=== PATIENT | female | born 1970 | race Caucasian/White ===

== ENCOUNTER 2020-07-01 20:58 | Emergency (ER) | payer MEDICARE, MEDICAID ==
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
[2020-07-01] MEDS ORDERED: Apixaban 5 MG Tab PO ONE (21:43)
[2020-07-01] MEDS ORDERED: Sodium Chloride 0.9% 1,000 ML IV SCH (21:45)
[2020-07-01] MEDS ORDERED: Lisinopril 10 MG Tab PO ONE (21:49)
[2020-07-01] MEDS ORDERED: Insulin Glarg,Human.Rec.Analog 100 Unit/ML SUBCUT ONE (22:10)
[2020-07-01] MEDS ORDERED: Insulin Regular, Human 100 Units/ML 3 ML Vial SUBCUT ONE (22:11)
[2020-07-01] MEDS ORDERED: Pantoprazole 40 MG Tab.CR PO ONE (22:18)
--- NOTE | 2020-07-01 22:23 | CR ---
Left tibia and fibula: AP and lateral views left tibia and fibula were obtained. Comparison: No previous study. Large plantar spur is noted. Severe medial joint space narrowing is noted within the knee. Osteophytes noted off the medial and lateral joint compartments of the knee. No acute fracture or other abnormality is appreciated. Impression: 1. Findings as noted above. 2. Nothing acute is seen on 2 view left tibia and fibula exam. Diagnostic code #2 Study was dictated in [facility]T
[2020-07-01] MEDS ORDERED: ALPRAZolam 1 MG Tab PO ONE (23:07)
[2020-07-02 00:02] LABS: HEMOGLOBIN A1C 8.1 % (4.50-6.20)
== END 2020-07-01 23:45 | disposition home or self-care (01) ==
LOC: JD.ED 20:58
DX: E11.65 Type 2 diabetes mellitus with hyperglycemia (principal); J45.909 Unspecified asthma, uncomplicated; F41.9 Anxiety disorder, unspecified; F32.9 Major depressive disorder, single episode, unspecified; E66.9 Obesity, unspecified; Z68.43 Body mass index [BMI] 50.0-59.9, adult; Z86.718 Personal history of other venous thrombosis and embolism; Z86.711 Personal history of pulmonary embolism; Z79.01 Long term (current) use of anticoagulants; Z79.899 Other long term (current) drug therapy; Z79.4 Long term (current) use of insulin; Z87.891 Personal history of nicotine dependence
CPT/HCPCS: 36415; 73590; 80053; 82009; 82962; 83036; 83735; 85025; 86140; 93005; 96360; 99284; A9270; J1815; J7030; 93010

== ENCOUNTER 2020-07-19 10:25 | Emergency (ER) | payer MEDICARE, MEDICAID ==
[2020-07-19] MEDS ORDERED: Sodium Chloride 0.9% 10 ML Syringe FLUSH PRN (11:06)
[2020-07-19] MEDS ORDERED: Sodium Chloride 0.9% 1,000 ML IV SCH (11:15)
--- NOTE | 2020-07-19 11:35 | EDM.PDOC ---
ED HPI GENERAL MEDICAL PROBLEM - General Chief Complaint: General Stated Complaint: DIABETIC COMPLAINT/ DIZZY Time Seen by Provider: 07/19/20 11:06 Source of Information: Reports: Patient, RN Notes Reviewed History Limitations: Reports: No Limitations - History of Present Illness INITIAL COMMENTS - FREE TEXT/NARRATIVE: Patient is a 49-year-old female who presents to the ED for the evaluation of her dizziness. Patient notes that she does have diabetes, and she felt like her blood sugar was low this morning, but she did end up taking it and it was 317 at home. She took her short acting and long-acting insulin, states 20 units, and then did not eat right afterwards. Her blood sugar in the ER is 332 at time of triage. She notes that she was dizzy about an hour before her clinic appointment today, she just did not feel quite well. So she comes to the ER for management. Primary care provider is Dillon Maynard, and she had labs taken last week. A1c is at 8.7. All other labs were fairly unremarkable. She notes that the dizziness was more of a world spinning dizziness, did not seem to be bothered by position changes. She states it was almost bad enough that she about fell down. She had some nausea and one episode of vomiting, but no intractable vomiting or diarrhea. She has not had any fevers or chills or any cough or shortness of breath. She also has a soft tissue complaint of her right heel/achilles tendon area. There is a lump on her right heel, that is roughly golf ball size, this is slightly tender to touch, but not red not warm to the touch, she states it does hurt to walk with this at this time. This lump has been present since 2016, and is getting more painful to walk; this is the reason for her concern. - Related Data Allergies Allergy/AdvReac Type Severity Reaction Status Date / Time amoxicillin Allergy Severe Rash Verified 07/19/20 10:44 erythromycin base Allergy Severe Rash Verified 07/19/20 10:44 diazepam [From Valium] AdvReac Severe Anxiety Verified 07/19/20 10:44 Home Meds: Home Meds ALPRAZolam [Xanax] 0.5 mg PO DAILY PRN 07/01/20 [History] ALPRAZolam [Xanax] 0.5 mg PO Q12H PRN #24 tablet 07/01/20 [Rx] Escitalopram Oxalate [Lexapro] 20 mg PO DAILY 07/01/20 [History] Escitalopram Oxalate [Lexapro] 20 mg PO DAILY #30 tablet 07/01/20 [Rx] Insulin Glarg,Human.Rec.Analog [Lantus Solostar] 20 units SQ BEDTIME #1 pen 07/01/20 [Rx] Insulin Regular, Human [Humulin R U-500 Kwikpen] 500 unit SQ TID PRN #1 insuln.pen 07/01/20 [Rx] atorvaSTATin Calcium [Lipitor] 10 mg PO DAILY #30 tablet 07/01/20 [Rx] atorvaSTATin [Lipitor] 10 mg PO BEDTIME 07/01/20 [History] lisinopriL [Lisinopril] 10 mg PO DAILY 07/01/20 [History] lisinopriL [Lisinopril] 10 mg PO DAILY #30 tablet 07/01/20 [Rx] Apixaban [Eliquis] 5 mg PO DAILY #30 tablet 07/02/20 [Rx] cephALEXin [Cephalexin] 500 mg PO QID 7 Days #28 capsule 07/19/20 [Rx] Past Medical History HEENT History: Reports: Impaired Vision Cardiovascular History: Reports: Blood Clots/VTE/DVT, Hypertension Respiratory History: Reports: Asthma, PE Gastrointestinal History: Reports: GERD, Irritable Bowel Syndrome Genitourinary History: Reports: UTI, Recurrent Musculoskeletal History: Reports: Fracture Neurological History: Reports: Headaches, Chronic Psychiatric History: Reports: Anxiety, Depression Endocrine/Metabolic History: Reports: Diabetes, Type II, Obesity/BMI 30+ Hematologic History: Reports: Other (See Below) Other Hematologic History: Pt states that she has a clotting disorder. - Past Surgical History HEENT Surgical History: Reports: Adenoidectomy, Tonsillectomy GI Surgical History: Reports: Cholecystectomy Female Surgical History: Reports: Breast Biopsy, Hysterectomy, Tubal Ligation Other Female Surgeries/Procedures: left breast biopsy Social & Family History - Tobacco Use Smoking Status *Q: Never Smoker - Caffeine Use Caffeine Use: Reports: Soda - Recreational Drug Use Recreational Drug Use: No - Living Situation & Occupation Living situation: Reports: with Significant Other Occupation: Unemployed ED ROS GENERAL - Review of Systems Review Of Systems: Comprehensive ROS is negative, except as noted in HPI. ED EXAM, GENERAL - Physical Exam Exam: See Below Exam Limited By: No Limitations General Appearance: Alert, WD/WN, No Apparent Distress, Anxious Throat/Mouth: Normal Inspection, Normal Lips, Normal Teeth, Normal Gums, Normal Oropharynx, Normal Voice, No Airway Compromise Head: Atraumatic, Normocephalic Neck: Normal Inspection Respiratory/Chest: No Respiratory Distress, Lungs Clear, Normal Breath Sounds, No Accessory Muscle Use, Chest Non-Tender Cardiovascular: Normal Peripheral Pulses, Regular Rate, Rhythm, No Murmur GI/Abdominal: Normal Bowel Sounds, Soft, Non-Tender, No Distention, No Mass Extremities: Normal Range of Motion, Non-Tender, Normal Capillary Refill, Other (roughly golf ball size lump on the patient's right heel/achilles area, this is only slightly tender, firm, non-mobile, hurts more with ambulation, ) Neurological: Alert, Oriented, CN II-XII Intact, Normal Cognition, No Motor/Sensory Deficits Psychiatric: Normal Affect, Normal Mood Skin Exam: Warm, Dry, Intact, Normal Color, No Rash EKG INTERPRETATION EKG Date: 07/19/20 Time: 13:25 Rhythm: NSR (sinus tach) Rate (Beats/Min): 119 [place]: Normal P-Wave: Present QRS: Normal ST-T: Normal QT: Prolonged (QTC at 527) EKG Interpretation Comments: No obvious ischemia or acute ST changes noted, reviewed by myself and Dr. Magaña. Course - Vital Signs Last Recorded V/S: Last Vital Signs Temp 96.4 F L 07/19/20 11:45 Pulse 123 H 07/19/20 14:00 Resp 32 H 07/19/20 14:00 BP 155/70 H 07/19/20 14:00 Pulse Ox 95 07/19/20 14:00 - Orders/Labs/Meds Orders: Active Orders 24 hr Category Date Time Status Blood Glucose Check, Bedside [] ONETIME Care 07/19/20 12:26 Ordered Blood Glucose Check, Bedside [] ONETIME Care 07/19/20 13:24 Ordered Blood Glucose Check, Bedside [] STAT Care 07/19/20 11:06 Active Communication Order [RC] STAT Care 07/19/20 11:06 Active EKG Documentation Completion [] STAT Care 07/19/20 12:25 Ordered Oxygen Therapy, ED [] ASDIRECTED Care 07/19/20 12:45 Active Peripheral IV Care [RC] . DIRECTED Care 07/19/20 11:07 Active Foot 2V Rt [CR] Stat Exams 07/19/20 11:17 Taken UA W/MICROSCOPIC [URIN] Stat Lab 07/19/20 11:06 Stop Req Sodium Chloride 0.9% [Normal Saline] 1,000 ml Med 07/19/20 11:15 Active IV ASDIRECTED Sodium Chloride 0.9% [Saline Flush] Med 07/19/20 11:06 Active 10 ml FLUSH ASDIRECTED PRN Peripheral IV Insertion Adult [OM.PC] Stat Oth 07/19/20 11:06 Ordered Medication Orders Sodium Chloride (Normal Saline) 1,000 mls @ 999 mls/hr IV ASDIRECTED SANDRA Last Admin: 07/19/20 11:18 Dose: 999 mls/hr Documented by: WANDA Sodium Chloride (Saline Flush) 10 ml FLUSH ASDIRECTED PRN PRN Reason: Keep Vein Open Last Admin: 07/19/20 11:18 Dose: 10 ml Documented by: WANDA Labs: Laboratory Tests 07/19/20 07/19/20 07/19/20 Range/Units 10:35 10:55 10:55 WBC 11.24 H (3.98-10.04) K/mm3 RBC 5.15 (3.98-5.22) M/mm3 Hgb 14.9 (11.2-15.7) gm/dl Hct 45.1 H (34.1-44.9) % MCV 87.6 (79.4-94.8) fl MCH 28.9 (25.6-32.2) pg MCHC 33.0 (32.2-35.5) g/dl RDW Std Deviation 43.0 (36.4-46.3) fL Plt Count 231 (182-369) K/mm3 MPV 11.3 (9.4-12.3) fl Neut % (Auto) 92.1 H (34.0-71.1) % Lymph % (Auto) 2.7 L (19.3-51.7) % Heard % (Auto) 4.7 (4.7-12.5) % Eos % (Auto) 0.1 L (0.7-5.8) Baso % (Auto) 0.2 (0.1-1.2) % Neut # (Auto) 10.36 H (1.56-6.13) K/mm3 Lymph # (Auto) 0.30 L (1.18-3.74) K/mm3 Heard # (Auto) 0.53 H (0.24-0.36) K/mm3 Eos # (Auto) 0.01 L (0.04-0.36) K/mm3 Baso # (Auto) 0.02 (0.01-0.08) K/mm3 Manual Slide Review Abnormal smear VBG pH (7.30-7.40) Sodium 135 L (136-145) mEq/L Potassium 2.8 L (3.5-5.1) mEq/L Chloride 96 L (98-107) mEq/L Carbon Dioxide 26 (21-32) mEq/L Anion Gap 15.8 H (5-15) BUN 6 L (7-18) mg/dL Creatinine 0.9 (0.55-1.02) mg/dL Est Cr Clr Drug Dosing 68.79 mL/min Estimated GFR (MDRD) > 60 (>60) mL/min BUN/Creatinine Ratio 6.7 L (14-18) Glucose 322 H (74-106) mg/dL POC Glucose 332 H (70-105) mg/dL Calcium 9.1 (8.5-10.1) mg/dL Phosphorus 1.2 L (2.6-4.7) mg/dL Magnesium 1.1 L (1.8-2.4) mg/dl Total Bilirubin 1.0 (0.2-1.0) mg/dL AST 22 (15-37) U/L ALT 23 (14-59) U/L Alkaline Phosphatase 104 (46-116) U/L Total Protein 7.4 (6.4-8.2) g/dl Albumin 3.1 L (3.4-5.0) g/dl Globulin 4.3 gm/dL Albumin/Globulin Ratio 0.7 L (1-2) Ketones (0.0-0.3) mM 07/19/20 07/19/20 Range/Units 10:55 11:20 WBC (3.98-10.04) K/mm3 RBC (3.98-5.22) M/mm3 Hgb (11.2-15.7) gm/dl Hct (34.1-44.9) % MCV (79.4-94.8) fl MCH (25.6-32.2) pg MCHC (32.2-35.5) g/dl RDW Std Deviation (36.4-46.3) fL Plt Count (182-369) K/mm3 MPV (9.4-12.3) fl Neut % (Auto) (34.0-71.1) % Lymph % (Auto) (19.3-51.7) % Heard % (Auto) (4.7-12.5) % Eos % (Auto) (0.7-5.8) Baso % (Auto) (0.1-1.2) % Neut # (Auto) (1.56-6.13) K/mm3 Lymph # (Auto) (1.18-3.74) K/mm3 Heard # (Auto) (0.24-0.36) K/mm3 Eos # (Auto) (0.04-0.36) K/mm3 Baso # (Auto) (0.01-0.08) K/mm3 Manual Slide Review VBG pH 7.45 H (7.30-7.40) Sodium (136-145) mEq/L Potassium (3.5-5.1) mEq/L Chloride (98-107) mEq/L Carbon Dioxide (21-32) mEq/L Anion Gap (5-15) BUN (7-18) mg/dL Creatinine (0.55-1.02) mg/dL Est Cr Clr Drug Dosing mL/min Estimated GFR (MDRD) (>60) mL/min BUN/Creatinine Ratio (14-18) Glucose (74-106) mg/dL POC Glucose (70-105) mg/dL Calcium (8.5-10.1) mg/dL Phosphorus (2.6-4.7) mg/dL Magnesium (1.8-2.4) mg/dl Total Bilirubin (0.2-1.0) mg/dL AST (15-37) U/L ALT (14-59) U/L Alkaline Phosphatase (46-116) U/L Total Protein (6.4-8.2) g/dl Albumin (3.4-5.0) g/dl Globulin gm/dL Albumin/Globulin Ratio (1-2) Ketones 0.10 (0.0-0.3) mM Meds: Medications Generic Name Dose Route Start Last Admin Trade Name Marco PRN Reason Stop Dose Admin Sodium Chloride 1,000 mls @ 999 mls/hr 07/19/20 11:15 07/19/20 11:18 Normal Saline IV 999 mls/hr ASDIRECTED SANDRA Administration Sodium Chloride 10 ml 07/19/20 11:06 07/19/20 11:18 Saline Flush FLUSH 10 ml ASDIRECTED PRN Administration Keep Vein Open Discontinued Medications Generic Name Dose Route Start Last Admin Trade Name Marco PRN Reason Stop Dose Admin Magnesium Sulfate 2 gm/ Premix 50 mls @ 25 mls/hr 07/19/20 12:06 07/19/20 12:24 IV 07/19/20 14:05 25 mls/hr ONETIME ONE Administration Sodium Chloride 1,000 mls @ 999 mls/hr 07/19/20 12:26 07/19/20 12:30 Normal Saline IV 07/19/20 13:26 999 mls/hr ONETIME ONE Administration Lorazepam 1 mg 07/19/20 12:09 07/19/20 12:18 Ativan IVPUSH 07/19/20 12:10 1 mg ONETIME ONE Administration Metoclopramide HCl 10 mg 07/19/20 11:51 07/19/20 11:56 Reglan IVPUSH 07/19/20 11:52 10 mg ONETIME ONE Administration Potassium Chloride 40 meq 07/19/20 12:06 07/19/20 12:19 Klor-Con M20 PO 07/19/20 12:07 40 meq ONETIME ONE Administration - Re-Assessments/Exams Free Text/Narrative Re-Assessment/Exam: 07/19/20 11:43 Patient presents to the ED for evaluation of her multiple complaints. Have ordered IV with some IV fluids to bring down the blood sugar initially, baseline labs, and a foot x-ray to try to evaluate the area on her heel. She will likely have to follow with Dillon Maynard for any sort of further management as this does not seem to be a life-threatening illness. We will get blood sugar after the initial bolus of fluids have been given. 07/19/20 12:13 The patient's foot x-ray did demonstrate no evidence of acute fracture, there were well-corticated avulsion fractures from the posterior aspect of the calcaneus, this may playing her heel issue. Patient's potassium was mildly low at 2.8, her magnesium was also low at 1.1, blood sugar still in the 300s on the metabolic panel taken at the time of triage, the patient's white cell count is mildly elevated 11,000, with 90% neutrophils, no bands seen on auto differential. Review of her old labs do demonstrate the possibility of an ongoing UTI, patient did report that she was feeling a little bit nauseous again, so she did receive 10 mg Reglan, along with 1 mg Ativan for her anxiety. 07/19/20 12:40 Patient's repeat blood sugar was 236, an appropriate size blood pressure cuff was a placed on the patient's arm, and a repeat blood pressure was in the 170s. Nursing staff were given to be concerned as it was in the 200s systolically but she had the wrong size cuff on her arm. I do believe that the systolic reading of the 170 is is more accurate at this time. 07/19/20 14:06 The patient was reassessed at bedside, after a bag and a half of fluids, her blood sugar is still in the 270s. Patient notes she is feeling better, and after the magnesium she would like to go home and take her insulin on a sliding scale, this is okay with me. Patient was laying flat, and I was able to assess her skin more thoroughly, does appear that she has a cellulitis in her left groin area, as well as a midline fungal infection in his skin fold on her abdomen. I did explain to her she should put some athlete's foot cream on the skin fold in the midline, should be given a prescription for antibiotics for the suspected cellulitis. Departure - Departure Time of Disposition: 14:09 Disposition: Home, Self-Care 01 Condition: Good Clinical Impression: Hypomagnesemia, Elevated blood sugar level, Hypokalemia, Cellulitis of groin, left, Skin yeast infection - Discharge Information *PRESCRIPTION DRUG MONITORING PROGRAM REVIEWED*: No *COPY OF PRESCRIPTION DRUG MONITORING REPORT IN PATIENT SHERIE: No Instructions: Cellulitis, Adult, [id number], Skin Yeast Infection Referrals: Bryce Maynard RN OFFICE [Primary Care Provider] - Forms: ED Department Discharge Additional Instructions: You were evaluated in the ER today regarding a few different complaints.. It does appear that you have a cellulitis in your left groin. Your skin was marked around the borders of the redness, if this redness should extend 2 finger widths past this initial marybeth, recommend you seek care for re-evaluation. You were given an antibiotic, cephalexin 500 mg 4 times daily x7 days. Please take as prescribed until the course is done or told otherwise by different provider. Please note that this antibiotic will take at least 48 hours to start working appropriately. You also have a suspected fungal infection of the skin or a yeast infection of the skin fold on your midline abdomen, please obtain some [id number] antifungal medication like Lotrimin or another similar athlete's foot cream, and apply this to that area daily. Please try to keep that area clean and dry, you may use antifungal body powders as well to help further remedy this infection. Your labs also demonstrated a low potassium level and a low magnesium level, both of which you were given supplementation for in the ER. You should have these labs rechecked sometime within the next week or so by your primary care provider to make sure that everything is getting back to normal as expected. Your blood sugar at time of discharge was still 237, I recommend you go home, take your insulin on a sliding scale as prescribed by your regular provider. You were given IV fluids, to help counteract the elevated blood sugar level you had in the ER. No insulin or meds for your blood sugar were given at today's visit. Your hemoglobin A1c taken on July 15, was 8.7. Please follow-up with your primary care provider, Dillon Maynard, sometime within the next week for an ER follow-up. Please return to the ER at any time if your symptoms change or worsen. Sepsis Event Note (ED) - Evaluation Sepsis Screening Result: Possible Sepsis Risk - Focused Exam Vital Signs: Vital Signs Temp Pulse Resp BP Pulse Ox 07/19/20 14:00 123 H 32 H 155/70 H 95 07/19/20 11:45 96.4 F L 124 H 32 H 168/99 H 94 L 07/19/20 10:39 95.5 F L 128 H 36 H 149/85 H 92 L - My Orders Last 24 Hours: My Active Orders 07/19/20 11:06 Blood Glucose Check, Bedside [RC] STAT Communication Order [RC] STAT UA W/MICROSCOPIC [URIN] Stat Sodium Chloride 0.9% [Saline Flush] 10 ml FLUSH ASDIRECTED PRN Peripheral IV Insertion Adult [OM.PC] Stat 07/19/20 11:07 Peripheral IV Care [RC] . DIRECTED 07/19/20 11:15 Sodium Chloride 0.9% [Normal Saline] 1,000 ml IV ASDIRECTED 07/19/20 11:17 Foot 2V Rt [CR] Stat 07/19/20 12:25 EKG Documentation Completion [RC] STAT 07/19/20 12:26 Blood Glucose Check, Bedside [RC] ONETIME 07/19/20 12:45 Oxygen Therapy, ED [RC] ASDIRECTED 07/19/20 13:24 Blood Glucose Check, Bedside [RC] ONETIME - Assessment/Plan Last 24 Hours: My Active Orders 07/19/20 11:06 Blood Glucose Check, Bedside [RC] STAT Communication Order [RC] STAT UA W/MICROSCOPIC [URIN] Stat Sodium Chloride 0.9% [Saline Flush] 10 ml FLUSH ASDIRECTED PRN Peripheral IV Insertion Adult [OM.PC] Stat 07/19/20 11:07 Peripheral IV Care [RC] . DIRECTED 07/19/20 11:15 Sodium Chloride 0.9% [Normal Saline] 1,000 ml IV ASDIRECTED 07/19/20 11:17 Foot 2V Rt [CR] Stat 07/19/20 12:25 EKG Documentation Completion [RC] STAT 07/19/20 12:26 Blood Glucose Check, Bedside [RC] ONETIME 07/19/20 12:45 Oxygen Therapy, ED [RC] ASDIRECTED 07/19/20 13:24 Blood Glucose Check, Bedside [RC] ONETIME
[2020-07-19] MEDS ORDERED: Metoclopramide 10 MG/2 ML SDV IVPUSH ONE (11:51)
[2020-07-19] MEDS ORDERED: Magnesium Sulfate/Water 2 GM in Premix Bag 1 BAG IV ONE (12:06)
[2020-07-19] MEDS ORDERED: Potassium Chloride 20 MEQ Tab.ER PO ONE (12:06)
[2020-07-19] MEDS ORDERED: LORazepam 2 MG/ML SDV IVPUSH ONE (12:09)
[2020-07-19] MEDS ORDERED: Sodium Chloride 0.9% 1,000 ML IV ONE (12:26)
== END 2020-07-19 14:50 | disposition home or self-care (01) ==
LOC: JD.ED 10:25
DX: E11.65 Type 2 diabetes mellitus with hyperglycemia (principal); E83.42 Hypomagnesemia; E87.6 Hypokalemia; L03.314 Cellulitis of groin; B37.2 Candidiasis of skin and nail; D72.829 Elevated white blood cell count, unspecified; R00.0 Tachycardia, unspecified; I10 Essential (primary) hypertension; J45.909 Unspecified asthma, uncomplicated; F41.9 Anxiety disorder, unspecified; F32.9 Major depressive disorder, single episode, unspecified; E66.9 Obesity, unspecified; Z68.43 Body mass index [BMI] 50.0-59.9, adult; Z86.718 Personal history of other venous thrombosis and embolism; Z86.711 Personal history of pulmonary embolism; Z88.1 Allergy status to other antibiotic agents; Z88.8 Allergy status to other drugs, medicaments and biological substances; Z79.4 Long term (current) use of insulin; Z79.01 Long term (current) use of anticoagulants; Z79.899 Other long term (current) drug therapy
CPT/HCPCS: 36415; 73620; 80053; 82009; 82800; 82962; 83735; 84100; 85025; 93005; 96365; 96366; 96375; 99285; A9270; J2060; J2765; J3475; J7030

== ENCOUNTER 2020-07-19 20:21 | Inpatient (IN) | payer MEDICARE, MEDICAID ==
[2020-07-19] MEDS ORDERED: Sodium Chloride 0.9% 10 ML Syringe FLUSH PRN (20:35)
[2020-07-19] MEDS ORDERED: Sodium Chloride 0.9% 1,000 ML IV SCH ×2 (20:45→21:45)
--- NOTE | 2020-07-19 20:57 | EDM.PDOC ---
ED HPI GENERAL MEDICAL PROBLEM - General Chief Complaint: Diabetic Complaint Stated Complaint: [facility] Time Seen by Provider: 07/19/20 20:37 Source of Information: Reports: Patient, RN Notes Reviewed History Limitations: Reports: No Limitations - History of Present Illness INITIAL COMMENTS - FREE TEXT/NARRATIVE: Patient is a 49-year-old female who is brought in via the [facility] for evaluation of her unresponsive episode. Per ambulance staff, they were called out for a patient who is unresponsive. She is a diabetic, and was recently seen in this ER today by myself, and was treated with IV fluids, IV magnesium, p.o. potassium and sent home with general recommendations as she was feeling well and wanted to go home at that time. Patient states she did go home, and she thinks she took her insulin but cannot really remember if she did if she did not. Her blood sugar at time of triage here is over 400 with her bedside glucometer. Patient is very diaphoretic and lethargic. She was also found to have a cellulitis in her left groin. She states she did not fall or hit anything, she is not having pain anywhere. She is not having any nausea or vomiting. Patient was incontinent of bowel and bladder upon arrival to the ER. Patient does know that she took her insulin earlier this morning, but cannot remember if she took it this afternoon. She states that the events of the afternoon are little hazy. - Related Data Allergies Allergy/AdvReac Type Severity Reaction Status Date / Time amoxicillin Allergy Severe Rash Verified 07/19/20 20:32 erythromycin base Allergy Severe Rash Verified 07/19/20 20:32 diazepam [From Valium] AdvReac Severe Anxiety Verified 07/19/20 20:32 Home Meds: Home Meds ALPRAZolam [Xanax] 0.5 mg PO Q12H PRN #24 tablet 07/01/20 [Rx] Escitalopram Oxalate [Lexapro] 20 mg PO DAILY #30 tablet 07/01/20 [Rx] Insulin Glarg,Human.Rec.Analog [Lantus Solostar] 20 units SQ BEDTIME #1 pen 07/01/20 [Rx] Insulin Regular, Human [Humulin R U-500 Kwikpen] 500 unit SQ TID PRN #1 insuln.pen 07/01/20 [Rx] atorvaSTATin [Lipitor] 10 mg PO BEDTIME 07/01/20 [History] lisinopriL [Lisinopril] 10 mg PO DAILY #30 tablet 07/01/20 [Rx] Apixaban [Eliquis] 5 mg PO DAILY #30 tablet 07/02/20 [Rx] cephALEXin [Cephalexin] 500 mg PO QID 7 Days #28 capsule 07/19/20 [Rx] Past Medical History HEENT History: Reports: Impaired Vision Cardiovascular History: Reports: Blood Clots/VTE/DVT, Hypertension Respiratory History: Reports: Asthma, PE Gastrointestinal History: Reports: GERD, Irritable Bowel Syndrome Genitourinary History: Reports: UTI, Recurrent Musculoskeletal History: Reports: Fracture Neurological History: Reports: Headaches, Chronic Psychiatric History: Reports: Anxiety, Depression Endocrine/Metabolic History: Reports: Diabetes, Type II, Obesity/BMI 30+ Hematologic History: Reports: Other (See Below) Other Hematologic History: Pt states that she has a clotting disorder. - Past Surgical History HEENT Surgical History: Reports: Adenoidectomy, Tonsillectomy GI Surgical History: Reports: Cholecystectomy Female Surgical History: Reports: Breast Biopsy, Hysterectomy, Tubal Ligation Other Female Surgeries/Procedures: left breast biopsy Social & Family History - Tobacco Use Smoking Status *Q: Never Smoker - Caffeine Use Caffeine Use: Reports: Soda - Recreational Drug Use Recreational Drug Use: No - Living Situation & Occupation Living situation: Reports: with Significant Other Occupation: Unemployed ED ROS GENERAL - Review of Systems Review Of Systems: Comprehensive ROS is negative, except as noted in HPI. ED EXAM GENERAL NO PERIP PULSE - Physical Exam Exam: See Below Exam Limited By: No Limitations General Appearance: Alert, Lethargic (pt does answer questions when prompted, she is generally diaphoretic and mildly tachypneic; but in no obvious respiratory distress.), Obese Eye Exam: Bilateral Eye: EOMI, Normal Inspection, PERRL (pupils visibly dilated) Throat/Mouth: Normal Inspection, Normal Lips, Normal Teeth, Normal Gums, Normal Oropharynx, Normal Voice, No Airway Compromise Head: Atraumatic, Normocephalic Neck: Normal Inspection, Supple, Non-Tender, Full Range of Motion Respiratory/Chest: No Respiratory Distress, Lungs Clear, Normal Breath Sounds, No Accessory Muscle Use, Chest Non-Tender Cardiovascular: Normal Peripheral Pulses, Regular Rate, Rhythm, No Edema, No Murmur GI/Abdominal: Normal Bowel Sounds, Soft, Non-Tender, No Distention, No Mass, Other (cellulitis area to left groin, along with the suspected fungal infection to the midline abdomen) Extremities: Normal Inspection, Normal Capillary Refill Neurological: Alert, Oriented, No Motor/Sensory Deficits Psychiatric: Normal Affect, Normal Mood Skin Exam: Warm, Dry, Intact, No Rash, Erythema (area compatible with cellulitis on left groin, and area compatible with fungal skin infection on the patients midline lower abdomen.), Increased Warmth (left groin cellulitis area.) Course - Vital Signs Last Recorded V/S: Last Vital Signs Temp Pulse 132 H 07/19/20 20:30 Resp 30 H 07/19/20 20:30 BP Pulse Ox 96 07/19/20 20:40 - Orders/Labs/Meds Orders: Active Orders 24 hr Category Date Time Status Admission Status [Patient Status] [ADT] Routine ADT 07/19/20 22:13 Ordered Blood Glucose Check, Bedside [RC] Q1HR Care 07/19/20 20:35 Active Cardiac Monitoring [RC] CONTINUOUS Care 07/19/20 20:35 Active Communication Order [RC] STAT Care 07/19/20 20:35 Active Peripheral IV Care [RC] . DIRECTED Care 07/19/20 20:36 Active CULTURE BLOOD [BC] Stat Lab 07/19/20 21:00 Received CULTURE BLOOD [BC] Stat Lab 07/19/20 21:08 Received CULTURE URINE [RM] Routine Lab 07/19/20 20:50 Received REFLEX LACTIC ACID YES OR NO [CHEM] Routine Lab 07/19/20 21:52 Received Insulin Regular, Human [HumuLIN R] 100 unit Med 07/19/20 21:15 Active Sodium Chloride 0.9% [Normal Saline] 99 ml IV TITRATE Sodium Chloride 0.9% [Normal Saline] 1,000 ml Med 07/19/20 20:45 Active IV ASDIRECTED Sodium Chloride 0.9% [Normal Saline] 1,000 ml Med 07/19/20 21:45 Active IV ASDIRECTED Sodium Chloride 0.9% [Normal Saline] 1,000 ml Med 07/19/20 22:24 Ordered IV ONETIME Sodium Chloride 0.9% [Saline Flush] Med 07/19/20 20:35 Active 10 ml FLUSH ASDIRECTED PRN Blood Culture x2 Reflex Set [OM.PC] Stat Oth 07/19/20 20:35 Ordered Peripheral IV Insertion Adult [OM.PC] Stat Oth 07/19/20 20:35 Ordered Medication Orders Sodium Chloride (Normal Saline) 1,000 mls @ 999 mls/hr IV ASDIRECTED SANDRA Last Admin: 07/19/20 20:42 Dose: 999 mls/hr Documented by: ALIN Insulin Human Regular 100 unit (/ Sodium Chloride) 100 mls @ 15 mls/hr IV TITRATE SANDRA; Protocol Last Admin: 07/19/20 21:47 Dose: 0.1 units/kg/hr, 15 mls/hr Documented by: ANDREAS Cosigned by: ALIN Sodium Chloride (Normal Saline) 1,000 mls @ 999 mls/hr IV ASDIRECTED SANDRA Last Admin: 07/19/20 21:47 Dose: 999 mls/hr Documented by: ANDREAS Sodium Chloride (Normal Saline) 1,000 mls @ 150 mls/hr IV ONETIME ONE Stop: 07/20/20 05:03 Sodium Chloride (Saline Flush) 10 ml FLUSH ASDIRECTED PRN PRN Reason: Keep Vein Open Last Admin: 07/19/20 20:42 Dose: 10 ml Documented by: ALIN Labs: Laboratory Tests 07/19/20 07/19/20 07/19/20 Range/Units 20:50 20:50 20:50 WBC (3.98-10.04) K/mm3 RBC (3.98-5.22) M/mm3 Hgb (11.2-15.7) gm/dl Hct (34.1-44.9) % MCV (79.4-94.8) fl MCH (25.6-32.2) pg MCHC (32.2-35.5) g/dl RDW Std Deviation (36.4-46.3) fL Plt Count (182-369) K/mm3 MPV (9.4-12.3) fl Neut % (Auto) (34.0-71.1) % Lymph % (Auto) (19.3-51.7) % [place] % (Auto) (4.7-12.5) % Eos % (Auto) (0.7-5.8) Baso % (Auto) (0.1-1.2) % Neut # (Auto) (1.56-6.13) K/mm3 Lymph # (Auto) (1.18-3.74) K/mm3 [place] # (Auto) (0.24-0.36) K/mm3 Eos # (Auto) (0.04-0.36) K/mm3 Baso # (Auto) (0.01-0.08) K/mm3 Manual Slide Review VBG pH (7.30-7.40) Sodium (136-145) mEq/L Potassium (3.5-5.1) mEq/L Chloride (98-107) mEq/L Carbon Dioxide (21-32) mEq/L Anion Gap (5-15) BUN (7-18) mg/dL Creatinine (0.55-1.02) mg/dL Est Cr Clr Drug Dosing mL/min Estimated GFR (MDRD) (>60) mL/min BUN/Creatinine Ratio (14-18) Glucose (74-106) mg/dL Lactic Acid (0.4-2.0) mmol/L Calcium (8.5-10.1) mg/dL Phosphorus (2.6-4.7) mg/dL Magnesium (1.8-2.4) mg/dl Total Bilirubin (0.2-1.0) mg/dL AST (15-37) U/L ALT (14-59) U/L Alkaline Phosphatase (46-116) U/L Total Protein (6.4-8.2) g/dl Albumin (3.4-5.0) g/dl Globulin gm/dL Albumin/Globulin Ratio (1-2) Urine Color Yellow (Yellow) Urine Appearance Cloudy H (Clear) Urine pH 6.5 (5.0-8.0) Ur Specific [place] 1.025 (1.005-1.030) Urine Protein 3+ H (Negative) Urine Glucose (UA) 2+ H (Negative) Urine Ketones Trace H (Negative) Urine Occult Blood 3+ H (Negative) Urine Nitrite Negative (Negative) Urine Bilirubin Negative (Negative) Urine Urobilinogen 0.2 (0.2-1.0) Ur Leukocyte Esterase Trace H (Negative) Urine RBC 0-5 (0-5) /hpf Urine WBC Too numerous to cnt H (0-5) /hpf Ur Squamous Epith Cells 0-5 (0-5) /hpf Urine Bacteria Few (FEW) /hpf Urine Mucus Not seen (FEW) /hpf Urine Opiates Screen Negative (UXZRZI=773) Ur Buprenorphine Scrn Negative (CUTOFF=10) Ur Oxycodone Screen Negative (LZE7XG=025) Urine Methadone Screen Negative (UWJKEZ=672) Ur Propoxyphene Screen Negative (KHVUPK=335) Ur Barbiturates Screen Negative (BRYNSX=733) Ur Tricyclics Screen Negative (IPIJAU=672) Ur Phencyclidine Scrn Negative (CUTOFF=25) Ur Amphetamine Screen Negative (FDWZUI=964) U Methamphetamines Scrn Negative (OVLESA=837) U Benzodiazepines Scrn Negative (XHQAER=423) U Cocaine Metab Screen Negative (HNQEXU=124) U Marijuana (THC) Screen Negative (CUTOFF=50) Ketones (0.0-0.3) mM SARS-CoV-2 RNA (CHERYL) Negative (NEGATIVE) 07/19/20 07/19/20 07/19/20 Range/Units 21:00 21:00 21:00 WBC 8.05 (3.98-10.04) K/mm3 RBC 5.01 (3.98-5.22) M/mm3 Hgb 14.4 (11.2-15.7) gm/dl Hct 44.2 (34.1-44.9) % MCV 88.2 (79.4-94.8) fl MCH 28.7 (25.6-32.2) pg MCHC 32.6 (32.2-35.5) g/dl RDW Std Deviation 44.0 (36.4-46.3) fL Plt Count 198 (182-369) K/mm3 MPV 11.2 (9.4-12.3) fl Neut % (Auto) 92.9 H (34.0-71.1) % Lymph % (Auto) 4.5 L (19.3-51.7) % [place] % (Auto) 1.9 L (4.7-12.5) % Eos % (Auto) 0 L (0.7-5.8) Baso % (Auto) 0.1 (0.1-1.2) % Neut # (Auto) 7.48 H (1.56-6.13) K/mm3 Lymph # (Auto) 0.36 L (1.18-3.74) K/mm3 [place] # (Auto) 0.15 L (0.24-0.36) K/mm3 Eos # (Auto) 0.00 L (0.04-0.36) K/mm3 Baso # (Auto) 0.01 (0.01-0.08) K/mm3 Manual Slide Review Abnormal smear VBG pH (7.30-7.40) Sodium 136 (136-145) mEq/L Potassium 2.6 L (3.5-5.1) mEq/L Chloride 99 (98-107) mEq/L Carbon Dioxide 19 L (21-32) mEq/L Anion Gap 20.6 H (5-15) BUN 11 (7-18) mg/dL Creatinine 1.6 H (0.55-1.02) mg/dL Est Cr Clr Drug Dosing 38.69 mL/min Estimated GFR (MDRD) 34 (>60) mL/min BUN/Creatinine Ratio 6.9 L (14-18) Glucose 428 H (74-106) mg/dL Lactic Acid 4.9 H* (0.4-2.0) mmol/L Calcium 8.6 (8.5-10.1) mg/dL Phosphorus 1.0 L (2.6-4.7) mg/dL Magnesium 1.5 L (1.8-2.4) mg/dl Total Bilirubin 1.2 H (0.2-1.0) mg/dL AST 43 H (15-37) U/L ALT 25 (14-59) U/L Alkaline Phosphatase 149 H (46-116) U/L Total Protein 6.7 (6.4-8.2) g/dl Albumin 2.7 L (3.4-5.0) g/dl Globulin 4.0 gm/dL Albumin/Globulin Ratio 0.7 L (1-2) Urine Color (Yellow) Urine Appearance (Clear) Urine pH (5.0-8.0) Ur Specific [place] (1.005-1.030) Urine Protein (Negative) Urine Glucose (UA) (Negative) Urine Ketones (Negative) Urine Occult Blood (Negative) Urine Nitrite (Negative) Urine Bilirubin (Negative) Urine Urobilinogen (0.2-1.0) Ur Leukocyte Esterase (Negative) Urine RBC (0-5) /hpf Urine WBC (0-5) /hpf Ur Squamous Epith Cells (0-5) /hpf Urine Bacteria (FEW) /hpf Urine Mucus (FEW) /hpf Urine Opiates Screen (NYNMMT=561) Ur Buprenorphine Scrn (CUTOFF=10) Ur Oxycodone Screen (YIM8RY=166) Urine Methadone Screen (HGFJVK=691) Ur Propoxyphene Screen (TOZGTT=487) Ur Barbiturates Screen (BRUZXE=017) Ur Tricyclics Screen (KEZSCI=322) Ur Phencyclidine Scrn (CUTOFF=25) Ur Amphetamine Screen (ZUCXYR=124) U Methamphetamines Scrn (VRIDXA=610) U Benzodiazepines Scrn (FCBWVM=711) U Cocaine Metab Screen (IMYVLW=167) U Marijuana (THC) Screen (CUTOFF=50) Ketones (0.0-0.3) mM SARS-CoV-2 RNA (CHERYL) (NEGATIVE) 07/19/20 07/19/20 Range/Units 21:08 22:10 WBC (3.98-10.04) K/mm3 RBC (3.98-5.22) M/mm3 Hgb (11.2-15.7) gm/dl Hct (34.1-44.9) % MCV (79.4-94.8) fl MCH (25.6-32.2) pg MCHC (32.2-35.5) g/dl RDW Std Deviation (36.4-46.3) fL Plt Count (182-369) K/mm3 MPV (9.4-12.3) fl Neut % (Auto) (34.0-71.1) % Lymph % (Auto) (19.3-51.7) % [place] % (Auto) (4.7-12.5) % Eos % (Auto) (0.7-5.8) Baso % (Auto) (0.1-1.2) % Neut # (Auto) (1.56-6.13) K/mm3 Lymph # (Auto) (1.18-3.74) K/mm3 [place] # (Auto) (0.24-0.36) K/mm3 Eos # (Auto) (0.04-0.36) K/mm3 Baso # (Auto) (0.01-0.08) K/mm3 Manual Slide Review VBG pH 7.37 (7.30-7.40) Sodium (136-145) mEq/L Potassium (3.5-5.1) mEq/L Chloride (98-107) mEq/L Carbon Dioxide (21-32) mEq/L Anion Gap (5-15) BUN (7-18) mg/dL Creatinine (0.55-1.02) mg/dL Est Cr Clr Drug Dosing mL/min Estimated GFR (MDRD) (>60) mL/min BUN/Creatinine Ratio (14-18) Glucose (74-106) mg/dL Lactic Acid (0.4-2.0) mmol/L Calcium (8.5-10.1) mg/dL Phosphorus (2.6-4.7) mg/dL Magnesium (1.8-2.4) mg/dl Total Bilirubin (0.2-1.0) mg/dL AST (15-37) U/L ALT (14-59) U/L Alkaline Phosphatase (46-116) U/L Total Protein (6.4-8.2) g/dl Albumin (3.4-5.0) g/dl Globulin gm/dL Albumin/Globulin Ratio (1-2) Urine Color (Yellow) Urine Appearance (Clear) Urine pH (5.0-8.0) Ur Specific [place] (1.005-1.030) Urine Protein (Negative) Urine Glucose (UA) (Negative) Urine Ketones (Negative) Urine Occult Blood (Negative) Urine Nitrite (Negative) Urine Bilirubin (Negative) Urine Urobilinogen (0.2-1.0) Ur Leukocyte Esterase (Negative) Urine RBC (0-5) /hpf Urine WBC (0-5) /hpf Ur Squamous Epith Cells (0-5) /hpf Urine Bacteria (FEW) /hpf Urine Mucus (FEW) /hpf Urine Opiates Screen (PCOSPX=861) Ur Buprenorphine Scrn (CUTOFF=10) Ur Oxycodone Screen (OFB5FX=333) Urine Methadone Screen (FKYCSJ=966) Ur Propoxyphene Screen (SRWYQA=523) Ur Barbiturates Screen (CHVQQT=208) Ur Tricyclics Screen (JWVUGM=938) Ur Phencyclidine Scrn (CUTOFF=25) Ur Amphetamine Screen (DATAOJ=059) U Methamphetamines Scrn (XFJMKZ=904) U Benzodiazepines Scrn (EIDEXV=184) U Cocaine Metab Screen (WDCVMT=798) U Marijuana (THC) Screen (CUTOFF=50) Ketones 0.13 (0.0-0.3) mM SARS-CoV-2 RNA (CHERYL) (NEGATIVE) Meds: Medications Generic Name Dose Route Start Last Admin Trade Name Freq PRN Reason Stop Dose Admin Sodium Chloride 1,000 mls @ 999 mls/hr 07/19/20 20:45 07/19/20 20:42 Normal Saline IV 999 mls/hr ASDIRECTED SANDRA Administration Insulin Human Regular 100 unit 100 mls @ 15 mls/hr 07/19/20 21:15 07/19/20 21:47 / Sodium Chloride IV 0.1 units/kg/hr TITRATE SANDRA 15 mls/hr Administration Protocol 0.1 UNITS/KG/HR Sodium Chloride 1,000 mls @ 999 mls/hr 07/19/20 21:45 07/19/20 21:47 Normal Saline IV 999 mls/hr ASDIRECTED SANDRA Administration Sodium Chloride 1,000 mls @ 150 mls/hr 07/19/20 22:24 Normal Saline IV 07/20/20 05:03 ONETIME ONE Sodium Chloride 10 ml 07/19/20 20:35 07/19/20 20:42 Saline Flush FLUSH 10 ml ASDIRECTED PRN Administration Keep Vein Open Discontinued Medications Generic Name Dose Route Start Last Admin Trade Name Freq PRN Reason Stop Dose Admin Ceftriaxone Sodium 2 gm/ 100 mls @ 200 mls/hr 07/19/20 21:21 07/19/20 21:47 Sodium Chloride IV 07/19/20 21:50 200 mls/hr ONETIME ONE Administration - Re-Assessments/Exams Free Text/Narrative Re-Assessment/Exam: 07/19/20 20:59 Patient presents to the ED for evaluation of her elevated blood sugar and unresponsive episode. Patient is not able to give much for history after discharge this afternoon. It does appear that her blood sugar has skyrocketed again, is over 400 at time of triage. Labs will be obtained again, and I do believe the patient would be a good candidate for IV insulin drip, and admission to hospital for further management. 07/19/20 21:58 I insulin drip has been started, the patient's blood sugar was found to be 428, her COVID test was negative. Her map is 78 blood pressure 112/62. Lactic acid was found to be elevated at 4.9, using ideal body weight, she has been started on a second bag of fluids as I was made aware she does meet sepsis criteria at this time. Based on our calculations she should get roughly 1900 mils of fluid for the ideal body weight bolus. I did call Dr. Pichardo at this time for hospital admission, and he does tentatively accept and will be in to evaluate the patient. The patient's potassium again is low at 2.6, magnesium is a little improved from earlier at 1.5, but still low. 07/19/20 22:16 The patient's blood pressure is 139/65 at re-examination, cap refill is acceptable. A Sepsis focused exam was performed, the patient does seem to tolerate the fluid bolus well. She has roughly 400-500mL left before the bolus is done infusing. 07/19/20 22:27 As it is nearing the end of my shift, I did brief Dr. Mai on the patient, and he will attend the patient's blood glucose levels, and insulin drip management until the patient is admitted to ICU. Departure - Departure Time of Disposition: 22:07 Disposition: Admitted As Inpatient 67 Condition: Fair Clinical Impression: Sepsis due to urinary tract infection, Cellulitis of groin Uncontrolled diabetes mellitus Qualifiers: Diabetes mellitus type: due to underlying condition Glycemic state: with hyperglycemia Qualified Code(s): E08.65 - Diabetes mellitus due to underlying condition with hyperglycemia - Discharge Information *PRESCRIPTION DRUG MONITORING PROGRAM REVIEWED*: No *COPY OF PRESCRIPTION DRUG MONITORING REPORT IN PATIENT SHERIE: No Referrals: PCP,None [Primary Care Provider] - Forms: ED Department Discharge Sepsis Event Note (ED) - Evaluation Sepsis Screening Result: Possible Sepsis Risk - Focused Exam Vital Signs: Vital Signs Pulse Resp Pulse Ox Pulse Ox 07/19/20 20:40 96 07/19/20 20:30 132 H 30 H 90 L - My Orders Last 24 Hours: My Active Orders 07/19/20 20:35 Blood Glucose Check, Bedside [RC] Q1HR Cardiac Monitoring [RC] CONTINUOUS Communication Order [RC] STAT Sodium Chloride 0.9% [Saline Flush] 10 ml FLUSH ASDIRECTED PRN Blood Culture x2 Reflex Set [OM.PC] Stat Peripheral IV Insertion Adult [OM.PC] Stat 07/19/20 20:36 Peripheral IV Care [RC] . DIRECTED 07/19/20 20:45 Sodium Chloride 0.9% [Normal Saline] 1,000 ml IV ASDIRECTED 07/19/20 20:50 CULTURE URINE [RM] Routine 07/19/20 21:00 CULTURE BLOOD [BC] Stat 07/19/20 21:08 CULTURE BLOOD [BC] Stat 07/19/20 21:15 Insulin Regular, Human [HumuLIN R] 100 unit Sodium Chloride 0.9% [Normal Saline] 99 ml IV TITRATE 07/19/20 21:45 Sodium Chloride 0.9% [Normal Saline] 1,000 ml IV ASDIRECTED 07/19/20 21:52 REFLEX LACTIC ACID YES OR NO [CHEM] Routine 07/19/20 22:13 Admission Status [Patient Status] [ADT] Routine 07/19/20 22:24 Sodium Chloride 0.9% [Normal Saline] 1,000 ml IV ONETIME - Assessment/Plan Last 24 Hours: My Active Orders 07/19/20 20:35 Blood Glucose Check, Bedside [RC] Q1HR Cardiac Monitoring [RC] CONTINUOUS Communication Order [RC] STAT Sodium Chloride 0.9% [Saline Flush] 10 ml FLUSH ASDIRECTED PRN Blood Culture x2 Reflex Set [OM.PC] Stat Peripheral IV Insertion Adult [OM.PC] Stat 07/19/20 20:36 Peripheral IV Care [RC] . DIRECTED 07/19/20 20:45 Sodium Chloride 0.9% [Normal Saline] 1,000 ml IV ASDIRECTED 07/19/20 20:50 CULTURE URINE [RM] Routine 07/19/20 21:00 CULTURE BLOOD [BC] Stat 07/19/20 21:08 CULTURE BLOOD [BC] Stat 07/19/20 21:15 Insulin Regular, Human [HumuLIN R] 100 unit Sodium Chloride 0.9% [Normal Saline] 99 ml IV TITRATE 07/19/20 21:45 Sodium Chloride 0.9% [Normal Saline] 1,000 ml IV ASDIRECTED 07/19/20 21:52 REFLEX LACTIC ACID YES OR NO [CHEM] Routine 07/19/20 22:13 Admission Status [Patient Status] [ADT] Routine 07/19/20 22:24 Sodium Chloride 0.9% [Normal Saline] 1,000 ml IV ONETIME
[2020-07-19] MEDS ORDERED: cefTRIAXone 2 GM in Sodium Chloride 0.9% 100 ML IV ONE (21:21)
[2020-07-19] MEDS ORDERED: Sodium Chloride 0.9% 1,000 ML IV ONE (22:24)
[2020-07-19] MEDS: Potassium Chloride 10 MEQ in Premix Bag 1 BAG IV SCH (23:50)
[2020-07-20] MEDS ORDERED: Magnesium Sulfate/Water 2 GM/50 ML BAG IV SCH (00:15)
[2020-07-20] MEDS: Potassium Chloride 10 MEQ in Premix Bag 1 BAG IV SCH ×9 (01:24→21:50)
[2020-07-20] MEDS: Ondansetron 4 MG/2 ML SDV IVPUSH PRN (01:35)
[2020-07-20] MEDS ORDERED: Magnesium Sulfate/Water 2 GM/50 ML Premix Bag IV ONE (02:37)
[2020-07-20] MEDS ORDERED: Sodium Chloride 0.9% 1,000 ML IV SCH (02:45)
[2020-07-20] MEDS ORDERED: Magnesium Sulfate/Water 2 GM/50 ML BAG IV ONE (03:00)
[2020-07-20] MEDS: Insulin Lispro 100 Units/ML 3 ML Vial SUBCUT SCH ×7 (03:01→22:41)
--- NOTE | 2020-07-20 06:40 | PCM.HP.2 ---
H&P History of Present Illness - General Date of Service: 07/20/20 Admit Problem/Dx: Admission Diagnosis/Problem Admission Diagnosis/Problem Uncontrolled diabetes mellitus Source of Information: Patient History Limitations: Reports: No Limitations - History of Present Illness Initial Comments - Free Text/Narative: The patient is a 49-year-old lady who was brought to the emergency room as she had an episode of unresponsiveness. The patient says that she does not remember what happened and she next remembers waking up in the emergency department. The patient reports that she has not been using her antidiabetic medication as this has been at another person's house. She did recover it and start on her insulin. In the emergency department the patient's blood sugar was over 400. The patient today has denied any pain. She has had nausea and vomiting earlier. She also has diarrhea reported. The patient says that she feels very thirsty and very dry. Patient had been treated for cellulitis of the left groin area. Onset of Symptoms: Reports: Unknown/Unsure Duration of Symptoms: Reports: Day(s): Location: Reports: Generalized Severity: Mild Improves with: Reports: None Worsens with: Reports: None - Related Data Allergies/Adverse Reactions: Allergies Allergy/AdvReac Type Severity Reaction Status Date / Time amoxicillin Allergy Intermediate Rash Verified 07/20/20 12:24 erythromycin base Allergy Intermediate Rash Verified 07/20/20 12:24 diazepam [From Valium] AdvReac Intermediate Anxiety Verified 07/20/20 12:24 Home Medications: Home Meds ALPRAZolam [Xanax] 0.5 mg PO Q12H PRN #24 tablet 07/01/20 [Rx] Escitalopram Oxalate [Lexapro] 20 mg PO DAILY #30 tablet 07/01/20 [Rx] Insulin Glarg,Human.Rec.Analog [Lantus Solostar] 20 units SQ BEDTIME #1 pen 07/01/20 [Rx] Insulin Regular, Human [Humulin R U-500 Kwikpen] 500 unit SQ TID PRN #1 insuln.pen 07/01/20 [Rx] atorvaSTATin [Lipitor] 10 mg PO BEDTIME 07/01/20 [History] lisinopriL [Lisinopril] 10 mg PO DAILY #30 tablet 07/01/20 [Rx] Apixaban [Eliquis] 5 mg PO DAILY #30 tablet 07/02/20 [Rx] cephALEXin [Cephalexin] 500 mg PO QID 7 Days #28 capsule 07/19/20 [Rx] Past Medical History HEENT History: Reports: Impaired Vision Cardiovascular History: Reports: Blood Clots/VTE/DVT, Hypertension Respiratory History: Reports: Asthma, PE Gastrointestinal History: Reports: GERD, Irritable Bowel Syndrome Genitourinary History: Reports: UTI, Recurrent Musculoskeletal History: Reports: Fracture Neurological History: Reports: Headaches, Chronic Psychiatric History: Reports: Anxiety, Depression Endocrine/Metabolic History: Reports: Diabetes, Type II, Obesity/BMI 30+ Hematologic History: Reports: Other (See Below) Other Hematologic History: Pt states that she has a clotting disorder. - Past Surgical History HEENT Surgical History: Reports: Adenoidectomy, Tonsillectomy GI Surgical History: Reports: Cholecystectomy Female Surgical History: Reports: Breast Biopsy, Hysterectomy, Tubal Ligation Other Female Surgeries/Procedures: left breast biopsy Social & Family History - Tobacco Use Tobacco Use Status *Q: Former Tobacco User Used Tobacco, but Quit: Yes Month/Year Tobacco Last Used: 2011 - Caffeine Use Caffeine Use: Reports: Soda - Recreational Drug Use Recreational Drug Use: No - Living Situation & Occupation Living situation: Reports: with Significant Other Occupation: Unemployed H&P Review of Systems - Review of Systems: Review Of Systems: See Below General: Reports: Malaise, Weakness HEENT: Reports: No Symptoms Pulmonary: Reports: No Symptoms Cardiovascular: Reports: No Symptoms Gastrointestinal: Reports: No Symptoms Genitourinary: Reports: No Symptoms Musculoskeletal: Reports: No Symptoms Skin: Reports: No Symptoms Psychiatric: Reports: No Symptoms Neurological: Reports: No Symptoms Hematologic/Lymphatic: Reports: No Symptoms Immunologic: Reports: No Symptoms Exam - Exam Exam: See Below - Vital Signs Vital Signs: Last Vital Signs Temp 36.4 C 07/19/20 23:15 Pulse 98 07/20/20 05:16 Resp 26 H 07/20/20 05:16 BP 140/74 07/20/20 05:16 Pulse Ox 95 07/20/20 05:25 Weight: 145.688 kg - Exam Quality Assessment: Supplemental Oxygen General: Alert, Oriented, Cooperative, Other (Morbidly obese) HEENT: Conjunctiva Clear, EACs Clear, EOMI. No: Mucosa Moist & [place] (Very dry) Neck: Supple, Trachea Midline Lungs: Clear to Auscultation, Normal Respiratory Effort Cardiovascular: Regular Rate, Regular Rhythm GI/Abdominal Exam: Normal Bowel Sounds, Soft, No Distention (Female) Exam: Deferred Rectal (Female) Exam: Deferred Back Exam: Normal Inspection, Full Range of Motion Extremities: Normal Inspection, No Pedal Edema Skin: Warm, Dry Neurological: Cranial Nerves Intact Neuro Extensive - Mental Status: Alert, Oriented x3 Neuro Extensive - Motor, Sensory, Reflexes: CN II-XII Intact Psychiatric: Alert, Normal Affect - Patient Data Lab Results Last 24 hrs: Laboratory Results - last 24 hr 07/19/20 07/19/20 07/19/20 Range/Units 20:50 20:50 20:50 WBC (3.98-10.04) K/mm3 RBC (3.98-5.22) M/mm3 Hgb (11.2-15.7) gm/dl Hct (34.1-44.9) % MCV (79.4-94.8) fl MCH (25.6-32.2) pg MCHC (32.2-35.5) g/dl RDW Std Deviation (36.4-46.3) fL Plt Count (182-369) K/mm3 MPV (9.4-12.3) fl Neut % (Auto) (34.0-71.1) % Lymph % (Auto) (19.3-51.7) % [place] % (Auto) (4.7-12.5) % Eos % (Auto) (0.7-5.8) Baso % (Auto) (0.1-1.2) % Neut # (Auto) (1.56-6.13) K/mm3 Lymph # (Auto) (1.18-3.74) K/mm3 [place] # (Auto) (0.24-0.36) K/mm3 Eos # (Auto) (0.04-0.36) K/mm3 Baso # (Auto) (0.01-0.08) K/mm3 Manual Slide Review VBG pH (7.30-7.40) Sodium (136-145) mEq/L Potassium (3.5-5.1) mEq/L Chloride (98-107) mEq/L Carbon Dioxide (21-32) mEq/L Anion Gap (5-15) BUN (7-18) mg/dL Creatinine (0.55-1.02) mg/dL Est Cr Clr Drug Dosing mL/min Estimated GFR (MDRD) (>60) mL/min BUN/Creatinine Ratio (14-18) Glucose (74-106) mg/dL POC Glucose (70-105) mg/dL Lactic Acid (0.4-2.0) mmol/L Calcium (8.5-10.1) mg/dL Phosphorus (2.6-4.7) mg/dL Magnesium (1.8-2.4) mg/dl Total Bilirubin (0.2-1.0) mg/dL AST (15-37) U/L ALT (14-59) U/L Alkaline Phosphatase (46-116) U/L Total Protein (6.4-8.2) g/dl Albumin (3.4-5.0) g/dl Globulin gm/dL Albumin/Globulin Ratio (1-2) Urine Color Yellow (Yellow) Urine Appearance Cloudy H (Clear) Urine pH 6.5 (5.0-8.0) Ur Specific [place] 1.025 (1.005-1.030) Urine Protein 3+ H (Negative) Urine Glucose (UA) 2+ H (Negative) Urine Ketones Trace H (Negative) Urine Occult Blood 3+ H (Negative) Urine Nitrite Negative (Negative) Urine Bilirubin Negative (Negative) Urine Urobilinogen 0.2 (0.2-1.0) Ur Leukocyte Esterase Trace H (Negative) Urine RBC 0-5 (0-5) /hpf Urine WBC Too numerous to cnt H (0-5) /hpf Ur Squamous Epith Cells 0-5 (0-5) /hpf Urine Bacteria Few (FEW) /hpf Urine Mucus Not seen (FEW) /hpf Urine Opiates Screen Negative (XTYDTC=102) Ur Buprenorphine Scrn Negative (CUTOFF=10) Ur Oxycodone Screen Negative (DIT4YX=662) Urine Methadone Screen Negative (BUBCBG=697) Ur Propoxyphene Screen Negative (QTEPWI=859) Ur Barbiturates Screen Negative (GJNAPI=402) Ur Tricyclics Screen Negative (LOGKAE=895) Ur Phencyclidine Scrn Negative (CUTOFF=25) Ur Amphetamine Screen Negative (KLZAEJ=727) U Methamphetamines Scrn Negative (MIBRFD=423) U Benzodiazepines Scrn Negative (JBMBDK=197) U Cocaine Metab Screen Negative (QAOOTN=910) U Marijuana (THC) Screen Negative (CUTOFF=50) Ketones (0.0-0.3) mM SARS-CoV-2 RNA (CHERYL) Negative (NEGATIVE) 07/19/20 07/19/20 07/19/20 Range/Units 21:00 21:00 21:00 WBC 8.05 (3.98-10.04) K/mm3 RBC 5.01 (3.98-5.22) M/mm3 Hgb 14.4 (11.2-15.7) gm/dl Hct 44.2 (34.1-44.9) % MCV 88.2 (79.4-94.8) fl MCH 28.7 (25.6-32.2) pg MCHC 32.6 (32.2-35.5) g/dl RDW Std Deviation 44.0 (36.4-46.3) fL Plt Count 198 (182-369) K/mm3 MPV 11.2 (9.4-12.3) fl Neut % (Auto) 92.9 H (34.0-71.1) % Lymph % (Auto) 4.5 L (19.3-51.7) % [place] % (Auto) 1.9 L (4.7-12.5) % Eos % (Auto) 0 L (0.7-5.8) Baso % (Auto) 0.1 (0.1-1.2) % Neut # (Auto) 7.48 H (1.56-6.13) K/mm3 Lymph # (Auto) 0.36 L (1.18-3.74) K/mm3 [place] # (Auto) 0.15 L (0.24-0.36) K/mm3 Eos # (Auto) 0.00 L (0.04-0.36) K/mm3 Baso # (Auto) 0.01 (0.01-0.08) K/mm3 Manual Slide Review Abnormal smear VBG pH (7.30-7.40) Sodium 136 (136-145) mEq/L Potassium 2.6 L (3.5-5.1) mEq/L Chloride 99 (98-107) mEq/L Carbon Dioxide 19 L (21-32) mEq/L Anion Gap 20.6 H (5-15) BUN 11 (7-18) mg/dL Creatinine 1.6 H (0.55-1.02) mg/dL Est Cr Clr Drug Dosing 38.69 mL/min Estimated GFR (MDRD) 34 (>60) mL/min BUN/Creatinine Ratio 6.9 L (14-18) Glucose 428 H (74-106) mg/dL POC Glucose (70-105) mg/dL Lactic Acid 4.9 H* (0.4-2.0) mmol/L Calcium 8.6 (8.5-10.1) mg/dL Phosphorus 1.0 L (2.6-4.7) mg/dL Magnesium 1.5 L (1.8-2.4) mg/dl Total Bilirubin 1.2 H (0.2-1.0) mg/dL AST 43 H (15-37) U/L ALT 25 (14-59) U/L Alkaline Phosphatase 149 H (46-116) U/L Total Protein 6.7 (6.4-8.2) g/dl Albumin 2.7 L (3.4-5.0) g/dl Globulin 4.0 gm/dL Albumin/Globulin Ratio 0.7 L (1-2) Urine Color (Yellow) Urine Appearance (Clear) Urine pH (5.0-8.0) Ur Specific [place] (1.005-1.030) Urine Protein (Negative) Urine Glucose (UA) (Negative) Urine Ketones (Negative) Urine Occult Blood (Negative) Urine Nitrite (Negative) Urine Bilirubin (Negative) Urine Urobilinogen (0.2-1.0) Ur Leukocyte Esterase (Negative) Urine RBC (0-5) /hpf Urine WBC (0-5) /hpf Ur Squamous Epith Cells (0-5) /hpf Urine Bacteria (FEW) /hpf Urine Mucus (FEW) /hpf Urine Opiates Screen (RQREQT=730) Ur Buprenorphine Scrn (CUTOFF=10) Ur Oxycodone Screen (JKJ4LW=575) Urine Methadone Screen (HWZOEP=010) Ur Propoxyphene Screen (RMLKJM=176) Ur Barbiturates Screen (AKHREZ=940) Ur Tricyclics Screen (JWIUUT=757) Ur Phencyclidine Scrn (CUTOFF=25) Ur Amphetamine Screen (OFMUDX=953) U Methamphetamines Scrn (WUUGHV=483) U Benzodiazepines Scrn (ACMPHW=749) U Cocaine Metab Screen (FHYROC=818) U Marijuana (THC) Screen (CUTOFF=50) Ketones (0.0-0.3) mM SARS-CoV-2 RNA (CHERYL) (NEGATIVE) 07/19/20 07/19/20 07/19/20 Range/Units 21:08 22:10 22:41 WBC (3.98-10.04) K/mm3 RBC (3.98-5.22) M/mm3 Hgb (11.2-15.7) gm/dl Hct (34.1-44.9) % MCV (79.4-94.8) fl MCH (25.6-32.2) pg MCHC (32.2-35.5) g/dl RDW Std Deviation (36.4-46.3) fL Plt Count (182-369) K/mm3 MPV (9.4-12.3) fl Neut % (Auto) (34.0-71.1) % Lymph % (Auto) (19.3-51.7) % [place] % (Auto) (4.7-12.5) % Eos % (Auto) (0.7-5.8) Baso % (Auto) (0.1-1.2) % Neut # (Auto) (1.56-6.13) K/mm3 Lymph # (Auto) (1.18-3.74) K/mm3 [place] # (Auto) (0.24-0.36) K/mm3 Eos # (Auto) (0.04-0.36) K/mm3 Baso # (Auto) (0.01-0.08) K/mm3 Manual Slide Review VBG pH 7.37 (7.30-7.40) Sodium (136-145) mEq/L Potassium (3.5-5.1) mEq/L Chloride (98-107) mEq/L Carbon Dioxide (21-32) mEq/L Anion Gap (5-15) BUN (7-18) mg/dL Creatinine (0.55-1.02) mg/dL Est Cr Clr Drug Dosing mL/min Estimated GFR (MDRD) (>60) mL/min BUN/Creatinine Ratio (14-18) Glucose (74-106) mg/dL POC Glucose 298 H (70-105) mg/dL Lactic Acid (0.4-2.0) mmol/L Calcium (8.5-10.1) mg/dL Phosphorus (2.6-4.7) mg/dL Magnesium (1.8-2.4) mg/dl Total Bilirubin (0.2-1.0) mg/dL AST (15-37) U/L ALT (14-59) U/L Alkaline Phosphatase (46-116) U/L Total Protein (6.4-8.2) g/dl Albumin (3.4-5.0) g/dl Globulin gm/dL Albumin/Globulin Ratio (1-2) Urine Color (Yellow) Urine Appearance (Clear) Urine pH (5.0-8.0) Ur Specific [place] (1.005-1.030) Urine Protein (Negative) Urine Glucose (UA) (Negative) Urine Ketones (Negative) Urine Occult Blood (Negative) Urine Nitrite (Negative) Urine Bilirubin (Negative) Urine Urobilinogen (0.2-1.0) Ur Leukocyte Esterase (Negative) Urine RBC (0-5) /hpf Urine WBC (0-5) /hpf Ur Squamous Epith Cells (0-5) /hpf Urine Bacteria (FEW) /hpf Urine Mucus (FEW) /hpf Urine Opiates Screen (OBUFNF=976) Ur Buprenorphine Scrn (CUTOFF=10) Ur Oxycodone Screen (HVM5CV=690) Urine Methadone Screen (POOYNW=912) Ur Propoxyphene Screen (JYREPQ=855) Ur Barbiturates Screen (HYMTVV=104) Ur Tricyclics Screen (GPTEGQ=184) Ur Phencyclidine Scrn (CUTOFF=25) Ur Amphetamine Screen (JALJYG=391) U Methamphetamines Scrn (YIIQHM=547) U Benzodiazepines Scrn (HFAOUQ=235) U Cocaine Metab Screen (CLFXCF=720) U Marijuana (THC) Screen (CUTOFF=50) Ketones 0.13 (0.0-0.3) mM SARS-CoV-2 RNA (CHERYL) (NEGATIVE) 07/19/20 07/19/20 07/19/20 Range/Units 23:42 23:44 23:44 WBC (3.98-10.04) K/mm3 RBC (3.98-5.22) M/mm3 Hgb (11.2-15.7) gm/dl Hct (34.1-44.9) % MCV (79.4-94.8) fl MCH (25.6-32.2) pg MCHC (32.2-35.5) g/dl RDW Std Deviation (36.4-46.3) fL Plt Count (182-369) K/mm3 MPV (9.4-12.3) fl Neut % (Auto) (34.0-71.1) % Lymph % (Auto) (19.3-51.7) % [place] % (Auto) (4.7-12.5) % Eos % (Auto) (0.7-5.8) Baso % (Auto) (0.1-1.2) % Neut # (Auto) (1.56-6.13) K/mm3 Lymph # (Auto) (1.18-3.74) K/mm3 [place] # (Auto) (0.24-0.36) K/mm3 Eos # (Auto) (0.04-0.36) K/mm3 Baso # (Auto) (0.01-0.08) K/mm3 Manual Slide Review VBG pH (7.30-7.40) Sodium 141 (136-145) mEq/L Potassium 2.5 L (3.5-5.1) mEq/L Chloride 104 (98-107) mEq/L Carbon Dioxide 18 L (21-32) mEq/L Anion Gap 21.5 H (5-15) BUN 12 (7-18) mg/dL Creatinine 1.8 H (0.55-1.02) mg/dL Est Cr Clr Drug Dosing 34.39 mL/min Estimated GFR (MDRD) 30 (>60) mL/min BUN/Creatinine Ratio 6.7 L (14-18) Glucose 179 H (74-106) mg/dL POC Glucose 161 H (70-105) mg/dL Lactic Acid (0.4-2.0) mmol/L Calcium 8.4 L (8.5-10.1) mg/dL Phosphorus 0.7 L (2.6-4.7) mg/dL Magnesium 1.5 L (1.8-2.4) mg/dl Total Bilirubin (0.2-1.0) mg/dL AST (15-37) U/L ALT (14-59) U/L Alkaline Phosphatase (46-116) U/L Total Protein (6.4-8.2) g/dl Albumin (3.4-5.0) g/dl Globulin gm/dL Albumin/Globulin Ratio (1-2) Urine Color (Yellow) Urine Appearance (Clear) Urine pH (5.0-8.0) Ur Specific [place] (1.005-1.030) Urine Protein (Negative) Urine Glucose (UA) (Negative) Urine Ketones (Negative) Urine Occult Blood (Negative) Urine Nitrite (Negative) Urine Bilirubin (Negative) Urine Urobilinogen (0.2-1.0) Ur Leukocyte Esterase (Negative) Urine RBC (0-5) /hpf Urine WBC (0-5) /hpf Ur Squamous Epith Cells (0-5) /hpf Urine Bacteria (FEW) /hpf Urine Mucus (FEW) /hpf Urine Opiates Screen (VHZSCA=699) Ur Buprenorphine Scrn (CUTOFF=10) Ur Oxycodone Screen (UCK6CP=440) Urine Methadone Screen (UQQGPM=774) Ur Propoxyphene Screen (ZGCDFJ=215) Ur Barbiturates Screen (MQRLKG=330) Ur Tricyclics Screen (OWCTOV=749) Ur Phencyclidine Scrn (CUTOFF=25) Ur Amphetamine Screen (APUZBX=811) U Methamphetamines Scrn (HEIZCA=539) U Benzodiazepines Scrn (ELLXLM=013) U Cocaine Metab Screen (OBEYGB=869) U Marijuana (THC) Screen (CUTOFF=50) Ketones (0.0-0.3) mM SARS-CoV-2 RNA (CHERYL) (NEGATIVE) 07/19/20 07/20/20 07/20/20 Range/Units 23:58 00:01 01:07 WBC (3.98-10.04) K/mm3 RBC (3.98-5.22) M/mm3 Hgb (11.2-15.7) gm/dl Hct (34.1-44.9) % MCV (79.4-94.8) fl MCH (25.6-32.2) pg MCHC (32.2-35.5) g/dl RDW Std Deviation (36.4-46.3) fL Plt Count (182-369) K/mm3 MPV (9.4-12.3) fl Neut % (Auto) (34.0-71.1) % Lymph % (Auto) (19.3-51.7) % [place] % (Auto) (4.7-12.5) % Eos % (Auto) (0.7-5.8) Baso % (Auto) (0.1-1.2) % Neut # (Auto) (1.56-6.13) K/mm3 Lymph # (Auto) (1.18-3.74) K/mm3 [place] # (Auto) (0.24-0.36) K/mm3 Eos # (Auto) (0.04-0.36) K/mm3 Baso # (Auto) (0.01-0.08) K/mm3 Manual Slide Review VBG pH (7.30-7.40) Sodium (136-145) mEq/L Potassium (3.5-5.1) mEq/L Chloride (98-107) mEq/L Carbon Dioxide (21-32) mEq/L Anion Gap (5-15) BUN (7-18) mg/dL Creatinine (0.55-1.02) mg/dL Est Cr Clr Drug Dosing mL/min Estimated GFR (MDRD) (>60) mL/min BUN/Creatinine Ratio (14-18) Glucose (74-106) mg/dL POC Glucose 143 H 151 H (70-105) mg/dL Lactic Acid 5.3 H* (0.4-2.0) mmol/L Calcium (8.5-10.1) mg/dL Phosphorus (2.6-4.7) mg/dL Magnesium (1.8-2.4) mg/dl Total Bilirubin (0.2-1.0) mg/dL AST (15-37) U/L ALT (14-59) U/L Alkaline Phosphatase (46-116) U/L Total Protein (6.4-8.2) g/dl Albumin (3.4-5.0) g/dl Globulin gm/dL Albumin/Globulin Ratio (1-2) Urine Color (Yellow) Urine Appearance (Clear) Urine pH (5.0-8.0) Ur Specific [place] (1.005-1.030) Urine Protein (Negative) Urine Glucose (UA) (Negative) Urine Ketones (Negative) Urine Occult Blood (Negative) Urine Nitrite (Negative) Urine Bilirubin (Negative) Urine Urobilinogen (0.2-1.0) Ur Leukocyte Esterase (Negative) Urine RBC (0-5) /hpf Urine WBC (0-5) /hpf Ur Squamous Epith Cells (0-5) /hpf Urine Bacteria (FEW) /hpf Urine Mucus (FEW) /hpf Urine Opiates Screen (GTKUOV=481) Ur Buprenorphine Scrn (CUTOFF=10) Ur Oxycodone Screen (ADB6AU=459) Urine Methadone Screen (EGMESR=012) Ur Propoxyphene Screen (SXRJPI=390) Ur Barbiturates Screen (DLZTBX=795) Ur Tricyclics Screen (PTPPDC=608) Ur Phencyclidine Scrn (CUTOFF=25) Ur Amphetamine Screen (XAHDQJ=992) U Methamphetamines Scrn (RMSCJA=989) U Benzodiazepines Scrn (FPQCQD=592) U Cocaine Metab Screen (MEYRQN=461) U Marijuana (THC) Screen (CUTOFF=50) Ketones (0.0-0.3) mM SARS-CoV-2 RNA (CHERYL) (NEGATIVE) 07/20/20 07/20/20 07/20/20 Range/Units 02:04 02:58 04:10 WBC (3.98-10.04) K/mm3 RBC (3.98-5.22) M/mm3 Hgb (11.2-15.7) gm/dl Hct (34.1-44.9) % MCV (79.4-94.8) fl MCH (25.6-32.2) pg MCHC (32.2-35.5) g/dl RDW Std Deviation (36.4-46.3) fL Plt Count (182-369) K/mm3 MPV (9.4-12.3) fl Neut % (Auto) (34.0-71.1) % Lymph % (Auto) (19.3-51.7) % [place] % (Auto) (4.7-12.5) % Eos % (Auto) (0.7-5.8) Baso % (Auto) (0.1-1.2) % Neut # (Auto) (1.56-6.13) K/mm3 Lymph # (Auto) (1.18-3.74) K/mm3 [place] # (Auto) (0.24-0.36) K/mm3 Eos # (Auto) (0.04-0.36) K/mm3 Baso # (Auto) (0.01-0.08) K/mm3 Manual Slide Review VBG pH (7.30-7.40) Sodium (136-145) mEq/L Potassium (3.5-5.1) mEq/L Chloride (98-107) mEq/L Carbon Dioxide (21-32) mEq/L Anion Gap (5-15) BUN (7-18) mg/dL Creatinine (0.55-1.02) mg/dL Est Cr Clr Drug Dosing mL/min Estimated GFR (MDRD) (>60) mL/min BUN/Creatinine Ratio (14-18) Glucose (74-106) mg/dL POC Glucose 196 H 239 H 252 H (70-105) mg/dL Lactic Acid (0.4-2.0) mmol/L Calcium (8.5-10.1) mg/dL Phosphorus (2.6-4.7) mg/dL Magnesium (1.8-2.4) mg/dl Total Bilirubin (0.2-1.0) mg/dL AST (15-37) U/L ALT (14-59) U/L Alkaline Phosphatase (46-116) U/L Total Protein (6.4-8.2) g/dl Albumin (3.4-5.0) g/dl Globulin gm/dL Albumin/Globulin Ratio (1-2) Urine Color (Yellow) Urine Appearance (Clear) Urine pH (5.0-8.0) Ur Specific [place] (1.005-1.030) Urine Protein (Negative) Urine Glucose (UA) (Negative) Urine Ketones (Negative) Urine Occult Blood (Negative) Urine Nitrite (Negative) Urine Bilirubin (Negative) Urine Urobilinogen (0.2-1.0) Ur Leukocyte Esterase (Negative) Urine RBC (0-5) /hpf Urine WBC (0-5) /hpf Ur Squamous Epith Cells (0-5) /hpf Urine Bacteria (FEW) /hpf Urine Mucus (FEW) /hpf Urine Opiates Screen (TQCSGL=166) Ur Buprenorphine Scrn (CUTOFF=10) Ur Oxycodone Screen (GWV6YP=211) Urine Methadone Screen (BSCMZD=272) Ur Propoxyphene Screen (JYIJEO=081) Ur Barbiturates Screen (VLIBOL=352) Ur Tricyclics Screen (PWYTCO=302) Ur Phencyclidine Scrn (CUTOFF=25) Ur Amphetamine Screen (MCXCXZ=911) U Methamphetamines Scrn (JKVORZ=397) U Benzodiazepines Scrn (BCTGPH=945) U Cocaine Metab Screen (FRUESV=479) U Marijuana (THC) Screen (CUTOFF=50) Ketones (0.0-0.3) mM SARS-CoV-2 RNA (CHERYL) (NEGATIVE) 07/20/20 07/20/20 07/20/20 Range/Units 05:15 05:15 05:15 WBC 17.84 H (3.98-10.04) K/mm3 RBC 4.67 (3.98-5.22) M/mm3 Hgb 13.5 (11.2-15.7) gm/dl Hct 42.0 (34.1-44.9) % MCV 89.9 (79.4-94.8) fl MCH 28.9 (25.6-32.2) pg MCHC 32.1 L (32.2-35.5) g/dl RDW Std Deviation 45.7 (36.4-46.3) fL Plt Count 175 L (182-369) K/mm3 MPV 11.7 (9.4-12.3) fl Neut % (Auto) 90.3 H (34.0-71.1) % Lymph % (Auto) 3.5 L (19.3-51.7) % [place] % (Auto) 5.5 (4.7-12.5) % Eos % (Auto) 0 L (0.7-5.8) Baso % (Auto) 0.1 (0.1-1.2) % Neut # (Auto) 16.11 H (1.56-6.13) K/mm3 Lymph # (Auto) 0.62 L (1.18-3.74) K/mm3 [place] # (Auto) 0.99 H (0.24-0.36) K/mm3 Eos # (Auto) 0.00 L (0.04-0.36) K/mm3 Baso # (Auto) 0.01 (0.01-0.08) K/mm3 Manual Slide Review VBG pH (7.30-7.40) Sodium 138 (136-145) mEq/L Potassium 2.9 L (3.5-5.1) mEq/L Chloride 104 (98-107) mEq/L Carbon Dioxide 19 L (21-32) mEq/L Anion Gap 17.9 H (5-15) BUN 17 (7-18) mg/dL Creatinine 1.8 H (0.55-1.02) mg/dL Est Cr Clr Drug Dosing 34.39 mL/min Estimated GFR (MDRD) 30 (>60) mL/min BUN/Creatinine Ratio 9.4 L (14-18) Glucose 253 H (74-106) mg/dL POC Glucose (70-105) mg/dL Lactic Acid (0.4-2.0) mmol/L Calcium 8.1 L (8.5-10.1) mg/dL Phosphorus 2.6 (2.6-4.7) mg/dL Magnesium 2.6 H (1.8-2.4) mg/dl Total Bilirubin 0.6 (0.2-1.0) mg/dL AST 76 H (15-37) U/L ALT 31 (14-59) U/L Alkaline Phosphatase 96 (46-116) U/L Total Protein 6.6 (6.4-8.2) g/dl Albumin 2.5 L (3.4-5.0) g/dl Globulin 4.1 gm/dL Albumin/Globulin Ratio 0.6 L (1-2) Urine Color (Yellow) Urine Appearance (Clear) Urine pH (5.0-8.0) Ur Specific [place] (1.005-1.030) Urine Protein (Negative) Urine Glucose (UA) (Negative) Urine Ketones (Negative) Urine Occult Blood (Negative) Urine Nitrite (Negative) Urine Bilirubin (Negative) Urine Urobilinogen (0.2-1.0) Ur Leukocyte Esterase (Negative) Urine RBC (0-5) /hpf Urine WBC (0-5) /hpf Ur Squamous Epith Cells (0-5) /hpf Urine Bacteria (FEW) /hpf Urine Mucus (FEW) /hpf Urine Opiates Screen (ICEKKQ=619) Ur Buprenorphine Scrn (CUTOFF=10) Ur Oxycodone Screen (XNF7TF=061) Urine Methadone Screen (HJRBZW=657) Ur Propoxyphene Screen (IZKJIP=621) Ur Barbiturates Screen (KWMJZI=006) Ur Tricyclics Screen (UOCBCF=782) Ur Phencyclidine Scrn (CUTOFF=25) Ur Amphetamine Screen (GYHVVD=110) U Methamphetamines Scrn (LEXNFW=185) U Benzodiazepines Scrn (QCMIBL=675) U Cocaine Metab Screen (DHOFUV=291) U Marijuana (THC) Screen (CUTOFF=50) Ketones (0.0-0.3) mM SARS-CoV-2 RNA (CHERYL) (NEGATIVE) 07/20/20 Range/Units 05:17 WBC (3.98-10.04) K/mm3 RBC (3.98-5.22) M/mm3 Hgb (11.2-15.7) gm/dl Hct (34.1-44.9) % MCV (79.4-94.8) fl MCH (25.6-32.2) pg MCHC (32.2-35.5) g/dl RDW Std Deviation (36.4-46.3) fL Plt Count (182-369) K/mm3 MPV (9.4-12.3) fl Neut % (Auto) (34.0-71.1) % Lymph % (Auto) (19.3-51.7) % [place] % (Auto) (4.7-12.5) % Eos % (Auto) (0.7-5.8) Baso % (Auto) (0.1-1.2) % Neut # (Auto) (1.56-6.13) K/mm3 Lymph # (Auto) (1.18-3.74) K/mm3 [place] # (Auto) (0.24-0.36) K/mm3 Eos # (Auto) (0.04-0.36) K/mm3 Baso # (Auto) (0.01-0.08) K/mm3 Manual Slide Review VBG pH (7.30-7.40) Sodium (136-145) mEq/L Potassium (3.5-5.1) mEq/L Chloride (98-107) mEq/L Carbon Dioxide (21-32) mEq/L Anion Gap (5-15) BUN (7-18) mg/dL Creatinine (0.55-1.02) mg/dL Est Cr Clr Drug Dosing mL/min Estimated GFR (MDRD) (>60) mL/min BUN/Creatinine Ratio (14-18) Glucose (74-106) mg/dL POC Glucose 234 H (70-105) mg/dL Lactic Acid (0.4-2.0) mmol/L Calcium (8.5-10.1) mg/dL Phosphorus (2.6-4.7) mg/dL Magnesium (1.8-2.4) mg/dl Total Bilirubin (0.2-1.0) mg/dL AST (15-37) U/L ALT (14-59) U/L Alkaline Phosphatase (46-116) U/L Total Protein (6.4-8.2) g/dl Albumin (3.4-5.0) g/dl Globulin gm/dL Albumin/Globulin Ratio (1-2) Urine Color (Yellow) Urine Appearance (Clear) Urine pH (5.0-8.0) Ur Specific [place] (1.005-1.030) Urine Protein (Negative) Urine Glucose (UA) (Negative) Urine Ketones (Negative) Urine Occult Blood (Negative) Urine Nitrite (Negative) Urine Bilirubin (Negative) Urine Urobilinogen (0.2-1.0) Ur Leukocyte Esterase (Negative) Urine RBC (0-5) /hpf Urine WBC (0-5) /hpf Ur Squamous Epith Cells (0-5) /hpf Urine Bacteria (FEW) /hpf Urine Mucus (FEW) /hpf Urine Opiates Screen (TTLMJE=790) Ur Buprenorphine Scrn (CUTOFF=10) Ur Oxycodone Screen (YIE3XP=680) Urine Methadone Screen (DWBPAR=081) Ur Propoxyphene Screen (VDHMUE=327) Ur Barbiturates Screen (EVTVZP=691) Ur Tricyclics Screen (IYWGJM=651) Ur Phencyclidine Scrn (CUTOFF=25) Ur Amphetamine Screen (IVEFFN=086) U Methamphetamines Scrn (SJVFRU=068) U Benzodiazepines Scrn (THMOCX=580) U Cocaine Metab Screen (COCOMJ=835) U Marijuana (THC) Screen (CUTOFF=50) Ketones (0.0-0.3) mM SARS-CoV-2 RNA (CHERYL) (NEGATIVE) Result Diagrams: 07/20/20 05:15 07/20/20 05:15 Abe Results Last 24 hrs: Microbiology 07/19/20 21:00 Anaerobic Blood Culture - Final Blood - Venous Sepsis Event Note - Evaluation Sepsis Screening Result: Severe Sepsis Risk - Focused Exam Vital Signs: Vital Signs Temp Pulse Pulse Resp BP BP Pulse Ox 07/20/20 05:25 07/20/20 05:16 98 26 H 140/74 93 L 07/20/20 05:04 99 25 H 127/67 95 07/20/20 04:46 95 27 H 123/76 94 L 07/20/20 04:31 98 27 H 117/65 96 07/20/20 04:16 102 H 31 H 112/64 93 L 07/20/20 04:15 100 28 H 95 07/20/20 04:01 102 H 28 H 111/50 L 93 L 07/20/20 04:00 100 28 H 95 07/20/20 03:46 106 H 25 H 127/87 91 L 07/20/20 03:45 106 H 31 H 94 L 07/20/20 03:31 106 H 29 H 133/93 H 93 L 07/20/20 03:30 107 H 26 H 96 07/20/20 03:16 109 H 25 H 130/75 94 L 07/20/20 03:15 107 H 29 H 96 07/20/20 03:01 110 H 27 H 130/88 92 L 07/20/20 03:00 109 H 34 H 97 07/20/20 02:46 109 H 32 H 127/72 92 L 07/20/20 02:45 109 H 17 95 07/20/20 02:31 110 H 34 H 109/92 H 95 07/20/20 02:30 111 H 32 H 91 L 07/20/20 02:16 110 H 34 H 120/84 94 L 07/20/20 02:15 36 H 07/20/20 02:01 112 H 36 H 94 L 07/20/20 01:45 113 H 33 H 116/94 H 94 L 07/20/20 01:44 111 H 33 H 94 L 07/20/20 01:30 113 H 33 H 108/72 95 07/20/20 01:29 113 H 33 H 95 07/20/20 01:18 18 110/50 L 07/20/20 01:00 113 H 97 07/20/20 00:45 119 H 30 H 108/70 95 07/20/20 00:44 117 H 37 H 96 07/20/20 00:31 43 H 95/72 07/20/20 00:16 116 H 31 H 106/73 96 07/20/20 00:01 119 H 41 H 101/65 95 07/20/20 00:00 116 H 25 H 95 07/19/20 23:52 117 H 34 H 95 07/19/20 23:15 36.4 C 32 H 101/65 95 07/19/20 20:40 07/19/20 20:30 132 H 30 H 90 L Pulse Ox 07/20/20 05:25 95 07/20/20 05:16 07/20/20 05:04 07/20/20 04:46 07/20/20 04:31 07/20/20 04:16 07/20/20 04:15 07/20/20 04:01 07/20/20 04:00 07/20/20 03:46 07/20/20 03:45 07/20/20 03:31 07/20/20 03:30 07/20/20 03:16 07/20/20 03:15 07/20/20 03:01 07/20/20 03:00 07/20/20 02:46 07/20/20 02:45 07/20/20 02:31 07/20/20 02:30 07/20/20 02:16 07/20/20 02:15 07/20/20 02:01 07/20/20 01:45 07/20/20 01:44 07/20/20 01:30 07/20/20 01:29 07/20/20 01:18 07/20/20 01:00 07/20/20 00:45 07/20/20 00:44 07/20/20 00:31 07/20/20 00:16 07/20/20 00:01 07/20/20 00:00 07/19/20 23:52 07/19/20 23:15 07/19/20 20:40 96 07/19/20 20:30 - Problem List (1) Episode of syncope SNOMED Code(s): 469483074 ICD Code: R55 - SYNCOPE AND COLLAPSE Status: Acute Priority: High Current Visit: Yes Qualifiers: Syncope type: unspecified Qualified Code(s): R55 - Syncope and collapse (2) Obesity, morbid, BMI 50 or higher SNOMED Code(s): 481931972, 042173476 ICD Code: E66.01 - MORBID (SEVERE) OBESITY DUE TO EXCESS CALORIES Status: Chronic Priority: Medium Current Visit: Yes (3) Hyperglycemia SNOMED Code(s): 20844893 ICD Code: R73.9 - HYPERGLYCEMIA, UNSPECIFIED Status: Acute Priority: High Current Visit: Yes (4) Skin yeast infection SNOMED Code(s): 97757419 ICD Code: B37.2 - CANDIDIASIS OF SKIN AND NAIL Status: Acute Priority: Medium Current Visit: Yes (5) Uncontrolled diabetes mellitus SNOMED Code(s): 78782127, 815499434 ICD Code: E11.65 - TYPE 2 DIABETES MELLITUS WITH HYPERGLYCEMIA Status: Chronic Priority: High Current Visit: Yes Qualifiers: Diabetes mellitus type: due to underlying condition Glycemic state: with hyperglycemia Qualified Code(s): E08.65 - Diabetes mellitus due to underlying condition with hyperglycemia Problem List Initiated/Reviewed/Updated: Yes Orders Last 24hrs: Active Orders 24 hr Category Date Time Status Admission Status [Patient Status] [ADT] Routine ADT 07/19/20 22:13 Active Blood Glucose Check, Bedside [RC] Q4HR Care 07/20/20 03:00 Active Cardiac Monitoring [RC] CONTINUOUS Care 07/19/20 20:35 Active Communication Order [RC] STAT Care 07/19/20 20:35 Active Insert Urinary Catheter [OM.PC] Stat Care 07/19/20 23:27 Ordered Urinary Catheter Assessment [RC] Q4HR Care 07/19/20 23:27 Active CBC WITH AUTO DIFF [HEME] Routine Lab 07/20/20 05:15 Results CULTURE BLOOD [BC] Stat Lab 07/19/20 21:00 Results CULTURE BLOOD [BC] Stat Lab 07/19/20 21:08 Received CULTURE URINE [RM] Routine Lab 07/19/20 20:50 Received Insulin Lispro [HumaLOG] Med 07/20/20 02:32 Active See Protocol SUBCUT QIDACANDBED Insulin Regular, Human [HumuLIN R] 100 unit Med 07/19/20 21:15 Active Sodium Chloride 0.9% [Normal Saline] 99 ml IV TITRATE Ondansetron [Zofran] Med 07/20/20 01:03 Active 4 mg IVPUSH Q8H PRN Potassium Chloride [KCl 10 MEQ in Water 100 ML] 10 meq Med 07/20/20 02:45 Active Premix Bag 1 bag IV Q1H Sodium Chloride 0.9% [Normal Saline] 1,000 ml Med 07/20/20 02:45 Active IV ASDIRECTED Sodium Chloride 0.9% [Saline Flush] Med 07/19/20 20:35 Active 10 ml FLUSH ASDIRECTED PRN Blood Culture x2 Reflex Set [OM.PC] Stat Oth 07/19/20 20:35 Ordered Peripheral IV Insertion Adult [OM.PC] Stat Oth 07/19/20 20:35 Ordered Code Status [Resuscitation Status] Routine Resus Stat 07/20/20 03:09 Ordered Medication Orders Insulin Human Regular 100 unit (/ Sodium Chloride) 100 mls @ 15 mls/hr IV TITRATE SANDRA; Protocol Last Titration: 07/19/20 23:50 Dose: 0 units/kg/hr, 0 mls/hr Documented by: PILY Cosigned by: MAUYRI Titration: 07/19/20 22:55 Dose: 0.07 units/kg/hr, 10.5 mls/hr Documented by: ANDREAS Cosigned by: ALIN Admin: 07/19/20 21:47 Dose: 0.1 units/kg/hr, 15 mls/hr Documented by: ANDREAS Cosigned by: ALIN Potassium Chloride 10 meq/ (Premix) 100 mls @ 100 mls/hr IV Q1H SANDRA Stop: 07/20/20 06:44 Last Admin: 07/20/20 06:13 Dose: 100 mls/hr Documented by: Infusion: 07/20/20 06:04 Dose: 100 mls/hr Documented by: Admin: 07/20/20 05:04 Dose: 100 mls/hr Documented by: Infusion: 07/20/20 05:00 Dose: 100 mls/hr Documented by: Admin: 07/20/20 04:00 Dose: 100 mls/hr Documented by: Infusion: 07/20/20 03:51 Dose: 100 mls/hr Documented by: Admin: 07/20/20 02:51 Dose: 100 mls/hr Documented by: MAYURI Sodium Chloride (Normal Saline) 1,000 mls @ 200 mls/hr IV ASDIRECTED SANDRA Last Admin: 07/20/20 05:00 Dose: 200 mls/hr Documented by: MAYURI Insulin Human Lispro (Humalog) 0 unit SUBCUT QIDACANDBED SANDRA; Protocol Last Admin: 07/20/20 05:20 Dose: 4 unit Documented by: Admin: 07/20/20 04:14 Dose: 6 unit Documented by: [email or web address] Admin: 07/20/20 03:01 Dose: 4 unit Documented by: MAYURI Ondansetron HCl (Zofran) 4 mg IVPUSH Q8H PRN PRN Reason: Nausea Last Admin: 07/20/20 01:35 Dose: 4 mg Documented by: [email or web address] Sodium Chloride (Saline Flush) 10 ml FLUSH ASDIRECTED PRN PRN Reason: Keep Vein Open Last Admin: 07/19/20 20:42 Dose: 10 ml Documented by: ALIN Assessment/Plan Comment:: Patient is a 49-year-old lady has been admitted due to poorly controlled diabetes. The patient admits that she did have what sounded like a syncopal episode. The patient is currently taking Eliquis and this will be continued for DVT prophylaxis. She admits that she has "some kind of clotting disorder". The patient will also be kept on ceftriaxone for urinary tract infection. The patient has a negative COVID-19 test. Repeat laboratory testings have been orde red. The patient's home medications have been reconciled and the appropriate ones will be continued. Patient has been encouraged to ambulate. She also has been given prescription for nystatin cream to use on her intertriginous folds. The patient will be kept on appropriate ADA diet and she will have Accu-Cheks before meals and at bedtime. Patient should be appropriate for discharge in 1 to 2 days. - Mortality Measure Prognosis:: Good
[2020-07-20] MEDS ORDERED: cefTRIAXone 1 GM in Sodium Chloride 0.9% 100 ML IV ONE (07:40)
[2020-07-20] MEDS ORDERED: Temazepam 15 MG Cap PO PRN (08:17)
[2020-07-20] MEDS ORDERED: oxyCODONE 5 MG Tab PO PRN (08:17)
[2020-07-20] MEDS: Lisinopril 10 MG Tab PO SCH (08:40)
[2020-07-20] MEDS: Citalopram 20 MG Tab PO SCH (08:41)
[2020-07-20] MEDS: Nystatin Crm 30 GM Tube TOP SCH ×2 (08:41→22:29)
[2020-07-20] MEDS: Apixaban 5 MG Tab PO SCH (08:41)
[2020-07-20] MEDS: Sodium Chloride 0.9% 1,000 ML IV SCH ×3 (09:46→21:39)
[2020-07-20] MEDS: Acetaminophen 325 MG Tab PO PRN (16:37)
[2020-07-20] MEDS: Simvastatin 10 MG Tab PO SCH (22:28)
[2020-07-21] MEDS: Sodium Chloride 0.9% 1,000 ML IV SCH ×3 (01:59→20:42)
[2020-07-21] MEDS: Insulin Lispro 100 Units/ML 3 ML Vial SUBCUT SCH ×5 (08:37→21:10)
[2020-07-21] MEDS: Acetaminophen 325 MG Tab PO PRN ×2 (08:39→21:11)
[2020-07-21] MEDS: Citalopram 20 MG Tab PO SCH (08:39)
[2020-07-21] MEDS: Lisinopril 10 MG Tab PO SCH (08:39)
[2020-07-21] MEDS: Apixaban 5 MG Tab PO SCH (08:40)
[2020-07-21] MEDS: Nystatin Crm 30 GM Tube TOP SCH ×2 (08:41→20:48)
[2020-07-21] MEDS: Albuterol 0.083% 2.5 MG/3 ML Neb Soln NEB PRN (08:54)
[2020-07-21] MEDS: cefTRIAXone 1 GM in Sodium Chloride 0.9% 100 ML IV SCH (09:50)
[2020-07-21] MEDS ORDERED: Furosemide 20 MG/2 ML VIAL IVPUSH ONE (11:15)
--- NOTE | 2020-07-21 15:08 | PCM.PN ---
<Orion Rodriguez M - Last Filed: 07/21/20 15:17> - General Info Date of Service: 07/21/20 Admission Dx/Problem (Free Text): Admission Diagnosis/Problem Admission Diagnosis/Problem Uncontrolled diabetes mellitus Subjective Update: States she is not feeling well today. She has a headache and body aches. Shortness of breath and wheezing. Functional Status: Reports: Pain Controlled, Tolerating Diet, Urinating (Srivastava catheter) - Review of Systems General: Reports: Fever (101.3), Weakness, Fatigue, Malaise, Chills HEENT: Reports: No Symptoms Pulmonary: Reports: Shortness of Breath, Cough, Wheezing. Denies: Sputum Cardiovascular: Reports: No Symptoms Gastrointestinal: Reports: No Symptoms Genitourinary: Reports: No Symptoms Musculoskeletal: Reports: No Symptoms Skin: Reports: Rash (To groin) Neurological: Reports: No Symptoms Psychiatric: Reports: No Symptoms - Patient Data Vitals - Most Recent: Last Vital Signs Temp 98.1 F 07/21/20 12:12 Pulse 102 H 07/21/20 12:12 Resp 22 H 07/21/20 12:12 BP 145/72 H 07/21/20 12:12 Pulse Ox 98 07/21/20 12:12 Weight - Most Recent: 151.817 kg I&O - Last 24 Hours: Intake & Output 07/21/20 07/21/20 07/21/20 06:59 14:59 22:59 Intake Total 1000 250 300 Output Total 1300 975 Balance -300 -725 300 Lab Results Last 24 Hours: Laboratory Results - last 24 hr 07/20/20 07/20/20 07/21/20 Range/Units 17:37 22:26 06:41 WBC (3.98-10.04) K/mm3 RBC (3.98-5.22) M/mm3 Hgb (11.2-15.7) gm/dl Hct (34.1-44.9) % MCV (79.4-94.8) fl MCH (25.6-32.2) pg MCHC (32.2-35.5) g/dl RDW Std Deviation (36.4-46.3) fL Plt Count (182-369) K/mm3 MPV (9.4-12.3) fl Neut % (Auto) (34.0-71.1) % Lymph % (Auto) (19.3-51.7) % [place] % (Auto) (4.7-12.5) % Eos % (Auto) (0.7-5.8) Baso % (Auto) (0.1-1.2) % Neut # (Auto) (1.56-6.13) K/mm3 Lymph # (Auto) (1.18-3.74) K/mm3 [place] # (Auto) (0.24-0.36) K/mm3 Eos # (Auto) (0.04-0.36) K/mm3 Baso # (Auto) (0.01-0.08) K/mm3 Manual Slide Review Sodium (136-145) mEq/L Potassium (3.5-5.1) mEq/L Chloride (98-107) mEq/L Carbon Dioxide (21-32) mEq/L Anion Gap (5-15) BUN (7-18) mg/dL Creatinine (0.55-1.02) mg/dL Est Cr Clr Drug Dosing mL/min Estimated GFR (MDRD) (>60) mL/min BUN/Creatinine Ratio (14-18) Glucose (74-106) mg/dL POC Glucose 230 H 277 H 236 H (70-105) mg/dL Lactic Acid (0.4-2.0) mmol/L Calcium (8.5-10.1) mg/dL Phosphorus (2.6-4.7) mg/dL Magnesium (1.8-2.4) mg/dl Total Bilirubin (0.2-1.0) mg/dL AST (15-37) U/L ALT (14-59) U/L Alkaline Phosphatase (46-116) U/L Total Protein (6.4-8.2) g/dl Albumin (3.4-5.0) g/dl Globulin gm/dL Albumin/Globulin Ratio (1-2) 07/21/20 07/21/20 07/21/20 Range/Units 06:52 06:52 11:24 WBC 9.40 (3.98-10.04) K/mm3 RBC 3.98 (3.98-5.22) M/mm3 Hgb 11.4 D (11.2-15.7) gm/dl Hct 36.0 (34.1-44.9) % MCV 90.5 (79.4-94.8) fl MCH 28.6 (25.6-32.2) pg MCHC 31.7 L (32.2-35.5) g/dl RDW Std Deviation 46.1 (36.4-46.3) fL Plt Count 133 L (182-369) K/mm3 MPV 10.9 (9.4-12.3) fl Neut % (Auto) 87.2 H (34.0-71.1) % Lymph % (Auto) 6.4 L (19.3-51.7) % [place] % (Auto) 5.9 (4.7-12.5) % Eos % (Auto) 0.1 L (0.7-5.8) Baso % (Auto) 0.1 (0.1-1.2) % Neut # (Auto) 8.20 H (1.56-6.13) K/mm3 Lymph # (Auto) 0.60 L (1.18-3.74) K/mm3 [place] # (Auto) 0.55 H (0.24-0.36) K/mm3 Eos # (Auto) 0.01 L (0.04-0.36) K/mm3 Baso # (Auto) 0.01 (0.01-0.08) K/mm3 Manual Slide Review Abnormal smear Sodium 132 L (136-145) mEq/L Potassium 3.5 (3.5-5.1) mEq/L Chloride 100 (98-107) mEq/L Carbon Dioxide 20 L (21-32) mEq/L Anion Gap 15.5 H (5-15) BUN 15 (7-18) mg/dL Creatinine 1.4 H (0.55-1.02) mg/dL Est Cr Clr Drug Dosing 44.22 mL/min Estimated GFR (MDRD) 40 (>60) mL/min BUN/Creatinine Ratio 10.7 L (14-18) Glucose 251 H (74-106) mg/dL POC Glucose 275 H (70-105) mg/dL Lactic Acid (0.4-2.0) mmol/L Calcium 7.7 L (8.5-10.1) mg/dL Phosphorus 2.0 L (2.6-4.7) mg/dL Magnesium 2.2 (1.8-2.4) mg/dl Total Bilirubin 0.4 (0.2-1.0) mg/dL AST 72 H (15-37) U/L ALT 34 (14-59) U/L Alkaline Phosphatase 90 (46-116) U/L Total Protein 6.1 L (6.4-8.2) g/dl Albumin 2.1 L (3.4-5.0) g/dl Globulin 4.0 gm/dL Albumin/Globulin Ratio 0.5 L (1-2) 07/21/20 Range/Units 11:25 WBC (3.98-10.04) K/mm3 RBC (3.98-5.22) M/mm3 Hgb (11.2-15.7) gm/dl Hct (34.1-44.9) % MCV (79.4-94.8) fl MCH (25.6-32.2) pg MCHC (32.2-35.5) g/dl RDW Std Deviation (36.4-46.3) fL Plt Count (182-369) K/mm3 MPV (9.4-12.3) fl Neut % (Auto) (34.0-71.1) % Lymph % (Auto) (19.3-51.7) % [place] % (Auto) (4.7-12.5) % Eos % (Auto) (0.7-5.8) Baso % (Auto) (0.1-1.2) % Neut # (Auto) (1.56-6.13) K/mm3 Lymph # (Auto) (1.18-3.74) K/mm3 [place] # (Auto) (0.24-0.36) K/mm3 Eos # (Auto) (0.04-0.36) K/mm3 Baso # (Auto) (0.01-0.08) K/mm3 Manual Slide Review Sodium (136-145) mEq/L Potassium (3.5-5.1) mEq/L Chloride (98-107) mEq/L Carbon Dioxide (21-32) mEq/L Anion Gap (5-15) BUN (7-18) mg/dL Creatinine (0.55-1.02) mg/dL Est Cr Clr Drug Dosing mL/min Estimated GFR (MDRD) (>60) mL/min BUN/Creatinine Ratio (14-18) Glucose (74-106) mg/dL POC Glucose (70-105) mg/dL Lactic Acid 1.3 (0.4-2.0) mmol/L Calcium (8.5-10.1) mg/dL Phosphorus (2.6-4.7) mg/dL Magnesium (1.8-2.4) mg/dl Total Bilirubin (0.2-1.0) mg/dL AST (15-37) U/L ALT (14-59) U/L Alkaline Phosphatase (46-116) U/L Total Protein (6.4-8.2) g/dl Albumin (3.4-5.0) g/dl Globulin gm/dL Albumin/Globulin Ratio (1-2) Abe Results Last 24 Hours: Microbiology 07/19/20 20:50 Urine Culture - Final Urine, Quick Cath (In-Out) Escherichia Coli 07/19/20 21:00 Aerobic Blood Culture - Preliminary Blood - Venous Gram Negative Rods Anaerobic Blood Culture - Final 07/19/20 21:08 Aerobic Blood Culture - Preliminary Blood - Venous - Lab Draw Gram Negative Rods Anaerobic Blood Culture - Preliminary Gram Negative Rods Med Orders - Current: Current Medications Acetaminophen (Tylenol) 650 mg PO Q4H PRN PRN Reason: Pain (Mild 1-3)/fever Last Admin: 07/21/20 08:39 Dose: 650 mg Documented by: Albuterol (Proventil Neb Soln) 2.5 mg NEB Q4HRRT PRN PRN Reason: Wheezing Last Admin: 07/21/20 08:54 Dose: 2.5 mg Documented by: Apixaban (Eliquis) 5 mg PO DAILY [facility] Last Admin: 07/21/20 08:40 Dose: 5 mg Documented by: Citalopram Hydrobromide (Celexa) 40 mg PO DAILY [facility] Last Admin: 07/21/20 08:39 Dose: 40 mg Documented by: Ceftriaxone Sodium 1 gm/ (Sodium Chloride) 100 mls @ 200 mls/hr IV Q24H [facility] Last Admin: 07/21/20 09:50 Dose: 200 mls/hr Documented by: Sodium Chloride (Normal Saline) 1,000 mls @ 100 mls/hr IV ASDIRECTED [facility] Last Admin: 07/21/20 10:46 Dose: 100 mls/hr Documented by: Insulin Human Lispro (Humalog) 0 unit SUBCUT QIDACANDBED [facility]; Protocol Last Admin: 07/21/20 12:14 Dose: 6 unit Documented by: Lisinopril (Prinivil) 10 mg PO DAILY [facility] Last Admin: 07/21/20 08:39 Dose: 10 mg Documented by: Nystatin (Nystatin Crm) 5 gm TOP BID [facility] Last Admin: 07/21/20 08:41 Dose: 1 applic Documented by: Ondansetron HCl (Zofran) 4 mg IVPUSH Q8H PRN PRN Reason: Nausea Last Admin: 07/20/20 01:35 Dose: 4 mg Documented by: Oxycodone HCl (Oxycodone) 5 mg PO Q4H PRN PRN Reason: Pain (moderate 4-6) Simvastatin (Zocor) 10 mg PO BEDTIME [facility] Last Admin: 07/20/20 22:28 Dose: 10 mg Documented by: Sodium Chloride (Saline Flush) 10 ml FLUSH ASDIRECTED PRN PRN Reason: Keep Vein Open Last Admin: 07/19/20 20:42 Dose: 10 ml Documented by: Temazepam (Restoril) 15 mg PO BEDTIME PRN PRN Reason: Sleep Discontinued Medications Furosemide (Lasix) 20 mg IVPUSH NOW ONE Stop: 07/21/20 11:16 Last Admin: 07/21/20 12:15 Dose: 20 mg Documented by: Sodium Chloride (Normal Saline) 1,000 mls @ 999 mls/hr IV ASDIRECTED [facility] Last Admin: 07/19/20 20:42 Dose: 999 mls/hr Documented by: Insulin Human Regular 100 unit (/ Sodium Chloride) 100 mls @ 15 mls/hr IV TITRATE [facility]; Protocol Last Titration: 07/19/20 23:50 Dose: 0 units/kg/hr, 0 mls/hr Documented by: Ceftriaxone Sodium 2 gm/ (Sodium Chloride) 100 mls @ 200 mls/hr IV ONETIME ONE Stop: 07/19/20 21:50 Last Admin: 07/19/20 21:47 Dose: 200 mls/hr Documented by: Sodium Chloride (Normal Saline) 1,000 mls @ 999 mls/hr IV ASDIRECTED [facility] Last Admin: 07/19/20 21:47 Dose: 999 mls/hr Documented by: Sodium Chloride (Normal Saline) 1,000 mls @ 150 mls/hr IV ONETIME ONE Stop: 07/20/20 05:03 Last Admin: 07/19/20 22:54 Dose: 150 mls/hr Documented by: Potassium Chloride 10 meq/ (Premix) 100 mls @ 100 mls/hr IV Q1H [facility] Stop: 07/20/20 01:44 Last Admin: 07/20/20 01:24 Dose: 100 mls/hr Documented by: Magnesium Sulfate (Magnesium Sulfate In Water Premix) 2 gm in 50 mls @ 25 mls/hr IV Q1H [facility] Stop: 07/20/20 01:14 Last Admin: 07/20/20 00:52 Dose: 25 mls/hr Documented by: Potassium Chloride 10 meq/ (Premix) 100 mls @ 100 mls/hr IV Q1H [facility] Stop: 07/20/20 06:44 Last Admin: 07/20/20 06:13 Dose: 100 mls/hr Documented by: Sodium Chloride (Normal Saline) 1,000 mls @ 200 mls/hr IV ASDIRECTED [facility] Last Admin: 07/20/20 05:00 Dose: 200 mls/hr Documented by: Magnesium Sulfate (Magnesium Sulfate In Water Premix) 2 gm in 50 mls @ 25 mls/hr IV ONETIME ONE Stop: 07/20/20 04:59 Last Admin: 07/20/20 02:57 Dose: 25 mls/hr Documented by: Sodium Chloride (Normal Saline) 1,000 mls @ 250 mls/hr IV ASDIRECTED [facility] Last Admin: 07/21/20 01:59 Dose: 250 mls/hr Documented by: Ceftriaxone Sodium 1 gm/ (Sodium Chloride) 100 mls @ 200 mls/hr IV ONETIME ONE Stop: 07/20/20 08:09 Last Admin: 07/20/20 08:16 Dose: 200 mls/hr Documented by: Potassium Chloride 10 meq/ (Premix) 100 mls @ 100 mls/hr IV Q1H [facility] Stop: 07/20/20 19:29 Last Admin: 07/20/20 21:50 Dose: 100 mls/hr Documented by: - Exam Quality Assessment: Supplemental Oxygen (2 L per nasal cannula), Urine Catheter, DVT Prophylaxis (Eliquis) General: Alert, Oriented, Cooperative, Moderate Distress HEENT: Pupils Equal, Pupils Reactive, Mucous Membr. Moist/[place] Neck: Supple, Trachea Midline. No: Lymphadenopathy Lungs: Wheezing (Tachypnea) Cardiovascular: Regular Rhythm, No Murmurs, Tachycardia GI/Abdominal Exam: Normal Bowel Sounds, Soft, Non-Tender, No Distention (Female) Exam: Deferred Back Exam: Normal Inspection, Full Range of Motion Extremities: Normal Inspection, Normal Range of Motion, Non-Tender, No Pedal Edema, Normal Capillary Refill Peripheral Pulses: 2+: Radial (L), Radial (R), Dorsalis Pedis (L), Dorsalis Pedis (R) Skin: Warm, Moist, Rash (Rachna noted to bilateral groins) Neurological: No New Focal Deficit Psy/Mental Status: Alert, Normal Affect, Normal Mood Sepsis Event Note - Evaluation Sepsis Screening Result: Sepsis Risk - Focused Exam Vital Signs: Vital Signs Temp Pulse Resp BP Pulse Ox Pulse Ox 07/21/20 12:12 98.1 F 102 H 22 H 145/72 H 98 07/21/20 11:29 97.2 F 104 H 24 H 126/65 96 07/21/20 10:47 98.8 F 106 H 96 07/21/20 08:54 93 L 07/21/20 08:39 100.4 F 152/89 H 07/21/20 07:57 100.4 F 114 H 24 H 152/89 H 96 07/21/20 07:56 96 07/21/20 07:01 113 H 96 07/21/20 06:13 95 - Problem List & Annotations (1) UTI (urinary tract infection) SNOMED Code(s): 93882511 Code(s): N39.0 - URINARY TRACT INFECTION, SITE NOT SPECIFIED Status: Acute Priority: High Current Visit: Yes Qualifiers: Urinary tract infection type: site unspecified (2) Bacteremia SNOMED Code(s): 5122540 Code(s): R78.81 - BACTEREMIA Status: Acute Priority: High Current Visit: Yes (3) Episode of syncope SNOMED Code(s): 719261609 Code(s): R55 - SYNCOPE AND COLLAPSE Status: Acute Priority: High Current Visit: Yes Qualifiers: Syncope type: unspecified Qualified Code(s): R55 - Syncope and collapse (4) Hyperglycemia SNOMED Code(s): 26086100 Code(s): R73.9 - HYPERGLYCEMIA, UNSPECIFIED Status: Acute Priority: High Current Visit: Yes (5) Skin yeast infection SNOMED Code(s): 29769063 Code(s): B37.2 - CANDIDIASIS OF SKIN AND NAIL Status: Acute Priority: Medium Current Visit: Yes (6) Obesity, morbid, BMI 50 or higher SNOMED Code(s): 300038396, 322268543 Code(s): E66.01 - MORBID (SEVERE) OBESITY DUE TO EXCESS CALORIES Status: Chronic Priority: Medium Current Visit: Yes (7) Uncontrolled diabetes mellitus SNOMED Code(s): 70773569, 602723334 Code(s): E11.65 - TYPE 2 DIABETES MELLITUS WITH HYPERGLYCEMIA Status: Chronic Priority: High Current Visit: Yes Qualifiers: Diabetes mellitus type: due to underlying condition Glycemic state: with hyperglycemia Qualified Code(s): E08.65 - Diabetes mellitus due to underlying condition with hyperglycemia - Problem List Review Problem List Initiated/Reviewed/Updated: Yes - My Orders Last 24 Hours: My Active Orders 07/21/20 08:05 RT Aerosol Therapy [RC] ASDIRECTED 07/21/20 09:00 cefTRIAXone [Rocephin] 1 gm Sodium Chloride 0.9% [Normal Saline] 100 ml IV Q24H 07/21/20 10:00 Albuterol [Proventil Neb Soln] 2.5 mg NEB Q4HRRT PRN 07/21/20 10:13 Chest 2V [CR] Routine 07/21/20 12:57 Patient Status [ADT] Routine - Assessment Assessment:: 07/21/20 Patient with a history of uncontrolled diabetes who was brought to the ER with a syncopal episode. Discovered that her blood sugars were in the 400 at that time. Blood sugars being controlled with sliding scale insulin Blood sugars checked 4 times daily. Diabetic diet Continues on 2 L of oxygen per nasal cannula T-max 101.3 Tachycardia in the low 100s Urinalysis positive for E. coli currently receiving IV Rocephin. Blood cultures growing gram-negative rods which are sensitive to Rocephin. Awaiting culture and sensitivity report. WBC down to 9.4 Sodium 132 Potassium 3.5 BUN is 15 Creatinine 1.4 GFR 40 Blood sugars range from 230 2-75 Phosphorus 2.0 Most recent A1c is 8.7 She did receive 20 mg of IV Lasix today as I do feel she has some fluid overload. IV fluid rate was decreased to 100 mL's per hour. - Plan Plan:: Patient is a 49-year-old lady has been admitted due to poorly controlled diabetes. The patient admits that she did have what sounded like a syncopal episode. The patient is currently taking Eliquis and this will be continued for DVT prophylaxis. She admits that she has "some kind of clotting disorder". The patient will also be kept on ceftriaxone for urinary tract infection. The patient has a negative COVID-19 test. Repeat laboratory testings have been ordered. The patient's home medications have been reconciled and the appropriate ones will be continued. Patient has been encouraged to ambulate. She also has been given prescription for nystatin cream to use on her intertriginous folds. The patient will be kept on appropriate ADA diet and she will have Accu-Cheks before meals and at bedtime. Patient should be appropriate for discharge in 1 to 2 days. 07/21/20 Continue Rocephin PRN albuterol Repeat labs and replace electrolytes as needed Nystatin to groin Sliding scale insulin Continue 4 times daily Accu-Cheks Hypoglycemia protocol Strict intake and output Continue to monitor vital signs Continue Eliquis Tylenol for comfort and fever control banking services advisor and case management for discharge planning as the patient is not able to afford her diabetic medications and supplies <Catrachito Steve - Last Filed: 07/21/20 15:36> - Patient Data Vitals - Most Recent: Last Vital Signs Temp 36.7 C 07/21/20 12:12 Pulse 102 H 07/21/20 12:12 Resp 22 H 07/21/20 12:12 BP 145/72 H 07/21/20 12:12 Pulse Ox 98 07/21/20 12:12 I&O - Last 24 Hours: Intake & Output 07/21/20 07/21/20 07/21/20 06:59 14:59 22:59 Intake Total 1000 250 300 Output Total 1300 975 Balance -300 -725 300 Lab Results Last 24 Hours: Laboratory Results - last 24 hr 07/20/20 07/20/20 07/21/20 Range/Units 17:37 22:26 06:41 WBC (3.98-10.04) K/mm3 RBC (3.98-5.22) M/mm3 Hgb (11.2-15.7) gm/dl Hct (34.1-44.9) % MCV (79.4-94.8) fl MCH (25.6-32.2) pg MCHC (32.2-35.5) g/dl RDW Std Deviation (36.4-46.3) fL Plt Count (182-369) K/mm3 MPV (9.4-12.3) fl Neut % (Auto) (34.0-71.1) % Lymph % (Auto) (19.3-51.7) % [place] % (Auto) (4.7-12.5) % Eos % (Auto) (0.7-5.8) Baso % (Auto) (0.1-1.2) % Neut # (Auto) (1.56-6.13) K/mm3 Lymph # (Auto) (1.18-3.74) K/mm3 [place] # (Auto) (0.24-0.36) K/mm3 Eos # (Auto) (0.04-0.36) K/mm3 Baso # (Auto) (0.01-0.08) K/mm3 Manual Slide Review Sodium (136-145) mEq/L Potassium (3.5-5.1) mEq/L Chloride (98-107) mEq/L Carbon Dioxide (21-32) mEq/L Anion Gap (5-15) BUN (7-18) mg/dL Creatinine (0.55-1.02) mg/dL Est Cr Clr Drug Dosing mL/min Estimated GFR (MDRD) (>60) mL/min BUN/Creatinine Ratio (14-18) Glucose (74-106) mg/dL POC Glucose 230 H 277 H 236 H (70-105) mg/dL Lactic Acid (0.4-2.0) mmol/L Calcium (8.5-10.1) mg/dL Phosphorus (2.6-4.7) mg/dL Magnesium (1.8-2.4) mg/dl Total Bilirubin (0.2-1.0) mg/dL AST (15-37) U/L ALT (14-59) U/L Alkaline Phosphatase (46-116) U/L Total Protein (6.4-8.2) g/dl Albumin (3.4-5.0) g/dl Globulin gm/dL Albumin/Globulin Ratio (1-2) 07/21/20 07/21/20 07/21/20 Range/Units 06:52 06:52 11:24 WBC 9.40 (3.98-10.04) K/mm3 RBC 3.98 (3.98-5.22) M/mm3 Hgb 11.4 D (11.2-15.7) gm/dl Hct 36.0 (34.1-44.9) % MCV 90.5 (79.4-94.8) fl MCH 28.6 (25.6-32.2) pg MCHC 31.7 L (32.2-35.5) g/dl RDW Std Deviation 46.1 (36.4-46.3) fL Plt Count 133 L (182-369) K/mm3 MPV 10.9 (9.4-12.3) fl Neut % (Auto) 87.2 H (34.0-71.1) % Lymph % (Auto) 6.4 L (19.3-51.7) % [place] % (Auto) 5.9 (4.7-12.5) % Eos % (Auto) 0.1 L (0.7-5.8) Baso % (Auto) 0.1 (0.1-1.2) % Neut # (Auto) 8.20 H (1.56-6.13) K/mm3 Lymph # (Auto) 0.60 L (1.18-3.74) K/mm3 [place] # (Auto) 0.55 H (0.24-0.36) K/mm3 Eos # (Auto) 0.01 L (0.04-0.36) K/mm3 Baso # (Auto) 0.01 (0.01-0.08) K/mm3 Manual Slide Review Abnormal smear Sodium 132 L (136-145) mEq/L Potassium 3.5 (3.5-5.1) mEq/L Chloride 100 (98-107) mEq/L Carbon Dioxide 20 L (21-32) mEq/L Anion Gap 15.5 H (5-15) BUN 15 (7-18) mg/dL Creatinine 1.4 H (0.55-1.02) mg/dL Est Cr Clr Drug Dosing 44.22 mL/min Estimated GFR (MDRD) 40 (>60) mL/min BUN/Creatinine Ratio 10.7 L (14-18) Glucose 251 H (74-106) mg/dL POC Glucose 275 H (70-105) mg/dL Lactic Acid (0.4-2.0) mmol/L Calcium 7.7 L (8.5-10.1) mg/dL Phosphorus 2.0 L (2.6-4.7) mg/dL Magnesium 2.2 (1.8-2.4) mg/dl Total Bilirubin 0.4 (0.2-1.0) mg/dL AST 72 H (15-37) U/L ALT 34 (14-59) U/L Alkaline Phosphatase 90 (46-116) U/L Total Protein 6.1 L (6.4-8.2) g/dl Albumin 2.1 L (3.4-5.0) g/dl Globulin 4.0 gm/dL Albumin/Globulin Ratio 0.5 L (1-2) 07/21/20 Range/Units 11:25 WBC (3.98-10.04) K/mm3 RBC (3.98-5.22) M/mm3 Hgb (11.2-15.7) gm/dl Hct (34.1-44.9) % MCV (79.4-94.8) fl MCH (25.6-32.2) pg MCHC (32.2-35.5) g/dl RDW Std Deviation (36.4-46.3) fL Plt Count (182-369) K/mm3 MPV (9.4-12.3) fl Neut % (Auto) (34.0-71.1) % Lymph % (Auto) (19.3-51.7) % [place] % (Auto) (4.7-12.5) % Eos % (Auto) (0.7-5.8) Baso % (Auto) (0.1-1.2) % Neut # (Auto) (1.56-6.13) K/mm3 Lymph # (Auto) (1.18-3.74) K/mm3 [place] # (Auto) (0.24-0.36) K/mm3 Eos # (Auto) (0.04-0.36) K/mm3 Baso # (Auto) (0.01-0.08) K/mm3 Manual Slide Review Sodium (136-145) mEq/L Potassium (3.5-5.1) mEq/L Chloride (98-107) mEq/L Carbon Dioxide (21-32) mEq/L Anion Gap (5-15) BUN (7-18) mg/dL Creatinine (0.55-1.02) mg/dL Est Cr Clr Drug Dosing mL/min Estimated GFR (MDRD) (>60) mL/min BUN/Creatinine Ratio (14-18) Glucose (74-106) mg/dL POC Glucose (70-105) mg/dL Lactic Acid 1.3 (0.4-2.0) mmol/L Calcium (8.5-10.1) mg/dL Phosphorus (2.6-4.7) mg/dL Magnesium (1.8-2.4) mg/dl Total Bilirubin (0.2-1.0) mg/dL AST (15-37) U/L ALT (14-59) U/L Alkaline Phosphatase (46-116) U/L Total Protein (6.4-8.2) g/dl Albumin (3.4-5.0) g/dl Globulin gm/dL Albumin/Globulin Ratio (1-2) Abe Results Last 24 Hours: Microbiology 07/19/20 20:50 Urine Culture - Final Urine, Quick Cath (In-Out) Escherichia Coli 07/19/20 21:00 Aerobic Blood Culture - Preliminary Blood - Venous Gram Negative Rods Anaerobic Blood Culture - Final 07/19/20 21:08 Aerobic Blood Culture - Preliminary Blood - Venous - Lab Draw Gram Negative Rods Anaerobic Blood Culture - Preliminary Gram Negative Rods Med Orders - Current: Current Medications Acetaminophen (Tylenol) 650 mg PO Q4H PRN PRN Reason: Pain (Mild 1-3)/fever Last Admin: 07/21/20 08:39 Dose: 650 mg Documented by: Albuterol (Proventil Neb Soln) 2.5 mg NEB Q4HRRT PRN PRN Reason: Wheezing Last Admin: 07/21/20 08:54 Dose: 2.5 mg Documented by: Apixaban (Eliquis) 5 mg PO DAILY [facility] Last Admin: 07/21/20 08:40 Dose: 5 mg Documented by: Citalopram Hydrobromide (Celexa) 40 mg PO DAILY [facility] Last Admin: 07/21/20 08:39 Dose: 40 mg Documented by: Ceftriaxone Sodium 1 gm/ (Sodium Chloride) 100 mls @ 200 mls/hr IV Q24H [facility] Last Admin: 07/21/20 09:50 Dose: 200 mls/hr Documented by: Sodium Chloride (Normal Saline) 1,000 mls @ 100 mls/hr IV ASDIRECTED [facility] Last Admin: 07/21/20 10:46 Dose: 100 mls/hr Documented by: Insulin Human Lispro (Humalog) 0 unit SUBCUT QIDACANDBED [facility]; Protocol Last Admin: 07/21/20 12:14 Dose: 6 unit Documented by: Lisinopril (Prinivil) 10 mg PO DAILY [facility] Last Admin: 07/21/20 08:39 Dose: 10 mg Documented by: Nystatin (Nystatin Crm) 5 gm TOP BID [facility] Last Admin: 07/21/20 08:41 Dose: 1 applic Documented by: Ondansetron HCl (Zofran) 4 mg IVPUSH Q8H PRN PRN Reason: Nausea Last Admin: 07/20/20 01:35 Dose: 4 mg Documented by: Oxycodone HCl (Oxycodone) 5 mg PO Q4H PRN PRN Reason: Pain (moderate 4-6) Simvastatin (Zocor) 10 mg PO BEDTIME [facility] Last Admin: 07/20/20 22:28 Dose: 10 mg Documented by: Sodium Chloride (Saline Flush) 10 ml FLUSH ASDIRECTED PRN PRN Reason: Keep Vein Open Last Admin: 07/19/20 20:42 Dose: 10 ml Documented by: Temazepam (Restoril) 15 mg PO BEDTIME PRN PRN Reason: Sleep Discontinued Medications Furosemide (Lasix) 20 mg IVPUSH NOW ONE Stop: 07/21/20 11:16 Last Admin: 07/21/20 12:15 Dose: 20 mg Documented by: Sodium Chloride (Normal Saline) 1,000 mls @ 999 mls/hr IV ASDIRECTED [facility] Last Admin: 07/19/20 20:42 Dose: 999 mls/hr Documented by: Insulin Human Regular 100 unit (/ Sodium Chloride) 100 mls @ 15 mls/hr IV TITRATE [facility]; Protocol Last Titration: 07/19/20 23:50 Dose: 0 units/kg/hr, 0 mls/hr Documented by: Ceftriaxone Sodium 2 gm/ (Sodium Chloride) 100 mls @ 200 mls/hr IV ONETIME ONE Stop: 07/19/20 21:50 Last Admin: 07/19/20 21:47 Dose: 200 mls/hr Documented by: Sodium Chloride (Normal Saline) 1,000 mls @ 999 mls/hr IV ASDIRECTED [facility] Last Admin: 07/19/20 21:47 Dose: 999 mls/hr Documented by: Sodium Chloride (Normal Saline) 1,000 mls @ 150 mls/hr IV ONETIME ONE Stop: 07/20/20 05:03 Last Admin: 07/19/20 22:54 Dose: 150 mls/hr Documented by: Potassium Chloride 10 meq/ (Premix) 100 mls @ 100 mls/hr IV Q1H [facility] Stop: 07/20/20 01:44 Last Admin: 07/20/20 01:24 Dose: 100 mls/hr Documented by: Magnesium Sulfate (Magnesium Sulfate In Water Premix) 2 gm in 50 mls @ 25 mls/hr IV Q1H [facility] Stop: 07/20/20 01:14 Last Admin: 07/20/20 00:52 Dose: 25 mls/hr Documented by: Potassium Chloride 10 meq/ (Premix) 100 mls @ 100 mls/hr IV Q1H [facility] Stop: 07/20/20 06:44 Last Admin: 07/20/20 06:13 Dose: 100 mls/hr Documented by: Sodium Chloride (Normal Saline) 1,000 mls [facility] Admin: 07/20/20 05:00 Dose: 200 mls/hr Documented by: Magnesium Sulfate (Magnesium Sulfate In Water Premix) 2 gm in 50 mls @ 25 mls/hr IV ONETIME ONE Stop: 07/20/20 04:59 Last Admin: 07/20/20 02:57 Dose: 25 mls/hr Documented by: Sodium Chloride (Normal Saline) 1,000 mls @ 250 mls/hr IV ASDIRECTED [facility] Last Admin: 07/21/20 01:59 Dose: 250 mls/hr Documented by: Ceftriaxone Sodium 1 gm/ (Sodium Chloride) 100 mls @ 200 mls/hr IV ONETIME ONE Stop: 07/20/20 08:09 Last Admin: 07/20/20 08:16 Dose: 200 mls/hr Documented by: Potassium Chloride 10 meq/ (Premix) 100 mls @ 100 mls/hr IV Q1H [facility] Stop: 07/20/20 19:29 Last Admin: 07/20/20 21:50 Dose: 100 mls/hr Documented by: Sepsis Event Note - Focused Exam Vital Signs: Vital Signs Temp Pulse Resp BP Pulse Ox Pulse Ox 07/21/20 12:12 36.7 C 102 H 22 H 145/72 H 98 07/21/20 11:29 36.2 C 104 H 24 H 126/65 96 07/21/20 10:47 37.1 C 106 H 96 07/21/20 08:54 93 L 07/21/20 08:39 38.0 C 152/89 H 07/21/20 07:57 38.0 C 114 H 24 H 152/89 H 96 07/21/20 07:56 96 07/21/20 07:01 113 H 96 07/21/20 06:13 95 - Problem List & Annotations (1) Episode of syncope SNOMED Code(s): 607809621 Code(s): R55 - SYNCOPE AND COLLAPSE Status: Acute Priority: High Current Visit: Yes Qualifiers: Syncope type: unspecified Qualified Code(s): R55 - Syncope and collapse (2) Obesity, morbid, BMI 50 or higher SNOMED Code(s): 027543689, 670715752 Code(s): E66.01 - MORBID (SEVERE) OBESITY DUE TO EXCESS CALORIES Status: Chronic Priority: Medium Current Visit: Yes (3) Hyperglycemia SNOMED Code(s): 17795557 Code(s): R73.9 - HYPERGLYCEMIA, UNSPECIFIED Status: Acute Priority: High Current Visit: Yes (4) Skin yeast infection SNOMED Code(s): 68104860 Code(s): B37.2 - CANDIDIASIS OF SKIN AND NAIL Status: Acute Priority: Medium Current Visit: Yes (5) Uncontrolled diabetes mellitus SNOMED Code(s): 77800700, 394630703 Code(s): E11.65 - TYPE 2 DIABETES MELLITUS WITH HYPERGLYCEMIA Status: Chronic Priority: High Current Visit: Yes Qualifiers: Diabetes mellitus type: due to underlying condition Glycemic state: with hyperglycemia Qualified Code(s): E08.65 - Diabetes mellitus due to underlying condition with hyperglycemia - My Orders Last 24 Hours: My Active Orders 07/20/20 21:00 Simvastatin [Zocor] 10 mg PO BEDTIME 07/21/20 09:30 Sodium Chloride 0.9% [Normal Saline] 1,000 ml IV ASDIRECTED - Plan Plan:: I have seen and examined the patient independent of nurse practitioner Orion Rodriguez and I have discussed the case with her. I have reviewed and agree with the assessment and plan as outlined for this patient by her. Please see orders.
[2020-07-21] MEDS: Simvastatin 10 MG Tab PO SCH (20:48)
[2020-07-22] MEDS: Sodium Chloride 0.9% 1,000 ML IV SCH (07:43)
[2020-07-22] MEDS: Insulin Lispro 100 Units/ML 3 ML Vial SUBCUT SCH ×4 (08:20→21:02)
[2020-07-22] MEDS: Acetaminophen 325 MG Tab PO PRN ×2 (08:27→21:00)
[2020-07-22] MEDS: Nystatin Crm 30 GM Tube TOP SCH ×2 (08:27→21:02)
[2020-07-22] MEDS: Apixaban 5 MG Tab PO SCH (08:30)
[2020-07-22] MEDS: cefTRIAXone 1 GM in Sodium Chloride 0.9% 100 ML IV SCH (08:30)
[2020-07-22] MEDS: Citalopram 20 MG Tab PO SCH (08:30)
[2020-07-22] MEDS: Lisinopril 10 MG Tab PO SCH (08:30)
[2020-07-22] MEDS: Albuterol 0.083% 2.5 MG/3 ML Neb Soln NEB PRN (10:05)
[2020-07-22] MEDS ORDERED: Potassium Chloride 20 MEQ Tab.ER PO ONE (14:34)
--- NOTE | 2020-07-22 14:40 | PCM.PN ---
- General Info Date of Service: 07/22/20 Admission Dx/Problem (Free Text): Admission Diagnosis/Problem Admission Diagnosis/Problem Uncontrolled diabetes mellitus Subjective Update: Reports feeling much better today. She states she no longer has body aches or headache. P.o. intake has been adequate. Functional Status: Reports: Pain Controlled, Tolerating Diet, Ambulating, Urinating - Review of Systems General: Reports: No Symptoms HEENT: Reports: No Symptoms Pulmonary: Reports: Shortness of Breath (Exertion), Wheezing Cardiovascular: Reports: No Symptoms Gastrointestinal: Reports: No Symptoms Genitourinary: Reports: No Symptoms Musculoskeletal: Reports: No Symptoms Neurological: Reports: No Symptoms Psychiatric: Reports: No Symptoms - Patient Data Vitals - Most Recent: Last Vital Signs Temp 98.1 F 07/22/20 11:54 Pulse 99 07/22/20 11:54 Resp 15 07/22/20 11:54 BP 140/75 07/22/20 11:54 Pulse Ox 94 L 07/22/20 11:54 Weight - Most Recent: 335 lb 1.6 oz I&O - Last 24 Hours: Intake & Output 07/21/20 07/22/20 07/22/20 22:59 06:59 14:59 Intake Total 4205 1418 240 Balance 4205 1418 240 Lab Results Last 24 Hours: Laboratory Results - last 24 hr 07/21/20 07/21/20 07/22/20 Range/Units 16:44 20:41 00:07 WBC (3.98-10.04) K/mm3 RBC (3.98-5.22) M/mm3 Hgb (11.2-15.7) gm/dl Hct (34.1-44.9) % MCV (79.4-94.8) fl MCH (25.6-32.2) pg MCHC (32.2-35.5) g/dl RDW Std Deviation (36.4-46.3) fL Plt Count (182-369) K/mm3 MPV (9.4-12.3) fl Neut % (Auto) (34.0-71.1) % Lymph % (Auto) (19.3-51.7) % [place] % (Auto) (4.7-12.5) % Eos % (Auto) (0.7-5.8) Baso % (Auto) (0.1-1.2) % Neut # (Auto) (1.56-6.13) K/mm3 Lymph # (Auto) (1.18-3.74) K/mm3 [place] # (Auto) (0.24-0.36) K/mm3 Eos # (Auto) (0.04-0.36) K/mm3 Baso # (Auto) (0.01-0.08) K/mm3 Manual Slide Review Sodium (136-145) mEq/L Potassium (3.5-5.1) mEq/L Chloride (98-107) mEq/L Carbon Dioxide (21-32) mEq/L Anion Gap (5-15) BUN (7-18) mg/dL Creatinine (0.55-1.02) mg/dL Est Cr Clr Drug Dosing mL/min Estimated GFR (MDRD) (>60) mL/min BUN/Creatinine Ratio (14-18) Glucose (74-106) mg/dL POC Glucose 311 H 295 H 262 H (70-105) mg/dL Calcium (8.5-10.1) mg/dL Magnesium (1.8-2.4) mg/dl Total Bilirubin (0.2-1.0) mg/dL AST (15-37) U/L ALT (14-59) U/L Alkaline Phosphatase (46-116) U/L Total Protein (6.4-8.2) g/dl Albumin (3.4-5.0) g/dl Globulin gm/dL Albumin/Globulin Ratio (1-2) 07/22/20 07/22/20 07/22/20 Range/Units 06:45 06:52 11:45 WBC 6.18 (3.98-10.04) K/mm3 RBC 3.95 L (3.98-5.22) M/mm3 Hgb 11.2 (11.2-15.7) gm/dl Hct 36.1 (34.1-44.9) % MCV 91.4 (79.4-94.8) fl MCH 28.4 (25.6-32.2) pg MCHC 31.0 L (32.2-35.5) g/dl RDW Std Deviation 46.2 (36.4-46.3) fL Plt Count 138 L (182-369) K/mm3 MPV 11.2 (9.4-12.3) fl Neut % (Auto) 77.5 H (34.0-71.1) % Lymph % (Auto) 9.4 L (19.3-51.7) % [place] % (Auto) 12.0 (4.7-12.5) % Eos % (Auto) 0.5 L (0.7-5.8) Baso % (Auto) 0.3 (0.1-1.2) % Neut # (Auto) 4.79 (1.56-6.13) K/mm3 Lymph # (Auto) 0.58 L (1.18-3.74) K/mm3 [place] # (Auto) 0.74 H (0.24-0.36) K/mm3 Eos # (Auto) 0.03 L (0.04-0.36) K/mm3 Baso # (Auto) 0.02 (0.01-0.08) K/mm3 Manual Slide Review Normal smear Sodium (136-145) mEq/L Potassium (3.5-5.1) mEq/L Chloride (98-107) mEq/L Carbon Dioxide (21-32) mEq/L Anion Gap (5-15) BUN (7-18) mg/dL Creatinine (0.55-1.02) mg/dL Est Cr Clr Drug Dosing mL/min Estimated GFR (MDRD) (>60) mL/min BUN/Creatinine Ratio (14-18) Glucose (74-106) mg/dL POC Glucose 198 H 214 H (70-105) mg/dL Calcium (8.5-10.1) mg/dL Magnesium (1.8-2.4) mg/dl Total Bilirubin (0.2-1.0) mg/dL AST (15-37) U/L ALT (14-59) U/L Alkaline Phosphatase (46-116) U/L Total Protein (6.4-8.2) g/dl Albumin (3.4-5.0) g/dl Globulin gm/dL Albumin/Globulin Ratio (1-2) 07/22/20 07/22/20 Range/Units 11:45 11:51 WBC (3.98-10.04) K/mm3 RBC (3.98-5.22) M/mm3 Hgb (11.2-15.7) gm/dl Hct (34.1-44.9) % MCV (79.4-94.8) fl MCH (25.6-32.2) pg MCHC (32.2-35.5) g/dl RDW Std Deviation (36.4-46.3) fL Plt Count (182-369) K/mm3 MPV (9.4-12.3) fl Neut % (Auto) (34.0-71.1) % Lymph % (Auto) (19.3-51.7) % [place] % (Auto) (4.7-12.5) % Eos % (Auto) (0.7-5.8) Baso % (Auto) (0.1-1.2) % Neut # (Auto) (1.56-6.13) K/mm3 Lymph # (Auto) (1.18-3.74) K/mm3 [place] # (Auto) (0.24-0.36) K/mm3 Eos # (Auto) (0.04-0.36) K/mm3 Baso # (Auto) (0.01-0.08) K/mm3 Manual Slide Review Sodium 136 (136-145) mEq/L Potassium 3.4 L (3.5-5.1) mEq/L Chloride 101 (98-107) mEq/L Carbon Dioxide 26 (21-32) mEq/L Anion Gap 12.4 (5-15) BUN 12 (7-18) mg/dL Creatinine 1.2 H (0.55-1.02) mg/dL Est Cr Clr Drug Dosing 51.59 mL/min Estimated GFR (MDRD) 48 (>60) mL/min BUN/Creatinine Ratio 10.0 L (14-18) Glucose 310 H (74-106) mg/dL POC Glucose 256 H (70-105) mg/dL Calcium 8.4 L (8.5-10.1) mg/dL Magnesium 1.9 (1.8-2.4) mg/dl Total Bilirubin 0.3 (0.2-1.0) mg/dL AST 49 H (15-37) U/L ALT 33 (14-59) U/L Alkaline Phosphatase 83 (46-116) U/L Total Protein 6.3 L (6.4-8.2) g/dl Albumin 1.9 L (3.4-5.0) g/dl Globulin 4.4 gm/dL Albumin/Globulin Ratio 0.4 L (1-2) Abe Results Last 24 Hours: Microbiology 07/19/20 21:00 Aerobic Blood Culture - Final Blood - Venous Escherichia Coli Anaerobic Blood Culture - Final 07/19/20 21:08 Aerobic Blood Culture - Final Blood - Venous - Lab Draw Escherichia Coli Anaerobic Blood Culture - Preliminary Escherichia Coli 07/19/20 20:50 Urine Culture - Final Urine, Quick Cath (In-Out) Escherichia Coli Med Orders - Current: Current Medications Acetaminophen (Tylenol) 650 mg PO Q4H PRN PRN Reason: Pain (Mild 1-3)/fever Last Admin: 07/22/20 08:27 Dose: 650 mg Documented by: Albuterol (Proventil Neb Soln) 2.5 mg NEB Q4HRRT PRN PRN Reason: Wheezing Last Admin: 07/22/20 10:05 Dose: 2.5 mg Documented by: Apixaban (Eliquis) 5 mg PO DAILY [facility] Last Admin: 07/22/20 08:30 Dose: 5 mg Documented by: Citalopram Hydrobromide (Celexa) 40 mg PO DAILY [facility] Last Admin: 07/22/20 08:30 Dose: 40 mg Documented by: Ceftriaxone Sodium 1 gm/ (Sodium Chloride) 100 mls @ 200 mls/hr IV Q24H [facility] Last Admin: 07/22/20 08:30 Dose: 200 mls/hr Documented by: Insulin Human Lispro (Humalog) 0 unit SUBCUT QIDACANDBED [facility]; Protocol Last Admin: 07/22/20 12:23 Dose: 6 unit Documented by: Lisinopril (Prinivil) 10 mg PO DAILY [facility] Last Admin: 07/22/20 08:30 Dose: 10 mg Documented by: Nystatin (Nystatin Crm) 5 gm TOP BID [facility] Last Admin: 07/22/20 08:27 Dose: 1 applic Documented by: Ondansetron HCl (Zofran) 4 mg IVPUSH Q8H PRN PRN Reason: Nausea Last Admin: 07/20/20 01:35 Dose: 4 mg Documented by: Oxycodone HCl (Oxycodone) 5 mg PO Q4H PRN PRN Reason: Pain (moderate 4-6) Potassium Chloride (Klor-Con M20) 40 meq PO ONETIME ONE Stop: 07/22/20 14:35 Simvastatin (Zocor) 10 mg PO BEDTIME [facility] Last Admin: 07/21/20 20:48 Dose: 10 mg Documented by: Sodium Chloride (Saline Flush) 10 ml FLUSH ASDIRECTED PRN PRN Reason: Keep Vein Open Last Admin: 07/19/20 20:42 Dose: 10 ml Documented by: Temazepam (Restoril) 15 mg PO BEDTIME PRN PRN Reason: Sleep Discontinued Medications Furosemide (Lasix) 20 mg IVPUSH NOW ONE Stop: 07/21/20 11:16 Last Admin: 07/21/20 12:15 Dose: 20 mg Documented by: Sodium Chloride (Normal Saline) 1,000 mls @ 999 mls/hr IV ASDIRECTED [facility] Last Admin: 07/19/20 20:42 Dose: 999 mls/hr Documented by: Insulin Human Regular 100 unit (/ Sodium Chloride) 100 mls @ 15 mls/hr IV TITRATE [facility]; Protocol Last Titration: 07/19/20 23:50 Dose: 0 units/kg/hr, 0 mls/hr Documented by: Ceftriaxone Sodium 2 gm/ (Sodium Chloride) 100 mls @ 200 mls/hr IV ONETIME ONE Stop: 07/19/20 21:50 Last Admin: 07/19/20 21:47 Dose: 200 mls/hr Documented by: Sodium Chloride (Normal Saline) 1,000 mls @ 999 mls/hr IV ASDIRECTED [facility] Last Admin: 07/19/20 21:47 Dose: 999 mls/hr Documented by: Sodium Chloride (Normal Saline) 1,000 mls @ 150 mls/hr IV ONETIME ONE Stop: 07/20/20 05:03 Last Admin: 07/19/20 22:54 Dose: 150 mls/hr Documented by: Potassium Chloride 10 meq/ (Premix) 100 mls @ 100 mls/hr IV Q1H [facility] Stop: 07/20/20 01:44 Last Admin: 07/20/20 01:24 Dose: 100 mls/hr Documented by: Magnesium Sulfate (Magnesium Sulfate In Water Premix) 2 gm in 50 mls @ 25 mls/hr IV Q1H [facility] Stop: 07/20/20 01:14 Last Admin: 07/20/20 00:52 Dose: 25 mls/hr Documented by: Potassium Chloride 10 meq/ (Premix) 100 mls @ 100 mls/hr IV Q1H [facility] Stop: 07/20/20 06:44 Last Admin: 07/20/20 06:13 Dose: 100 mls/hr Documented by: Sodium Chloride (Normal Saline) 1,000 mls @ 200 mls/hr IV ASDIRECTED [facility] Last Admin: 07/20/20 05:00 Dose: 200 mls/hr Documented by: Magnesium Sulfate (Magnesium Sulfate In Water Premix) 2 gm in 50 mls @ 25 mls/hr IV ONETIME ONE Stop: 07/20/20 04:59 Last Admin: 07/20/20 02:57 Dose: 25 mls/hr Documented by: Sodium Chloride (Normal Saline) 1,000 mls @ 250 mls/hr IV ASDIRECTED [facility] Last Admin: 07/21/20 01:59 Dose: 250 mls/hr Documented by: Ceftriaxone Sodium 1 gm/ (Sodium Chloride) 100 mls @ 200 mls/hr IV ONETIME ONE Stop: 07/20/20 08:09 Last Admin: 07/20/20 08:16 Dose: 200 mls/hr Documented by: Potassium Chloride 10 meq/ (Premix) 100 mls @ 100 mls/hr IV Q1H [facility] Stop: 07/20/20 19:29 Last Admin: 07/20/20 21:50 Dose: 100 mls/hr Documented by: Sodium Chloride (Normal Saline) 1,000 mls @ 100 mls/hr IV ASDIRECTED [facility] Last Admin: 07/22/20 07:43 Dose: 100 mls/hr Documented by: - Exam Quality Assessment: Supplemental Oxygen (Patient placed on room air just prior to rounds), DVT Prophylaxis (On Eliquis) General: Alert, Oriented, Cooperative HEENT: Pupils Equal, Pupils Reactive, Mucous Membr. Moist/[place] Neck: Supple, Trachea Midline. No: Lymphadenopathy Lungs: Decreased Breath Sounds, Wheezing (Expiratory wheezes bilaterally) Cardiovascular: Regular Rate, Regular Rhythm, No Murmurs GI/Abdominal Exam: Normal Bowel Sounds, Soft, Non-Tender, No Distention (Female) Exam: Deferred Back Exam: Normal Inspection, Full Range of Motion Extremities: Normal Inspection, Normal Range of Motion, Non-Tender, No Pedal Edema, Normal Capillary Refill Peripheral Pulses: 2+: Radial (L), Radial (R), Dorsalis Pedis (L), Dorsalis Pedis (R) Skin: Warm, Dry, Rash (Rachna noted to groin bilaterally) Wound/Incisions: Healing Well Neurological: No New Focal Deficit Psy/Mental Status: Alert, Normal Affect, Normal Mood Sepsis Event Note - Evaluation Sepsis Screening Result: No Definite Risk - Focused Exam Vital Signs: Vital Signs Temp Temp Pulse Pulse Resp BP BP 07/22/20 11:54 98.1 F 99 15 140/75 07/22/20 10:05 07/22/20 09:29 07/22/20 08:30 145/84 H 07/22/20 08:13 98.2 F 98 20 145/84 H 07/22/20 05:18 07/22/20 05:01 99.0 F 104 H 15 144/73 H 144/73 H Pulse Ox Pulse Ox Pulse Ox 07/22/20 11:54 94 L 07/22/20 10:05 94 L 07/22/20 09:29 98 07/22/20 08:30 07/22/20 08:13 98 07/22/20 05:18 95 07/22/20 05:01 94 L - Problem List & Annotations (1) UTI (urinary tract infection) SNOMED Code(s): 33539206 Code(s): N39.0 - URINARY TRACT INFECTION, SITE NOT SPECIFIED Status: Acute Priority: High Current Visit: Yes Qualifiers: Urinary tract infection type: site unspecified (2) Bacteremia SNOMED Code(s): 7971935 Code(s): R78.81 - BACTEREMIA Status: Acute Priority: High Current Visit: Yes (3) Episode of syncope SNOMED Code(s): 405536013 Code(s): R55 - SYNCOPE AND COLLAPSE Status: Acute Priority: High Current Visit: Yes Qualifiers: Syncope type: unspecified Qualified Code(s): R55 - Syncope and collapse (4) Hyperglycemia SNOMED Code(s): 27812492 Code(s): R73.9 - HYPERGLYCEMIA, UNSPECIFIED Status: Acute Priority: High Current Visit: Yes (5) Skin yeast infection SNOMED Code(s): 18931818 Code(s): B37.2 - CANDIDIASIS OF SKIN AND NAIL Status: Acute Priority: Medium Current Visit: Yes (6) Obesity, morbid, BMI 50 or higher SNOMED Code(s): 373414612, 231086816 Code(s): E66.01 - MORBID (SEVERE) OBESITY DUE TO EXCESS CALORIES Status: Chronic Priority: Medium Current Visit: Yes (7) Uncontrolled diabetes mellitus SNOMED Code(s): 82456368, 610398325 Code(s): E11.65 - TYPE 2 DIABETES MELLITUS WITH HYPERGLYCEMIA Status: Chronic Priority: High Current Visit: Yes Qualifiers: Diabetes mellitus type: due to underlying condition Glycemic state: with hyperglycemia Qualified Code(s): E08.65 - Diabetes mellitus due to underlying condition with hyperglycemia - Problem List Review Problem List Initiated/Reviewed/Updated: Yes - My Orders Last 24 Hours: My Active Orders 07/22/20 11:19 Diabetes Education [RC] DAILY 07/22/20 14:34 Potassium Chloride [Klor-Con M20] 40 meq PO ONETIME ONE - Assessment Assessment:: 07/21/20 Patient with a history of uncontrolled diabetes who was brought to the ER with a syncopal episode. Discovered that her blood sugars were in the 400 at that time. Blood sugars being controlled with sliding scale insulin Blood sugars checked 4 times daily. Diabetic diet Continues on 2 L of oxygen per nasal cannula T-max 101.3 Tachycardia in the low 100s Urinalysis positive for E. coli currently receiving IV Rocephin. Blood cultures growing gram-negative rods which are sensitive to Rocephin. Awaiting culture and sensitivity report. WBC down to 9.4 Sodium 132 Potassium 3.5 BUN is 15 Creatinine 1.4 GFR 40 Blood sugars range from 230 2-75 Phosphorus 2.0 Most recent A1c is 8.7 She did receive 20 mg of IV Lasix today as I do feel she has some fluid overload. IV fluid rate was decreased to 100 mL's per hour. 07/22/20 Blood sugars being controlled with sliding scale insulin Blood sugars checked 4 times daily. Patient is unable to afford her diabetic supplies. Diabetic diet Placed on room air this morning T-max 100.4 Tachycardia in the low 100s Urinalysis positive for E. coli currently receiving IV Rocephin. Blood cultures growing gram-negative rods which are sensitive to Rocephin. Culture and sensitivity report is back and gram-negative rods are sensitive to the Rocephin that patient is currently on. Potassium 3.4 Blood sugars range from 214-295 Responded nicely to the Lasix that was given yesterday. IV fluid discontinued Albuterol treatments as needed - Plan Plan:: I have seen and examined the patient independent of nurse practitioner Orion Rodriguez and I have discussed the case with her. I have reviewed and agree with the assessment and plan as outlined for this patient by her. Please see orders. 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 intake Patient will likely be here till Sunday as she will need the full course of IV antibiotics.
[2020-07-22] MEDS: Ondansetron 4 MG/2 ML SDV IVPUSH PRN (17:16)
[2020-07-22] MEDS: Nystatin Susp 100,000 Unit/ML 5 ML Oral Syringe PO SCH (21:00)
[2020-07-22] MEDS: Simvastatin 10 MG Tab PO SCH (21:00)
[2020-07-23] MEDS ORDERED: Potassium Chloride 20 MEQ Tab.ER PO ONE (07:58)
[2020-07-23] MEDS ORDERED: Magnesium Sulfate/Water 2 GM/50 ML BAG IV ONE (07:59)
[2020-07-23] MEDS: cefTRIAXone 1 GM in Sodium Chloride 0.9% 100 ML IV SCH (08:39)
[2020-07-23] MEDS: Insulin Lispro 100 Units/ML 3 ML Vial SUBCUT SCH ×4 (08:39→21:58)
[2020-07-23] MEDS: Citalopram 20 MG Tab PO SCH (08:40)
[2020-07-23] MEDS: Lisinopril 10 MG Tab PO SCH (08:40)
[2020-07-23] MEDS: Nystatin Crm 30 GM Tube TOP SCH ×2 (08:41→21:57)
[2020-07-23] MEDS: Apixaban 5 MG Tab PO SCH (08:41)
[2020-07-23] MEDS: Albuterol 0.083% 2.5 MG/3 ML Neb Soln NEB PRN (09:14)
[2020-07-23] MEDS ORDERED: Furosemide 20 MG/2 ML VIAL IVPUSH ONE (09:17)
[2020-07-23] MEDS: Nystatin Susp 100,000 Unit/ML 5 ML Oral Syringe PO SCH ×4 (10:01→21:57)
--- NOTE | 2020-07-23 13:49 | PCM.PN ---
- General Info Date of Service: 07/23/20 Admission Dx/Problem (Free Text): Admission Diagnosis/Problem Admission Diagnosis/Problem Uncontrolled diabetes mellitus Subjective Update: States she feels better. Has been up ambulating to the bathroom with nursing staff. Encouraged to get up and ambulate in the halls 3 times a day. Functional Status: Reports: Pain Controlled, Tolerating Diet, Urinating - Review of Systems General: Reports: Weakness HEENT: Reports: No Symptoms Pulmonary: Reports: Shortness of Breath, Wheezing. Denies: Cough Cardiovascular: Reports: No Symptoms Gastrointestinal: Reports: No Symptoms Genitourinary: Reports: No Symptoms Musculoskeletal: Reports: No Symptoms Skin: Reports: No Symptoms Neurological: Reports: No Symptoms Psychiatric: Reports: No Symptoms - Patient Data Vitals - Most Recent: Last Vital Signs Temp 97.9 F 07/23/20 12:13 Pulse 91 07/23/20 12:13 Resp 16 07/23/20 12:13 BP 124/91 H 07/23/20 12:13 Pulse Ox 97 07/23/20 12:13 Weight - Most Recent: 332 lb I&O - Last 24 Hours: Intake & Output 07/22/20 07/23/20 07/23/20 22:59 06:59 14:59 Intake Total 1700 1900 120 Output Total 200 1200 Balance 1500 700 120 Lab Results Last 24 Hours: Laboratory Results - last 24 hr 07/22/20 07/22/20 07/23/20 Range/Units 17:10 20:36 06:23 WBC (3.98-10.04) K/mm3 RBC (3.98-5.22) M/mm3 Hgb (11.2-15.7) gm/dl Hct (34.1-44.9) % MCV (79.4-94.8) fl MCH (25.6-32.2) pg MCHC (32.2-35.5) g/dl RDW Std Deviation (36.4-46.3) fL Plt Count (182-369) K/mm3 MPV (9.4-12.3) fl Neut % (Auto) (34.0-71.1) % Lymph % (Auto) (19.3-51.7) % [place] % (Auto) (4.7-12.5) % Eos % (Auto) (0.7-5.8) Baso % (Auto) (0.1-1.2) % Neut # (Auto) (1.56-6.13) K/mm3 Lymph # (Auto) (1.18-3.74) K/mm3 [place] # (Auto) (0.24-0.36) K/mm3 Eos # (Auto) (0.04-0.36) K/mm3 Baso # (Auto) (0.01-0.08) K/mm3 Sodium (136-145) mEq/L Potassium (3.5-5.1) mEq/L Chloride (98-107) mEq/L Carbon Dioxide (21-32) mEq/L Anion Gap (5-15) BUN (7-18) mg/dL Creatinine (0.55-1.02) mg/dL Est Cr Clr Drug Dosing mL/min Estimated GFR (MDRD) (>60) mL/min BUN/Creatinine Ratio (14-18) Glucose (74-106) mg/dL POC Glucose 275 H 225 H 216 H (70-105) mg/dL Calcium (8.5-10.1) mg/dL Magnesium (1.8-2.4) mg/dl Total Bilirubin (0.2-1.0) mg/dL AST (15-37) U/L ALT (14-59) U/L Alkaline Phosphatase (46-116) U/L Total Protein (6.4-8.2) g/dl Albumin (3.4-5.0) g/dl Globulin gm/dL Albumin/Globulin Ratio (1-2) 07/23/20 07/23/20 07/23/20 Range/Units 07:00 07:00 12:08 WBC 6.95 (3.98-10.04) K/mm3 RBC 4.10 (3.98-5.22) M/mm3 Hgb 11.7 (11.2-15.7) gm/dl Hct 37.4 (34.1-44.9) % MCV 91.2 (79.4-94.8) fl MCH 28.5 (25.6-32.2) pg MCHC 31.3 L (32.2-35.5) g/dl RDW Std Deviation 46.7 H (36.4-46.3) fL Plt Count 179 L (182-369) K/mm3 MPV 10.7 (9.4-12.3) fl Neut % (Auto) 70.4 (34.0-71.1) % Lymph % (Auto) 12.8 L (19.3-51.7) % [place] % (Auto) 15.0 H (4.7-12.5) % Eos % (Auto) 1.2 (0.7-5.8) Baso % (Auto) 0.3 (0.1-1.2) % Neut # (Auto) 4.90 (1.56-6.13) K/mm3 Lymph # (Auto) 0.89 L (1.18-3.74) K/mm3 [place] # (Auto) 1.04 H (0.24-0.36) K/mm3 Eos # (Auto) 0.08 (0.04-0.36) K/mm3 Baso # (Auto) 0.02 (0.01-0.08) K/mm3 Sodium 137 (136-145) mEq/L Potassium 3.6 (3.5-5.1) mEq/L Chloride 101 (98-107) mEq/L Carbon Dioxide 26 (21-32) mEq/L Anion Gap 13.6 (5-15) BUN 12 (7-18) mg/dL Creatinine 0.9 (0.55-1.02) mg/dL Est Cr Clr Drug Dosing 68.79 mL/min Estimated GFR (MDRD) > 60 (>60) mL/min BUN/Creatinine Ratio 13.3 L (14-18) Glucose 234 H (74-106) mg/dL POC Glucose 225 H (70-105) mg/dL Calcium 8.9 (8.5-10.1) mg/dL Magnesium 1.7 L (1.8-2.4) mg/dl Total Bilirubin 0.4 (0.2-1.0) mg/dL AST 47 H (15-37) U/L ALT 41 (14-59) U/L Alkaline Phosphatase 83 (46-116) U/L Total Protein 6.6 (6.4-8.2) g/dl Albumin 2.0 L (3.4-5.0) g/dl Globulin 4.6 gm/dL Albumin/Globulin Ratio 0.4 L (1-2) Abe Results Last 24 Hours: Microbiology 07/19/20 21:08 Aerobic Blood Culture - Final Blood - Venous - Lab Draw Escherichia Coli Anaerobic Blood Culture - Preliminary Escherichia Coli 07/19/20 21:00 Aerobic Blood Culture - Final Blood - Venous Escherichia Coli Anaerobic Blood Culture - Final Med Orders - Current: Current Medications Acetaminophen (Tylenol) 650 mg PO Q4H PRN PRN Reason: Pain (Mild 1-3)/fever Last Admin: 07/22/20 21:00 Dose: 650 mg Documented by: Albuterol (Proventil Neb Soln) 2.5 mg NEB Q4HRRT PRN PRN Reason: Wheezing Last Admin: 07/23/20 09:14 Dose: 2.5 mg Documented by: Apixaban (Eliquis) 5 mg PO DAILY [facility] Last Admin: 07/23/20 08:41 Dose: 5 mg Documented by: Citalopram Hydrobromide (Celexa) 40 mg PO DAILY [facility] Last Admin: 07/23/20 08:40 Dose: 40 mg Documented by: Ceftriaxone Sodium 1 gm/ (Sodium Chloride) 100 mls @ 200 mls/hr IV Q24H [facility] Last Admin: 07/23/20 08:39 Dose: 200 mls/hr Documented by: Insulin Human Lispro (Humalog) 0 unit SUBCUT QIDACANDBED [facility]; Protocol Last Admin: 07/23/20 12:17 Dose: 6 unit Documented by: Lisinopril (Prinivil) 10 mg PO DAILY [facility] Last Admin: 07/23/20 08:40 Dose: 10 mg Documented by: Nystatin (Nystatin Crm) 5 gm TOP BID [facility] Last Admin: 07/23/20 08:41 Dose: 1 applic Documented by: Nystatin (Nystatin Oral Syringe) 500,000 unit PO QID [facility] Last Admin: 07/23/20 12:18 Dose: 500,000 unit Documented by: Ondansetron HCl (Zofran) 4 mg IVPUSH Q8H PRN PRN Reason: Nausea Last Admin: 07/22/20 17:16 Dose: 4 mg Documented by: Oxycodone HCl (Oxycodone) 5 mg PO Q4H PRN PRN Reason: Pain (moderate 4-6) Simvastatin (Zocor) 10 mg PO BEDTIME [facility] Last Admin: 07/22/20 21:00 Dose: 10 mg Documented by: Sodium Chloride (Saline Flush) 10 ml FLUSH ASDIRECTED PRN PRN Reason: Keep Vein Open Last Admin: 07/19/20 20:42 Dose: 10 ml Documented by: Temazepam (Restoril) 15 mg PO BEDTIME PRN PRN Reason: Sleep Discontinued Medications Furosemide (Lasix) 20 mg IVPUSH NOW ONE Stop: 07/21/20 11:16 Last Admin: 07/21/20 12:15 Dose: 20 mg Documented by: Furosemide (Lasix) 20 mg IVPUSH NOW ONE Stop: 07/23/20 09:18 Last Admin: 07/23/20 10:01 Dose: 20 mg Documented by: Sodium Chloride (Normal Saline) 1,000 mls @ 999 mls/hr IV ASDIRECTED [facility] Last Admin: 07/19/20 20:42 Dose: 999 mls/hr Documented by: Insulin Human Regular 100 unit (/ Sodium Chloride) 100 mls @ 15 mls/hr IV TITRATE [facility]; Protocol Last Titration: 07/19/20 23:50 Dose: 0 units/kg/hr, 0 mls/hr Documented by: Ceftriaxone Sodium 2 gm/ (Sodium Chloride) 100 mls @ 200 mls/hr IV ONETIME ONE Stop: 07/19/20 21:50 Last Admin: 07/19/20 21:47 Dose: 200 mls/hr Documented by: Sodium Chloride (Normal Saline) 1,000 mls @ 999 mls/hr IV ASDIRECTED [facility] Last Admin: 07/19/20 21:47 Dose: 999 mls/hr Documented by: Sodium Chloride (Normal Saline) 1,000 mls @ 150 mls/hr IV ONETIME ONE Stop: 07/20/20 05:03 Last Admin: 07/19/20 22:54 Dose: 150 mls/hr Documented by: Potassium Chloride 10 meq/ (Premix) 100 mls @ 100 mls/hr IV Q1H [facility] Stop: 07/20/20 01:44 Last Admin: 07/20/20 01:24 Dose: 100 mls/hr Documented by: Magnesium Sulfate (Magnesium Sulfate In Water Premix) 2 gm in 50 mls @ 25 mls/hr IV Q1H [facility] Stop: 07/20/20 01:14 Last Admin: 07/20/20 00:52 Dose: 25 mls/hr Documented by: Potassium Chloride 10 meq/ (Premix) 100 mls @ 100 mls/hr IV Q1H [facility] Stop: 07/20/20 06:44 Last Admin: 07/20/20 06:13 Dose: 100 mls/hr Documented by: Sodium Chloride (Normal Saline) 1,000 mls @ 200 mls/hr IV ASDIRECTED [facility] Last Admin: 07/20/20 05:00 Dose: 200 mls/hr Documented by: Magnesium Sulfate (Magnesium Sulfate In Water Premix) 2 gm in 50 mls @ 25 mls/hr IV ONETIME ONE Stop: 07/20/20 04:59 Last Admin: 07/20/20 02:57 Dose: 25 mls/hr Documented by: Sodium Chloride (Normal Saline) 1,000 mls @ 250 mls/hr IV ASDIRECTED [facility] Last Admin: 07/21/20 01:59 Dose: 250 mls/hr Documented by: Ceftriaxone Sodium 1 gm/ (Sodium Chloride) 100 mls @ 200 mls/hr IV ONETIME ONE Stop: 07/20/20 08:09 Last Admin: 07/20/20 08:16 Dose: 200 mls/hr Documented by: Potassium Chloride 10 meq/ (Premix) 100 mls @ 100 mls/hr IV Q1H [facility] Stop: 07/20/20 19:29 Last Admin: 07/20/20 21:50 Dose: 100 mls/hr Documented by: Sodium Chloride (Normal Saline) 1,000 mls @ 100 mls/hr IV ASDIRECTED [facility] Last Admin: 07/22/20 07:43 Dose: 100 mls/hr Documented by: Magnesium Sulfate (Magnesium Sulfate In Water Premix) 2 gm in 50 mls @ 25 mls/hr IV ONETIME ONE Stop: 07/23/20 09:58 Last Admin: 07/23/20 09:59 Dose: 25 mls/hr Documented by: Potassium Chloride (Klor-Con M20) 40 meq PO ONETIME ONE Stop: 07/22/20 14:35 Last Admin: 07/22/20 17:17 Dose: 40 meq Documented by: Potassium Chloride (Klor-Con M20) 20 meq PO ONETIME ONE Stop: 07/23/20 07:59 Last Admin: 07/23/20 08:40 Dose: 20 meq Documented by: - Exam Quality Assessment: Supplemental Oxygen (2 L per nasal cannula), DVT Prophylaxis ( Eliquis) General: Alert, Oriented, Cooperative, Mild Distress HEENT: Pupils Equal, Pupils Reactive, Mucous Membr. Moist/[place] Neck: Supple, Trachea Midline. No: Lymphadenopathy Lungs: Wheezing (Bilaterally expiratory) Cardiovascular: Regular Rate, Regular Rhythm GI/Abdominal Exam: Normal Bowel Sounds, Soft, Non-Tender, No Distention (Female) Exam: Deferred Back Exam: Normal Inspection, Full Range of Motion Extremities: Normal Inspection, Normal Range of Motion, Non-Tender, No Pedal Edema, Normal Capillary Refill Peripheral Pulses: 2+: Radial (L), Radial (R), Dorsalis Pedis (L), Dorsalis Pedis (R) Skin: Warm, Dry, Intact Neurological: No New Focal Deficit Psy/Mental Status: Alert, Normal Affect, Normal Mood Sepsis Event Note - Evaluation Sepsis Screening Result: No Definite Risk - Focused Exam Vital Signs: Vital Signs Temp Pulse Resp BP Pulse Ox Pulse Ox 07/23/20 12:13 97.9 F 91 16 124/91 H 97 07/23/20 09:14 92 L 07/23/20 08:40 140/65 07/23/20 07:59 96.6 F L 94 24 H 140/65 97 07/23/20 05:33 92 L 07/23/20 03:25 98.1 F 96 20 148/94 H 92 L - Problem List & Annotations (1) UTI (urinary tract infection) SNOMED Code(s): 54520690 Code(s): N39.0 - URINARY TRACT INFECTION, SITE NOT SPECIFIED Status: Acute Priority: High Current Visit: Yes Qualifiers: Urinary tract infection type: site unspecified (2) Bacteremia SNOMED Code(s): 8215658 Code(s): R78.81 - BACTEREMIA Status: Acute Priority: High Current Visit: Yes (3) Episode of syncope SNOMED Code(s): 754554826 Code(s): R55 - SYNCOPE AND COLLAPSE Status: Acute Priority: High Current Visit: Yes Qualifiers: Syncope type: unspecified Qualified Code(s): R55 - Syncope and collapse (4) Hyperglycemia SNOMED Code(s): 22815598 Code(s): R73.9 - HYPERGLYCEMIA, UNSPECIFIED Status: Acute Priority: High Current Visit: Yes (5) Skin yeast infection SNOMED Code(s): 57732437 Code(s): B37.2 - CANDIDIASIS OF SKIN AND NAIL Status: Acute Priority: Medium Current Visit: Yes (6) Obesity, morbid, BMI 50 or higher SNOMED Code(s): 201618951, 882976406 Code(s): E66.01 - MORBID (SEVERE) OBESITY DUE TO EXCESS CALORIES Status: Chronic Priority: Medium Current Visit: Yes (7) Uncontrolled diabetes mellitus SNOMED Code(s): 90878476, 799111614 Code(s): E11.65 - TYPE 2 DIABETES MELLITUS WITH HYPERGLYCEMIA Status: Chronic Priority: High Current Visit: Yes Qualifiers: Diabetes mellitus type: due to underlying condition Glycemic state: with hyperglycemia Qualified Code(s): E08.65 - Diabetes mellitus due to underlying condition with hyperglycemia - Problem List Review Problem List Initiated/Reviewed/Updated: Yes - My Orders Last 24 Hours: My Active Orders 07/23/20 09:18 Ear Irrigation [RC] ASDIRECTED 07/23/20 13:40 Chest 2V [CR] Routine 07/23/20 13:43 Incentive Spirometry [RT Incentive Spirometry] [RC] Q1HWA - Assessment Assessment:: 07/21/20 Patient with a history of uncontrolled diabetes who was brought to the ER with a syncopal episode. Discovered that her blood sugars were in the 400 at that time. Blood sugars being controlled with sliding scale insulin Blood sugars checked 4 times daily. Diabetic diet Continues on 2 L of oxygen per nasal cannula T-max 101.3 Tachycardia in the low 100s Urinalysis positive for E. coli currently receiving IV Rocephin. Blood cultures growing gram-negative rods which are sensitive to Rocephin. Awaiting culture and sensitivity report. WBC down to 9.4 Sodium 132 Potassium 3.5 BUN is 15 Creatinine 1.4 GFR 40 Blood sugars range from 230 2-75 Phosphorus 2.0 Most recent A1c is 8.7 She did receive 20 mg of IV Lasix today as I do feel she has some fluid overload. IV fluid rate was decreased to 100 mL's per hour. 07/22/20 Blood sugars being controlled with sliding scale insulin Blood sugars checked 4 times daily. Patient is unable to afford her diabetic supplies. Diabetic diet Placed on room air this morning T-max 100.4 Tachycardia in the low 100s Urinalysis positive for E. coli currently receiving IV Rocephin. Blood cultures growing gram-negative rods which are sensitive to Rocephin. Culture and sensitivity report is back and gram-negative rods are sensitive to the Rocephin that patient is currently on. Potassium 3.4 Blood sugars range from 214-295 Responded nicely to the Lasix that was given yesterday. IV fluid discontinued Albuterol treatments as needed 07/23/20 She feels better today. Still has expiratory wheezes noted bilaterally. Albuterol nebs as needed. Still on 2 L of oxygen per nasal cannula. Diabetic diet Accu-Cheks 4 times daily with sliding scale coverage Day 4 of IV Rocephin Potassium 3.6 Magnesium 1.7 Complains that her left ear is hurting. Unable to visualize tympanic membrane due to ear being full of wax. - Plan Plan:: I have seen and examined the patient independent of nurse practitioner Orion Rodriguez and I have discussed the case with her. I have reviewed and agree with the assessment and plan as outlined for this patient by her. Please see orders. 07/22/20 Continue Rocephin PRN albuterol Repeat labs and replace electrolytes as needed Nystatin to groin Sliding scale insulin Continue 4 times daily Accu-Cheks Hypoglycemia protocol Strict intake and output Continue to monitor vital signs Continue Eliquis Tylenol for comfort and fever control new client banking services clerk and case management for discharge planning as the patient is not able to afford her diabetic medications and supplies Continue IV fluids encourage p.o. intake Patient will likely be here till Sunday as she will need the full course of IV antibiotics. 07/23/20 Continue IV Rocephin PRN albuterol Incentive spirometer every hour while awake RT to titrate O2 Accu-Cheks 4 times daily with sliding scale insulin Chest x-ray today Continue strict intake and output Continue to monitor vital signs Labs in the a.m. Continue Eliquis Lasix 20 mg x 1 today. Nursing staff to irrigate and clean left ear. As it is full of wax.
[2020-07-23] MEDS: Albuterol/Ipratropium 3.0-0.5 MG/3 ML Neb Soln NEB SCH ×2 (14:50→20:37)
[2020-07-23] MEDS: Simvastatin 10 MG Tab PO SCH (21:57)
[2020-07-24] MEDS: Albuterol/Ipratropium 3.0-0.5 MG/3 ML Neb Soln NEB SCH ×4 (03:25→20:58)
[2020-07-24] MEDS: predniSONE 20 MG Tab PO SCH (06:37)
[2020-07-24] MEDS: Insulin Lispro 100 Units/ML 3 ML Vial SUBCUT SCH ×4 (08:37→21:44)
[2020-07-24] MEDS: cefTRIAXone 1 GM in Sodium Chloride 0.9% 100 ML IV SCH (08:38)
[2020-07-24] MEDS: Citalopram 20 MG Tab PO SCH (08:38)
[2020-07-24] MEDS: Apixaban 5 MG Tab PO SCH (08:38)
[2020-07-24] MEDS: Lisinopril 10 MG Tab PO SCH (08:38)
[2020-07-24] MEDS: Nystatin Susp 100,000 Unit/ML 5 ML Oral Syringe PO SCH ×4 (08:39→21:44)
[2020-07-24] MEDS: Nystatin Crm 30 GM Tube TOP SCH ×2 (08:39→21:43)
[2020-07-24] MEDS: Cholestyramine/Sucrose Powder 4 GM Packet PO SCH ×2 (12:25→21:43)
--- NOTE | 2020-07-24 14:41 | PCM.PN ---
- General Info Date of Service: 07/24/20 Admission Dx/Problem (Free Text): Admission Diagnosis/Problem Admission Diagnosis/Problem Uncontrolled diabetes mellitus Subjective Update: Patient is a 49-year-old lady who was admitted to hospitalization by me on July 20, 2020. The patient had been brought to the emergency room as she was unresponsive. Patient today says that she is doing better. The patient also has been complaining of diarrhea. The patient was also noted to have a UTI along with gram-negative bacteremia. She has been tolerating diet. She says that she feels weak. Functional Status: Reports: Pain Controlled, Tolerating Diet - Review of Systems General: Reports: Weakness, Fatigue HEENT: Reports: No Symptoms Pulmonary: Reports: No Symptoms Cardiovascular: Reports: No Symptoms Gastrointestinal: Reports: Diarrhea Genitourinary: Reports: No Symptoms Musculoskeletal: Reports: No Symptoms Skin: Reports: No Symptoms Neurological: Reports: No Symptoms Psychiatric: Reports: No Symptoms - Patient Data Vitals - Most Recent: Last Vital Signs Temp 36.6 C 07/24/20 11:35 Pulse 97 07/24/20 11:35 Resp 20 07/24/20 11:35 BP 143/82 H 07/24/20 11:35 Pulse Ox 93 L 07/24/20 11:35 Weight - Most Recent: 150.547 kg I&O - Last 24 Hours: Intake & Output 07/23/20 07/24/20 07/24/20 22:59 06:59 14:59 Intake Total 1670 500 420 Output Total 150 725 Balance 1520 -225 420 Lab Results Last 24 Hours: Laboratory Results - last 24 hr 07/23/20 07/23/20 07/24/20 Range/Units 16:02 21:55 06:35 POC Glucose 219 H 302 H 249 H (70-105) mg/dL 07/24/20 Range/Units 11:29 POC Glucose 193 H (70-105) mg/dL Abe Results Last 24 Hours: Microbiology 07/19/20 21:08 Aerobic Blood Culture - Final Blood - Venous - Lab Draw Escherichia Coli Anaerobic Blood Culture - Final Escherichia Coli Med Orders - Current: Current Medications Acetaminophen (Tylenol) 650 mg PO Q4H PRN PRN Reason: Pain (Mild 1-3)/fever Last Admin: 07/22/20 21:00 Dose: 650 mg Documented by: Albuterol (Proventil Neb Soln) 2.5 mg NEB Q4HRRT PRN PRN Reason: Wheezing Last Admin: 07/23/20 09:14 Dose: 2.5 mg Documented by: Albuterol/Ipratropium (Duoneb 3.0-0.5 Mg/3 Ml) 3 ml NEB Q6HRRT [facility] Stop: 07/25/20 15:01 Last Admin: 07/24/20 09:09 Dose: 3 ml Documented by: Apixaban (Eliquis) 5 mg PO DAILY [facility] Last Admin: 07/24/20 08:38 Dose: 5 mg Documented by: Cholestyramine Resin (Cholestyramine Packet) 4 gm PO BID [facility] Last Admin: 07/24/20 12:25 Dose: 4 gm Documented by: Citalopram Hydrobromide (Celexa) 40 mg PO DAILY [facility] Last Admin: 07/24/20 08:38 Dose: 40 mg Documented by: Ceftriaxone Sodium 1 gm/ (Sodium Chloride) 100 mls @ 200 mls/hr IV Q24H [facility] Last Admin: 07/24/20 08:38 Dose: 200 mls/hr Documented by: Insulin Human Lispro (Humalog) 0 unit SUBCUT QIDACANDBED [facility]; Protocol Last Admin: 07/24/20 12:25 Dose: 3 unit Documented by: Lisinopril (Prinivil) 10 mg PO DAILY [facility] Last Admin: 07/24/20 08:38 Dose: 10 mg Documented by: Nystatin (Nystatin Crm) 5 gm TOP BID [facility] Last Admin: 07/24/20 08:39 Dose: 1 applic Documented by: Nystatin (Nystatin Oral Syringe) 500,000 unit PO QID [facility] Last Admin: 07/24/20 12:25 Dose: 500,000 unit Documented by: Ondansetron HCl (Zofran) 4 mg IVPUSH Q8H PRN PRN Reason: Nausea Last Admin: 07/22/20 17:16 Dose: 4 mg Documented by: Oxycodone HCl (Oxycodone) 5 mg PO Q4H PRN PRN Reason: Pain (moderate 4-6) Prednisone (Prednisone) 40 mg PO WITHBREAKFAST [facility] Stop: 07/28/20 07:01 Last Admin: 07/24/20 06:37 Dose: 40 mg Documented by: Simvastatin (Zocor) 10 mg PO BEDTIME [facility] Last Admin: 07/23/20 21:57 Dose: 10 mg Documented by: Sodium Chloride (Saline Flush) 10 ml FLUSH ASDIRECTED PRN PRN Reason: Keep Vein Open Last Admin: 07/19/20 20:42 Dose: 10 ml Documented by: Temazepam (Restoril) 15 mg PO BEDTIME PRN PRN Reason: Sleep Discontinued Medications Furosemide (Lasix) 20 mg IVPUSH NOW ONE Stop: 07/21/20 11:16 Last Admin: 07/21/20 12:15 Dose: 20 mg Documented by: Furosemide (Lasix) 20 mg IVPUSH NOW ONE Stop: 07/23/20 09:18 Last Admin: 07/23/20 10:01 Dose: 20 mg Documented by: Sodium Chloride (Normal Saline) 1,000 mls @ 999 mls/hr IV ASDIRECTED [facility]DR[facility] Last Admin: 07/19/20 20:42 Dose: 999 mls/hr Documented by: Insulin Human Regular 100 unit (/ Sodium Chloride) 100 mls @ 15 mls/hr IV TITRATE [facility]; Protocol Last Titration: 07/19/20 23:50 Dose: 0 units/kg/hr, 0 mls/hr Documented by: Ceftriaxone Sodium 2 gm/ (Sodium Chloride) 100 mls @ 200 mls/hr IV ONETIME ONE Stop: 07/19/20 21:50 Last Admin: 07/19/20 21:47 Dose: 200 mls/hr Documented by: Sodium Chloride (Normal Saline) 1,000 mls @ 999 mls/hr IV ASDIRECTED SANDRA Last Admin: 07/19/20 21:47 Dose: 999 mls/hr Documented by: Sodium Chloride (Normal Saline) 1,000 mls @ 150 mls/hr IV ONETIME ONE Stop: 07/20/20 05:03 Last Admin: 07/19/20 22:54 Dose: 150 mls/hr Documented by: Potassium Chloride 10 meq/ (Premix) 100 mls @ 100 mls/hr IV Q1H [facility] Stop: 07/20/20 01:44 Last Admin: 07/20/20 01:24 Dose: 100 mls/hr Documented by: Magnesium Sulfate (Magnesium Sulfate In Water Premix) 2 gm in 50 mls @ 25 mls/hr IV Q1H [facility] Stop: 07/20/20 01:14 Last Admin: 07/20/20 00:52 Dose: 25 mls/hr Documented by: Potassium Chloride 10 meq/ (Premix) 100 mls @ 100 mls/hr IV Q1H [facility] Stop: 07/20/20 06:44 Last Admin: 07/20/20 06:13 Dose: 100 mls/hr Documented by: Sodium Chloride (Normal Saline) 1,000 mls @ 200 mls/hr IV ASDIRECTED [facility] Last Admin: 07/20/20 05:00 Dose: 200 mls/hr Documented by: Magnesium Sulfate (Magnesium Sulfate In Water Premix) 2 gm in 50 mls @ 25 mls/hr IV ONETIME ONE Stop: 07/20/20 04:59 Last Admin: 07/20/20 02:57 Dose: 25 mls/hr Documented by: Sodium Chloride (Normal Saline) 1,000 mls @ 250 mls/hr IV ASDIRECTED [facility] Last Admin: 07/21/20 01:59 Dose: 250 mls/hr Documented by: Ceftriaxone Sodium 1 gm/ (Sodium Chloride) 100 mls @ 200 mls/hr IV ONETIME ONE Stop: 07/20/20 08:09 Last Admin: 07/20/20 08:16 Dose: 200 mls/hr Documented by: Potassium Chloride 10 meq/ (Premix) 100 mls @ 100 mls/hr IV Q1H [facility] Stop: 07/20/20 19:29 Last Admin: 07/20/20 21:50 Dose: 100 mls/hr Documented by: Sodium Chloride (Normal Saline) 1,000 mls @ 100 mls/hr IV ASDIRECTED [facility] Last Admin: 07/22/20 07:43 Dose: 100 mls/hr Documented by: Magnesium Sulfate (Magnesium Sulfate In Water Premix) 2 gm in 50 mls @ 25 mls/hr IV ONETIME ONE Stop: 07/23/20 09:58 Last Admin: 07/23/20 09:59 Dose: 25 mls/hr Documented by: Potassium Chloride (Klor-Con M20) 40 meq PO ONETIME ONE Stop: 07/22/20 14:35 Last Admin: 07/22/20 17:17 Dose: 40 meq Documented by: Potassium Chloride (Klor-Con M20) 20 meq PO ONETIME ONE Stop: 07/23/20 07:59 Last Admin: 07/23/20 08:40 Dose: 20 meq Documented by: - Exam Quality Assessment: Supplemental Oxygen General: Alert, Oriented, Cooperative HEENT: Pupils Equal, Pupils Reactive, EOMI Neck: Supple, Trachea Midline Lungs: Clear to Auscultation, Normal Respiratory Effort Cardiovascular: Regular Rate, Regular Rhythm GI/Abdominal Exam: Normal Bowel Sounds, No Distention (Female) Exam: Deferred Back Exam: Normal Inspection, Full Range of Motion Extremities: Normal Inspection, No Pedal Edema Skin: Warm, Dry, Intact Neurological: No New Focal Deficit Psy/Mental Status: Alert, Normal Affect Sepsis Event Note - Evaluation Sepsis Screening Result: No Definite Risk - Focused Exam Vital Signs: Vital Signs Temp Pulse Resp BP Pulse Ox Pulse Ox 07/24/20 11:35 36.6 C 97 20 143/82 H 93 L 07/24/20 09:03 93 L 07/24/20 08:38 142/90 H 07/24/20 08:03 36.4 C 91 16 142/90 H 98 07/24/20 05:13 36.8 C 89 14 124/67 96 07/24/20 03:25 95 - Problem List & Annotations (1) Bacteremia SNOMED Code(s): 9857183 Code(s): R78.81 - BACTEREMIA Status: Acute Priority: High Current Visit: Yes (2) Episode of syncope SNOMED Code(s): 825505928 Code(s): R55 - SYNCOPE AND COLLAPSE Status: Acute Priority: High Current Visit: Yes Qualifiers: Syncope type: unspecified Qualified Code(s): R55 - Syncope and collapse (3) Obesity, morbid, BMI 50 or higher SNOMED Code(s): 777828223, 117101037 Code(s): E66.01 - MORBID (SEVERE) OBESITY DUE TO EXCESS CALORIES Status: Chronic Priority: Medium Current Visit: Yes (4) Hyperglycemia SNOMED Code(s): 54586429 Code(s): R73.9 - HYPERGLYCEMIA, UNSPECIFIED Status: Acute Priority: High Current Visit: Yes (5) Skin yeast infection SNOMED Code(s): 60653309 Code(s): B37.2 - CANDIDIASIS OF SKIN AND NAIL Status: Acute Priority: Medium Current Visit: Yes (6) Uncontrolled diabetes mellitus SNOMED Code(s): 69465042, 558925313 Code(s): E11.65 - TYPE 2 DIABETES MELLITUS WITH HYPERGLYCEMIA Status: Chronic Priority: High Current Visit: Yes Qualifiers: Diabetes mellitus type: due to underlying condition Glycemic state: with hyperglycemia Qualified Code(s): E08.65 - Diabetes mellitus due to underlying condition with hyperglycemia - Problem List Review Problem List Initiated/Reviewed/Updated: Yes - My Orders Last 24 Hours: My Active Orders 07/24/20 10:45 Cholestyramine/Sucrose [Cholestyramine Packet] 4 gm PO BID - Assessment Assessment:: 07/21/20 Patient with a history of uncontrolled diabetes who was brought to the ER with a syncopal episode. Discovered that her blood sugars were in the 400 at that time. Blood sugars being controlled with sliding scale insulin Blood sugars checked 4 times daily. Diabetic diet Continues on 2 L of oxygen per nasal cannula T-max 101.3 Tachycardia in the low 100s Urinalysis positive for E. coli currently receiving IV Rocephin. Blood cultures growing gram-negative rods which are sensitive to Rocephin. Awaiting culture and sensitivity report. WBC down to 9.4 Sodium 132 Potassium 3.5 BUN is 15 Creatinine 1.4 GFR 40 Blood sugars range from 230 2-75 Phosphorus 2.0 Most recent A1c is 8.7 She did receive 20 mg of IV Lasix today as I do feel she has some fluid overload. IV fluid rate was decreased to 100 mL's per hour. 07/22/20 Blood sugars being controlled with sliding scale insulin Blood sugars checked 4 times daily. Patient is unable to afford her diabetic supplies. Diabetic diet Placed on room air this morning T-max 100.4 Tachycardia in the low 100s Urinalysis positive for E. coli currently receiving IV Rocephin. Blood cultures growing gram-negative rods which are sensitive to Rocephin. Culture and sensitivity report is back and gram-negative rods are sensitive to the Rocephin that patient is currently on. Potassium 3.4 Blood sugars range from 214-295 Responded nicely to the Lasix that was given yesterday. IV fluid discontinued Albuterol treatments as needed 07/23/20 She feels better today. Still has expiratory wheezes noted bilaterally. Albuterol nebs as needed. Still on 2 L of oxygen per nasal cannula. Diabetic diet Accu-Cheks 4 times daily with sliding scale coverage Day 4 of IV Rocephin Potassium 3.6 Magnesium 1.7 Complains that her left ear is hurting. Unable to visualize tympanic membrane due to ear being full of wax. - Plan Plan:: I have seen and examined the patient independent of nurse practitioner Orion Rodriguez and I have discussed the case with her. I have reviewed and agree with the assessment and plan as outlined for this patient by her. Please see orders. 07/22/20 Continue Rocephin PRN albuterol Repeat labs and replace electrolytes as needed Nystatin to groin Sliding scale insulin Continue 4 times daily Accu-Cheks Hypoglycemia protocol Strict intake and output Continue to monitor vital signs Continue Eliquis Tylenol for comfort and fever control director of perioperative services and case management for discharge planning as the patient is not able to afford her diabetic medications and supplies Continue IV fluids encourage p.o. intake Patient will likely be here till Sunday as she will need the full course of IV antibiotics. 07/23/20 Continue IV Rocephin PRN albuterol Incentive spirometer every hour while awake RT to titrate O2 Accu-Cheks 4 times daily with sliding scale insulin Chest x-ray today Continue strict intake and output Continue to monitor vital signs Labs in the a.m. Continue Eliquis Lasix 20 mg x 1 today. Nursing staff to irrigate and clean left ear. As it is full of wax. 07/24/2020 The patient has gram-negative bacteremia with E. coli that is pansensitive and she will be kept on the Rocephin for now. Patient also will be kept on diabetic diet. The patient has been encouraged to ambulate. I have ordered repeat laboratory studies as the patient has had some improvement with her renal insufficiency. We will maintain strict ESME's. Lasix has been ordered as needed for fluids overload. She is also on Eliquis and this will be continued. Pending protective services social worker consult. The patient should be appropriate for discharge possibly tomorrow or Sunday.
[2020-07-24] MEDS: Acetaminophen 325 MG Tab PO PRN (18:22)
[2020-07-24] MEDS: Simvastatin 10 MG Tab PO SCH (21:44)
[2020-07-25] MEDS: Albuterol/Ipratropium 3.0-0.5 MG/3 ML Neb Soln NEB SCH ×2 (02:45→09:21)
[2020-07-25] MEDS: predniSONE 20 MG Tab PO SCH (07:07)
[2020-07-25] MEDS ORDERED: Potassium Chloride 20 MEQ Tab.ER PO ONE (07:07)
[2020-07-25] MEDS: cefTRIAXone 1 GM in Sodium Chloride 0.9% 100 ML IV SCH (08:55)
[2020-07-25] MEDS: Citalopram 20 MG Tab PO SCH (08:55)
[2020-07-25] MEDS: Lisinopril 10 MG Tab PO SCH (08:55)
[2020-07-25] MEDS: Cholestyramine/Sucrose Powder 4 GM Packet PO SCH (08:56)
[2020-07-25] MEDS: Nystatin Crm 30 GM Tube TOP SCH (08:56)
[2020-07-25] MEDS: Insulin Lispro 100 Units/ML 3 ML Vial SUBCUT SCH ×2 (08:56→12:03)
[2020-07-25] MEDS: Apixaban 5 MG Tab PO SCH (08:57)
[2020-07-25] MEDS: Nystatin Susp 100,000 Unit/ML 5 ML Oral Syringe PO SCH ×2 (12:04)
--- NOTE | 2020-07-25 12:49 | PCM.DCSUM1 ---
Discharge Summary - Hospital Course Free Text/Narrative:: Patient was admitted for uncontrolled diabetes and UTI. Diagnosis: Stroke: No - Discharge Data Discharge Date: 07/25/20 Discharge Disposition: Home, Self-Care 01 Condition: Good - Referral to Home Health Primary Care Physician: PCP None - Discharge Diagnosis/Problem(s) (1) Bacteremia SNOMED Code(s): 4678142 ICD Code: R78.81 - BACTEREMIA Status: Acute Priority: High (2) Episode of syncope SNOMED Code(s): 948534291 ICD Code: R55 - SYNCOPE AND COLLAPSE Status: Acute Priority: High Qualifiers: Syncope type: unspecified Qualified Code(s): R55 - Syncope and collapse (3) Obesity, morbid, BMI 50 or higher SNOMED Code(s): 552386372, 807457006 ICD Code: E66.01 - MORBID (SEVERE) OBESITY DUE TO EXCESS CALORIES Status: Chronic Priority: Medium (4) Hyperglycemia SNOMED Code(s): 56750325 ICD Code: R73.9 - HYPERGLYCEMIA, UNSPECIFIED Status: Acute Priority: High (5) Skin yeast infection SNOMED Code(s): 02753025 ICD Code: B37.2 - CANDIDIASIS OF SKIN AND NAIL Status: Acute Priority: Medium (6) Uncontrolled diabetes mellitus SNOMED Code(s): 07348451, 869838385 ICD Code: E11.65 - TYPE 2 DIABETES MELLITUS WITH HYPERGLYCEMIA Status: Chronic Priority: High Qualifiers: Diabetes mellitus type: due to underlying condition Glycemic state: with hyperglycemia Qualified Code(s): E08.65 - Diabetes mellitus due to underlying condition with hyperglycemia - Patient Summary/Data Consults: Consultations 07/20/20 08:17 Consult to Diabetic Nurse Specialist [CONS] Routine Hospital Course: The patient is a 49-year-old lady who was admitted through the emergency department after an episode of unresponsiveness. Her diabetes mellitus type 2 was uncontrolled. Ported that she had not been using her medication prior to presentation. Throughout the course of hospitalization the patient reports that she had not been feeling well as having generalized body aches. The patient's COVID-19 test was negative. Since initial lactic acid was also at 5.3 which was high was trended until this normalized. The patient had a somewhat slow recovery throughout her course of hospitalization. Later she had been tolerating diet, ambulating and urinating. The patient's urinalysis did show signs of infection and she had been treated with ceftriaxone. Blood and urine cultures grew out pansensitive E. coli. She was discharged on ciprofloxacin for 10 days. She had also needed refills on her insulin for insulin pump and this was also prescribed. The patient has been recommended to follow-up with her primary care physician as soon as possible. By day of discharge the patient had improved to the point that she felt like she could go home. The patient was tolerating her constant carb or diabetic diet. The patient also had been tolerating activity. The patient has been recommended to continue with her diet as tolerated. She is also to have activity as tolerated. The patient has been hemodynamically stable and she has been discharged from acute hospitalization with the recommendations listed above. - Patient Instructions Diet: Diabetic Diet Notify Provider of: Fever, Increased Pain - Discharge Plan *PRESCRIPTION DRUG MONITORING PROGRAM REVIEWED*: No *COPY OF PRESCRIPTION DRUG MONITORING REPORT IN PATIENT SHERIE: No Prescriptions/Med Rec: Ciprofloxacin [Ciprofloxacin HCl] 500 mg PO BID #20 tab Insulin Isophane NPH, Human [NovoLIN N] 1,000 unit .XX DAILY #2 vial Potassium Citrate [Potassium Citrate ER] 10 meq PO DAILY #30 tablet.er Home Medications: Home Meds ALPRAZolam [Xanax] 0.5 mg PO Q12H PRN #24 tablet 07/01/20 [Rx] Escitalopram Oxalate [Lexapro] 20 mg PO DAILY #30 tablet 07/01/20 [Rx] Insulin Glarg,Human.Rec.Analog [Lantus Solostar] 20 units SQ BEDTIME #1 pen 07/01/20 [Rx] atorvaSTATin [Lipitor] 10 mg PO BEDTIME 07/01/20 [History] lisinopriL [Lisinopril] 10 mg PO DAILY #30 tablet 07/01/20 [Rx] Apixaban [Eliquis] 5 mg PO DAILY #30 tablet 07/02/20 [Rx] Acetaminophen [Tylenol] 650 mg PO Q4H PRN tablet 07/25/20 [Rx] Albuterol [Proventil Neb Soln] 2.5 mg NEB Q4HRRT PRN neb 07/25/20 [Rx] Albuterol/Ipratropium [DuoNeb 3.0-0.5 MG/3 ML] 3 ml NEB Q6HRRT neb 07/25/20 [Rx] Ciprofloxacin [Ciprofloxacin HCl] 500 mg PO BID #20 tab 07/25/20 [Rx] Insulin Isophane NPH, Human [NovoLIN N] 1,000 unit .XX DAILY #2 vial 07/25/20 [Rx] Potassium Citrate [Potassium Citrate ER] 10 meq PO DAILY #30 tablet.er 07/25/20 [Rx] predniSONE 40 mg PO WITHBREAKFAST tablet 07/25/20 [Rx] Patient Handouts: Type 2 Diabetes Mellitus, Diagnosis, Adult, Hyperglycemia, [id number]-[id number], Cellulitis, Adult, Yhwz-zq-Ovil Forms: ED Department Discharge Referrals: Bryce Maynard, BEEF BREAKER [Nurse Practitioner] - (Please call and follow up with your primary care provider in 7-10 days. ) - Discharge Summary/Plan Comment DC Time >30 min.: Yes - General Info Date of Service: 07/25/20 Admission Dx/Problem (Free Text: Admission Diagnosis/Problem Admission Diagnosis/Problem Uncontrolled diabetes mellitus Subjective Update: Patient has been doing well. She is tolerating diet. She feels like she can go home. Functional Status: Reports: Pain Controlled - Review of Systems General: Reports: No Symptoms HEENT: Reports: No Symptoms Pulmonary: Reports: No Symptoms Cardiovascular: Reports: No Symptoms Gastrointestinal: Reports: No Symptoms Genitourinary: Reports: No Symptoms Musculoskeletal: Reports: No Symptoms Skin: Reports: No Symptoms Neurological: Reports: No Symptoms Psychiatric: Reports: No Symptoms - Patient Data Vitals - Most Recent: Last Vital Signs Temp 36.4 C 07/25/20 12:02 Pulse 89 07/25/20 12:02 Resp 16 07/25/20 12:02 BP 166/61 H 07/25/20 12:02 Pulse Ox 95 07/25/20 12:02 Weight - Most Recent: 149.822 kg I&O - Last 24 hours: Intake & Output 07/24/20 07/25/20 07/25/20 22:59 06:59 14:59 Intake Total 1400 1600 Output Total 600 975 Balance 800 625 Lab Results - Last 24 hrs: Laboratory Results - last 24 hr 07/24/20 07/24/20 07/25/20 Range/Units 16:43 21:33 05:15 WBC 7.94 (3.98-10.04) K/mm3 RBC 4.05 (3.98-5.22) M/mm3 Hgb 11.5 (11.2-15.7) gm/dl Hct 36.9 (34.1-44.9) % MCV 91.1 (79.4-94.8) fl MCH 28.4 (25.6-32.2) pg MCHC 31.2 L (32.2-35.5) g/dl RDW Std Deviation 45.9 (36.4-46.3) fL Plt Count 317 D (182-369) K/mm3 MPV 10.8 (9.4-12.3) fl Neut % (Auto) 67.2 (34.0-71.1) % Lymph % (Auto) 19.0 L (19.3-51.7) % Garvin % (Auto) 10.5 (4.7-12.5) % Eos % (Auto) 1.9 (0.7-5.8) Baso % (Auto) 0.8 (0.1-1.2) % Neut # (Auto) 5.34 (1.56-6.13) K/mm3 Lymph # (Auto) 1.51 (1.18-3.74) K/mm3 Garvin # (Auto) 0.83 H (0.24-0.36) K/mm3 Eos # (Auto) 0.15 (0.04-0.36) K/mm3 Baso # (Auto) 0.06 (0.01-0.08) K/mm3 Manual Slide Review Abnormal smear Sodium (136-145) mEq/L Potassium (3.5-5.1) mEq/L Chloride (98-107) mEq/L Carbon Dioxide (21-32) mEq/L Anion Gap (5-15) BUN (7-18) mg/dL Creatinine (0.55-1.02) mg/dL Est Cr Clr Drug Dosing mL/min Estimated GFR (MDRD) (>60) mL/min BUN/Creatinine Ratio (14-18) Glucose (74-106) mg/dL POC Glucose 209 H 248 H (70-105) mg/dL Calcium (8.5-10.1) mg/dL 07/25/20 07/25/20 07/25/20 Range/Units 05:15 07:05 11:44 WBC (3.98-10.04) K/mm3 RBC (3.98-5.22) M/mm3 Hgb (11.2-15.7) gm/dl Hct (34.1-44.9) % MCV (79.4-94.8) fl MCH (25.6-32.2) pg MCHC (32.2-35.5) g/dl RDW Std Deviation (36.4-46.3) fL Plt Count (182-369) K/mm3 MPV (9.4-12.3) fl Neut % (Auto) (34.0-71.1) % Lymph % (Auto) (19.3-51.7) % Garvin % (Auto) (4.7-12.5) % Eos % (Auto) (0.7-5.8) Baso % (Auto) (0.1-1.2) % Neut # (Auto) (1.56-6.13) K/mm3 Lymph # (Auto) (1.18-3.74) K/mm3 Garvin # (Auto) (0.24-0.36) K/mm3 Eos # (Auto) (0.04-0.36) K/mm3 Baso # (Auto) (0.01-0.08) K/mm3 Manual Slide Review Sodium 140 (136-145) mEq/L Potassium 2.8 L (3.5-5.1) mEq/L Chloride 100 (98-107) mEq/L Carbon Dioxide 31 (21-32) mEq/L Anion Gap 11.8 (5-15) BUN 9 (7-18) mg/dL Creatinine 0.7 (0.55-1.02) mg/dL Est Cr Clr Drug Dosing 88.44 mL/min Estimated GFR (MDRD) > 60 (>60) mL/min BUN/Creatinine Ratio 12.9 L (14-18) Glucose 236 H (74-106) mg/dL POC Glucose 245 H 307 H (70-105) mg/dL Calcium 8.9 (8.5-10.1) mg/dL Med Orders - Current: Current Medications Acetaminophen (Tylenol) 650 mg PO Q4H PRN PRN Reason: Pain (Mild 1-3)/fever Last Admin: 07/24/20 18:22 Dose: 650 mg Documented by: Albuterol (Proventil Neb Soln) 2.5 mg NEB Q4HRRT PRN PRN Reason: Wheezing Last Admin: 07/23/20 09:14 Dose: 2.5 mg Documented by: Albuterol/Ipratropium (Duoneb 3.0-0.5 Mg/3 Ml) 3 ml NEB Q6HRRT [facility] Stop: 07/25/20 15:01 Last Admin: 07/25/20 09:21 Dose: 3 ml Documented by: Apixaban (Eliquis) 5 mg PO DAILY [facility] Last Admin: 07/25/20 08:57 Dose: 5 mg Documented by: Cholestyramine Resin (Cholestyramine Packet) 4 gm PO BID [facility] Last Admin: 07/25/20 08:56 Dose: 4 gm Documented by: Citalopram Hydrobromide (Celexa) 40 mg PO DAILY [facility] Last Admin: 07/25/20 08:55 Dose: 40 mg Documented by: Ceftriaxone Sodium 1 gm/ (Sodium Chloride) 100 mls @ 200 mls/hr IV Q24H [facility] Last Admin: 07/25/20 08:55 Dose: 200 mls/hr Documented by: Insulin Human Lispro (Humalog) 0 unit SUBCUT QIDACANDBED [facility]; Protocol Last Admin: 07/25/20 12:03 Dose: 12 unit Documented by: Lisinopril (Prinivil) 10 mg PO DAILY [facility] Last Admin: 07/25/20 08:55 Dose: 10 mg Documented by: Nystatin (Nystatin Crm) 5 gm TOP BID [facility] Last Admin: 07/25/20 08:56 Dose: 1 applic Documented by: Nystatin (Nystatin Oral Syringe) 500,000 unit PO QID [facility] Last Admin: 07/25/20 12:04 Dose: 500,000 unit Documented by: Ondansetron HCl (Zofran) 4 mg IVPUSH Q8H PRN PRN Reason: Nausea Last Admin: 07/22/20 17:16 Dose: 4 mg Documented by: Oxycodone HCl (Oxycodone) 5 mg PO Q4H PRN PRN Reason: Pain (moderate 4-6) Last Admin: 07/24/20 21:45 Dose: 5 mg Documented by: Prednisone (Prednisone) 40 mg PO WITHBREAKFAST [facility] Stop: 07/28/20 07:01 Last Admin: 07/25/20 07:07 Dose: 40 mg Documented by: Simvastatin (Zocor) 10 mg PO BEDTIME [facility] Last Admin: 07/24/20 21:44 Dose: 10 mg Documented by: Sodium Chloride (Saline Flush) 10 ml FLUSH ASDIRECTED PRN PRN Reason: Keep Vein Open Last Admin: 07/19/20 20:42 Dose: 10 ml Documented by: Temazepam (Restoril) 15 mg PO BEDTIME PRN PRN Reason: Sleep Discontinued Medications Furosemide (Lasix) 20 mg IVPUSH NOW ONE Stop: 07/21/20 11:16 Last Admin: 07/21/20 12:15 Dose: 20 mg Documented by: Furosemide (Lasix) 20 mg IVPUSH NOW ONE Stop: 07/23/20 09:18 Last Admin: 07/23/20 10:01 Dose: 20 mg Documented by: Sodium Chloride (Normal Saline) 1,000 mls @ 999 mls/hr IV ASDIRECTED [facility] Last Admin: 07/19/20 20:42 Dose: 999 mls/hr Documented by: Insulin Human Regular 100 unit (/ Sodium Chloride) 100 mls @ 15 mls/hr IV TITRATE [facility]; Protocol Last Titration: 07/19/20 23:50 Dose: 0 units/kg/hr, 0 mls/hr Documented by: Ceftriaxone Sodium 2 gm/ (Sodium Chloride) 100 mls @ 200 mls/hr IV ONETIME ONE Stop: 07/19/20 21:50 Last Admin: 07/19/20 21:47 Dose: 200 mls/hr Documented by: Sodium Chloride (Normal Saline) 1,000 mls @ 999 mls/hr IV ASDIRECTED [facility] Last Admin: 07/19/20 21:47 Dose: 999 mls/hr Documented by: Sodium Chloride (Normal Saline) 1,000 mls @ 150 mls/hr IV ONETIME ONE Stop: 07/20/20 05:03 Last Admin: 07/19/20 22:54 Dose: 150 mls/hr Documented by: Potassium Chloride 10 meq/ (Premix) 100 mls @ 100 mls/hr IV Q1H [facility] Stop: 07/20/20 01:44 Last Admin: 07/20/20 01:24 Dose: 100 mls/hr Documented by: Magnesium Sulfate (Magnesium Sulfate In Water Premix) 2 gm in 50 mls @ 25 mls/hr IV Q1H [facility] Stop: 07/20/20 01:14 Last Admin: 07/20/20 00:52 Dose: 25 mls/hr Documented by: Potassium Chloride 10 meq/ (Premix) 100 mls @ 100 mls/hr IV Q1H [facility] Stop: 07/20/20 06:44 Last Admin: 07/20/20 06:13 Dose: 100 mls/hr Documented by: Sodium Chloride (Normal Saline) 1,000 mls @ 200 mls/hr IV ASDIRECTED [facility] Last Admin: 07/20/20 05:00 Dose: 200 mls/hr Documented by: Magnesium Sulfate (Magnesium Sulfate In Water Premix) 2 gm in 50 mls @ 25 mls/hr IV ONETIME ONE Stop: 07/20/20 04:59 Last Admin: 07/20/20 02:57 Dose: 25 mls/hr Documented by: Sodium Chloride (Normal Saline) 1,000 [facility]ls [facility] Admin: 07/21/20 01:59 Dose: 250 mls/hr Documented by: Ceftriaxone Sodium 1 gm/ (Sodium Chloride) 100 mls @ 200 mls/hr IV ONETIME ONE Stop: 07/20/20 08:09 Last Admin: 07/20/20 08:16 Dose: 200 mls/hr Documented by: Potassium Chloride 10 meq/ (Premix) 100 mls @ 100 mls/hr IV Q1H [facility] Stop: 07/20/20 19:29 Last Admin: 07/20/20 21:50 Dose: 100 mls/hr Documented by: Sodium Chloride (Normal Saline) 1,000 mls @ 100 [facility]ls[facility] Last Admin: 07/22/20 07:43 Dose: 100 mls/hr Documented by: Magnesium Sulfate (Magnesium Sulfate In Water Premix) 2 gm in 50 mls @ 25 mls/hr IV ONETIME ONE Stop: 07/23/20 09:58 Last Admin: 07/23/20 09:59 Dose: 25 mls/hr Documented by: Potassium Chloride (Klor-Con M20) 40 meq PO ONETIME ONE Stop: 07/22/20 14:35 Last Admin: 07/22/20 17:17 Dose: 40 meq Documented by: Potassium Chloride (Klor-Con M20) 20 meq PO ONETIME ONE Stop: 07/23/20 07:59 Last Admin: 07/23/20 08:40 Dose: 20 meq Documented by: Potassium Chloride (Klor-Con M20) 40 meq PO ONETIME ONE Stop: 07/25/20 07:08 Last Admin: 07/25/20 08:55 Dose: 40 meq Documented by: - Exam Quality Assessment: Denies: Supplemental Oxygen General: Reports: Alert, Oriented, Cooperative, Other (Obese) HEENT: Reports: Pupils Equal, Pupils Reactive, EOMI Neck: Reports: Supple, Trachea Midline Lungs: Reports: Clear to Auscultation, Normal Respiratory Effort Cardiovascular: Reports: Regular Rate, Regular Rhythm GI/Abdominal Exam: Normal Bowel Sounds, Soft, No Distention, No Abnormal Bruit (Female) Exam: Deferred Rectal (Female) Exam: Deferred Back Exam: Reports: Normal Inspection, Full Range of Motion Extremities: Normal Inspection, No Pedal Edema Skin: Reports: Warm, Dry, Intact Neurological: Reports: No New Focal Deficit Psy/Mental Status: Reports: Alert, Normal Affect, Normal Mood *Q Meaningful Use (DIS) - VTE *Q VTE Mechanical Contraindications *Q: At Risk for Falls VTE Pharmacological Contraindications *Q: Risk of Bleeding
[2020-07-25] MEDS ORDERED: FLU VACC QS2020-21(6MOS UP)/PF 60 MCG/0.5 ML SYRINGE IM ONE (14:23)
== END 2020-07-25 14:45 | disposition home or self-care (01) | DRG 872 ==
LOC: JD.ED 20:21 → JD.ICU 22:43 → JD.MS 07-20 20:12
PROVIDERS: ADMIT Internal Medicine; ATTEND Internal Medicine
DX: A41.9 Sepsis, unspecified organism (principal); N39.0 Urinary tract infection, site not specified; A41.51 Sepsis due to Escherichia coli [E. coli]; E08.65 Diabetes mellitus due to underlying condition with hyperglycemia; Z68.43 Body mass index [BMI] 50.0-59.9, adult; Z86.718 Personal history of other venous thrombosis and embolism; L03.314 Cellulitis of groin; E11.65 Type 2 diabetes mellitus with hyperglycemia; B37.2 Candidiasis of skin and nail; Z87.440 Personal history of urinary (tract) infections; E66.01 Morbid (severe) obesity due to excess calories; Z20.828 Contact with and (suspected) exposure to other viral communicable diseases; E66.9 Obesity, unspecified; I10 Essential (primary) hypertension; F41.9 Anxiety disorder, unspecified; Z79.01 Long term (current) use of anticoagulants; F32.9 Major depressive disorder, single episode, unspecified; K21.9 Gastro-esophageal reflux disease without esophagitis; J45.909 Unspecified asthma, uncomplicated; Z90.49 Acquired absence of other specified parts of digestive tract; Z88.0 Allergy status to penicillin; Z88.1 Allergy status to other antibiotic agents; Z88.8 Allergy status to other drugs, medicaments and biological substances; Z79.4 Long term (current) use of insulin; Z79.899 Other long term (current) drug therapy; Z87.891 Personal history of nicotine dependence; Z86.711 Personal history of pulmonary embolism; Z23 Encounter for immunization
CPT/HCPCS: 36415; 80053; 80306; 81001; 82009; 82800; 82962; 83605; 83735; 84100; 85025; 87040 ×2; 87077; 87086; 87088; 87184; 87186 ×2; 94762; J0696; J1815; J7030 ×2; J7050; U0002; 51702; 71046; 80048; 84132; 90686; 93010; 94640; 94760; 94761; 99285; A9270-GY; G0008; J1940; J2405; J3475; J3480; J7512; J7620-GY

== ENCOUNTER 2020-10-15 06:12 | Day surgery (SDC) | payer MEDICARE, MEDICAID ==
[~2020-10-15 06:12] MED LIST: Dexamethasone 4 MG/ML 5 ML MDV ONE; Lactated Ringers 1,000 ML IV SCH; Lidocaine 1% 4 ML ONE; Lidocaine 1%/Sod Bicarbonate in NS 8.4% 1 ML Syringe IDERM PRN; Lidocaine 2% with EPINEPHrine 1:200,000 20 ML SDV ONE; Midazolam 1 MG/ML 2 ML SDV ONE; Propofol 200 MG/20 ML SDV ONE; Ropivacaine 0.5% 5 MG/ML 30 ML SDV ONE; Sodium Chloride 0.9% 10 ML Syringe FLUSH PRN; ceFAZolin 1 GM Vial ONE; cloNIDine 1,000 MCG/10 ML SDV ONE
--- NOTE | 2020-10-15 06:18 | PCM.PREANE ---
Preanesthetic Assessment - Procedure Proposed Procedure: Achilles tendon reattachment - Anesthesia/Transfusion/Family Hx Anesthesia History: Prior Anesthesia Without Reaction Family History of Anesthesia Reaction: No Transfusion History: Prior Transfusion Reaction - Review of Systems General: No Symptoms Pulmonary: No Symptoms Cardiovascular: Dyspnea on Exertion Gastrointestinal: No Symptoms Neurological: Numbness (feet), Seizure ("diabetic") Other: Reports: Diabetes (Gluco check this am 227) - Physical Assessment NPO Status Date: 10/14/20 NPO Status Time: 20:00 Height: 1.66 m Weight: 135.488 kg ASA Class: 3 Mental Status: Alert & Oriented x3 Airway Class: Mallampati = 3 Dentition: Reports: Dentures Thyro-Mental Finger Breadths: 1 Mouth Opening Finger Breadths: 2 ROM/Head Extension: Full Lungs: Clear to Auscultation, Normal Respiratory Effort Cardiovascular: Regular Rate, Regular Rhythm - Imaging/EKG Impressions: EKG ST rate 105 - Allergies Allergies/Adverse Reactions: Allergies Allergy/AdvReac Type Severity Reaction Status Date / Time amoxicillin Allergy Intermediate Rash Verified 10/14/20 14:41 erythromycin base Allergy Intermediate Rash Verified 10/14/20 14:41 diazepam [From Valium] AdvReac Intermediate Anxiety Verified 10/14/20 14:41 - Anesthesia Plan Pre-Op Medication Ordered: None - Acknowledgements Anesthesia Type Planned: Spinal Pt an Appropriate Candidate for the Planned Anesthesia: Yes Alternatives and Risks of Anesthesia Discussed w Pt/Guardian: Yes Pt/Guardian Understands and Agrees with Anesthesia Plan: Yes PreAnesthesia Questionnaire HEENT History: Reports: Impaired Vision Cardiovascular History: Reports: Blood Clots/VTE/DVT, High Cholesterol, Hypertension Respiratory History: Reports: Asthma, PE Gastrointestinal History: Reports: GERD, Irritable Bowel Syndrome Genitourinary History: Reports: UTI, Recurrent PLUG SORTER History: Reports: Musculoskeletal History: Reports: Arthritis, Back Pain, Chronic, Fracture, Fibromyalgia Neurological History: Reports: Headaches, Chronic Psychiatric History: Reports: ADHD, Anxiety, Depression Endocrine/Metabolic History: Reports: Diabetes, Type II, Obesity/BMI 30+ Hematologic History: Reports: Other (See Below) Other Hematologic History: Pt states that she has a clotting disorder. - Past Surgical History HEENT Surgical History: Reports: Adenoidectomy, Tonsillectomy, Other (See Below) Other HEENT Surgeries/Procedures: oral surgery, dentures GI Surgical History: Reports: Cholecystectomy Female Surgical History: Reports: Breast Biopsy, Hysterectomy, Tubal Ligation Other Female Surgeries/Procedures: left breast biopsy - SUBSTANCE USE Tobacco Use Status *Q: Former Tobacco User Tobacco Use Within Last Twelve Months: No Second Hand Smoke Exposure: No Days Per Week of Alcohol Use: 0 Number of Drinks Per Day: 0 Total Drinks Per Week: 0 Recreational Drug Use History: No - HOME MEDS Home Medications: Home Meds ALPRAZolam [Xanax] 0.5 mg PO Q12H PRN #24 tablet 07/01/20 [Rx] Escitalopram Oxalate [Lexapro] 20 mg PO DAILY #30 tablet 07/01/20 [Rx] atorvaSTATin [Lipitor] 20 mg PO BID 07/01/20 [History] Albuterol [Proventil Neb Soln] 2.5 mg NEB Q4HRRT PRN neb 07/25/20 [Rx] Albuterol/Ipratropium [DuoNeb 3.0-0.5 MG/3 ML] 3 ml NEB Q6HRRT PRN 10/14/20 [History] Apixaban [Eliquis] 5 mg PO BID 10/14/20 [History] Cetirizine [ZyrTEC] 10 mg PO DAILY 10/14/20 [History] Cyclobenzaprine [Flexeril] 10 mg PO BEDTIME PRN 10/14/20 [History] DULoxetine [Cymbalta] 20 mg PO DAILY 10/14/20 [History] Fluticasone Propionate [Flonase] 1 spray HASEEB DAILY 10/14/20 [History] Fluticasone/Vilanterol [Breo Ellipta 100-25 MCG Inhalation Kit] 1 puff INH DAILY 10/14/20 [History] Insulin Glargine,Hum.Rec.Anlog [Basaglar Kwikpen U-100] 15 unit SQ BID 10/14/20 [History] Insulin Isophane NPH, Human [NovoLIN N] 20 unit SQ QID 10/14/20 [History] Lidocaine 1 patch TOP ASDIRECTED PRN 10/14/20 [History] Magnesium 2 tab PO DAILY 10/14/20 [History] Meloxicam 7.5 mg PO BID PRN 10/14/20 [History] Mirtazapine [Remeron] 15 mg PO BEDTIME 10/14/20 [History] Montelukast [Singulair] 10 mg PO BEDTIME 10/14/20 [History] Nystatin [Nystatin Crm] 1 applic TOP DAILY 10/14/20 [History] Pantoprazole Sodium [Protonix] 40 mg PO BID 10/14/20 [History] Potassium Citrate [Potassium Citrate ER] 20 meq PO BID 10/14/20 [History] Psyllium [Metamucil] 0.52 gm PO BEDTIME 10/14/20 [History] SitaGLIPtin [Januvia] 100 mg PO DAILY 10/14/20 [History] amLODIPine Besylate [Norvasc] 10 mg PO DAILY 10/14/20 [History] estradioL [Estradiol] 1 mg PO DAILY 10/14/20 [History] hydroCHLOROthiazide [Hydrochlorothiazide] 25 mg PO DAILY 10/14/20 [History] lisinopriL [Lisinopril] 20 mg PO DAILY 10/14/20 [History] metFORMIN [Glucophage] 1,000 mg PO BID 10/14/20 [History] traMADol [Ultram] 50 mg PO TID PRN 10/14/20 [History] - CURRENT (IN HOUSE) MEDS Current Meds: Current Medications Lactated Ringer's (Ringers, Lactated) 1,000 mls @ 125 mls/hr IV ASDIRECTED [facility] Stop: 10/15/20 23:00 Lidocaine/Sodium Bicarbonate (Buffered Lidocaine 1% In Ns 8.4%) 0.25 ml IDERM ONETIME PRN PRN Reason: Prior to IV Start Stop: 10/15/20 18:00 Sodium Chloride (Saline Flush) 10 ml FLUSH ASDIRECTED PRN PRN Reason: Keep Vein Open Stop: 10/15/20 18:00 Discontinued Medications Cefazolin Sodium (Ancef) Confirm Administered Dose 2 gm .ROUTE .STK-MED ONE Stop: 10/15/20 06:04 Clonidine HCl (Duraclon) Confirm Administered Dose 1,000 mcg .ROUTE .STK-MED ONE Stop: 10/15/20 05:50 Dexamethasone (Dexamethasone) Confirm Administered Dose 20 mg .ROUTE .STK-MED ONE Stop: 10/15/20 05:50 Lidocaine HCl (Xylocaine-Mpf 1%) Confirm Administered Dose 4 mls @ as directed .ROUTE .STK-MED ONE Stop: 10/15/20 06:03 Lidocaine/Epinephrine (Xylocaine-Mpf 2%-Epi 1:200,000) Confirm Administered Dose 20 ml .ROUTE .STK-MED ONE Stop: 10/15/20 05:51 Midazolam HCl (Versed 1 Mg/Ml) Confirm Administered Dose 4 mg .ROUTE .STK-MED ONE Stop: 10/15/20 05:57 Propofol (Diprivan 20 Ml) Confirm Administered Dose 200 mg .ROUTE .STK-MED ONE Stop: 10/15/20 06:03 Ropivacaine (Naropin 0.5%) Confirm Administered Dose 30 ml .ROUTE .STK-MED ONE Stop: 10/15/20 05:48
[2020-10-15] MEDS ORDERED: Clindamycin Phosphate in D5W 900 MG in Premix Bag 1 BAG IV ONE ×2 (07:03)
--- NOTE | 2020-10-15 07:07 | PCM.PRNOTE ---
- Free Text/Narrative Note: Postoperative regional pain control requested by surgeon. Pre-op Dx: Right foot Teddy's deformity Surgery : Right Achilles tendon reattachment Anesthesia Procedure: Right Popliteal block with U/S guidance Requesting physician: Dr. Leonardo Morrison Risks and benefits discussed with the patient preoperatively including infection, bleeding, incomplete or failed block, possible nerve damage, local anesthetic toxicity. Chart reviewed, VS stable. Permit signed. Patient in preop holding area, stable , alert and awake, positioned prone with blankets support. Time out performed at 06:34. Oxygen 4L via FM. Right popliteal area was prepped with Chloraprep x 1 and allowed to dry. Midazolam IV 2 mg given. Under aseptic technique, the Right common peroneal and Rightt tibial nerves were identified under ultrasound prior to needle insertion. Local infiltration with 1% Lidocaine. 4" Stimuplex needle #20 G was inserted under US guidance. Neuromuscular response was elicited with noted foot twitch at 0.6 mA. Under direct visualization of needle tip the injection of 0.5% Ropivacaine with 1:200k epinephrine (22 mls) with 2% Lidocaine 6 mls, 6 mg of Dexamethasone and 100 mcg of Clonidine, total of 30 mls in divided doses, maintaining negative aspiration was completed without problems. No local anesthetic toxicity was noted. Patient is awake, stable and tolerated the procedure well. Please see attached U/S images Start 06:34 End: 0650
[2020-10-15] MEDS: Lidocaine 1% 30 ML SDV ONE ×2 (08:50→09:21)
[2020-10-15] MEDS ORDERED: Lactated Ringers 1,000 ML ONE (08:52)
[2020-10-15] MEDS ORDERED: Propofol 200 MG/20 ML SDV ONE ×2 (09:16→09:58)
[2020-10-15] MEDS: Bupivacaine 0.5% 30 ML SDV ONE ×2 (09:20→10:00)
--- NOTE | 2020-10-15 10:32 | PCM.POSTAN ---
POST ANESTHESIA ASSESSMENT - MENTAL STATUS Mental Status: Alert, Oriented - VITAL SIGNS Vital Signs: Last Vital Signs Temp 36.1 C 10/15/20 06:10 Pulse 96 10/15/20 06:50 Resp 20 10/15/20 06:50 BP 139/87 10/15/20 06:50 Pulse Ox 96 10/15/20 06:50 - RESPIRATORY Respiratory Status: Respiratory Rate WNL, Airway Patent, O2 Saturation Stable - CARDIOVASCULAR CV Status: Pulse Rate WNL, Blood Pressure Stable - GASTROINTESTINAL GI Status: No Symptoms - PAIN Pain Score: 0 - POST OP HYDRATION Hydration Status: Adequate & Stable - OBSERVATIONS Free Text/Narrative:: no anesthesia complications noted
--- NOTE | 2020-10-15 10:37 | PCM.OPNOTE ---
- General Post-Op/Procedure Note Date of Surgery/Procedure: 10/15/20 Operative Procedure(s): 1.) Gastrocnemius Recession (Gina), RIGHT lower leg. 2.) Debridement/Decompression Achilles tendon insertion with re-attachment using Arthrex Speed bridge, RIGHT heel. 3.) Retro-Calcaneal Exostectomy, RIGHT heel Pre Op Diagnosis: 1.) Painful/Symptomatic Chronic Achilles Tendinosis, RIGHT heel. 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 3.) Painful/Symptomatic Gastrocnemius Equinus, RIGHT lower extremity. Post-Op Diagnosis: Same Anesthesia Technique: Combo Spinal/Epidural, Local, MAC, Spinal Primary Surgeon: Leonardo Morrison II Anesthesia Provider: Ja Fay Complications: None Condition: Good Free Text/Narrative:: Patient left the OR for recovery with vital signs stable & vascular status intact to digits 1-5 RIGHT foot.
--- NOTE | 2020-10-15 11:16 | CR ---
Right calcaneus: Single lateral view of the right calcaneus were obtained. Comparison: No prior study. Lucencies seen within the posterior calcaneus. Fluoroscopy time is given as 2.1 seconds. Impression: 1. Procedural study. Diagnostic code #2
--- NOTE | 2020-10-15 13:52 | PCM48HPAN ---
Post Anesthesia Note - EVALUATION WITHIN 48HRS OF ANESTHETIC Vital Signs in Normal Range: Yes Patient Participated in Evaluation: Yes Respiratory Function Stable: Yes Airway Patent: Yes Cardiovascular Function Stable: Yes Hydration Status Stable: Yes Pain Control Satisfactory: Yes Nausea and Vomiting Control Satisfactory: Yes Mental Status Recovered: Yes Vital Signs: Last Vital Signs Temp 36.1 C 10/15/20 12:00 Pulse 97 10/15/20 12:00 Resp 22 H 10/15/20 12:00 BP 139/94 H 10/15/20 12:00 Pulse Ox 95 10/15/20 12:00
--- NOTE | 2020-10-16 20:32 | OR ---
DATE OF OPERATION: 10/15/2020 SURGEON: Leonardo Morrison II, DPM LOCATION: [place], [place]. ANESTHESIA: Spinal with local block involving the right lower extremity; provider, Ja Fay CRNA HEMOSTASIS: Right pneumatic thigh tourniquet at 350 mmHg. PREOPERATIVE DIAGNOSIS: 1. Chronic Achilles tendinosis, right heel. 2. Painful and symptomatic retrocalcaneal exostosis/Teddy deformity, right heel. 3. Painful and symptomatic gastrocnemius equinus, right ankle. POSTOPERATIVE DIAGNOSIS: 1. Chronic Achilles tendinosis, right heel. 2. Painful and symptomatic retrocalcaneal exostosis/Teddy deformity, right heel. 3. Painful and symptomatic gastrocnemius equinus, right ankle. OPERATION PERFORMED: 1. Gastrocnemius recession/Gina procedure, right lower extremity. 2. Debridement/decompression, Achilles tendon insertion, with reattachment using Arthrex suture bridge. 3. Retrocalcaneal exostectomy, right calcaneus. DESCRIPTION OF PROCEDURE: Upon arrival and admission to the hospital, the patient was examined and cleared for surgery by the assigned anesthesia provider. IV access was obtained in the preoperative area where prophylactic antibiotics consisting of 900 mg of clindamycin was administered IV piggyback after which the patient was then brought to the OR via gurney and assisted with transfer onto the operating room table in the upright seated position. A spinal block was then performed and achieved prior to positioning the patient in the prone position. When the patient was adequately sedated, 10 mL of a 1:1 mixture of 1% lidocaine plain and 0.5% Marcaine plain was injected about the incision sites involving the right lower extremity. The right thigh was wrapped with cotton Webril padding in preparation for a nonsterile thigh tourniquet, which was securely draped with a sterile drape and secured with a towel clamp. The right lower extremity was then prepped and draped in the usual aseptic manner. The right lower extremity was then elevated and exsanguinated with use of an Esmarch bandage before inflating the right pneumatic thigh tourniquet to 350 mmHg pressure. The Esmarch bandage was removed and the lower extremity was then placed back to the level of the operating room table. Attention was first directed to the posterior aspect of the right lower extremity just distal to the calf muscle, where an approximately 4 cm linear incision was created in the midline and dissection was taken down, being a controlled depth skin incision down to the level of subcutaneous structures with care taken to retract the vital neurovascular structures within the area. The gastrocnemius run out was then located and transected from medial to lateral. This wound was then copiously lavaged with sterile saline solution. Having completed, the gastroc resection was then reapproximated utilizing 3-0 Vicryl and 4-0 Vicryl at the subcuticular level while the skin was reapproximated with 4-0 nylon. Attention was then directed to the inferior medial aspect of the right posterior calcaneus over which a large Teddy deformity and bursitis were present. An approximately 6 cm curvilinear incision was created from just proximal to the distal one-third of the Achilles tendon at the medial aspect and then was finished 1.5 cm distal to the insertion of the Achilles tendon. This was a controlled depth skin incision taken down to the level of subcutaneous structures with care taken to retract the vital neurovascular structures in the area as well as to cauterize and/or ligate all superficial bleeders as deemed necessary. Continuous soft tissue dissection was taken down to the level of the overlying paratenon. The Achilles tendon incision was then carried down to the calcaneus at the calcaneal tendo-Achilles insertion site. The Achilles at its most distal aspect was then freed from its underlying bony attachment where there was noted to be calcific portions of the Achilles tendon. Debridement was undertaken removing all tenopathic tissue involving the Achilles tendon. Having reflected the insertion of the Achilles tendon proximally, this maneuver revealed a large retrocalcaneal bursa and the Teddy's or posterior superior calcaneal prominence was removed utilizing a microsagittal saw. The medial and lateral sides of the calcaneus were then chamfered off so as not to leave bony prominence at the medial or lateral aspect. Using a drill guide, four 4.7 mm drill holes were created with the first row being approximately 1.1 cm proximal to the distal insertion of the Achilles tendon and central to each half of the tendon. Each hole was then prepared with a punch tap for Arthrex bone anchors. These two bone anchors were then loaded with FiberTape inserting them into the proximal drill holes. The needle attached to the FiberTape was then utilized to pass through the Achilles tendon on each side, drawing it closer to the resected surface of the posterior calcaneus having completed the retrocalcaneal exostectomy. The distal drill holes with the same diameter are created inferior to the proximal holes and are prepared in the same manner as the proximal holes. Once again, the distal holes are then prepared with a punch tap for the eventual placement of distal row bone anchors, which are absorbable biocomposite bone anchors. The FiberTape tails from each proximal anchor were then preloaded through a distal SwiveLock eyelet and adjusting the tension are inserted in the respective holes of the distal row. These were then anchored utilizing another biocomposite anchor advanced into the distal row holes. The other distal anchor using the two remaining tails in a like manner into the other distal hole. After completed the insertion of the tails, which were secured with a bone anchors, remaining FiberTape tails were then cut flush with the anchor producing a final knotless repair. The wound was then copiously lavaged with sterile saline solution and all distal capsular and paratenon structures were then reapproximated utilizing 3-0 Vicryl and also subcuticular structures were reapproximated utilizing 4-0 Vicryl. The skin would then be reapproximated with 4-0 nylon. Postoperative anesthesia consisted of an additional 10 mL of 0.5% Marcaine plain distributed about the two incision sites. Dressings would then consist of Betadine-soaked Adaptic gauze, 4 x 4 gauze, Jose, and an Jace bandage. Upon completion of the surgery, the right pneumatic thigh tourniquet was deflated and it was noted that digits 1 through 5 of the right lower extremity became pink indicating that normal vascular perfusion had returned. The patient appeared to tolerate the procedure and anesthesia well and would leave the OR for recovery with her vital signs being stable and vascular status intact to digits 1 through 5 of the right lower extremity with no apparent complications. In recovery, the patient received written and oral postoperative instructions as well as postoperative pain medication. The patient will ambulate, having placed a posterior splint in the postoperative setting, nonweightbearing with crutches, and/or the use of a knee scooter with a posterior splint about her right lower extremity. Estimated blood loss for these procedures was approximately 10 mL and considered negligible. There were no apparent or obvious complications. ESTIMATED BLOOD LOSS: MMODAL /[id number]
== END 2020-10-15 13:25 | disposition home or self-care (01) ==
LOC: JD.SDS 06:12
PROVIDERS: ATTEND Podiatrist Foot & Ankle Surgery
DX: M21.6X1 Other acquired deformities of right foot (principal); M76.61 Achilles tendinitis, right leg; Q66.71 Congenital pes cavus, right foot; G89.29 Other chronic pain; F41.9 Anxiety disorder, unspecified; J45.909 Unspecified asthma, uncomplicated; F90.2 Attention-deficit hyperactivity disorder, combined type; E11.9 Type 2 diabetes mellitus without complications; I10 Essential (primary) hypertension; Z01.812 Encounter for preprocedural laboratory examination; Z20.822 Contact with and (suspected) exposure to COVID-19; F32.9 Major depressive disorder, single episode, unspecified; E66.01 Morbid (severe) obesity due to excess calories; E78.00 Pure hypercholesterolemia, unspecified; Z79.899 Other long term (current) drug therapy; Z79.4 Long term (current) use of insulin; Z88.1 Allergy status to other antibiotic agents; Z88.8 Allergy status to other drugs, medicaments and biological substances; Z91.018 Allergy to other foods; Z87.891 Personal history of nicotine dependence; Z98.890 Other specified postprocedural states; Z68.42 Body mass index [BMI] 45.0-49.9, adult
CPT/HCPCS: 01474; 64445; 76000; 76000-26; 82962; C1713; J0690; J0735; J1100; J2001; J2250; J2704; J2795; J3490; J7120; U0002

== ENCOUNTER 2020-10-25 18:34 | Emergency (ER) | payer MEDICARE, MEDICAID ==
[2020-10-25] MEDS ORDERED: Acetaminophen/HYDROcodone 325-5 MG Tab PO ONE (19:09)
--- NOTE | 2020-10-25 19:29 | EDM.PDOC ---
ED HPI GENERAL MEDICAL PROBLEM - General Chief Complaint: Lower Extremity Injury/Pain Stated Complaint: ANA AMBULANCE Time Seen by Provider: 10/25/20 19:00 Source of Information: Reports: Patient, RN Notes Reviewed - History of Present Illness INITIAL COMMENTS - FREE TEXT/NARRATIVE: 50 yr old female had a bone spur removed heel of R foot 10 days ago. She had a full cast changed to a half cast today. She was standing, repositioning in the bathroom a couple of hrs ago and "felt a pop" with onset of severe pain R heel that continues. Less painful at rest, worse when she stands or moves her leg. Right Foot Pain Score (Numeric/FACES): 10 - Related Data Allergies Allergy/AdvReac Type Severity Reaction Status Date / Time amoxicillin Allergy Intermediate Rash Verified 10/25/20 18:43 erythromycin base Allergy Intermediate Rash Verified 10/25/20 18:43 mustard Allergy Other Verified 10/25/20 18:43 tomato Allergy Other Verified 10/25/20 18:43 diazepam [From Valium] AdvReac Intermediate Anxiety Verified 10/25/20 18:43 Home Meds: Home Meds ALPRAZolam [Xanax] 0.5 mg PO Q12H PRN #24 tablet 07/01/20 [Rx] Escitalopram Oxalate [Lexapro] 20 mg PO DAILY #30 tablet 07/01/20 [Rx] atorvaSTATin [Lipitor] 20 mg PO BID 07/01/20 [History] Albuterol [Proventil Neb Soln] 2.5 mg NEB Q4HRRT PRN neb 07/25/20 [Rx] Albuterol/Ipratropium [DuoNeb 3.0-0.5 MG/3 ML] 3 ml NEB Q6HRRT PRN 10/14/20 [History] Apixaban [Eliquis] 5 mg PO BID 10/14/20 [History] Cetirizine [ZyrTEC] 10 mg PO DAILY 10/14/20 [History] Cyclobenzaprine [Flexeril] 10 mg PO BEDTIME PRN 10/14/20 [History] DULoxetine [Cymbalta] 20 mg PO DAILY 10/14/20 [History] Fluticasone Propionate [Flonase] 1 spray HASEEB DAILY 10/14/20 [History] Fluticasone/Vilanterol [Breo Ellipta 100-25 MCG Inhalation Kit] 1 puff INH DAILY 10/14/20 [History] Insulin Glargine,Hum.Rec.Anlog [Basaglar Kwikpen U-100] 15 unit SQ BID 10/14/20 [History] Insulin Isophane NPH, Human [NovoLIN N] 20 unit SQ QID 10/14/20 [History] Lidocaine 1 patch TOP ASDIRECTED PRN 10/14/20 [History] Magnesium 2 tab PO DAILY 10/14/20 [History] Meloxicam 7.5 mg PO BID PRN 10/14/20 [History] Mirtazapine [Remeron] 15 mg PO BEDTIME 10/14/20 [History] Montelukast [Singulair] 10 mg PO BEDTIME 10/14/20 [History] Nystatin [Nystatin Crm] 1 applic TOP DAILY 10/14/20 [History] Pantoprazole Sodium [Protonix] 40 mg PO BID 10/14/20 [History] Potassium Citrate [Potassium Citrate ER] 20 meq PO BID 10/14/20 [History] Psyllium [Metamucil] 0.52 gm PO BEDTIME 10/14/20 [History] SitaGLIPtin [Januvia] 100 mg PO DAILY 10/14/20 [History] amLODIPine Besylate [Norvasc] 10 mg PO DAILY 10/14/20 [History] estradioL [Estradiol] 1 mg PO DAILY 10/14/20 [History] hydroCHLOROthiazide [Hydrochlorothiazide] 25 mg PO DAILY 10/14/20 [History] lisinopriL [Lisinopril] 20 mg PO DAILY 10/14/20 [History] metFORMIN [Glucophage] 1,000 mg PO BID 10/14/20 [History] traMADol [Ultram] 50 mg PO TID PRN 10/14/20 [History] Past Medical History HEENT History: Reports: Impaired Vision Cardiovascular History: Reports: Blood Clots/VTE/DVT, High Cholesterol, Hypertension Respiratory History: Reports: Asthma, PE Gastrointestinal History: Reports: GERD, Irritable Bowel Syndrome Genitourinary History: Reports: UTI, Recurrent [employer] History: Reports: Musculoskeletal History: Reports: Arthritis, Back Pain, Chronic, Fracture, Fibromyalgia Neurological History: Reports: Headaches, Chronic Psychiatric History: Reports: ADHD, Anxiety, Depression Endocrine/Metabolic History: Reports: Diabetes, Type II, Obesity/BMI 30+ Hematologic History: Reports: Other (See Below) Other Hematologic History: Pt states that she has a clotting disorder. - Past Surgical History HEENT Surgical History: Reports: Adenoidectomy, Tonsillectomy, Other (See Below) Other HEENT Surgeries/Procedures: oral surgery, dentures GI Surgical History: Reports: Cholecystectomy Female Surgical History: Reports: Breast Biopsy, Hysterectomy, Tubal Ligation Other Female Surgeries/Procedures: left breast biopsy Musculoskeletal Surgical History: Reports: Other (See Below) Other Musculoskeletal Surgeries/Procedures:: bone spurr removed Social & Family History - Tobacco Use Tobacco Use Status *Q: Never Tobacco User Second Hand Smoke Exposure: No - Caffeine Use Caffeine Use: Reports: None - Recreational Drug Use Recreational Drug Use: No - Living Situation & Occupation Living situation: Reports: with Significant Other Occupation: Unemployed Review of Systems - Review of Systems Review Of Systems: See Below Constitutional: Reports: No Symptoms Respiratory: Reports: No Symptoms Cardiovascular: Reports: No Symptoms GI/Abdominal: Reports: No Symptoms Musculoskeletal: Reports: Foot Pain Neurological: Reports: No Symptoms ED EXAM, GENERAL - Physical Exam Exam: See Below General Appearance: Alert, Mild Distress Head: Atraumatic Neck: Supple Respiratory/Chest: No Respiratory Distress Extremities: Other (Wearing a half cast R foot, ankle and lower leg. Toes not swollen. Half cast is intact.) Neurological: No Motor/Sensory Deficits Course - Vital Signs Last Recorded V/S: Last Vital Signs Temp 97 F 10/25/20 18:40 Pulse 118 H 10/25/20 18:40 Resp 20 10/25/20 18:40 BP 127/54 L 10/25/20 18:40 Pulse Ox 99 10/25/20 18:40 - Orders/Labs/Meds Orders: Active Orders 24 hr Category Date Time Status Foot Comp Min 3V Rt [CR] Stat Exams 10/25/20 19:10 Taken Meds: Medications Discontinued Medications Generic Name Dose Route Start Last Admin Trade Name Freq PRN Reason Stop Dose Admin Hydrocodone Bitart/Acetaminophen 1 tab 10/25/20 19:09 10/25/20 19:35 [place] 325-5 Mg PO 10/25/20 19:10 1 tab ONETIME ONE Administration - Re-Assessments/Exams Free Text/Narrative Re-Assessment/Exam: 10/25/20 19:48 X rays not acute fx visible. Pt resting fairly comfortably at time of discharge. Discharge instr. as documented. Departure - Departure Time of Disposition: 19:43 Disposition: Home, Self-Care 01 Condition: Fair Clinical Impression: Foot pain, right - Discharge Information Instructions: Foot Pain Referrals: Ana Maria Gilmore MD [Primary Care Provider] - Forms: ED Department Discharge Additional Instructions: Rest foot and leg. Elevate foot and leg as much as possible. Try remain non weight bearing. See Dr Mccauley tomorrow or next available appointment, call for appointment in AM. Continue tylenol or hydrocodone as needed for pain. Sepsis Event Note (ED) - Evaluation Sepsis Screening Result: No Definite Risk - Focused Exam Vital Signs: Vital Signs Temp Pulse Resp BP Pulse Ox 10/25/20 18:40 97 F 118 H 20 127/54 L 99 - My Orders Last 24 Hours: My Active Orders 10/25/20 19:10 Foot Comp Min 3V Rt [CR] Stat - Assessment/Plan Last 24 Hours: My Active Orders 10/25/20 19:10 Foot Comp Min 3V Rt [CR] Stat
--- NOTE | 2020-10-26 08:25 | CR ---
Right foot: 3 views of the right foot were obtained. Comparison: Prior fluoroscopic calcaneal exam of 10/15/20. Fiberglas cast or splint is seen. Previous surgery is noted within the posterior calcaneus. Plantar spur is noted. No definite acute fracture, dislocation or other bony abnormality is appreciated. Impression: 1. Prior surgery within the posterior calcaneus. 2. Fiberglas cast or splint is present. 3. Plantar spur. 4. No acute osseous finding is seen. Diagnostic code #2
== END 2020-10-25 20:13 | disposition home or self-care (01) ==
LOC: JD.ED 18:34
DX: M79.671 Pain in right foot (principal); I10 Essential (primary) hypertension; E78.00 Pure hypercholesterolemia, unspecified; K21.9 Gastro-esophageal reflux disease without esophagitis; E11.9 Type 2 diabetes mellitus without complications; E66.9 Obesity, unspecified; Z79.01 Long term (current) use of anticoagulants; Z79.4 Long term (current) use of insulin; Z88.1 Allergy status to other antibiotic agents; Z88.0 Allergy status to penicillin; Z88.5 Allergy status to narcotic agent; Z91.018 Allergy to other foods; Z79.899 Other long term (current) drug therapy
CPT/HCPCS: 73630; 99284; A9270; 99283

== ENCOUNTER 2020-11-06 12:53 | Emergency (ER) | payer MEDICARE, MEDICAID ==
--- NOTE | 2020-11-06 13:34 | EDM.PDOC ---
ED HPI GENERAL MEDICAL PROBLEM - General Chief Complaint: Lower Extremity Injury/Pain Stated Complaint: [facility] Time Seen by Provider: 11/06/20 13:20 Source of Information: Reports: Patient History Limitations: Reports: No Limitations - History of Present Illness INITIAL COMMENTS - FREE TEXT/NARRATIVE: 50-year-old female presents to the ED per [facility] after slipping and falling outside her home she states she was just going outside to get a breath of fresh air and is using crutches due to wound on her right posterior calcaneus or heel that is not healing. She has limited toe-touch weightbearing on the right side. Unfortunately it has been sleeping/snowing wee bit overnight making the sidewalks extremely slippery. She states she landed hard on her right hip and injured her right foot. She states she did not have her foot brace on at the time. Patient is awaiting further consultation with her surgeon next week I believe in [place]. Wound posterior calcaneus has not been looked at for period of time. She is currently taking clindamycin 3 times daily for wound infection. Of note she fell a few weeks ago and injured the same area. The dressing was not removed at that time but she clinically felt that the wound had blown open or that her wound had dehisced with the sutures popping open. Onset: Today, Sudden Onset Date: 11/06/20 Onset Time: 12:20 Duration: Minutes: Location: Reports: Lower Extremity, Right (Right foot and ankle. Right hip.) Quality: Reports: Ache, Throbbing Severity: Moderate Improves with: Reports: Rest Worsens with: Reports: Other (Worse when the foot is hanging down.) Context: Reports: Trauma. Denies: Activity, Exercise, Lifting, Sick Contact, Other Associated Symptoms: Denies: Confusion, Chest Pain (Up and fall outside.), Cough, cough w sputum, Diaphoresis, Fever/Chills, Headaches, Loss of Appetite, Malaise, Nausea/Vomiting, Rash, Seizure, Shortness of Breath, Syncope Treatments ELECTRONIC TECH: Reports: Other (see below) (None.) Right Foot Pain Score (Numeric/FACES): 9 - Related Data Allergies Allergy/AdvReac Type Severity Reaction Status Date / Time amoxicillin Allergy Intermediate Rash Verified 11/06/20 13:14 erythromycin base Allergy Intermediate Rash Verified 11/06/20 13:14 mustard Allergy Other Verified 11/06/20 13:14 tomato Allergy Other Verified 11/06/20 13:14 diazepam [From Valium] AdvReac Intermediate Anxiety Verified 11/06/20 13:14 Home Meds: Home Meds ALPRAZolam [Xanax] 0.5 mg PO Q12H PRN #24 tablet 07/01/20 [Rx] Escitalopram Oxalate [Lexapro] 20 mg PO DAILY #30 tablet 07/01/20 [Rx] atorvaSTATin [Lipitor] 20 mg PO BID 07/01/20 [History] Albuterol [Proventil Neb Soln] 2.5 mg NEB Q4HRRT PRN neb 07/25/20 [Rx] Albuterol/Ipratropium [DuoNeb 3.0-0.5 MG/3 ML] 3 ml NEB Q6HRRT PRN 10/14/20 [History] Apixaban [Eliquis] 5 mg PO BID 10/14/20 [History] Cetirizine [ZyrTEC] 10 mg PO DAILY 10/14/20 [History] Cyclobenzaprine [Flexeril] 10 mg PO BEDTIME PRN 10/14/20 [History] DULoxetine [Cymbalta] 20 mg PO DAILY 10/14/20 [History] Fluticasone Propionate [Flonase] 1 spray HASEEB DAILY 10/14/20 [History] Fluticasone/Vilanterol [Breo Ellipta 100-25 MCG Inhalation Kit] 1 puff INH DAILY 10/14/20 [History] Insulin Glargine,Hum.Rec.Anlog [Basaglar Kwikpen U-100] 15 unit SQ BID 10/14/20 [History] Insulin Isophane NPH, Human [NovoLIN N] 20 unit SQ QID 10/14/20 [History] Lidocaine 1 patch TOP ASDIRECTED PRN 10/14/20 [History] Magnesium 2 tab PO DAILY 10/14/20 [History] Meloxicam 7.5 mg PO BID PRN 10/14/20 [History] Mirtazapine [Remeron] 15 mg PO BEDTIME 10/14/20 [History] Montelukast [Singulair] 10 mg PO BEDTIME 10/14/20 [History] Nystatin [Nystatin Crm] 1 applic TOP DAILY 10/14/20 [History] Pantoprazole Sodium [Protonix] 40 mg PO BID 10/14/20 [History] Potassium Citrate [Potassium Citrate ER] 20 meq PO BID 10/14/20 [History] Psyllium [Metamucil] 0.52 gm PO BEDTIME 10/14/20 [History] SitaGLIPtin [Januvia] 100 mg PO DAILY 10/14/20 [History] amLODIPine Besylate [Norvasc] 10 mg PO DAILY 10/14/20 [History] estradioL [Estradiol] 1 mg PO DAILY 10/14/20 [History] hydroCHLOROthiazide [Hydrochlorothiazide] 25 mg PO DAILY 10/14/20 [History] lisinopriL [Lisinopril] 20 mg PO DAILY 10/14/20 [History] metFORMIN [Glucophage] 1,000 mg PO BID 10/14/20 [History] traMADol [Ultram] 50 mg PO TID PRN 10/14/20 [History] oxyCODONE HCl/Acetaminophen [Percocet 10-325 mg Tablet] 1 each PO Q4H #20 tablet 11/06/20 [Rx] Past Medical History HEENT History: Reports: Impaired Vision Cardiovascular History: Reports: Blood Clots/VTE/DVT, High Cholesterol, Hypertension Respiratory History: Reports: Asthma, PE Gastrointestinal History: Reports: GERD, Irritable Bowel Syndrome Genitourinary History: Reports: UTI, Recurrent [employer] History: Reports: Musculoskeletal History: Reports: Arthritis, Back Pain, Chronic, Fracture, Fibromyalgia Neurological History: Reports: Headaches, Chronic Psychiatric History: Reports: ADHD, Anxiety, Depression Endocrine/Metabolic History: Reports: Diabetes, Type II, Obesity/BMI 30+ Hematologic History: Reports: Other (See Below) Other Hematologic History: Pt states that she has a clotting disorder. - Past Surgical History HEENT Surgical History: Reports: Adenoidectomy, Tonsillectomy, Other (See Below) Other HEENT Surgeries/Procedures: oral surgery, dentures GI Surgical History: Reports: Cholecystectomy Female Surgical History: Reports: Breast Biopsy, Hysterectomy, Tubal Ligation Other Female Surgeries/Procedures: left breast biopsy Musculoskeletal Surgical History: Reports: Other (See Below) Other Musculoskeletal Surgeries/Procedures:: bone spurr removed Social & Family History - Tobacco Use Tobacco Use Status *Q: Former Tobacco User Used Tobacco, but Quit: Yes Month/Year Tobacco Last Used: 2012 - Caffeine Use Caffeine Use: Reports: Coffee - Recreational Drug Use Recreational Drug Use: No - Living Situation & Occupation Living situation: Reports: with Significant Other Occupation: Unemployed Review of Systems - Review of Systems Review Of Systems: See Below Constitutional: Denies: Chills, Diaphoresis, Fever, Weakness Eyes: Reports: No Symptoms Ears: Reports: No Symptoms Nose: Reports: No Symptoms Mouth/Throat: Reports: No Symptoms Respiratory: Reports: No Symptoms Cardiovascular: Reports: No Symptoms GI/Abdominal: Reports: No Symptoms Genitourinary: Reports: Other (Urinary frequency. Occasional stress incontinence) Musculoskeletal: Reports: Other (Hip pain right foot pain) Skin: Reports: Other (Been surgical wound right calcaneus) Neurological: Reports: No Symptoms Psychiatric: Reports: No Symptoms ED EXAM, GENERAL - Physical Exam Exam: See Below Exam Limited By: No Limitations General Appearance: Alert, WD/WN, Mild Distress, Other (Temperature is 36.7 with a heart rate of 99 and sinus. Respiratory it is 20 with O2 sats of 95% room air BP 1 3371.) Eye Exam: Bilateral Eye: Normal Inspection, PERRL Head: Atraumatic, Normocephalic Neck: Normal Inspection, Supple, Non-Tender, Full Range of Motion. No: Lymphadenopathy (L), Lymphadenopathy (R) Respiratory/Chest: No Respiratory Distress, Lungs Clear, Normal Breath Sounds, No Accessory Muscle Use, Other Cardiovascular: Normal Peripheral Pulses, Regular Rate, Rhythm, No Edema, No Gallop, No Murmur (Pain on palpation of the ribs.), No Rub Peripheral Pulses: 2+: Carotid (L), Carotid (R), Posterior Tibial (L) (Both feet are little bit cool to touch.), Posterior Tibial (R), Dorsalis Pedis (L), Dorsalis Pedis (R) GI/Abdominal: Normal Bowel Sounds, Soft, Non-Tender, No Organomegaly, No Distention, Other (Abdominal girth limits ability to palpate solid organs.) Back Exam: Normal Inspection, Full Range of Motion, Other (No apparent injury to the sacrum or lumbar spine.). No: CVA Tenderness (L), CVA Tenderness (R) Extremities: Other (Wound posterior aspect of the right heel evident and we had to remove the dressings by saline soak. There was a large amount of purulent material oozing from the wound. Cultures were obtained. The lower two thirds of the wound has dehisced and the sutures are no longer present. The lower portion of the skin covering the wound is atrophic and shrinking up due to lack of blood supply. The superior part of the wound is healing adequately.) Neurological: Alert, Oriented ( No obvious deformity of the foot identified), CN II-XII Intact, Normal Cognition. No: Normal Gait Psychiatric: Normal Affect, Normal Mood Skin Exam: Warm, Dry, Normal Color, Other (Open surgical wound posterior right calcaneus). No: Intact Course - Vital Signs Last Recorded V/S: Last Vital Signs Temp 36.7 C 11/06/20 13:08 Pulse 99 11/06/20 13:08 Resp 20 11/06/20 13:08 BP 133/71 11/06/20 13:08 Pulse Ox 95 11/06/20 13:08 - Orders/Labs/Meds Orders: Active Orders 24 hr Category Date Time Status CULTURE WOUND [RM] Stat Lab 11/06/20 13:41 Received Meds: Medications Discontinued Medications Generic Name Dose Route Start Last Admin Trade Name Marco PRN Reason Stop Dose Admin Oxycodone/Acetaminophen 2 tab 11/06/20 14:11 11/06/20 14:32 Percocet 325-5 Mg PO 11/06/20 14:12 2 tab ONETIME ONE Administration - Radiology Interpretation Free Text/Narrative:: 50-year-old female presents to the ED after slipping and falling outside her home shortly after dinner today. She was on crutches and just went outside to get a breath of fresh air not realizing that he did sleep did not snowed minimally overnight. This is left the sidewalks and streets very slippery. She did not have her brace on her right foot. She fell landing hard on her right hip and her right foot hit the ground hard to. He is having quite a bit of pain in the right foot. She has pain over the greater trochanteric process of her right hip but clinically certainly no fractures in the pelvis or femur. The knee is normal. We soaked off the dura surgical dressings from the right calcaneus and cultures were obtained as it was oozing a large amount of purulent mucus. The wound has dehisced likely from falling 2 weeks ago I believe this was October 25 and the lower portion of the wound is open and shrunk away from where it was originally sutured. This tissue is very atrophic and turning black due to lack of blood supply. Wound was cleansed with saline. X-ray of the right foot was obtained and reveals no fractures the calcaneus is intact. Patient is continuing antibiotics at this time for infection and is due to start doxycycline 100 mg twice daily on Sunday. Antibiotic ointment was applied Telfa dressing applied and the wound rebandaged. Percocet tabs five 325 x 2 were given by mouth in the ED. Prescription for 20 tablets of the Percocet 10 /325 mg tablets were provided through the ED for further pain relief as she is currently out of pain medication. She will be following up with her orthopedic surgeon in 1 week's time. Departure - Departure Time of Disposition: 14:08 Disposition: Home, Self-Care 01 Condition: Fair Clinical Impression: Non-healing open wound of right heel Fall Qualifiers: Encounter type: initial encounter Qualified Code(s): W19.XXXA - Unspecified fall, initial encounter - Discharge Information *PRESCRIPTION DRUG MONITORING PROGRAM REVIEWED*: Not Applicable *COPY OF PRESCRIPTION DRUG MONITORING REPORT IN PATIENT SHERIE: Not Applicable Prescriptions: oxyCODONE HCl/Acetaminophen [Percocet 10-325 mg Tablet] 1 each PO Q4H #20 tablet Instructions: Fall Prevention in the Home, Adult, [id number] Referrals: Ana Maria Gilmore MD [Primary Care Provider] - Forms: ED Department Discharge Additional Instructions: Evaluation in the emergency room today in regards to a slip and fall outside while walking with your crutches. Acute injury to the right foot which is currently struggling with a wound infection on the posterior aspect of the right heel. Blunt trauma to the right hip occurred from the fall as well. Clinically no evidence of hip fracture but expect to become more sore over the next 24 to 48 hours due to bone bruising and perhaps development of bursitis over the great er trochanteric process. X-ray of your right foot was done today and reveals that the bones are in good shape including the calcaneus or heel bone. The wound over the posterior aspect of the heel is not healing well and portions of the inferior aspect of the wound have lost their blood supply leaving an open area inferior aspect of the heel. The wound appeared to be infected with a good deal of purulent material identified on dressing change. Wound cultures were obtained. Continue to bite medication as prescribed by surgeon. Follow-up with him next week as planned. Prescription written for Percocet tablets 10/325 mg 1 every 4-6 hours necessary for pain relief Sepsis Event Note (ED) - Evaluation Sepsis Screening Result: No Definite Risk - Focused Exam Vital Signs: Vital Signs Temp Pulse Resp BP Pulse Ox 11/06/20 13:08 36.7 C 99 20 133/71 95 - My Orders Last 24 Hours: My Active Orders 11/06/20 13:41 CULTURE WOUND [RM] Stat - Assessment/Plan Last 24 Hours: My Active Orders 11/06/20 13:41 CULTURE WOUND [RM] Stat
--- NOTE | 2020-11-06 14:07 | CR ---
Right foot: 3 views of the right foot were obtained. Comparison: Prior right foot study of 10/25/20. Soft tissue defect is seen posteriorly. There is slight erosion identified within the posterior calcaneus suspicious for osteomyelitis. Soft tissue calcifications are also noted posteriorly. Mild degenerative change is noted within the first MTP joint with minimal bunion deformity. No acute fracture or other abnormality is appreciated. Impression: 1. Soft tissue defect posteriorly. Small bony defect within the posterior calcaneus suspicious for osteomyelitis. 2. Other findings as noted above which are nonacute. Diagnostic code #5
[2020-11-06] MEDS ORDERED: Acetaminophen/oxyCODONE 325-5 MG Tab PO ONE (14:11)
== END 2020-11-06 14:50 | disposition home or self-care (01) ==
LOC: JD.ED 12:53
DX: S91.301A Unspecified open wound, right foot, initial encounter (principal); I10 Essential (primary) hypertension; E78.00 Pure hypercholesterolemia, unspecified; J45.909 Unspecified asthma, uncomplicated; K21.9 Gastro-esophageal reflux disease without esophagitis; E11.9 Type 2 diabetes mellitus without complications; E66.9 Obesity, unspecified; Z87.891 Personal history of nicotine dependence; Z88.1 Allergy status to other antibiotic agents; Z88.0 Allergy status to penicillin; Z91.018 Allergy to other foods; Z88.5 Allergy status to narcotic agent; Z79.01 Long term (current) use of anticoagulants; Z79.4 Long term (current) use of insulin; Z79.899 Other long term (current) drug therapy; W01.0XXA Fall on same level from slipping, tripping and stumbling without subsequent striking against object, initial encounter; Y92.009 Unspecified place in unspecified non-institutional (private) residence as the place of occurrence of the external cause
CPT/HCPCS: 73630; 87075; 87076; 87077; 87181; 87186; 87205; 99284; A9270; 87070

== ENCOUNTER 2020-12-21 22:10 | Emergency (ER) | payer MEDICARE, MEDICAID ==
--- NOTE | 2020-12-21 22:20 | EDM.PDOC ---
ED HPI GENERAL MEDICAL PROBLEM - General Chief Complaint: Possible Sepsis Stated Complaint: ANA AMBULANCE Time Seen by Provider: 12/21/20 22:14 - History of Present Illness INITIAL COMMENTS - FREE TEXT/NARRATIVE: 50-year-old female brought in by EMS with fevers chills worsening right foot pain and a worsening cough. Patient had foot surgery in October and then her incision came open and is continued to open up. She has been under the care of Dr. Morrison for this. The patient was on a course of doxycycline finished it 2 days ago her fever returned yesterday. And her foot is getting more tender. The patient has a chronic cough this is getting worse and now is productive. She denies being short of breath. She has underlying lung disease. She is found to be febrile she was 103 in the ambulance and she has been diaphoretic. Right Foot Pain Score (Numeric/FACES): 9 - Related Data Allergies Allergy/AdvReac Type Severity Reaction Status Date / Time amoxicillin Allergy Severe Rash Verified 12/21/20 22:16 erythromycin base Allergy Severe Rash Verified 12/21/20 22:16 mustard Allergy Severe Other Verified 12/21/20 22:16 tomato Allergy Severe Other Verified 12/21/20 22:16 diazepam [From Valium] AdvReac Severe Anxiety Verified 12/21/20 22:16 Home Meds: Home Meds ALPRAZolam [Xanax] 0.5 mg PO Q12H PRN #24 tablet 07/01/20 [Rx] Escitalopram Oxalate [Lexapro] 20 mg PO DAILY #30 tablet 07/01/20 [Rx] atorvaSTATin [Lipitor] 20 mg PO BID 07/01/20 [History] Albuterol [Proventil Neb Soln] 2.5 mg NEB Q4HRRT PRN neb 07/25/20 [Rx] Albuterol/Ipratropium [DuoNeb 3.0-0.5 MG/3 ML] 3 ml NEB Q6HRRT PRN 10/14/20 [History] Apixaban [Eliquis] 5 mg PO BID 10/14/20 [History] Cetirizine [ZyrTEC] 10 mg PO DAILY 10/14/20 [History] Cyclobenzaprine [Flexeril] 10 mg PO BEDTIME PRN 10/14/20 [History] DULoxetine [Cymbalta] 20 mg PO DAILY 10/14/20 [History] Fluticasone Propionate [Flonase] 1 spray HASEEB DAILY 10/14/20 [History] Fluticasone/Vilanterol [Breo Ellipta 100-25 MCG Inhalation Kit] 1 puff INH DAILY 10/14/20 [History] Insulin Glargine,Hum.Rec.Anlog [Basaglar Kwikpen U-100] 15 unit SQ BID 10/14/20 [History] Insulin Isophane NPH, Human [NovoLIN N] 20 unit SQ QID 10/14/20 [History] Lidocaine 1 patch TOP ASDIRECTED PRN 10/14/20 [History] Magnesium 2 tab PO DAILY 10/14/20 [History] Meloxicam 7.5 mg PO BID PRN 10/14/20 [History] Mirtazapine [Remeron] 15 mg PO BEDTIME 10/14/20 [History] Montelukast [Singulair] 10 mg PO BEDTIME 10/14/20 [History] Nystatin [Nystatin Crm] 1 applic TOP DAILY 10/14/20 [History] Pantoprazole Sodium [Protonix] 40 mg PO BID 10/14/20 [History] Potassium Citrate [Potassium Citrate ER] 20 meq PO BID 10/14/20 [History] Psyllium [Metamucil] 0.52 gm PO BEDTIME 10/14/20 [History] SitaGLIPtin [Januvia] 100 mg PO DAILY 10/14/20 [History] amLODIPine Besylate [Norvasc] 10 mg PO DAILY 10/14/20 [History] estradioL [Estradiol] 1 mg PO DAILY 10/14/20 [History] hydroCHLOROthiazide [Hydrochlorothiazide] 25 mg PO DAILY 10/14/20 [History] lisinopriL [Lisinopril] 20 mg PO DAILY 10/14/20 [History] metFORMIN [Glucophage] 1,000 mg PO BID 10/14/20 [History] traMADol [Ultram] 50 mg PO TID PRN 10/14/20 [History] oxyCODONE HCl/Acetaminophen [Percocet 10-325 mg Tablet] 1 each PO Q4H #20 tablet 11/06/20 [Rx] Past Medical History HEENT History: Reports: Impaired Vision Cardiovascular History: Reports: Blood Clots/VTE/DVT, High Cholesterol, Hypertension Respiratory History: Reports: Asthma, PE Gastrointestinal History: Reports: GERD, Irritable Bowel Syndrome Genitourinary History: Reports: UTI, Recurrent [employer] History: Reports: Musculoskeletal History: Reports: Arthritis, Back Pain, Chronic, Fracture, Fibromyalgia Neurological History: Reports: Headaches, Chronic Psychiatric History: Reports: ADHD, Anxiety, Depression Endocrine/Metabolic History: Reports: Diabetes, Type II, Obesity/BMI 30+ Hematologic History: Reports: Other (See Below) Other Hematologic History: Pt states that she has a clotting disorder. - Past Surgical History HEENT Surgical History: Reports: Adenoidectomy, Tonsillectomy, Other (See Below) Other HEENT Surgeries/Procedures: oral surgery, dentures GI Surgical History: Reports: Cholecystectomy Female Surgical History: Reports: Breast Biopsy, Hysterectomy, Tubal Ligation Other Female Surgeries/Procedures: left breast biopsy Musculoskeletal Surgical History: Reports: Other (See Below) Other Musculoskeletal Surgeries/Procedures:: bone spurr removed Social & Family History - Caffeine Use Caffeine Use: Reports: Coffee - Living Situation & Occupation Living situation: Reports: with Significant Other Occupation: Unemployed ED ROS GENERAL - Review of Systems Review Of Systems: See Below Constitutional: Reports: Fever, Chills, Weakness HEENT: Reports: No Symptoms Respiratory: Reports: Cough, Sputum Cardiovascular: Reports: No Symptoms Endocrine: Reports: No Symptoms GI/Abdominal: Reports: No Symptoms : Reports: No Symptoms Musculoskeletal: Reports: Other (Foot pain) Skin: Reports: No Symptoms Neurological: Reports: No Symptoms Hematologic/Lymphatic: Reports: No Symptoms Immunologic: Reports: No Symptoms ED EXAM, GENERAL - Physical Exam Exam: See Below Exam Limited By: No Limitations General Appearance: Alert, No Apparent Distress Eye Exam: Bilateral Eye: Normal Inspection, PERRL Ears: Normal External Exam, Normal Canal, Hearing Grossly Normal, Normal TMs Nose: Normal Inspection, Normal Mucosa, No Blood Throat/Mouth: Normal Inspection, Normal Lips, Normal Gums, Normal Oropharynx, Normal Voice, No Airway Compromise Head: Atraumatic, Normocephalic Neck: Normal Inspection, Supple, Non-Tender, Full Range of Motion. No: Lymphadenopathy (L), Lymphadenopathy (R) Respiratory/Chest: No Respiratory Distress, Lungs Clear, Normal Breath Sounds Cardiovascular: Regular Rate, Rhythm, No Edema, No Murmur GI/Abdominal: Normal Bowel Sounds, Soft, Non-Tender, Other (Morbid obesity) Back Exam: Normal Inspection. No: CVA Tenderness (L), CVA Tenderness (R) Extremities: Other (Right heel posterior aspect has a dehisced surgical wound trying to granulate in some drainage noted) Skin Exam: Warm, Dry, Intact Lymphatic: No Adenopathy Course - Vital Signs Last Recorded V/S: Last Vital Signs Temp 39.6 C H 12/21/20 22:11 Pulse 115 H 12/21/20 22:11 Resp 18 12/21/20 22:11 BP 189/97 H 12/21/20 22:11 Pulse Ox 96 12/21/20 22:11 - Orders/Labs/Meds Orders: Active Orders 24 hr Category Date Time Status Chest 1V Frontal [CR] Stat Exams 12/21/20 22:21 Taken Foot 2V Rt [CR] Stat Exams 12/21/20 22:43 Taken CULTURE BLOOD [BC] Stat Lab 12/21/20 22:30 Received CULTURE BLOOD [BC] Stat Lab 12/21/20 22:37 Received CULTURE WOUND [RM] Stat Lab 12/21/20 22:48 Received REFLEX LACTIC ACID YES OR NO [CHEM] Routine Lab 12/21/20 23:27 Received Cefepime [Maxipime in D5W 2 GM/50 ML] 2 gm Med 12/22/20 00:13 Ordered Premix Bag 1 bag IV ONETIME Lactated Ringers [Ringers, Lactated] 1,000 ml Med 12/21/20 23:47 Active IV .BOLUS Pharmacy to Dose - Vancomycin Med 12/21/20 23:57 Pending 1 dose .XX ONETIME ONE Vancomycin 2 gm Med 12/22/20 00:15 Active Sodium Chloride 0.9% [Normal Saline] 500 ml IV ONETIME Blood Culture x2 Reflex Set [OM.PC] Stat Oth 12/21/20 22:21 Ordered Medication Orders Lactated Ringer's (Ringers, Lactated) 1,000 mls @ 999 mls/hr IV .BOLUS ONE Stop: 12/22/20 00:47 Last Admin: 12/21/20 23:51 Dose: 999 mls/hr Documented by: ALEXANDRU Vancomycin HCl 2 gm/ Sodium (Chloride) 500 mls @ 250 mls/hr IV ONETIME ONE Stop: 12/22/20 02:14 Vancomycin HCl (Pharmacy To Dose - Vancomycin) 1 dose .XX ONETIME ONE Stop: 12/21/20 23:58 Labs: Laboratory Tests 12/21/20 12/21/20 12/21/20 Range/Units 22:30 22:30 22:30 WBC (3.98-10.04) K/mm3 RBC (3.98-5.22) M/mm3 Hgb (11.2-15.7) gm/dl Hct (34.1-44.9) % MCV (79.4-94.8) fl MCH (25.6-32.2) pg MCHC (32.2-35.5) g/dl RDW Std Deviation (36.4-46.3) fL Plt Count (182-369) K/mm3 MPV (9.4-12.3) fl Neutrophils % (Manual) (40-60) % Band Neutrophils % (0-10) % Lymphocytes % (Manual) (20-40) % Atypical Lymphs % % Monocytes % (Manual) (2-10) % Eosinophils % (Manual) (0.7-5.8) % Basophils % (Manual) (0.1-1.2) Platelet Estimate RBC Morph Comment ESR 6 (0-20) mm/hr Sodium 136 (136-145) mEq/L Potassium 4.0 (3.5-5.1) mEq/L Chloride 98 (98-107) mEq/L Carbon Dioxide 24 (21-32) mEq/L Anion Gap 18.0 H (5-15) BUN 17 (7-18) mg/dL Creatinine 1.0 (0.55-1.02) mg/dL Est Cr Clr Drug Dosing 63.71 mL/min Estimated GFR (MDRD) 59 (>60) mL/min BUN/Creatinine Ratio 17.0 (14-18) Glucose 395 H (74-106) mg/dL Lactic Acid 3.1 H* (0.4-2.0) mmol/L Calcium 9.2 (8.5-10.1) mg/dL Total Bilirubin 0.3 (0.2-1.0) mg/dL AST 12 L (15-37) U/L ALT 18 (14-59) U/L Alkaline Phosphatase 89 (46-116) U/L C-Reactive Protein (<1.0) mg/dL Total Protein 7.7 (6.4-8.2) g/dl Albumin 3.5 (3.4-5.0) g/dl Globulin 4.2 gm/dL Albumin/Globulin Ratio 0.8 L (1-2) Urine Color (Yellow) Urine Appearance (Clear) Urine pH (5.0-8.0) Ur Specific [place] (1.005-1.030) Urine Protein (Negative) Urine Glucose (UA) (Negative) Urine Ketones (Negative) Urine Occult Blood (Negative) Urine Nitrite (Negative) Urine Bilirubin (Negative) Urine Urobilinogen (0.2-1.0) Ur Leukocyte Esterase (Negative) SARS-CoV-2 RNA (CHERYL) (NEGATIVE) 12/21/20 12/21/20 12/21/20 Range/Units 22:30 22:37 22:47 WBC 11.72 H (3.98-10.04) K/mm3 RBC 5.51 H (3.98-5.22) M/mm3 Hgb 15.7 (11.2-15.7) gm/dl Hct 48.1 H (34.1-44.9) % MCV 87.3 (79.4-94.8) fl MCH 28.5 (25.6-32.2) pg MCHC 32.6 (32.2-35.5) g/dl RDW Std Deviation 47.2 H (36.4-46.3) fL Plt Count 327 D (182-369) K/mm3 MPV 10.7 (9.4-12.3) fl Neutrophils % (Manual) 75 H (40-60) % Band Neutrophils % 0 (0-10) % Lymphocytes % (Manual) 21 (20-40) % Atypical Lymphs % 0 % Monocytes % (Manual) 3 (2-10) % Eosinophils % (Manual) 1 (0.7-5.8) % Basophils % (Manual) 0 L (0.1-1.2) Platelet Estimate Adequate RBC Morph Comment Normal ESR (0-20) mm/hr Sodium (136-145) mEq/L Potassium (3.5-5.1) mEq/L Chloride (98-107) mEq/L Carbon Dioxide (21-32) mEq/L Anion Gap (5-15) BUN (7-18) mg/dL Creatinine (0.55-1.02) mg/dL Est Cr Clr Drug Dosing mL/min Estimated GFR (MDRD) (>60) mL/min BUN/Creatinine Ratio (14-18) Glucose (74-106) mg/dL Lactic Acid (0.4-2.0) mmol/L Calcium (8.5-10.1) mg/dL Total Bilirubin (0.2-1.0) mg/dL AST (15-37) U/L ALT (14-59) U/L Alkaline Phosphatase (46-116) U/L C-Reactive Protein 1.9 H* (<1.0) mg/dL Total Protein (6.4-8.2) g/dl Albumin (3.4-5.0) g/dl Globulin gm/dL Albumin/Globulin Ratio (1-2) Urine Color (Yellow) Urine Appearance (Clear) Urine pH (5.0-8.0) Ur Specific [place] (1.005-1.030) Urine Protein (Negative) Urine Glucose (UA) (Negative) Urine Ketones (Negative) Urine Occult Blood (Negative) Urine Nitrite (Negative) Urine Bilirubin (Negative) Urine Urobilinogen (0.2-1.0) Ur Leukocyte Esterase (Negative) SARS-CoV-2 RNA (CHERYL) Negative (NEGATIVE) 12/21/20 Range/Units 23:21 WBC (3.98-10.04) K/mm3 RBC (3.98-5.22) M/mm3 Hgb (11.2-15.7) gm/dl Hct (34.1-44.9) % MCV (79.4-94.8) fl MCH (25.6-32.2) pg MCHC (32.2-35.5) g/dl RDW Std Deviation (36.4-46.3) fL Plt Count (182-369) K/mm3 MPV (9.4-12.3) fl Neutrophils % (Manual) (40-60) % Band Neutrophils % (0-10) % Lymphocytes % (Manual) (20-40) % Atypical Lymphs % % Monocytes % (Manual) (2-10) % Eosinophils % (Manual) (0.7-5.8) % Basophils % (Manual) (0.1-1.2) Platelet Estimate RBC Morph Comment ESR (0-20) mm/hr Sodium (136-145) mEq/L Potassium (3.5-5.1) mEq/L Chloride (98-107) mEq/L Carbon Dioxide (21-32) mEq/L Anion Gap (5-15) BUN (7-18) mg/dL Creatinine (0.55-1.02) mg/dL Est Cr Clr Drug Dosing mL/min Estimated GFR (MDRD) (>60) mL/min BUN/Creatinine Ratio (14-18) Glucose (74-106) mg/dL Lactic Acid (0.4-2.0) mmol/L Calcium (8.5-10.1) mg/dL Total Bilirubin (0.2-1.0) mg/dL AST (15-37) U/L ALT (14-59) U/L Alkaline Phosphatase (46-116) U/L C-Reactive Protein (<1.0) mg/dL Total Protein (6.4-8.2) g/dl Albumin (3.4-5.0) g/dl Globulin gm/dL Albumin/Globulin Ratio (1-2) Urine Color Yellow (Yellow) Urine Appearance Clear (Clear) Urine pH 5.5 (5.0-8.0) Ur Specific [place] 1.025 (1.005-1.030) Urine Protein Negative (Negative) Urine Glucose (UA) 2+ H (Negative) Urine Ketones 1+ H (Negative) Urine Occult Blood Negative (Negative) Urine Nitrite Negative (Negative) Urine Bilirubin Negative (Negative) Urine Urobilinogen 0.2 (0.2-1.0) Ur Leukocyte Esterase Negative (Negative) SARS-CoV-2 RNA (CHERYL) (NEGATIVE) Meds: Medications Generic Name Dose Route Start Last Admin Trade Name Freq PRN Reason Stop Dose Admin Lactated Ringer's 1,000 mls @ 999 mls/hr 12/21/20 23:47 12/21/20 23:51 Ringers, Lactated IV 12/22/20 00:47 999 mls/hr .BOLUS ONE Administration Vancomycin HCl 2 gm/ Sodium 500 mls @ 250 mls/hr 12/22/20 00:15 Chloride IV 12/22/20 02:14 ONETIME ONE Vancomycin HCl 1 dose 12/21/20 23:57 Pharmacy To Dose - Vancomycin .XX 12/21/20 23:58 ONETIME ONE Discontinued Medications Generic Name Dose Route Start Last Admin Trade Name Freq PRN Reason Stop Dose Admin Lactated Ringer's 1,000 mls @ 999 mls/hr 12/21/20 22:25 12/21/20 22:32 Ringers, Lactated IV 12/21/20 23:25 999 mls/hr .BOLUS ONE Administration Insulin Human Regular 8 unit 12/22/20 00:12 Insulin Regular, Human 100 Units/Ml 3 Ml Vial IV 12/22/20 00:13 ONETIME ONE - Re-Assessments/Exams Free Text/Narrative Re-Assessment/Exam: 12/21/20 23:35 Chest x-ray is nondiagnostic her lactic acid is up to 3.1 count mildly elevated 12/22/20 00:14 Patient's blood sugar is quite elevated. Chest x-ray nondiagnostic. Kidney function looks reasonable white count mildly elevated. Lactic acid 3.1 with your fever she is falling into the septic category. Patient be started on Vanco and cefepime. [facility] is on diversion which is where she gets her usual care [facility] was kind enough to accept the patient. At 00:07 Dr. Ly hospitalist at [facility] in [place] was kind enough to accept. Departure - Departure Time of Disposition: 23:53 Disposition: DC/Tfer to [facility] 02 Clinical Impression: Right foot infection - Discharge Information Referrals: PCP,Unknown [Ordering Only Provider] - Forms: ED Department Discharge Sepsis Event Note (ED) - Focused Exam Vital Signs: Vital Signs Temp Pulse Resp BP Pulse Ox 12/21/20 22:11 39.6 C H 115 H 18 189/97 H 96 - My Orders Last 24 Hours: My Active Orders 12/21/20 22:21 Chest 1V Frontal [CR] Stat Blood Culture x2 Reflex Set [OM.PC] Stat 12/21/20 22:30 CULTURE BLOOD [BC] Stat 12/21/20 22:37 CULTURE BLOOD [BC] Stat 12/21/20 22:43 Foot 2V Rt [CR] Stat 12/21/20 22:48 CULTURE WOUND [RM] Stat 12/21/20 23:27 REFLEX LACTIC ACID YES OR NO [CHEM] Routine 12/21/20 23:47 Lactated Ringers [Ringers, Lactated] 1,000 ml IV .BOLUS 12/21/20 23:57 Pharmacy to Dose - Vancomycin 1 dose .XX ONETIME ONE 12/22/20 00:13 Cefepime [Maxipime in D5W 2 GM/50 ML] 2 gm Premix Bag 1 bag IV ONETIME 12/22/20 00:15 Vancomycin 2 gm Sodium Chloride 0.9% [Normal Saline] 500 ml IV ONETIME - Assessment/Plan Last 24 Hours: My Active Orders 12/21/20 22:21 Chest 1V Frontal [CR] Stat Blood Culture x2 Reflex Set [OM.PC] Stat 12/21/20 22:30 CULTURE BLOOD [BC] Stat 12/21/20 22:37 CULTURE BLOOD [BC] Stat 12/21/20 22:43 Foot 2V Rt [CR] Stat 12/21/20 22:48 CULTURE WOUND [RM] Stat 12/21/20 23:27 REFLEX LACTIC ACID YES OR NO [CHEM] Routine 12/21/20 23:47 Lactated Ringers [Ringers, Lactated] 1,000 ml IV .BOLUS 12/21/20 23:57 Pharmacy to Dose - Vancomycin 1 dose .XX ONETIME ONE 12/22/20 00:13 Cefepime [Maxipime in D5W 2 GM/50 ML] 2 gm Premix Bag 1 bag IV ONETIME 12/22/20 00:15 Vancomycin 2 gm Sodium Chloride 0.9% [Normal Saline] 500 ml IV ONETIME
[2020-12-21] MEDS ORDERED: Lactated Ringers 1,000 ML IV ONE ×2 (22:25→23:47)
[2020-12-22] MEDS ORDERED: Insulin Regular, Human 100 Units/ML 3 ML Vial IV ONE (00:12)
[2020-12-22] MEDS ORDERED: Cefepime 2 GM in Premix Bag 1 BAG IV ONE (00:13)
[2020-12-22] MEDS ORDERED: Vancomycin 2 GM in Sodium Chloride 0.9% 500 ML IV ONE (00:15)
[2020-12-22] MEDS ORDERED: HYDROmorphone 0.5 MG/0.5 ML Syringe IVPUSH ONE (00:53)
[2020-12-22] MEDS ORDERED: HYDROmorphone 0.5 MG/0.5 ML Syringe ONE (00:54)
--- NOTE | 2020-12-22 09:19 | CR ---
Chest: Frontal view of the chest was obtained. Comparison: Prior chest x-ray of 09/21/20. Heart size and mediastinum are within normal limits for technique. Lungs are clear with no acute parenchymal change. No acute osseous finding is seen. Impression: 1. Nothing acute is seen on frontal chest x-ray. Diagnostic code #1
--- NOTE | 2020-12-22 09:23 | CR ---
Right foot: 2 views of the right foot were obtained. Soft tissue defect is noted posteriorly to the calcaneus. Broad-based plantar spur is noted. Multiple calcifications are seen within the distal Achilles tendon. Slight lucency is noted within the posterior calcaneus suspicious for mild cellulitis. No additional abnormality is appreciated. Impression: 1. Soft tissue defect posteriorly. Lucency within the adjacent posterior calcaneus suspicious for early osteomyelitis. 2. Other findings which are chronic as noted above. Diagnostic code #3
== END 2020-12-22 00:57 ==
LOC: JD.ED 22:10
DX: L08.9 Local infection of the skin and subcutaneous tissue, unspecified (principal); I10 Essential (primary) hypertension; E78.00 Pure hypercholesterolemia, unspecified; J45.909 Unspecified asthma, uncomplicated; K21.9 Gastro-esophageal reflux disease without esophagitis; E11.9 Type 2 diabetes mellitus without complications; E66.9 Obesity, unspecified; Z86.711 Personal history of pulmonary embolism; Z20.822 Contact with and (suspected) exposure to COVID-19; Z88.1 Allergy status to other antibiotic agents; Z88.5 Allergy status to narcotic agent; Z91.018 Allergy to other foods; Z79.01 Long term (current) use of anticoagulants; Z79.4 Long term (current) use of insulin; Z79.899 Other long term (current) drug therapy; Z68.42 Body mass index [BMI] 45.0-49.9, adult
CPT/HCPCS: 36415; 71045; 73620; 80053; 81003; 83605; 85007; 85027; 85652; 86140; 87040; 87070; 96365; 96375; 99285; J1170; J1815; J3370; J7040; J7120; U0002; 99284

== ENCOUNTER 2020-12-28 15:09 | Emergency (ER) | payer MEDICARE, MEDICAID ==
--- NOTE | 2020-12-28 16:15 | EDM.PDOC ---
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 She was discharged from the hospital in [place] yesterday after an extended stay for a foot infection. She received numerous antibiotics while there. Even prior to her discharge, she noted some vaginal itching and burning, as well as a thick white discharge. She has had yeast infections in the past and states that she feels this is what is going on. She mentioned it to the nurses in the hospital, however they said she was on Flagyl and that that would treat the yeast infection. Patient states that today she use a CHG wipe to cleanse the area which caused intense burning. She then wiped with a washcloth and noticed some blood, therefore she presents for evaluation. She has taken no [id number] antifungals. She reports history of total hysterectomy, therefore she has not had a period for over 20 years. Vaginal Pain Score (Numeric/FACES): 6 - Related Data Allergies Allergy/AdvReac Type Severity Reaction Status Date / Time amoxicillin Allergy Intermediate Rash Verified 12/22/20 15:32 erythromycin base Allergy Intermediate Rash Verified 12/22/20 15:32 mustard Allergy Unknown Other Verified 12/22/20 15:32 tomato Allergy Unknown Other Verified 12/22/20 15:32 diazepam [From Valium] AdvReac Mild Anxiety Verified 12/22/20 15:32 Home Meds: Home Meds ALPRAZolam [Xanax] 0.5 mg PO Q12H PRN #24 tablet 07/01/20 [Rx] Escitalopram Oxalate [Lexapro] 20 mg PO DAILY #30 tablet 07/01/20 [Rx] atorvaSTATin [Lipitor] 20 mg PO BID 07/01/20 [History] Albuterol [Proventil Neb Soln] 2.5 mg NEB Q4HRRT PRN neb 07/25/20 [Rx] Albuterol/Ipratropium [DuoNeb 3.0-0.5 MG/3 ML] 3 ml NEB Q6HRRT PRN 10/14/20 [History] Apixaban [Eliquis] 5 mg PO BID 10/14/20 [History] Cetirizine [ZyrTEC] 10 mg PO DAILY 10/14/20 [History] Cyclobenzaprine [Flexeril] 10 mg PO BEDTIME PRN 10/14/20 [History] DULoxetine [Cymbalta] 20 mg PO DAILY 10/14/20 [History] Fluticasone Propionate [Flonase] 1 spray HASEEB DAILY 10/14/20 [History] Fluticasone/Vilanterol [Breo Ellipta 100-25 MCG Inhalation Kit] 1 puff INH DAILY 10/14/20 [History] Insulin Glargine,Hum.Rec.Anlog [Basaglar Kwikpen U-100] 15 unit SQ BID 10/14/20 [History] Insulin Isophane NPH, Human [NovoLIN N] 20 unit SQ QID 10/14/20 [History] Lidocaine 1 patch TOP ASDIRECTED PRN 10/14/20 [History] Magnesium 2 tab PO DAILY 10/14/20 [History] Meloxicam 7.5 mg PO BID PRN 10/14/20 [History] Mirtazapine [Remeron] 15 mg PO BEDTIME 10/14/20 [History] Montelukast [Singulair] 10 mg PO BEDTIME 10/14/20 [History] Nystatin [Nystatin Crm] 1 applic TOP DAILY 10/14/20 [History] Pantoprazole Sodium [Protonix] 40 mg PO BID 10/14/20 [History] Potassium Citrate [Potassium Citrate ER] 20 meq PO BID 10/14/20 [History] Psyllium [Metamucil] 0.52 gm PO BEDTIME 10/14/20 [History] SitaGLIPtin [Januvia] 100 mg PO DAILY 10/14/20 [History] amLODIPine Besylate [Norvasc] 10 mg PO DAILY 10/14/20 [History] estradioL [Estradiol] 1 mg PO DAILY 10/14/20 [History] hydroCHLOROthiazide [Hydrochlorothiazide] 25 mg PO DAILY 10/14/20 [History] lisinopriL [Lisinopril] 20 mg PO DAILY 10/14/20 [History] metFORMIN [Glucophage] 1,000 mg PO BID 10/14/20 [History] traMADol [Ultram] 50 mg PO TID PRN 10/14/20 [History] oxyCODONE HCl/Acetaminophen [Percocet 10-325 mg Tablet] 1 each PO Q4H #20 tablet 11/06/20 [Rx] Past Medical History HEENT History: Reports: Impaired Vision Cardiovascular History: Reports: Blood Clots/VTE/DVT, High Cholesterol, Hy pertension Respiratory History: Reports: Asthma, Bronchitis, Recurrent, COPD, PE Gastrointestinal History: Reports: GERD, Irritable Bowel Syndrome Genitourinary History: Reports: UTI, Recurrent 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 - Past Surgical History HEENT Surgical History: Reports: Adenoidectomy, Tonsillectomy, Other (See Below) Other HEENT Surgeries/Procedures: oral surgery, dentures GI Surgical History: Reports: Cholecystectomy Female Surgical History: Reports: Breast Biopsy, Hysterectomy, Tubal Ligation Other Female Surgeries/Procedures: left breast biopsy Musculoskeletal Surgical History: Reports: Other (See Below) Other Musculoskeletal Surgeries/Procedures:: bone spurr removed Social & Family History - Tobacco Use Tobacco Use Status *Q: Never Tobacco User - Caffeine Use Caffeine Use: Reports: Coffee - Recreational Drug Use Recreational Drug Use: No - Living Situation & Occupation Living situation: Reports: with Significant Other Occupation: Unemployed ED ROS GENERAL - Review of Systems Review Of Systems: See Below Constitutional: Reports: No Symptoms. Denies: Fever, Chills HEENT: Reports: No Symptoms Respiratory: Reports: No Symptoms Cardiovascular: Reports: No Symptoms Endocrine: Reports: No Symptoms GI/Abdominal: Reports: No Symptoms : Reports: Pain (perineal itching and burning) Musculoskeletal: Reports: No Symptoms Skin: Reports: No Symptoms Neurological: Reports: No Symptoms Psychiatric: Reports: No Symptoms Hematologic/Lymphatic: Reports: No Symptoms Immunologic: Reports: No Symptoms ED EXAM, RENAL/ - Physical Exam Exam: See Below General Appearance: Alert, WD/WN, No Apparent Distress Respiratory/Chest: No Respiratory Distress, Lungs Clear, Normal Breath Sounds, No Accessory Muscle Use, Chest Non-Tender Cardiovascular: Normal Peripheral Pulses, Regular Rate, Rhythm, No Edema, No Gallop, No JVD, No Murmur, No Rub GI/Abdominal: Normal Bowel Sounds, Soft, Non-Tender, No Organomegaly, No Distention, No Abnormal Bruit, No Mass (Female) Exam: Normal Speculum Exam, Other (errythema to labia majora, minora, and vagina. No bleeding or abnormal vaginal discharge noted.). No: Vaginal Bleeding, Vaginal Discharge, Vaginal Tears Neurological: Alert, Oriented, CN II-XII Intact, Normal Cognition, Normal Gait, Normal Reflexes, No Motor/Sensory Deficits Psychiatric: Normal Affect, Normal Mood Course - Vital Signs Last Recorded V/S: Last Vital Signs Temp 97.4 F 12/28/20 17:00 Pulse 105 H 12/28/20 17:00 Resp 16 12/28/20 17:00 BP 162/107 H 12/28/20 17:00 Pulse Ox 96 12/28/20 17:00 - Re-Assessments/Exams Free Text/Narrative Re-Assessment/Exam: Patient is a 50-year-old female presenting to the emergency department with complaints of perennial itching, burning, and bleeding after wiping with a CHG wipe. She thinks that she may have a yeast infection related to recent antibiotic use while hospitalized in [place]. On exam, patient does have diffuse erythema to her labia majora, minora, and vaginal meatus. There is no abnormal vaginal discharge or bleeding noted. I have completed a wet prep. 12/28/20 1640 Wet prep was negative for yeast. Discussed with patient that her irritation is likely related to her extended bed rest and the increased moisture and heat to the area. Also been aggravated by use of soaps and CHG wipes. Recommend patient to purchase Lamisil cream and apply it twice daily until symptoms resolve. Discussed that she should avoid cleansing with soap of any type. If she needs to clean, she does use a warm wet washcloth. She is in agreement with this plan. Discharge instructions as documented. Departure - Departure Time of Disposition: 16:42 Disposition: Home, Self-Care 01 Condition: Good Clinical Impression: Vaginal irritation - Discharge Information *PRESCRIPTION DRUG MONITORING PROGRAM REVIEWED*: No *COPY OF PRESCRIPTION DRUG MONITORING REPORT IN PATIENT SHERIE: No Instructions: Vaginal Yeast Infection, Adult Referrals: Bryce Maynard NP [Primary Care Provider] - Forms: ED Department Discharge Additional Instructions: You were seen in the emergency department for pain and burning to your perennial area. Wet prep was completed and did show so that you not have a yeast infection. As we discussed, the area is likely sore as a result of being bedbound for a week due to the heat and moisture in the area. The CHG wipes that she is then irritated the area. I would recommend purchasing Lamisil cream [id number]. Apply this a couple times a day until the area heals. Do not use any soaps to the area as this will irritate the skin worse. Follow-up in the clinic if symptoms do not improve over the course of the next few days. Return to ER as needed. Sepsis Event Note (ED) - Evaluation Sepsis Screening Result: No Definite Risk - Focused Exam Vital Signs: Vital Signs Temp Pulse Resp BP Pulse Ox 12/28/20 17:00 97.4 F 105 H 16 162/107 H 96 12/28/20 15:23 96.5 F L 96 18 148/99 H 94 L
== END 2020-12-28 17:05 | disposition home or self-care (01) ==
LOC: JD.ED 15:09
DX: N89.8 Other specified noninflammatory disorders of vagina (principal); E78.00 Pure hypercholesterolemia, unspecified; I10 Essential (primary) hypertension; J44.9 Chronic obstructive pulmonary disease, unspecified; K21.9 Gastro-esophageal reflux disease without esophagitis; M19.90 Unspecified osteoarthritis, unspecified site; E11.9 Type 2 diabetes mellitus without complications; E66.9 Obesity, unspecified; Z88.0 Allergy status to penicillin; Z88.8 Allergy status to other drugs, medicaments and biological substances; Z79.4 Long term (current) use of insulin; Z79.899 Other long term (current) drug therapy; Z90.710 Acquired absence of both cervix and uterus
CPT/HCPCS: 87210; 87808; 99282; 99283

== ENCOUNTER 2021-01-07 15:52 | Emergency (ER) | payer MEDICARE, MEDICAID ==
[2021-01-07] MEDS ORDERED: Sodium Chloride 0.9% 10 ML Syringe FLUSH PRN (16:05)
[2021-01-07] MEDS ORDERED: HYDROmorphone 1 MG/ML Syringe IVPUSH ONE ×2 (16:06→17:11)
[2021-01-07] MEDS ORDERED: Ondansetron 4 MG/2 ML SDV IVPUSH ONE (16:07)
[2021-01-07] MEDS ORDERED: Heparin Sodium 5,000 Units/ML Vial IVPUSH ONE (16:09)
[2021-01-07] MEDS ORDERED: Heparin Sodium/D5W 25,000 UNITS/500 ML BAG IV SCH (16:15)
[2021-01-07] MEDS ORDERED: Sodium Chloride 0.9% 1,000 ML IV SCH (16:15)
--- NOTE | 2021-01-07 16:20 | EDM.PDOC ---
ED HPI GENERAL MEDICAL PROBLEM - General Chief Complaint: Neurological Problem Stated Complaint: [facility] Time Seen by Provider: 01/07/21 16:05 Source of Information: Reports: Patient, EMS History Limitations: Reports: No Limitations - History of Present Illness INITIAL COMMENTS - FREE TEXT/NARRATIVE: The patient presents by [facility] with severe pain to the left foot and a pale left foot. She was just discharged from [facility] yesterday. She was admitted there for right foot cellulitis and sepsis. She was doing good when discharged. She started having some pain in her left foot today and she went to the clinic. She got a shot for pain. After that she started to get severe pain in her foot and it is pale. She has no other symptoms such as fever, chills, cough, chest pain, shortness of breath, abdominal pain, nausea and vomiting. Onset: Sudden Duration: Hour(s): Location: Reports: Lower Extremity, Left (foot) Quality: Reports: Sharp Severity: Severe Improves with: Reports: None Worsens with: Reports: None Associated Symptoms: Reports: No Other Symptoms Left Foot Pain Score (Numeric/FACES): 8 - Related Data Allergies Allergy/AdvReac Type Severity Reaction Status Date / Time amoxicillin Allergy Intermediate Rash Verified 01/07/21 16:08 erythromycin base Allergy Intermediate Rash Verified 01/07/21 16:08 mustard Allergy Unknown Other Verified 01/07/21 16:08 tomato Allergy Unknown Other Verified 01/07/21 16:08 diazepam [From Valium] AdvReac Mild Anxiety Verified 01/07/21 16:08 Home Meds: Home Meds ALPRAZolam [Xanax] 0.5 mg PO Q12H PRN #24 tablet 07/01/20 [Rx] Escitalopram Oxalate [Lexapro] 20 mg PO DAILY #30 tablet 07/01/20 [Rx] atorvaSTATin [Lipitor] 20 mg PO BID 07/01/20 [History] Albuterol [Proventil Neb Soln] 2.5 mg NEB Q4HRRT PRN neb 07/25/20 [Rx] Albuterol/Ipratropium [DuoNeb 3.0-0.5 MG/3 ML] 3 ml NEB Q6HRRT PRN 10/14/20 [History] Apixaban [Eliquis] 5 mg PO BID 10/14/20 [History] Cetirizine [ZyrTEC] 10 mg PO DAILY 10/14/20 [History] Cyclobenzaprine [Flexeril] 10 mg PO BEDTIME PRN 10/14/20 [History] DULoxetine [Cymbalta] 20 mg PO DAILY 10/14/20 [History] Fluticasone Propionate [Flonase] 1 spray HASEEB DAILY 10/14/20 [History] Fluticasone/Vilanterol [Breo Ellipta 100-25 MCG Inhalation Kit] 1 puff INH DAILY 10/14/20 [History] Insulin Glargine,Hum.Rec.Anlog [Basaglar Kwikpen U-100] 15 unit SQ BID 10/14/20 [History] Insulin Isophane NPH, Human [NovoLIN N] 20 unit SQ QID 10/14/20 [History] Lidocaine 1 patch TOP ASDIRECTED PRN 10/14/20 [History] Magnesium 2 tab PO DAILY 10/14/20 [History] Meloxicam 7.5 mg PO BID PRN 10/14/20 [History] Mirtazapine [Remeron] 15 mg PO BEDTIME 10/14/20 [History] Montelukast [Singulair] 10 mg PO BEDTIME 10/14/20 [History] Nystatin [Nystatin Crm] 1 applic TOP DAILY 10/14/20 [History] Pantoprazole Sodium [Protonix] 40 mg PO BID 10/14/20 [History] Potassium Citrate [Potassium Citrate ER] 20 meq PO BID 10/14/20 [History] Psyllium [Metamucil] 0.52 gm PO BEDTIME 10/14/20 [History] SitaGLIPtin [Januvia] 100 mg PO DAILY 10/14/20 [History] amLODIPine Besylate [Norvasc] 10 mg PO DAILY 10/14/20 [History] estradioL [Estradiol] 1 mg PO DAILY 10/14/20 [History] hydroCHLOROthiazide [Hydrochlorothiazide] 25 mg PO DAILY 10/14/20 [History] lisinopriL [Lisinopril] 20 mg PO DAILY 10/14/20 [History] metFORMIN [Glucophage] 1,000 mg PO BID 10/14/20 [History] traMADol [Ultram] 50 mg PO TID PRN 10/14/20 [History] oxyCODONE HCl/Acetaminophen [Percocet 10-325 mg Tablet] 1 each PO Q4H #20 tablet 11/06/20 [Rx] Past Medical History HEENT History: Reports: Impaired Vision Cardiovascular History: Reports: Blood Clots/VTE/DVT, High Cholesterol, Hypertension Respiratory History: Reports: Asthma, Bronchitis, Recurrent, COPD, PE Gastrointestinal History: Reports: GERD, Irritable Bowel Syndrome Genitourinary History: Reports: UTI, Recurrent [employer] EX[employer] History: Reports: Musculoskeletal History: Reports: Arthritis, Back Pain, Chronic, Fracture, Fibromyalgia Neurological History: Reports: Headaches, Chronic Psychiatric History: Reports: ADHD, Anxiety, Depression Endocrine/Metabolic History: Reports: Diabetes, Type II, Obesity/BMI 30+ Hematologic History: Reports: Other (See Below) Other Hematologic History: Pt states that she has a clotting disorder. - Past Surgical History HEENT Surgical History: Reports: Adenoidectomy, Tonsillectomy, Other (See Below) Other HEENT Surgeries/Procedures: oral surgery, dentures GI Surgical History: Reports: Cholecystectomy Female Surgical History: Reports: Breast Biopsy, Hysterectomy, Tubal Ligation Other Female Surgeries/Procedures: left breast biopsy Musculoskeletal Surgical History: Reports: Other (See Below) Other Musculoskeletal Surgeries/Procedures:: bone spurr removed Social & Family History - Caffeine Use Caffeine Use: Reports: Coffee - Living Situation & Occupation Living situation: Reports: with Significant Other Occupation: Unemployed ED ROS GENERAL - Review of Systems Review Of Systems: See Below Constitutional: Reports: No Symptoms HEENT: Reports: No Symptoms Respiratory: Reports: No Symptoms Cardiovascular: Reports: No Symptoms Endocrine: Reports: No Symptoms GI/Abdominal: Reports: No Symptoms : Reports: No Symptoms Musculoskeletal: Reports: Other (Left foot pain and pulses foot) ED EXAM, NEURO - Physical Exam Exam: See Below Exam Limited By: No Limitations General Appearance: Alert, No Apparent Distress Ears: Normal External Exam Nose: Normal Inspection Head Exam: Atraumatic, Normocephalic Neck: Normal Inspection Respiratory/Chest: No Respiratory Distress, Lungs Clear, Normal Breath Sounds Cardiovascular: Regular Rate, Rhythm, No Edema, No Murmur GI/Abdominal: Soft, Non-Tender, No Organomegaly, No Mass Neurological: Alert, Oriented x 3, Other (She cannot move the left foot) Extremities: Other (Left foot is pale and palomino and there are no palpable pulses and with doplar. Popliteal pulses are palpable in left leg. Good color to the ankle.) Course - Vital Signs Last Recorded V/S: Last Vital Signs Temp 97.2 F 01/07/21 16:04 Pulse 106 H 01/07/21 16:04 Resp 20 01/07/21 16:04 BP 124/74 01/07/21 16:04 Pulse Ox 99 01/07/21 16:04 - Orders/Labs/Meds Orders: Active Orders 24 hr Category Date Time Status Cardiac Monitoring [RC] . DIRECTED Care 01/07/21 16:05 Ordered Peripheral IV Care [RC] . DIRECTED Care 01/07/21 16:06 Ordered CBC WITH AUTO DIFF [HEME] Stat Lab 01/07/21 16:05 Ordered COMPREHENSIVE METABOLIC PN,CMP [CHEM] Stat Lab 01/07/21 16:05 Ordered CREATINE KINASE,CK [CHEM] Stat Lab 01/07/21 16:05 Ordered INR,PT,PROTHROMBIN TIME [COAG] Stat Lab 01/07/21 16:12 Ordered PTT,PARTIAL THROMBOPLSTIN TIME [COAG] Stat Lab 01/07/21 16:12 Ordered Heparin Sodium/D5W [Heparin 25,000 Units in D5W 500 ML] Med 01/07/21 16:15 Ordered 25,000 units in 500 ml IV TITRATE Sodium Chloride 0.9% @ 125 MLS/HR (1000ml Bag) Med 01/07/21 16:15 Ordered Sodium Chloride 0.9% [Normal Saline] 1,000 ml IV ASDIRECTED Sodium Chloride 0.9% [Saline Flush] Med 01/07/21 16:05 Ordered 10 ml FLUSH ASDIRECTED PRN Peripheral IV Insertion Adult [OM.PC] Stat Oth 01/07/21 16:05 Ordered Medication Orders Sodium Chloride (Normal Saline) 1,000 mls @ 125 mls/hr IV ASDIRECTED SANDRA Heparin Sodium/Dextrose (Heparin 25,000 Units In D5w 500 Ml) 25,000 units in 500 mls @ 0 mls/hr IV TITRATE SANDRA; Protocol Sodium Chloride (Sodium Chloride 0.9% 10 Ml Syringe) 10 ml FLUSH ASDIRECTED PRN PRN Reason: Keep Vein Open Meds: Medications Generic Name Dose Route Start Last Admin Trade Name Freq PRN Reason Stop Dose Admin Sodium Chloride 1,000 mls @ 125 mls/hr 01/07/21 16:15 Normal Saline IV ASDIRECTED SANDRA Heparin Sodium/Dextrose 25,000 units in 500 mls @ 0 mls/hr 01/07/21 16:15 Heparin 25,000 Units In D5w 500 Ml IV TITRATE [facility] Protocol 8 UNITS/KG/HR Sodium Chloride 10 ml 01/07/21 16:05 Sodium Chloride 0.9% 10 Ml Syringe FLUSH ASDIRECTED PRN Keep Vein Open Discontinued Medications Generic Name Dose Route Start Last Admin Trade Name Freq PRN Reason Stop Dose Admin Heparin Sodium (Porcine) 5,000 units 01/07/21 16:09 Heparin Sodium 5,000 Units/Ml Vial IVPUSH 01/07/21 16:10 .BOLUS ONE Hydromorphone HCl 1 mg 01/07/21 16:06 Hydromorphone 1 Mg/Ml Syringe IVPUSH 01/07/21 16:07 ONETIME ONE Ondansetron HCl 4 mg 01/07/21 16:07 Ondansetron 4 Mg/2 Ml Sdv IVPUSH 01/07/21 16:08 ONETIME ONE - Re-Assessments/Exams Free Text/Narrative Re-Assessment/Exam: 01/07/21 16:23 My nurse came to get my right away. There are no pulses detectable in her left foot and it is pale. I ordered labs, Heparin bolus and drip. I called [facility] in [place] and talked with the ER doctor Dr Perkins and he accepted the patient. 01/07/21 16:24 I did order an IV, labs, dilaudid 1mg IV, and zofran. She did start vomiting after I saw her. Departure - Departure Time of Disposition: 16:30 Disposition: DC/Tfer to Acute Hospital 02 Condition: Serious Clinical Impression: Obstruction of left leg artery - Discharge Information Sepsis Event Note (ED) - Evaluation Sepsis Screening Result: No Definite Risk - Focused Exam Vital Signs: Vital Signs Temp Pulse Resp BP Pulse Ox 01/07/21 16:04 97.2 F 106 H 20 124/74 99 - My Orders Last 24 Hours: My Active Orders 01/07/21 16:05 Cardiac Monitoring [RC] . DIRECTED CBC WITH AUTO DIFF [HEME] Stat COMPREHENSIVE METABOLIC PN,CMP [CHEM] Stat CREATINE KINASE,CK [CHEM] Stat Sodium Chloride 0.9% [Saline Flush] 10 ml FLUSH ASDIRECTED PRN Peripheral IV Insertion Adult [OM.PC] Stat 01/07/21 16:06 Peripheral IV Care [RC] . DIRECTED 01/07/21 16:12 INR,PT,PROTHROMBIN TIME [COAG] Stat PTT,PARTIAL THROMBOPLSTIN TIME [COAG] Stat 01/07/21 16:15 Heparin Sodium/D5W [Heparin 25,000 Units in D5W 500 ML] 25,000 units in 500 ml IV TITRATE Sodium Chloride 0.9% @ 125 MLS/HR (1000ml Bag) Sodium Chloride 0.9% [Normal Saline] 1,000 ml IV ASDIRECTED - Assessment/Plan Last 24 Hours: My Active Orders 01/07/21 16:05 Cardiac Monitoring [RC] . DIRECTED CBC WITH AUTO DIFF [HEME] Stat COMPREHENSIVE METABOLIC PN,CMP [CHEM] Stat CREATINE KINASE,CK [CHEM] Stat Sodium Chloride 0.9% [Saline Flush] 10 ml FLUSH ASDIRECTED PRN Peripheral IV Insertion Adult [OM.PC] Stat 01/07/21 16:06 Peripheral IV Care [RC] . DIRECTED 01/07/21 16:12 INR,PT,PROTHROMBIN TIME [COAG] Stat PTT,PARTIAL THROMBOPLSTIN TIME [COAG] Stat 01/07/21 16:15 Heparin Sodium/D5W [Heparin 25,000 Units in D5W 500 ML] 25,000 units in 500 ml IV TITRATE Sodium Chloride 0.9% @ 125 MLS/HR (1000ml Bag) Sodium Chloride 0.9% [Normal Saline] 1,000 ml IV ASDIRECTED
[2021-01-07] MEDS ORDERED: Calcium Gluconate 10% 1 GM/10 ML SDV IVPUSH ONE (17:00)
[2021-01-07] MEDS ORDERED: Albuterol 0.083% 2.5 MG/3 ML Neb Soln NEB ONE (17:00)
[2021-01-07] MEDS ORDERED: Sodium Bicarbonate 8.4% 50 MEQ/50 ML Syringe IVPUSH ONE (17:01)
[2021-01-07] MEDS ORDERED: 50% Dextrose in Water 50 ML Syringe IVPUSH ONE (17:02)
[2021-01-07] MEDS ORDERED: Albuterol 0.083% 2.5 MG/3 ML Neb Soln ONE (17:08)
[2021-01-07] MEDS ORDERED: LORazepam 2 MG/ML SDV IVPUSH ONE (17:11)
[2021-01-07] MEDS ORDERED: cefTRIAXone 1 GM in Sodium Chloride 0.9% 100 ML IV ONE (17:15)
[2021-01-07] MEDS ORDERED: Sodium Bicarbonate 150 MEQ in Dextrose 5% in Water 1,000 ML IV ONE ×2 (17:25)
== END 2021-01-07 17:30 ==
LOC: JD.ED 15:52
DX: I70.202 Unspecified atherosclerosis of native arteries of extremities, left leg (principal); E78.00 Pure hypercholesterolemia, unspecified; I10 Essential (primary) hypertension; J44.9 Chronic obstructive pulmonary disease, unspecified; E11.9 Type 2 diabetes mellitus without complications; K21.9 Gastro-esophageal reflux disease without esophagitis; E66.9 Obesity, unspecified; Z68.42 Body mass index [BMI] 45.0-49.9, adult; Z88.0 Allergy status to penicillin; Z88.1 Allergy status to other antibiotic agents; Z88.8 Allergy status to other drugs, medicaments and biological substances; Z91.018 Allergy to other foods; Z79.01 Long term (current) use of anticoagulants; Z79.4 Long term (current) use of insulin; Z79.899 Other long term (current) drug therapy; Z86.718 Personal history of other venous thrombosis and embolism; Z86.711 Personal history of pulmonary embolism; Z20.822 Contact with and (suspected) exposure to COVID-19; Z01.812 Encounter for preprocedural laboratory examination; T14.8XXA Other injury of unspecified body region, initial encounter; E83.42 Hypomagnesemia; E87.6 Hypokalemia; R11.2 Nausea with vomiting, unspecified
CPT/HCPCS: 36415; 80053; 82550; 83735; 85025; 85610; 85730; 87641; 93005; 94640; 96365; 96372; 96375; 96376; 99215; 99285; J0610; J0696; J1170; J1644; J2060; J2405; J2550; J7030; U0002; 99284

== ENCOUNTER 2021-02-06 20:42 | Emergency (ER) | payer MEDICARE, MEDICAID ==
[2021-02-06] MEDS ORDERED: Sodium Chloride 0.9% 10 ML Syringe FLUSH PRN (20:48)
[2021-02-06] MEDS ORDERED: Sodium Chloride 0.9% 10 ML Syringe FLUSH ONE (22:26)
[2021-02-06] MEDS ORDERED: Iopamidol 755 Mg/ML 100 ML Bottle IVPUSH ONE (22:26)
[2021-02-06] MEDS ORDERED: Sodium Chloride 0.9% 100 ML IV SCH (22:30)
--- NOTE | 2021-02-06 23:30 | EDM.PDOC ---
ED HPI GENERAL MEDICAL PROBLEM - General Chief Complaint: Chest Pain Stated Complaint: [facility] Time Seen by Provider: 02/06/21 21:03 Source of Information: Reports: Patient History Limitations: Reports: No Limitations - History of Present Illness INITIAL COMMENTS - FREE TEXT/NARRATIVE: Patient reports onset of symptoms about 1600 today Says she was sitting in a chair, and fluttering feeling in the chest After approximately 30 minutes duration, she got up and noted pain across her upper chest Associated dizziness and dyspnea Reports radiation of chest pain into left shoulder and arm Symptoms have persisted since onset, though the fluttering/palpitations had partially improved prior to arrival Chest pain severity is unchanged, rated 7/10 She reports history of pulmonary embolism States diagnosis of this 1 month ago, when she was transferred to [facility] from this facility by aeromedical service She was prescribed apixaban at discharge States compliance with this, dosing 5 mg twice daily Also reports vascular intervention on her left lower extremity during that admission Reports prior history of pulmonary embolism diagnosed around 2015 She was treated with apixaban, which was subsequently discontinued by primary care provider She denies history of coronary artery disease or dysrhythmia 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, 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, 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 Left Chest Pain Score (Numeric/FACES): 7 - Related Data Allergies Allergy/AdvReac Type Severity Reaction Status Date / Time amoxicillin Allergy Intermediate Rash Verified 02/06/21 20:46 erythromycin base Allergy Intermediate Rash Verified 02/06/21 20:46 mustard Allergy Unknown Other Verified 02/06/21 20:46 tomato Allergy Unknown Other Verified 02/06/21 20:46 diazepam [From Valium] AdvReac Mild Anxiety Verified 02/06/21 20:46 Home Meds: Home Meds ALPRAZolam [Xanax] 0.5 mg PO Q12H PRN #24 tablet 07/01/20 [Rx] Escitalopram Oxalate [Lexapro] 20 mg PO DAILY #30 tablet 07/01/20 [Rx] atorvaSTATin [Lipitor] 20 mg PO BID 07/01/20 [History] Albuterol [Proventil Neb Soln] 2.5 mg NEB Q4HRRT PRN neb 07/25/20 [Rx] Albuterol/Ipratropium [DuoNeb 3.0-0.5 MG/3 ML] 3 ml NEB Q6HRRT PRN 10/14/20 [History] Apixaban [Eliquis] 5 mg PO BID 10/14/20 [History] Cetirizine [ZyrTEC] 10 mg PO DAILY 10/14/20 [History] Cyclobenzaprine [Flexeril] 10 mg PO BEDTIME PRN 10/14/20 [History] DULoxetine [Cymbalta] 20 mg PO DAILY 10/14/20 [History] Fluticasone Propionate [Flonase] 1 spray HASEEB DAILY 10/14/20 [History] Fluticasone/Vilanterol [Breo Ellipta 100-25 MCG Inhalation Kit] 1 puff INH DAILY 10/14/20 [History] Insulin Glargine,Hum.Rec.Anlog [Basaglar Kwikpen U-100] 15 unit SQ BID 10/14/20 [History] Insulin Isophane NPH, Human [NovoLIN N] 20 unit SQ QID 10/14/20 [History] Lidocaine 1 patch TOP ASDIRECTED PRN 10/14/20 [History] Magnesium 2 tab PO DAILY 10/14/20 [History] Meloxicam 7.5 mg PO BID PRN 10/14/20 [History] Mirtazapine [Remeron] 15 mg PO BEDTIME 10/14/20 [History] Montelukast [Singulair] 10 mg PO BEDTIME 10/14/20 [History] Nystatin [Nystatin Crm] 1 applic TOP DAILY 10/14/20 [History] Pantoprazole Sodium [Protonix] 40 mg PO BID 10/14/20 [History] Potassium Citrate [Potassium Citrate ER] 20 meq PO BID 10/14/20 [History] Psyllium [Metamucil] 0.52 gm PO BEDTIME 10/14/20 [History] SitaGLIPtin [Januvia] 100 mg PO DAILY 10/14/20 [History] amLODIPine Besylate [Norvasc] 10 mg PO DAILY 10/14/20 [History] estradioL [Estradiol] 1 mg PO DAILY 10/14/20 [History] hydroCHLOROthiazide [Hydrochlorothiazide] 25 mg PO DAILY 10/14/20 [History] lisinopriL [Lisinopril] 20 mg PO DAILY 10/14/20 [History] metFORMIN [Glucophage] 1,000 mg PO BID 10/14/20 [History] traMADol [Ultram] 50 mg PO TID PRN 10/14/20 [History] oxyCODONE HCl/Acetaminophen [Percocet 10-325 mg Tablet] 1 each PO Q4H #20 tablet 11/06/20 [Rx] Past Medical History HEENT History: Reports: Impaired Vision Cardiovascular History: Reports: Blood Clots/VTE/DVT, High Cholesterol, Hypertension Respiratory History: Reports: Asthma, Bronchitis, Recurrent, COPD, PE Gastrointestinal History: Reports: GERD, Irritable Bowel Syndrome Genitourinary History: Reports: UTI, 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 - Past Surgical History HEENT Surgical History: Reports: Adenoidectomy, Tonsillectomy, Other (See Below) Other HEENT Surgeries/Procedures: oral surgery, dentures GI Surgical History: Reports: Cholecystectomy Female Surgical History: Reports: Breast Biopsy, Hysterectomy, Tubal Ligation Other Female Surgeries/Procedures: left breast biopsy Musculoskeletal Surgical History: Reports: Other (See Below) Other Musculoskeletal Surgeries/Procedures:: bone spurr removed Social & Family History - Tobacco Use Tobacco Use Status *Q: Former Tobacco User Used Tobacco, but Quit: Yes Month/Year Tobacco Last Used: 2011 - Caffeine Use Caffeine Use: Reports: Coffee - Recreational Drug Use Recreational Drug Use: No - Living Situation & Occupation Living situation: Reports: with Significant Other Occupation: Unemployed ED ROS GENERAL - Review of Systems Review Of Systems: See Below Free Text/Narrative/Comment: Constitutional - no fever Eyes - no eye pain; no visual disturbance ENT - no rhinorrhea; no congestion; no epistaxis Cardiovascular - chest pain; palpitations Respiratory - shortness of breath; no cough Gastrointestinal - no abdominal pain; no nausea; no vomiting; no diarrhea Genitourinary - no dysuria Musculoskeletal - no neck pain; no back pain; no extremity injury Neurological - no headache; no speech disturbance; no weakness; dizziness Skin - chronic wounds right heel, left great toe ED EXAM, GENERAL - Physical Exam Exam: See Below Free Text/Narrative:: Constitutional - awake; alert; mild pain distress Head - no facial swelling or weakness Eyes - extra ocular motion intact; conjunctiva normal ENT - no nasal deformity; no epistaxis; normal phonation Neck - no swelling Respiratory - mild tachypnea and respiratory effort; no crackles or wheezing; no stridor Cardiovascular - regular rhythm; mild tachycardia; S1; S2; grade 1/6 systolic murmur GI/Abdomen - normal bowel sounds; soft; no tenderness; no rebound; no guarding; no mass Musculoskeletal - grossly normal strength and motion; no swelling or deformity; mild tenderness to palpation left calf Skin - warm; dry; dry eschar involving most of left great toe; chronic appearing ulceration right heel posterior aspect; no cellulitis Neurologic - normal speech; no weakness Psychiatric - normal mood and affect; memory and attention normal #1 Interpretation EKG Date: 02/06/21 Time: 20:47 Rhythm: NSR Rate (Beats/Min): 101 [place]: Normal P-Wave: Present QRS: Normal ST-T: Other (T wave flattening/inversion in precordial leads) Comparison: Change From Previous EKG (Compared with 01/07/2021, ST-T wave abnormality is new) Course - Vital Signs Text/Narrative:: . Considered etiologies included: Palpitations, chest pain, dizziness, dyspnea, ACS/angina, pulmonary embolism Symptoms and examination were discussed Investigations were initiated Results were discussed, with findings for bilateral pulmonary emboli, thought possibly subacute Records were requested from [facility], with intent to ascertain a comparison between current ED results and her stated recent pulmonary embolism diagnosis Upon review of such records, only documented vascular thrombosis was that associated with her left lower extremity ischemia There was no documentation of chest angiography or acute diagnosis of pulmonary embolism Thus her current ED findings for pulmonary embolism were assumed to be acute Analgesic treatment was provided with morphine In further consideration of her current stated compliance with apixaban, clinical features of chest pain, and EKG changes, transfer for further cardiovascular evaluation and hematology consultation was advised Patient was agreeable with this 0149 - case was discussed with Dr. Ly (hospitalist at [facility]) who accepted patient for transfer Arrangements were initiated for transport by ambulance Second dose of morphine was given for persisting chest pain Patient condition remained stable throughout ED course Last Recorded V/S: Last Vital Signs Temp 36.0 C L 02/06/21 20:47 Pulse 103 H 02/06/21 20:47 Resp 31 H 02/06/21 20:47 BP 161/118 H 02/06/21 20:47 Pulse Ox 96 02/06/21 20:47 - Orders/Labs/Meds Orders: Active Orders 24 hr Category Date Time Status EKG 12 Lead [EKG Documentation Completion] [RC] STAT Care 02/06/21 20:56 Active Peripheral IV Care [RC] . DIRECTED Care 02/06/21 20:48 Active Chest 1V Frontal [CR] Stat Exams 02/06/21 20:47 Taken Chest PE [Ang Chest] [CT] Stat Exams 02/06/21 22:20 Taken Sodium Chloride 0.9% [Normal Saline] 100 ml Med 02/06/21 22:30 Active IV ASDIRECTED Sodium Chloride 0.9% [Saline Flush] Med 02/06/21 20:48 Active 10 ml FLUSH ASDIRECTED PRN Peripheral IV Insertion Adult [OM.PC] Stat Oth 02/06/21 20:47 Ordered EKG 12 Lead [EK] Stat Ther 02/06/21 20:49 Stop Req Medication Orders Sodium Chloride (Normal Saline) 100 mls @ 60 mls/hr IV ASDIRECTED SANDRA Last Admin: 02/06/21 23:18 Dose: 60 mls/hr Documented by: RICHELLE Sodium Chloride (Sodium Chloride 0.9% 10 Ml Syringe) 10 ml FLUSH ASDIRECTED PRN PRN Reason: Keep Vein Open Last Admin: 02/06/21 20:59 Dose: 10 ml Documented by: ANDREAS Labs: Laboratory Tests 02/06/21 02/06/21 02/07/21 Range/Units 21:00 21:00 03:25 WBC 11.22 H (3.98-10.04) K/mm3 RBC 5.01 (3.98-5.22) M/mm3 Hgb 14.5 D (11.2-15.7) gm/dl Hct 46.1 H (34.1-44.9) % MCV 92.0 D (79.4-94.8) fl MCH 28.9 (25.6-32.2) pg MCHC 31.5 L (32.2-35.5) g/dl RDW Std Deviation 50.3 H (36.4-46.3) fL Plt Count 332 (182-369) K/mm3 MPV 10.3 (9.4-12.3) fl Neut % (Auto) 67.3 (34.0-71.1) % Lymph % (Auto) 22.7 (19.3-51.7) % [place] % (Auto) 7.2 (4.7-12.5) % Eos % (Auto) 2.2 (0.7-5.8) Baso % (Auto) 0.4 (0.1-1.2) % Neut # (Auto) 7.55 H (1.56-6.13) K/mm3 Lymph # (Auto) 2.55 (1.18-3.74) K/mm3 [place] # (Auto) 0.81 H (0.24-0.36) K/mm3 Eos # (Auto) 0.25 (0.04-0.36) K/mm3 Baso # (Auto) 0.04 (0.01-0.08) K/mm3 Manual Slide Review Normal smear Sodium 138 (136-145) mEq/L Potassium 4.0 D (3.5-5.1) mEq/L Chloride 101 (98-107) mEq/L Carbon Dioxide 24 D (21-32) mEq/L Anion Gap 17.0 H (5-15) BUN 12 D (7-18) mg/dL Creatinine 1.0 D (0.55-1.02) mg/dL Est Cr Clr Drug Dosing 63.71 mL/min Estimated GFR (MDRD) 59 (>60) mL/min BUN/Creatinine Ratio 12.0 L (14-18) Glucose 365 H (74-106) mg/dL Calcium 9.1 (8.5-10.1) mg/dL Total Bilirubin 0.3 (0.2-1.0) mg/dL AST 18 (15-37) U/L ALT 22 (14-59) U/L Alkaline Phosphatase 128 H (46-116) U/L Troponin I < 0.017 < 0.017 (0.00-0.056) ng/mL Total Protein 7.4 (6.4-8.2) g/dl Albumin 3.1 L (3.4-5.0) g/dl Globulin 4.3 gm/dL Albumin/Globulin Ratio 0.7 L (1-2) Meds: Medications Generic Name Dose Route Start Last Admin Trade Name Marco PRN Reason Stop Dose Admin Sodium Chloride 100 mls @ 60 mls/hr 02/06/21 22:30 02/06/21 23:18 Normal Saline IV 60 mls/hr ASDIRECTED SANDRA Administration Sodium Chloride 10 ml 02/06/21 20:48 02/06/21 20:59 Sodium Chloride 0.9% 10 Ml Syringe FLUSH 10 ml ASDIRECTED PRN Administration Keep Vein Open Discontinued Medications Generic Name Dose Route Start Last Admin Trade Name Marco PRN Reason Stop Dose Admin Iopamidol 100 ml 02/06/21 22:26 02/06/21 23:18 Iopamidol 755 Mg/Ml 100 Ml Bottle IVPUSH 02/06/21 22:27 100 ml ONETIME ONE Administration Morphine Sulfate 4 mg 02/07/21 01:48 02/07/21 02:07 Morphine 4 Mg/Ml Syringe IVPUSH 02/07/21 01:49 4 mg ONETIME ONE Administration Morphine Sulfate 4 mg 02/07/21 04:53 02/07/21 04:56 Morphine 4 Mg/Ml Syringe IVPUSH 02/07/21 04:54 4 mg ONETIME ONE Administration Sodium Chloride 10 ml 02/06/21 22:26 02/06/21 23:18 Sodium Chloride 0.9% 10 Ml Syringe FLUSH 02/06/21 22:27 10 ml ONETIME ONE Administration - Radiology Interpretation Free Text/Narrative:: CTA chest, IV contrast, preliminary radiology report: Nonocclusive tubular filling defects in lower lobe pulmonary arteries bilaterally are most consistent with subacute/resolving pulmonary emboli. Departure - Departure Time of Disposition: 06:40 Disposition: DC/Tfer to Acute Hospital 02 Condition: Good Clinical Impression: Palpitations Chest pain Qualifiers: Chest pain type: unspecified Qualified Code(s): R07.9 - Chest pain, unspecified Pulmonary embolism Qualifiers: Pulmonary embolism type: unspecified Chronicity: acute Acute cor pulmonale presence: unspecified Qualified Code(s): I26.99 - Other pulmonary embolism without acute cor pulmonale - Discharge Information Referrals: Bryce Maynard NP [Primary Care Provider] - Sepsis Event Note (ED) - Evaluation Sepsis Screening Result: No Definite Risk - Focused Exam Vital Signs: Vital Signs Temp Pulse Resp BP Pulse Ox 02/06/21 20:47 36.0 C L 103 H 31 H 161/118 H 96 - My Orders Last 24 Hours: My Active Orders 02/06/21 20:47 Chest 1V Frontal [CR] Stat Peripheral IV Insertion Adult [OM.PC] Stat 02/06/21 20:48 Peripheral IV Care [RC] . DIRECTED Sodium Chloride 0.9% [Saline Flush] 10 ml FLUSH ASDIRECTED PRN 02/06/21 20:49 EKG 12 Lead [EK] Stat 02/06/21 20:56 EKG 12 Lead [EKG Documentation Completion] [RC] STAT 02/06/21 22:20 Chest PE [Ang Chest] [CT] Stat 02/06/21 22:30 Sodium Chloride 0.9% [Normal Saline] 100 ml IV ASDIRECTED - Assessment/Plan Last 24 Hours: My Active Orders 02/06/21 20:47 Chest 1V Frontal [CR] Stat Peripheral IV Insertion Adult [OM.PC] Stat 02/06/21 20:48 Peripheral IV Care [RC] . DIRECTED Sodium Chloride 0.9% [Saline Flush] 10 ml FLUSH ASDIRECTED PRN 02/06/21 20:49 EKG 12 Lead [EK] Stat 02/06/21 20:56 EKG 12 Lead [EKG Documentation Completion] [RC] STAT 02/06/21 22:20 Chest PE [Ang Chest] [CT] Stat 02/06/21 22:30 Sodium Chloride 0.9% [Normal Saline] 100 ml IV ASDIRECTED
[2021-02-07] MEDS ORDERED: Morphine 4 MG/ML Syringe IVPUSH ONE ×2 (01:48→04:53)
--- NOTE | 2021-02-07 07:18 | CR ---
Chest: Portable view of the chest was obtained. Comparison: Prior chest x-ray of 12/21/20. Heart size and mediastinum are within normal limits. Lungs show no acute parenchymal change. No acute osseous abnormality is appreciated. Impression: 1. Nothing acute is appreciated on portable chest x-ray. Diagnostic code #1
--- NOTE | 2021-02-07 07:57 | CT ---
CT chest Technique: Multiple axial sections through the chest were obtained. Intravenous contrast was utilized. Study performed as a pulmonary angiogram protocol. Study was repeated due to poor opacification of the pulmonary arteries. Comparison: No prior chest CT is available. Findings: Small filling defect is noted within the subsegmental branch within the right lower lung compatible with nonobstructing thrombus. No other findings of pulmonary embolism are seen. Thoracic aorta shows no aneurysm. No mediastinal or hilar mass is seen. Small 1.7 cm nodule is noted within the left lobe of the thyroid gland. No pericardial thickening is seen. Nodule is noted within the upper right breast measuring 2.2 cm. Visualized upper abdominal structures show no abnormality. Lung window setting shows scattered small pleural-based nodules which are likely incidental. No acute parenchymal process is seen. Bone window setting shows slight degenerative change within the spine. No acute abnormality is appreciated. Impression: 1. Minimal thrombus within a subsegmental branch within the right lower lung. This thrombus is nonobstructing and most likely is subacute in age. Comparison to old CT study would confirm if clinically needed. 2. Nodule within the left lobe of the thyroid gland, consider nonemergent thyroid ultrasound. 3. Nodule within the upper right breast measuring about 2.2 cm. I believe this most likely is due to a probably benign lesion such as a fibroadenoma. Diagnostic code #3 I agree with preliminary report from [facility], finalized on 02/07/21, 12:29 AM CDT, code 1
== END 2021-02-07 06:40 ==
LOC: SUPCPDRO 20:42 → JD.ED 20:42
DX: I26.99 Other pulmonary embolism without acute cor pulmonale (principal); R00.2 Palpitations; E78.00 Pure hypercholesterolemia, unspecified; I10 Essential (primary) hypertension; J44.9 Chronic obstructive pulmonary disease, unspecified; K21.9 Gastro-esophageal reflux disease without esophagitis; E11.9 Type 2 diabetes mellitus without complications; Z88.0 Allergy status to penicillin; Z88.1 Allergy status to other antibiotic agents; Z88.5 Allergy status to narcotic agent; Z91.018 Allergy to other foods; Z87.891 Personal history of nicotine dependence; Z68.41 Body mass index [BMI] 40.0-44.9, adult; Z79.01 Long term (current) use of anticoagulants; Z79.899 Other long term (current) drug therapy; Z79.4 Long term (current) use of insulin
CPT/HCPCS: 36415; 71045; 71275; 80053; 84484; 85025; 93005; 99285; J2270; Q9967

== ENCOUNTER 2021-02-17 13:39 | Emergency (ER) | payer MEDICARE, MEDICAID ==
--- NOTE | 2021-02-17 15:21 | EDM.PDOC ---
ED HPI GENERAL MEDICAL PROBLEM - General Chief Complaint: Diabetic Complaint Stated Complaint: [facility] Time Seen by Provider: 02/17/21 13:48 Source of Information: Reports: Patient History Limitations: Reports: No Limitations - History of Present Illness INITIAL COMMENTS - FREE TEXT/NARRATIVE: 50-year-old female presents the emergency department via [facility] with complaints of a high blood sugar. Patient states she was seen at the oncology clinic at [facility] this morning and had lab work completed. She returned home and received a call from [facility] stating that her blood sugar was 517 and that she needed to get to the hospital.. She states that she took 15 units of NovoLog insulin at that time and called the ambulance. Once the ambulance arrived on scene, they checked her blood sugar and it was down to 337. She states she has a continuous blood glucose monitor and she has had a difficult time over the course of the last month getting her blood sugars under control. She states they have been right around 200-250. She states that she has had issues since she was discharged from [facility] about 1 month ago. At that time per records from Dr. Loo's clinic the patient had a thrombus to her left lower extremity. She underwent thrombolysis on 01/08/2021. She states on the day of discharge she noted her left great toe to appear bruised on the dorsal aspect. Since that time she has developed necrosis to the left great toe. She also has an ulcer noted to the right heel along the Achilles tendon that appears to be necrotic as well. She states she has been followed by her rn oncology research, Dr. Morrison. She states she had been on antibiotics however she has not seen him in approximately 1 month. She denies any recent fever, chills, nausea, vomiting, diarrhea, sore throat, headache, or abdominal pain. She states that her feet are painful and she is currently seeing Dr. Cedillo to be worked up from a clotting disorder. She states she was recently diagnosed with bilateral PEs however she was on Eliquis at that time. She is chronically been on Eliquis since developing the thrombus of the left lower extremity and the PEs and he is currently working to find an alternative medication to treat. She tells me that she has factor V however in his most recent clinic note it appears the work-up for this is still pending. Lab work was sent from [facility] that was completed today. CBC reveals a WBC of 10.5, hemoglobin 14.7, hematocrit 45.9, platelet count is 367, seven-point 5 segs, 71.4% neutrophils, glucose reveals a blood sugar of 517, BUN 10, creatinine 0.92, sodium 135, potassium 4.0, carbon dioxide is 21, anion gap is 18, AST 18, ALT 21 - Related Data Allergies Allergy/AdvReac Type Severity Reaction Status Date / Time amoxicillin Allergy Intermediate Rash Verified 02/17/21 13:48 erythromycin base Allergy Intermediate Rash Verified 02/17/21 13:48 mustard Allergy Unknown Other Verified 02/17/21 13:48 tomato Allergy Unknown Other Verified 02/17/21 13:48 diazepam [From Valium] AdvReac Mild Anxiety Verified 02/17/21 13:48 Home Meds: Home Meds ALPRAZolam [Xanax] 0.5 mg PO Q12H PRN #24 tablet 07/01/20 [Rx] Escitalopram Oxalate [Lexapro] 20 mg PO DAILY #30 tablet 07/01/20 [Rx] atorvaSTATin [Lipitor] 20 mg PO BID 07/01/20 [History] Albuterol [Proventil Neb Soln] 2.5 mg NEB Q4HRRT PRN neb 07/25/20 [Rx] Albuterol/Ipratropium [DuoNeb 3.0-0.5 MG/3 ML] 3 ml NEB Q6HRRT PRN 10/14/20 [History] Apixaban [Eliquis] 5 mg PO BID 10/14/20 [History] Cetirizine [ZyrTEC] 10 mg PO DAILY 10/14/20 [History] Cyclobenzaprine [Flexeril] 10 mg PO BEDTIME PRN 10/14/20 [History] DULoxetine [Cymbalta] 20 mg PO DAILY 10/14/20 [History] Fluticasone Propionate [Flonase] 1 spray HASEEB DAILY 10/14/20 [History] Fluticasone/Vilanterol [Breo Ellipta 100-25 MCG Inhalation Kit] 1 puff INH DAILY 10/14/20 [History] Insulin Glargine,Hum.Rec.Anlog [Basaglar Kwikpen U-100] 15 unit SQ BID 10/14/20 [History] Insulin Isophane NPH, Human [NovoLIN N] 20 unit SQ QID 10/14/20 [History] Lidocaine 1 patch TOP ASDIRECTED PRN 10/14/20 [History] Magnesium 2 tab PO DAILY 10/14/20 [History] Meloxicam 7.5 mg PO BID PRN 10/14/20 [History] Mirtazapine [Remeron] 15 mg PO BEDTIME 10/14/20 [History] Montelukast [Singulair] 10 mg PO BEDTIME 10/14/20 [History] Nystatin [Nystatin Crm] 1 applic TOP DAILY 10/14/20 [History] Pantoprazole Sodium [Protonix] 40 mg PO BID 10/14/20 [History] Potassium Citrate [Potassium Citrate ER] 20 meq PO BID 10/14/20 [History] Psyllium [Metamucil] 0.52 gm PO BEDTIME 10/14/20 [History] SitaGLIPtin [Januvia] 100 mg PO DAILY 10/14/20 [History] amLODIPine Besylate [Norvasc] 10 mg PO DAILY 10/14/20 [History] estradioL [Estradiol] 1 mg PO DAILY 10/14/20 [History] hydroCHLOROthiazide [Hydrochlorothiazide] 25 mg PO DAILY 10/14/20 [History] lisinopriL [Lisinopril] 20 mg PO DAILY 10/14/20 [History] metFORMIN [Glucophage] 1,000 mg PO BID 10/14/20 [History] traMADol [Ultram] 50 mg PO TID PRN 10/14/20 [History] oxyCODONE HCl/Acetaminophen [Percocet 10-325 mg Tablet] 1 each PO Q4H #20 tablet 11/06/20 [Rx] Clindamycin HCl 150 mg PO BID #12 capsule 02/17/21 [Rx] Past Medical History HEENT History: Reports: Impaired Vision Cardiovascular History: Reports: Blood Clots/VTE/DVT, High Cholesterol, Hypertension Respiratory History: Reports: Asthma, Bronchitis, Recurrent, COPD, PE Gastrointestinal History: Reports: GERD, Irritable Bowel Syndrome Genitourinary History: Reports: UTI, Recurrent HEAD HOLDER History: Reports: Musculoskeletal History: Reports: Arthritis, Back Pain, Chronic, Fracture, Fibromyalgia Neurological History: Reports: Headaches, Chronic Psychiatric History: Reports: ADHD, Anxiety, Depression Endocrine/Metabolic History: Reports: Diabetes, Type II, Obesity/BMI 30+ Hematologic History: Reports: Other (See Below) Other Hematologic History: Pt states that she has a clotting disorder. - Past Surgical History HEENT Surgical History: Reports: Adenoidectomy, Tonsillectomy, Other (See Below) Other HEENT Surgeries/Procedures: oral surgery, dentures GI Surgical History: Reports: Cholecystectomy Female Surgical History: Reports: Breast Biopsy, Hysterectomy, Tubal Ligation Other Female Surgeries/Procedures: left breast biopsy Musculoskeletal Surgical History: Reports: Other (See Below) Other Musculoskeletal Surgeries/Procedures:: bone spurr removed Social & Family History - Tobacco Use Tobacco Use Status *Q: Current Every Day Tobacco User Years of Tobacco use: 30 Packs/Tins Daily: 0.5 - Caffeine Use Caffeine Use: Reports: None - Recreational Drug Use Recreational Drug Use: No - Living Situation & Occupation Living situation: Reports: with Significant Other Occupation: Unemployed ED ROS GENERAL - Review of Systems Review Of Systems: Comprehensive ROS is negative, except as noted in HPI. ED EXAM GENERAL NO PERIP PULSE - Physical Exam Exam: See Below Exam Limited By: No Limitations General Appearance: Alert, WD/WN, No Apparent Distress Ears: Normal External Exam, Hearing Grossly Normal Nose: Normal Inspection Throat/Mouth: Normal Inspection, Normal Lips, Normal Voice, No Airway Compromise Head: Atraumatic Neck: Normal Inspection, Supple Respiratory/Chest: No Respiratory Distress, Lungs Clear, Normal Breath Sounds, No Accessory Muscle Use, Chest Non-Tender Cardiovascular: Normal Peripheral Pulses, Regular Rate, Rhythm, No Edema, No Murmur GI/Abdominal: Normal Bowel Sounds, Soft, Non-Tender, No Distention (Female) Exam: Deferred Rectal (Female) Exam: Deferred Back Exam: Normal Inspection Extremities: Normal Range of Motion, No Pedal Edema, Normal Capillary Refill. No: Normal Inspection (Ulcer noted to right Achilles heel area it is necrotic, necrotic left great toe with purulent drainage noted), Non-Tender (Left great toe and right Achilles heel are tender.) Neurological: Alert, Oriented, Normal Cognition Psychiatric: Normal Affect, Normal Mood Skin Exam: Warm, Dry, Wound/Incision (Left great toe necrotic with erythema; right heel wound is necrotic without erythema or edema or drainage). No: Intact Lymphatic: No Adenopathy Course - Vital Signs Text/Narrative:: Patient presents via [facility] after being seen at [place] [facility] this morning and having lab work completed. Blood sugar was elevated greater than 500 and she was called at home home and told that she needs to be evaluated further in the emergency department. Patient did take 15 units of NovoLog insulin and by the time the ambulance arrived blood sugar was down in the 300 range. Patient does have significant medical history of coagulation disorder with a thrombus to the left lower extremity with interventional radiology to remove that and currently has bilateral PEs being treated on Eliquis. However, patient is seeing oncology and having further work-up for clotting disorders. Patient does have a necrotic left great toe. There is a small amount of purulent drainage noted from the right lateral aspect of the toenail, area is erythematous and edematous bordering the necrotic area. She also has a necrotic area to her left heel along the Achilles tendon area, this area does not show any signs of erythema or edema surrounding the necrosis however. I have ordered further lab work-up to include blood cultures x2, C- reactive protein, lactic acid and wound cultures. I have ordered an x-ray of the left foot to rule out osteomyelitis. Patient will also have a bedside blood glucose check. Patient's pedal pulses are palpable. Last Recorded V/S: Last Vital Signs Temp 97.3 F 02/17/21 13:43 Pulse 106 H 02/17/21 13:43 Resp 14 02/17/21 13:43 BP 156/76 H 02/17/21 13:43 Pulse Ox 93 L 02/17/21 13:43 - Orders/Labs/Meds Orders: Active Orders 24 hr Category Date Time Status Blood Glucose Check, Bedside [RC] ONETIME Care 02/17/21 15:21 Active Toes Great Toe Lt TA [CR] Stat Exams 02/17/21 14:53 Taken CULTURE ANAEROBIC + SMEAR [RM] Stat Lab 02/17/21 14:27 Received CULTURE ANAEROBIC + SMEAR [RM] Stat Lab 02/17/21 14:27 Received CULTURE BLOOD [BC] Stat Lab 02/17/21 15:37 Received CULTURE BLOOD [BC] Stat Lab 02/17/21 15:49 Received Blood Culture x2 Reflex Set [OM.PC] Stat Oth 02/17/21 15:10 Ordered Labs: Laboratory Tests 02/17/21 02/17/21 Range/Units 14:50 15:49 Lactic Acid 1.8 (0.4-2.0) mmol/L C-Reactive Protein 0.8 (<1.0) mg/dL Meds: Medications Discontinued Medications Generic Name Dose Route Start Last Admin Trade Name Marco PRN Reason Stop Dose Admin Hydrocodone Bitart/Acetaminophen 1 tab 02/17/21 15:30 02/17/21 15:56 Acetaminophen/Hydrocodone 325-5 Mg Tab PO 02/17/21 15:31 1 tab ONETIME ONE Administration Clindamycin HCl 150 mg 02/17/21 16:47 Clindamycin Hcl 150 Mg Cap PO 02/17/21 16:48 ONETIME ONE Clindamycin HCl 150 mg 02/17/21 16:47 Clindamycin Hcl 150 Mg Cap PO 02/17/21 16:48 ONETIME ONE - Re-Assessments/Exams Free Text/Narrative Re-Assessment/Exam: 02/17/21 16:50 Lactic acid is 1.8 and C-reactive protein is 0.8. Blood cultures and wound cultures are still pending. [facility] radiologist impression: 1. Greater toe cellulitis and ulceration at the plantar aspect. 2. No definitive radiographic evidence for osteomyelitis. Consider follow-up films in 7 to 10 days if clinically warranted. I did speak with Dr. Morrison, the patient's rn oncology research, regarding of the patient he states she has been noncompliant with keeping her appointments as he states he did a revision of her right Achilles tendon. He states he recommended no weightbearing and she was weightbearing within 3 days and has not made her follow-up appointments. He was unaware of her left toe being necrotic however I did review the patient's lab results with him. He recommends that I start her on clindamycin 150 mg twice daily x7 days. He wants to see her in the clinic within a week and he will reevaluate at that time. I did speak with the patient and discussed her noncompliance and the risk of not following up as she could very easily lose the great toe. She states she has an appointment scheduled with him this coming Sunday at 1:30 PM and she will be sure to keep that appointment. I have ordered for her to receive her first dose of clindamycin in the emergency department. Her pharmacy is closed for the day, so I have sent her bedtime dose along with her and she will receive her prescriptions tomorrow upon delivery from her pharmacy. Departure - Departure Time of Disposition: 16:51 Disposition: Home, Self-Care 01 Condition: Fair Clinical Impression: Non-healing open wound of right heel Skin ulcer of left great toe Qualifiers: Non-pressure ulcer stage: with necrosis of muscle Qualified Code(s): L97.523 - Non-pressure chronic ulcer of other part of left foot with necrosis of muscle Uncontrolled diabetes mellitus Qualifiers: Diabetes mellitus type: due to underlying condition Glycemic state: with hyperglycemia Qualified Code(s): E08.65 - Diabetes mellitus due to underlying c ondition with hyperglycemia - Discharge Information Prescriptions: Clindamycin HCl 150 mg PO BID #12 capsule Referrals: Bryce Maynard NP [Primary Care Provider] - Forms: ED Department Discharge Additional Instructions: You were seen in the emergency department today with complaints of high blood sugars, left great toe ulcer, and right heel wound. Labs were completed in addition to the labs that were sent over from [facility]. These do not show any signs of acute infection at this time however your white blood cell count was elevated and your left great toe is black and necrotic. Cultures were taken of your wounds and these will be sent to lab. Should your antibiotic need to be changed you will be contacted. I have spoken with Dr. Morrison and he request to see you within a week. He also request you be started on clindamycin 150 mg by mouth twice daily for 7 days. You were given your first dose in the emergency department and your bedtime dose was sent home with you. Your blood sugars will likely remain slightly elevated until the infection gets under control. You need to strictly watch your carbohydrate intake. Should your condition worsen or change, do not hesitate returning to the emergency department. Sepsis Event Note (ED) - Evaluation Sepsis Screening Result: No Definite Risk - Focused Exam Vital Signs: Vital Signs Temp Pulse Resp BP Pulse Ox 02/17/21 13:43 97.3 F 106 H 14 156/76 H 93 L - My Orders Last 24 Hours: My Active Orders 02/17/21 14:27 CULTURE ANAEROBIC + SMEAR [RM] Stat CULTURE ANAEROBIC + SMEAR [RM] Stat 02/17/21 14:53 Toes Great Toe Lt TA [CR] Stat 02/17/21 15:10 Blood Culture x2 Reflex Set [OM.PC] Stat 02/17/21 15:21 Blood Glucose Check, Bedside [RC] ONETIME 02/17/21 15:37 CULTURE BLOOD [BC] Stat 02/17/21 15:49 CULTURE BLOOD [BC] Stat - Assessment/Plan Last 24 Hours: My Active Orders 02/17/21 14:27 CULTURE ANAEROBIC + SMEAR [RM] Stat CULTURE ANAEROBIC + SMEAR [RM] Stat 02/17/21 14:53 Toes Great Toe Lt TA [CR] Stat 02/17/21 15:10 Blood Culture x2 Reflex Set [OM.PC] Stat 02/17/21 15:21 Blood Glucose Check, Bedside [RC] ONETIME 02/17/21 15:37 CULTURE BLOOD [BC] Stat 02/17/21 15:49 CULTURE BLOOD [BC] Stat
[2021-02-17] MEDS ORDERED: Acetaminophen/HYDROcodone 325-5 MG Tab PO ONE (15:30)
[2021-02-17] MEDS ORDERED: Acetaminophen/HYDROcodone 325-5 MG Tab ONE (15:39)
[2021-02-17] MEDS ORDERED: Clindamycin HCl 150 MG Cap PO ONE ×2 (16:47)
[2021-02-17] MEDS ORDERED: Clindamycin HCl 150 MG Cap ONE (16:52)
--- NOTE | 2021-02-18 08:55 | CR ---
Left first toe: 4 views centered to the left first toe were obtained. Comparison: No prior left foot or toe imaging is available. Soft tissue swelling is noted within the first toe. No discrete fracture, dislocation or other bony abnormality in appreciated. Impression: 1. Soft tissue swelling. 2. No acute bony abnormality is seen. If patient remains symptomatic, recommend follow-up study in 7-10 days. Diagnostic code #2 I agree with preliminary report from [facility] finalized on 02/17/21, 5:03 PM CDT, code 1
== END 2021-02-17 17:11 | disposition home or self-care (01) ==
LOC: JD.ED 13:39
DX: E08.65 Diabetes mellitus due to underlying condition with hyperglycemia (principal); E08.621 Diabetes mellitus due to underlying condition with foot ulcer; L97.523 Non-pressure chronic ulcer of other part of left foot with necrosis of muscle; S91.301A Unspecified open wound, right foot, initial encounter; J44.9 Chronic obstructive pulmonary disease, unspecified; E78.00 Pure hypercholesterolemia, unspecified; I10 Essential (primary) hypertension; K21.9 Gastro-esophageal reflux disease without esophagitis; E66.9 Obesity, unspecified; Z68.41 Body mass index [BMI] 40.0-44.9, adult; Z79.01 Long term (current) use of anticoagulants; Z88.0 Allergy status to penicillin; Z88.1 Allergy status to other antibiotic agents; Z91.018 Allergy to other foods; Z88.8 Allergy status to other drugs, medicaments and biological substances; Z79.4 Long term (current) use of insulin; Z79.899 Other long term (current) drug therapy; Z72.0 Tobacco use; Z86.711 Personal history of pulmonary embolism
CPT/HCPCS: 36415; 73660; 83605; 86140; 87040; 87075; 87205; 99285; A9270; 99284

== ENCOUNTER 2021-03-12 20:44 | Emergency (ER) | payer MEDICARE, MEDICAID ==
--- NOTE | 2021-03-12 21:25 | EDM.PDOC ---
ED HPI GENERAL MEDICAL PROBLEM - General Chief Complaint: Respiratory Problem Stated Complaint: [facility] Time Seen by Provider: 03/12/21 20:53 Source of Information: Reports: Patient History Limitations: Reports: No Limitations - History of Present Illness INITIAL COMMENTS - FREE TEXT/NARRATIVE: 50-year-old female presents the emergency department via [facility] with complaints of cough and congestion that started this morning. Per the patient's report she developed cough and congestion. She also notes chills however has not noted a fever. She states that she has had decreased appetite today however she did eat at [employer] chicken sandwich meal with fries and a soda. She states that she has decreased taste however still has her sense of smell. She denies any nausea, vomiting, or diarrhea. She states that she has not had Covid this year. She has not had her Covid vaccine and does not want to receive her vaccine until she talks to her primary care provider. She states she does have a history of asthma for which she takes an albuterol inhaler and Breo Ellipta. She also takes Singulair at bedtime. Patient is 1/2 pack a day smoker for 30+ years. Chest Pain Score (Numeric/FACES): 7 Left Toe-[place] Pain Score (Numeric/FACES): 7 - Related Data Allergies Allergy/AdvReac Type Severity Reaction Status Date / Time amoxicillin Allergy Intermediate Rash Verified 02/17/21 13:48 erythromycin base Allergy Intermediate Rash Verified 02/17/21 13:48 mustard Allergy Unknown Other Verified 02/17/21 13:48 tomato Allergy Unknown Other Verified 02/17/21 13:48 diazepam [From Valium] AdvReac Mild Anxiety Verified 02/17/21 13:48 Home Meds: Home Meds ALPRAZolam [Xanax] 0.5 mg PO Q12H PRN #24 tablet 07/01/20 [Rx] Escitalopram Oxalate [Lexapro] 20 mg PO DAILY #30 tablet 07/01/20 [Rx] atorvaSTATin [Lipitor] 20 mg PO BID 07/01/20 [History] Albuterol [Proventil Neb Soln] 2.5 mg NEB Q4HRRT PRN neb 07/25/20 [Rx] Albuterol/Ipratropium [DuoNeb 3.0-0.5 MG/3 ML] 3 ml NEB Q6HRRT PRN 10/14/20 [History] Apixaban [Eliquis] 5 mg PO BID 10/14/20 [History] Cetirizine [ZyrTEC] 10 mg PO DAILY 10/14/20 [History] Cyclobenzaprine [Flexeril] 10 mg PO BEDTIME PRN 10/14/20 [History] DULoxetine [Cymbalta] 20 mg PO DAILY 10/14/20 [History] Fluticasone Propionate [Flonase] 1 spray HASEEB DAILY 10/14/20 [History] Fluticasone/Vilanterol [Breo Ellipta 100-25 MCG Inhalation Kit] 1 puff INH DAILY 10/14/20 [History] Insulin Glargine,Hum.Rec.Anlog [Basaglar Kwikpen U-100] 15 unit SQ BID 10/14/20 [History] Insulin Isophane NPH, Human [NovoLIN N] 20 unit SQ QID 10/14/20 [History] Lidocaine 1 patch TOP ASDIRECTED PRN 10/14/20 [History] Magnesium 2 tab PO DAILY 10/14/20 [History] Meloxicam 7.5 mg PO BID PRN 10/14/20 [History] Mirtazapine [Remeron] 15 mg PO BEDTIME 10/14/20 [History] Montelukast [Singulair] 10 mg PO BEDTIME 10/14/20 [History] Nystatin [Nystatin Crm] 1 applic TOP DAILY 10/14/20 [History] Pantoprazole Sodium [Protonix] 40 mg PO BID 10/14/20 [History] Potassium Citrate [Potassium Citrate ER] 20 meq PO BID 10/14/20 [History] Psyllium [Metamucil] 0.52 gm PO BEDTIME 10/14/20 [History] SitaGLIPtin [Januvia] 100 mg PO DAILY 10/14/20 [History] amLODIPine Besylate [Norvasc] 10 mg PO DAILY 10/14/20 [History] estradioL [Estradiol] 1 mg PO DAILY 10/14/20 [History] hydroCHLOROthiazide [Hydrochlorothiazide] 25 mg PO DAILY 10/14/20 [History] lisinopriL [Lisinopril] 20 mg PO DAILY 10/14/20 [History] metFORMIN [Glucophage] 1,000 mg PO BID 10/14/20 [History] traMADol [Ultram] 50 mg PO TID PRN 10/14/20 [History] oxyCODONE HCl/Acetaminophen [Percocet 10-325 mg Tablet] 1 each PO Q4H #20 tablet 11/06/20 [Rx] Clindamycin HCl 150 mg PO BID #12 capsule 02/17/21 [Rx] Past Medical History HEENT History: Reports: Impaired Vision Cardiovascular History: Reports: Blood Clots/VTE/DVT, High Cholesterol, Hypertension Respiratory History: Reports: Asthma, Bronchitis, Recurrent, COPD, PE Gastrointestinal History: Reports: GERD, Irritable Bowel Syndrome Genitourinary History: Reports: UTI, Recurrent [employer] History: Reports: Musculoskeletal History: Reports: Arthritis, Back Pain, Chronic, Fracture, Fibromyalgia Neurological History: Reports: Headaches, Chronic Psychiatric History: Reports: ADHD, Anxiety, Depression Endocrine/Metabolic History: Reports: Diabetes, Type II, Obesity/BMI 30+ Hematologic History: Reports: Other (See Below) Other Hematologic History: Pt states that she has a clotting disorder. - Past Surgical History HEENT Surgical History: Reports: Adenoidectomy, Tonsillectomy, Other (See Below) Other HEENT Surgeries/Procedures: oral surgery, dentures GI Surgical History: Reports: Cholecystectomy Female Surgical History: Reports: Breast Biopsy, Hysterectomy, Tubal Ligation Other Female Surgeries/Procedures: left breast biopsy Musculoskeletal Surgical History: Reports: Other (See Below) Other Musculoskeletal Surgeries/Procedures:: bone spurr removed right heel; left great toe trash toe Social & Family History - Tobacco Use Tobacco Use Status *Q: Current Every Day Tobacco User Years of Tobacco use: 31 Packs/Tins Daily: 0.5 - Caffeine Use Caffeine Use: Reports: Coffee, Soda, Tea - Recreational Drug Use Recreational Drug Use: No - Living Situation & Occupation Living situation: Reports: with Significant Other Occupation: Unemployed ED ROS GENERAL - Review of Systems Review Of Systems: Comprehensive ROS is negative, except as noted in HPI. ED EXAM, GENERAL - Physical Exam Exam: See Below Exam Limited By: No Limitations General Appearance: Alert, WD/WN, No Apparent Distress Ears: Normal External Exam, Hearing Grossly Normal Nose: Normal Inspection Throat/Mouth: Normal Inspection, Normal Lips, Normal Voice, No Airway Compromise Head: Atraumatic Neck: Normal Inspection, Supple Respiratory/Chest: No Respiratory Distress, Lungs Clear, Normal Breath Sounds, No Accessory Muscle Use, Chest Non-Tender Cardiovascular: Normal Peripheral Pulses, Regular Rate, Rhythm, No Edema, No Murmur Peripheral Pulses: 2+: Radial (L), Radial (R) GI/Abdominal: Normal Bowel Sounds, Soft, Non-Tender, No Distention (Female) Exam: Deferred Rectal (Female) Exam: Deferred Back Exam: Normal Inspection Extremities: Normal Inspection, No Pedal Edema Neurological: Alert, Oriented, Normal Cognition Psychiatric: Normal Affect, Normal Mood Skin Exam: Warm, Dry, Intact, Normal Color, No Rash Lymphatic: No Adenopathy Course - Vital Signs Text/Narrative:: I have ordered a chest x-ray, CBC, CMP, and a portable view of the chest. Also be swab for Covid. O2 sats at the time of my assessment were 100% on room air. Last Recorded V/S: Last Vital Signs Temp 97.0 F 03/12/21 20:52 Pulse 95 03/12/21 20:52 Resp 15 03/12/21 20:52 BP 151/119 H 03/12/21 20:52 Pulse Ox 97 03/12/21 20:52 - Orders/Labs/Meds Orders: Active Orders 24 hr Category Date Time Status Chest 1V Frontal [CR] Stat Exams 03/12/21 21:08 Taken Labs: Laboratory Tests 03/12/21 03/12/21 03/12/21 Range/Units 21:13 21:20 21:20 WBC 11.50 H (3.98-10.04) K/mm3 RBC 5.73 H (3.98-5.22) M/mm3 Hgb 16.0 H D (11.2-15.7) gm/dl Hct 49.8 H (34.1-44.9) % MCV 86.9 D (79.4-94.8) fl MCH 27.9 (25.6-32.2) pg MCHC 32.1 L (32.2-35.5) g/dl RDW Std Deviation 44.5 (36.4-46.3) fL Plt Count 390 H (182-369) K/mm3 MPV 10.9 (9.4-12.3) fl Neut % (Auto) 71.4 H (34.0-71.1) % Lymph % (Auto) 15.9 L (19.3-51.7) % [place] % (Auto) 8.8 (4.7-12.5) % Eos % (Auto) 3.3 (0.7-5.8) Baso % (Auto) 0.4 (0.1-1.2) % Neut # (Auto) 8.21 H (1.56-6.13) K/mm3 Lymph # (Auto) 1.83 (1.18-3.74) K/mm3 [place] # (Auto) 1.01 H (0.24-0.36) K/mm3 Eos # (Auto) 0.38 H (0.04-0.36) K/mm3 Baso # (Auto) 0.05 (0.01-0.08) K/mm3 Sodium 136 (136-145) mEq/L Potassium 3.3 L (3.5-5.1) mEq/L Chloride 97 L (98-107) mEq/L Carbon Dioxide 29 (21-32) mEq/L Anion Gap 13.3 (5-15) BUN 10 (7-18) mg/dL Creatinine 0.9 (0.55-1.02) mg/dL Est Cr Clr Drug Dosing 70.78 mL/min Estimated GFR (MDRD) > 60 (>60) mL/min BUN/Creatinine Ratio 11.1 L (14-18) Glucose 182 H (70-99) mg/dL Calcium 9.5 (8.5-10.1) mg/dL Total Bilirubin 0.4 (0.2-1.0) mg/dL AST 18 (15-37) U/L ALT 23 (14-59) U/L Alkaline Phosphatase 109 (46-116) U/L Total Protein 8.2 (6.4-8.2) g/dl Albumin 3.7 (3.4-5.0) g/dl Globulin 4.5 gm/dL Albumin/Globulin Ratio 0.8 L (1-2) SARS-CoV-2 RNA (CHERYL) Negative (NEGATIVE) - Re-Assessments/Exams Free Text/Narrative Re-Assessment/Exam: 03/12/21 21:27 Nothing acute is appreciated on portable view of the chest. Formal radiology report is pending. 03/12/21 22:17 Hematology reveals a WBC of 11.50, hemoglobin 16.0, hematocrit 49.8, platelet count 390, neutrophil percentage 71.4, chemistry reveals a sodium 136, potassium 3.3, chloride 97, glucose 182, AST 18, ALT 23 Serology reveals Covid negative. Patient will be discharged to home this is likely viral in origin. Departure - Departure Time of Disposition: 22:18 Disposition: Home, Self-Care 01 Condition: Good Clinical Impression: Upper respiratory infection, viral - Discharge Information Instructions: Viral Respiratory Infection, [id number] Referrals: Jonathan Vides MD [Primary Care Provider] - Forms: ED Department Discharge Additional Instructions: You are seen in the emergency department today with complaints of cough and congestion which started this morning. Labs were completed as well as a chest x-ray and these were all essentially unremarkable. You likely have a viral illness which is not treatable with antibiotics. Recommend that you drink plenty of fluids. Continue to use your albuterol inhaler as needed. You need to stop smoking. Your O2 saturations while in the emergency department were 95 to 100% on room air. Recommend that you follow-up with your primary care provider in about a week to 10 days if you are not feeling better. May take Tylenol 650 mg every 4 hours as needed for discomfort. Sepsis Event Note (ED) - Evaluation Sepsis Screening Result: No Definite Risk - Focused Exam Vital Signs: Vital Signs Temp Pulse Resp BP Pulse Ox 03/12/21 20:52 97.0 F 95 15 151/119 H 97 - My Orders Last 24 Hours: My Active Orders 03/12/21 21:08 Chest 1V Frontal [CR] Stat - Assessment/Plan Last 24 Hours: My Active Orders 03/12/21 21:08 Chest 1V Frontal [CR] Stat
--- NOTE | 2021-03-13 11:03 | CR ---
Chest: Portable view of the chest was obtained. Comparison: Prior chest x-ray of 02/06/21 as well as prior chest CT performed on the same day. Heart size and mediastinum are normal. Lungs are clear with no acute parenchymal change. Calcifications are seen within the left shoulder compatible with old calcific tendinitis. No acute osseous abnormality is seen. Impression: 1. 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 2. Nothing acute is otherwise seen on portable chest x-ray. Diagnostic code #2
== END 2021-03-12 22:40 | disposition home or self-care (01) ==
LOC: JD.ED 20:44 → SUPCPDRO 20:44 → JD.ED 22:40
DX: J06.9 Acute upper respiratory infection, unspecified (principal); E78.00 Pure hypercholesterolemia, unspecified; I10 Essential (primary) hypertension; J44.9 Chronic obstructive pulmonary disease, unspecified; K21.9 Gastro-esophageal reflux disease without esophagitis; M19.90 Unspecified osteoarthritis, unspecified site; E11.9 Type 2 diabetes mellitus without complications; E66.9 Obesity, unspecified; Z72.0 Tobacco use; Z79.4 Long term (current) use of insulin; Z86.718 Personal history of other venous thrombosis and embolism; Z79.899 Other long term (current) drug therapy; Z88.0 Allergy status to penicillin; Z88.1 Allergy status to other antibiotic agents; Z91.018 Allergy to other foods; Z88.8 Allergy status to other drugs, medicaments and biological substances; Z79.01 Long term (current) use of anticoagulants; Z86.711 Personal history of pulmonary embolism; Z20.822 Contact with and (suspected) exposure to COVID-19
CPT/HCPCS: 36415; 71045; 80053; 85025; 99284; U0002; 99283

== ENCOUNTER 2021-04-24 15:28 | Emergency (ER) | payer MEDICARE, MEDICAID ==
[2021-04-24] MEDS ORDERED: Sodium Chloride 0.9% 10 ML Syringe FLUSH PRN (15:46)
[2021-04-24] MEDS ORDERED: Sodium Chloride 0.9% 1,000 ML IV STA (15:46)
[2021-04-24] MEDS ORDERED: Ondansetron 4 MG/2 ML SDV IVPUSH ONE (15:46)
[2021-04-24] MEDS ORDERED: Pantoprazole 40 MG Vial IVPUSH ONE (15:47)
[2021-04-24] MEDS ORDERED: HYDROmorphone 1 MG/ML Syringe IVPUSH ONE (15:47)
--- NOTE | 2021-04-24 17:04 | CR ---
Left foot: 4 views of the left foot were obtained. Comparison: No prior left foot study is available. Slight degenerative change is seen within the first MTP joint. Large plantar spur is noted. No acute fracture or other bony abnormalities appreciated. Impression: 1. Large plantar spur. 2. Mild degenerative change within the first MTP joint. Diagnostic code #2
--- NOTE | 2021-04-24 17:13 | CR ---
Right foot: 4 views of the right foot were obtained. Comparison: Prior right foot study of 12/21/20 and 11/06/20. Very minimal plantar spur is noted which is stable from prior studies. Small calcifications are seen within the soft tissues of the posterior fat located slightly superior to the calcaneus which are stable. Mild degenerative change is seen within the first MTP joint with mild bunion deformity. No acute fracture or other abnormality is appreciated. Impression: 1. Very minimal plantar spur. 2. Other findings as noted above. 3. Nothing acute is seen. Diagnostic code #2
--- NOTE | 2021-04-24 17:15 | EDM.PDOC ---
ED HPI GENERAL MEDICAL PROBLEM - General Chief Complaint: Gastrointestinal Problem Stated Complaint: ANA AMBULANCE Time Seen by Provider: 04/24/21 15:43 Source of Information: Reports: Patient, EMS History Limitations: Reports: No Limitations - History of Present Illness INITIAL COMMENTS - FREE TEXT/NARRATIVE: The patient presents by [facility] for diarrhea and nausea. This has been going on for a couple days. She also has no appetite. She did not vomit and she has no abdominal pain. She has no fever but she has chills. She has no cough, congestion, runny nose, chest pain, and shortness of breath. She has no dysuria. She did have surgery on here right heel by Dr Morrison. That did get infected. She was on antibiotics. She went out of town for awhile. She is not sure if her right heel is infected. It has some bleeding from it at times. She still has some pain with it. Onset: Gradual Duration: Day(s): Location: Reports: Lower Extremity, Right (Heel) Quality: Reports: Sharp Severity: Moderate Improves with: Reports: None Worsens with: Reports: None Associated Symptoms: Reports: Nausea/Vomiting. Denies: Chest Pain, Cough, Fever/Chills, Headaches, Shortness of Breath - Related Data Allergies Allergy/AdvReac Type Severity Reaction Status Date / Time amoxicillin Allergy Intermediate Rash Verified 04/24/21 15:35 erythromycin base Allergy Intermediate Rash Verified 04/24/21 15:35 mustard Allergy Unknown Other Verified 04/24/21 15:35 tomato Allergy Unknown Other Verified 04/24/21 15:35 diazepam [From Valium] AdvReac Mild Anxiety Verified 04/24/21 15:35 Home Meds: Home Meds ALPRAZolam [Xanax] 0.5 mg PO Q12H PRN #24 tablet 07/01/20 [Rx] Escitalopram Oxalate [Lexapro] 20 mg PO DAILY #30 tablet 07/01/20 [Rx] atorvaSTATin [Lipitor] 20 mg PO BID 07/01/20 [History] Albuterol [Proventil Neb Soln] 2.5 mg NEB Q4HRRT PRN neb 07/25/20 [Rx] Albuterol/Ipratropium [DuoNeb 3.0-0.5 MG/3 ML] 3 ml NEB Q6HRRT PRN 10/14/20 [History] Apixaban [Eliquis] 5 mg PO BID 10/14/20 [History] Cetirizine [ZyrTEC] 10 mg PO DAILY 10/14/20 [History] Cyclobenzaprine [Flexeril] 10 mg PO BEDTIME PRN 10/14/20 [History] DULoxetine [Cymbalta] 20 mg PO DAILY 10/14/20 [History] Fluticasone Propionate [Flonase] 1 spray HASEEB DAILY 10/14/20 [History] Fluticasone/Vilanterol [Breo Ellipta 100-25 MCG Inhalation Kit] 1 puff INH DAILY 10/14/20 [History] Insulin Glargine,Hum.Rec.Anlog [Basaglar Kwikpen U-100] 15 unit SQ BID 10/14/20 [History] Insulin Isophane NPH, Human [NovoLIN N] 20 unit SQ QID 10/14/20 [History] Lidocaine 1 patch TOP ASDIRECTED PRN 10/14/20 [History] Magnesium 2 tab PO DAILY 10/14/20 [History] Meloxicam 7.5 mg PO BID PRN 10/14/20 [History] Mirtazapine [Remeron] 15 mg PO BEDTIME 10/14/20 [History] Montelukast [Singulair] 10 mg PO BEDTIME 10/14/20 [History] Nystatin [Nystatin Crm] 1 applic TOP DAILY 10/14/20 [History] Pantoprazole Sodium [Protonix] 40 mg PO BID 10/14/20 [History] Potassium Citrate [Potassium Citrate ER] 20 meq PO BID 10/14/20 [History] Psyllium [Metamucil] 0.52 gm PO BEDTIME 10/14/20 [History] SitaGLIPtin [Januvia] 100 mg PO DAILY 10/14/20 [History] amLODIPine Besylate [Norvasc] 10 mg PO DAILY 10/14/20 [History] estradioL [Estradiol] 1 mg PO DAILY 10/14/20 [History] hydroCHLOROthiazide [Hydrochlorothiazide] 25 mg PO DAILY 10/14/20 [History] lisinopriL [Lisinopril] 20 mg PO DAILY 10/14/20 [History] metFORMIN [Glucophage] 1,000 mg PO BID 10/14/20 [History] traMADol [Ultram] 50 mg PO TID PRN 10/14/20 [History] oxyCODONE HCl/Acetaminophen [Percocet 10-325 mg Tablet] 1 each PO Q4H #20 tablet 11/06/20 [Rx] Clindamycin HCl 150 mg PO BID #12 capsule 02/17/21 [Rx] Ondansetron [Zofran ODT] 4 mg PO Q6H PRN #20 tab.dis 04/24/21 [Rx] cephALEXin [Keflex] 500 mg PO Q6H #40 cap 04/24/21 [Rx] Past Medical History HEENT History: Reports: Impaired Vision Cardiovascular History: Reports: Blood Clots/VTE/DVT, High Cholesterol, Hypertension Respiratory History: Reports: Asthma, Bronchitis, Recurrent, COPD, PE Gastrointestinal History: Reports: GERD, Irritable Bowel Syndrome Genitourinary History: Reports: UTI, Recurrent 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 - Past Surgical History HEENT Surgical History: Reports: Adenoidectomy, Tonsillectomy, Other (See Below) Other HEENT Surgeries/Procedures: oral surgery, dentures GI Surgical History: Reports: Cholecystectomy Female Surgical History: Reports: Breast Biopsy, Hysterectomy, Tubal Ligation Other Female Surgeries/Procedures: left breast biopsy Musculoskeletal Surgical History: Reports: Other (See Below) Other Musculoskeletal Surgeries/Procedures:: bone spurr removed right heel; left great toe trash toe Social & Family History - Tobacco Use Tobacco Use Status *Q: Current Every Day Tobacco User Years of Tobacco use: 30 Packs/Tins Daily: 0.1 - Caffeine Use Caffeine Use: Reports: Coffee, Soda, Tea - Living Situation & Occupation Living situation: Reports: with Significant Other Occupation: Unemployed ED ROS GENERAL - Review of Systems Review Of Systems: See Below Constitutional: Reports: No Symptoms HEENT: Reports: No Symptoms Respiratory: Reports: No Symptoms Cardiovascular: Reports: No Symptoms Endocrine: Reports: No Symptoms GI/Abdominal: Reports: No Symptoms : Reports: No Symptoms Musculoskeletal: Reports: Other (incision scar to the heel) ED EXAM, GI/ABD - Physical Exam Exam: See Below Exam Limited By: No Limitations General Appearance: Alert, No Apparent Distress Ears: Normal External Exam Nose: Normal Inspection Head: Atraumatic, Normocephalic Neck: Normal Inspection Respiratory/Chest: No Respiratory Distress, Lungs Clear, Normal Breath Sounds Cardiovascular: Regular Rate, Rhythm, No Edema, No Murmur GI/Abdominal Exam: Soft, Non-Tender, No Organomegaly, No Mass Back Exam: Normal Inspection Extremities: Other (Right heel has an incision with scar tissue and there is some blood from it but no purulen drainge. Her left great toe has some dark tissue with no sensation to the tip) Course - Vital Signs Last Recorded V/S: Last Vital Signs Temp 98.3 F 04/24/21 15:33 Pulse 88 04/24/21 15:33 Resp 18 04/24/21 15:33 BP 133/99 H 04/24/21 15:33 Pulse Ox 93 L 04/24/21 15:33 - Orders/Labs/Meds Orders: Active Orders 24 hr Category Date Time Status Peripheral IV Care [RC] . DIRECTED Care 04/24/21 15:46 Active CULTURE BLOOD [BC] Stat Lab 04/24/21 16:05 Received CULTURE BLOOD [BC] Stat Lab 04/24/21 16:15 Received Sodium Chloride 0.9% [Saline Flush] Med 04/24/21 15:46 Active 10 ml FLUSH ASDIRECTED PRN cefTRIAXone [Rocephin] 1 gm Med 04/24/21 17:30 Active Sodium Chloride 0.9% [Normal Saline] 100 ml IV ONETIME Blood Culture x2 Reflex Set [OM.PC] Stat Oth 04/24/21 15:48 Ordered ED Antiemetic Medication Reflex [OM.PC] Stat Oth 04/24/21 15:46 Ordered Peripheral IV Insertion Adult [OM.PC] Stat Oth 04/24/21 15:46 Ordered Medication Orders Ceftriaxone Sodium 1 gm/ (Sodium Chloride) 100 mls @ 200 mls/hr IV ONETIME ONE Stop: 04/24/21 17:59 Last Admin: 04/24/21 17:38 Dose: 200 mls/hr Documented by: REILLY Sodium Chloride (Sodium Chloride 0.9% 10 Ml Syringe) 10 ml FLUSH ASDIRECTED PRN PRN Reason: Keep Vein Open Last Admin: 04/24/21 16:19 Dose: 10 ml Documented by: REILLY Labs: Laboratory Tests 04/24/21 04/24/21 04/24/21 Range/Units 16:05 16:05 16:05 WBC 10.33 H (3.98-10.04) K/mm3 RBC 5.32 H (3.98-5.22) M/mm3 Hgb 14.3 D (11.2-15.7) gm/dl Hct 46.4 H (34.1-44.9) % MCV 87.2 (79.4-94.8) fl MCH 26.9 (25.6-32.2) pg MCHC 30.8 L (32.2-35.5) g/dl RDW Std Deviation 46.2 (36.4-46.3) fL Plt Count 337 (182-369) K/mm3 MPV 11.0 (9.4-12.3) fl Neut % (Auto) 75.8 H (34.0-71.1) % Lymph % (Auto) 15.0 L (19.3-51.7) % Wetzel % (Auto) 6.4 (4.7-12.5) % Eos % (Auto) 2.4 (0.7-5.8) Baso % (Auto) 0.3 (0.1-1.2) % Neut # (Auto) 7.83 H (1.56-6.13) K/mm3 Lymph # (Auto) 1.55 (1.18-3.74) K/mm3 Wetzel # (Auto) 0.66 H (0.24-0.36) K/mm3 Eos # (Auto) 0.25 (0.04-0.36) K/mm3 Baso # (Auto) 0.03 (0.01-0.08) K/mm3 Manual Slide Review Abnormal smear Sodium 139 (136-145) mEq/L Potassium 4.4 (3.5-5.1) mEq/L Chloride 100 (98-107) mEq/L Carbon Dioxide 30 (21-32) mEq/L Anion Gap 13.4 (5-15) BUN 11 (7-18) mg/dL Creatinine 0.8 (0.55-1.02) mg/dL Est Cr Clr Drug Dosing TNP Estimated GFR (MDRD) > 60 (>60) mL/min BUN/Creatinine Ratio 13.8 L (14-18) Glucose 164 H (70-99) mg/dL Lactic Acid 1.3 (0.4-2.0) mmol/L Calcium 8.9 (8.5-10.1) mg/dL Total Bilirubin 0.6 (0.2-1.0) mg/dL AST 33 (15-37) U/L ALT 20 (14-59) U/L Alkaline Phosphatase 112 (46-116) U/L C-Reactive Protein 2.0 H* (<1.0) mg/dL Total Protein 8.0 (6.4-8.2) g/dl Albumin 3.3 L (3.4-5.0) g/dl Globulin 4.7 gm/dL Albumin/Globulin Ratio 0.7 L (1-2) Lipase 84 (73-393) U/L Urine Color (Yellow) Urine Appearance (Clear) Urine pH (5.0-8.0) Ur Specific Henry (1.005-1.030) Urine Protein (Negative) Urine Glucose (UA) (Negative) Urine Ketones (Negative) Urine Occult Blood (Negative) Urine Nitrite (Negative) Urine Bilirubin (Negative) Urine Urobilinogen (0.2-1.0) Ur Leukocyte Esterase (Negative) U Hyaline Cast (Auto) (0-5) /lpf Urine RBC (0-5) /hpf Urine WBC (0-5) /hpf Ur Squamous Epith Cells (0-5) /hpf Urine Bacteria (FEW) /hpf Urine Mucus (FEW) /hpf 04/24/21 Range/Units 17:06 WBC (3.98-10.04) K/mm3 RBC (3.98-5.22) M/mm3 Hgb (11.2-15.7) gm/dl Hct (34.1-44.9) % MCV (79.4-94.8) fl MCH (25.6-32.2) pg MCHC (32.2-35.5) g/dl RDW Std Deviation (36.4-46.3) fL Plt Count (182-369) K/mm3 MPV (9.4-12.3) fl Neut % (Auto) (34.0-71.1) % Lymph % (Auto) (19.3-51.7) % Wetzel % (Auto) (4.7-12.5) % Eos % (Auto) (0.7-5.8) Baso % (Auto) (0.1-1.2) % Neut # (Auto) (1.56-6.13) K/mm3 Lymph # (Auto) (1.18-3.74) K/mm3 Wetzel # (Auto) (0.24-0.36) K/mm3 Eos # (Auto) (0.04-0.36) K/mm3 Baso # (Auto) (0.01-0.08) K/mm3 Manual Slide Review Sodium (136-145) mEq/L Potassium (3.5-5.1) mEq/L Chloride (98-107) mEq/L Carbon Dioxide (21-32) mEq/L Anion Gap (5-15) BUN (7-18) mg/dL Creatinine (0.55-1.02) mg/dL Est Cr Clr Drug Dosing Estimated GFR (MDRD) (>60) mL/min BUN/Creatinine Ratio (14-18) Glucose (70-99) mg/dL Lactic Acid (0.4-2.0) mmol/L Calcium (8.5-10.1) mg/dL Total Bilirubin (0.2-1.0) mg/dL AST (15-37) U/L ALT (14-59) U/L Alkaline Phosphatase (46-116) U/L C-Reactive Protein (<1.0) mg/dL Total Protein (6.4-8.2) g/dl Albumin (3.4-5.0) g/dl Globulin gm/dL Albumin/Globulin Ratio (1-2) Lipase (73-393) U/L Urine Color Light yellow (Yellow) Urine Appearance Clear (Clear) Urine pH 6.0 (5.0-8.0) Ur Specific Henry 1.025 (1.005-1.030) Urine Protein Negative (Negative) Urine Glucose (UA) Negative (Negative) Urine Ketones Negative (Negative) Urine Occult Blood Negative (Negative) Urine Nitrite Negative (Negative) Urine Bilirubin Negative (Negative) Urine Urobilinogen 0.2 (0.2-1.0) Ur Leukocyte Esterase Negative (Negative) U Hyaline Cast (Auto) 0-5 (0-5) /lpf Urine RBC 0-5 (0-5) /hpf Urine WBC 0-5 (0-5) /hpf Ur Squamous Epith Cells 0-5 (0-5) /hpf Urine Bacteria Rare (FEW) /hpf Urine Mucus Not seen (FEW) /hpf Meds: Medications Generic Name Dose Route Start Last Admin Trade Name Romieq PRN Reason Stop Dose Admin Ceftriaxone Sodium 1 gm/ 100 mls @ 200 mls/hr 04/24/21 17:30 04/24/21 17:38 Sodium Chloride IV 04/24/21 17:59 200 mls/hr ONETIME ONE Administration Sodium Chloride 10 ml 04/24/21 15:46 04/24/21 16:19 Sodium Chloride 0.9% 10 Ml Syringe FLUSH 10 ml ASDIRECTED PRN Administration Keep Vein Open Discontinued Medications Generic Name Dose Route Start Last Admin Trade Name Romieq PRN Reason Stop Dose Admin Hydromorphone HCl 1 mg 04/24/21 15:47 04/24/21 16:18 Hydromorphone 1 Mg/Ml Syringe IVPUSH 04/24/21 15:48 1 mg ONETIME ONE Administration Sodium Chloride 1,000 mls @ 1,000 mls/hr 04/24/21 15:46 04/24/21 16:15 Normal Saline IV 04/24/21 16:45 1,000 mls/hr .BOLUS STA Administration Ondansetron HCl 4 mg 04/24/21 15:46 04/24/21 16:15 Ondansetron 4 Mg/2 Ml Sdv IVPUSH 04/24/21 15:47 4 mg ONETIME ONE Administration Pantoprazole Sodium 40 mg 04/24/21 15:47 04/24/21 16:16 Pantoprazole 40 Mg Vial IVPUSH 04/24/21 15:48 40 mg ONETIME ONE Administration - Re-Assessments/Exams Free Text/Narrative Re-Assessment/Exam: 04/24/21 17:35 I ordered an IV NS 1L bolus, zofran 4mg IV, dilaudid 1mg IV, labs, blood cult ures and x-rays of both feet. Her x-rays shows nothing acute. Her WBC is slightly elevated at 10.33. Her Hgb is normal at 14.3. Her glucose is 164. Her lactic acid is normal at 1.3. Her CRP is elevated at 2. Her lipase is normal. I have ordered rocephin 1 gram IV and I will get her on some keflex and zofran. Departure - Departure Time of Disposition: 17:45 Disposition: Home, Self-Care 01 Condition: Good Clinical Impression: Gastroenteritis, Diarrhea, Cellulitis of heel, right - Discharge Information *PRESCRIPTION DRUG MONITORING PROGRAM REVIEWED*: Not Applicable *COPY OF PRESCRIPTION DRUG MONITORING REPORT IN PATIENT SHERIE: Not Applicable Prescriptions: cephALEXin [Keflex] 500 mg PO Q6H #40 cap Ondansetron [Zofran ODT] 4 mg PO Q6H PRN #20 tab.dis PRN Reason: Nausea\vomiting Referrals: Jonathan Vides MD [Primary Care Provider] - Leonardo Morrison II, DPM [Physician] - 1 Week Forms: ED Department Discharge Additional Instructions: Clean your heel with warm soapy water 2 times per day. Take the keflex 4 times per day for 10 days. Take the zofran every 6 hours as needed for nausea and vomiting. Follow up with Dr Morrison within a week. Please return if you are worse. Sepsis Event Note (ED) - Evaluation Sepsis Screening Result: No Definite Risk - Focused Exam Vital Signs: Vital Signs Temp Pulse Resp BP Pulse Ox 04/24/21 15:33 98.3 F 88 18 133/99 H 93 L - My Orders Last 24 Hours: My Active Orders 04/24/21 15:46 Peripheral IV Care [RC] . DIRECTED Sodium Chloride 0.9% [Saline Flush] 10 ml FLUSH ASDIRECTED PRN ED Antiemetic Medication Reflex [OM.PC] Stat Peripheral IV Insertion Adult [OM.PC] Stat 04/24/21 15:48 Blood Culture x2 Reflex Set [OM.PC] Stat 04/24/21 16:05 CULTURE BLOOD [BC] Stat 04/24/21 16:15 CULTURE BLOOD [BC] Stat 04/24/21 17:30 cefTRIAXone [Rocephin] 1 gm Sodium Chloride 0.9% [Normal Saline] 100 ml IV ONETIME - Assessment/Plan Last 24 Hours: My Active Orders 04/24/21 15:46 Peripheral IV Care [RC] . DIRECTED Sodium Chloride 0.9% [Saline Flush] 10 ml FLUSH ASDIRECTED PRN ED Antiemetic Medication Reflex [OM.PC] Stat Peripheral IV Insertion Adult [OM.PC] Stat 04/24/21 15:48 Blood Culture x2 Reflex Set [OM.PC] Stat 04/24/21 16:05 CULTURE BLOOD [BC] Stat 04/24/21 16:15 CULTURE BLOOD [BC] Stat 04/24/21 17:30 cefTRIAXone [Rocephin] 1 gm Sodium Chloride 0.9% [Normal Saline] 100 ml IV ONETIME
[2021-04-24] MEDS ORDERED: cefTRIAXone 1 GM in Sodium Chloride 0.9% 100 ML IV ONE (17:30)
== END 2021-04-24 18:30 | disposition home or self-care (01) ==
LOC: JD.ED 15:28
DX: K52.9 Noninfective gastroenteritis and colitis, unspecified (principal); L03.115 Cellulitis of right lower limb; D72.829 Elevated white blood cell count, unspecified; E78.00 Pure hypercholesterolemia, unspecified; I10 Essential (primary) hypertension; J44.9 Chronic obstructive pulmonary disease, unspecified; K21.9 Gastro-esophageal reflux disease without esophagitis; M19.90 Unspecified osteoarthritis, unspecified site; E11.9 Type 2 diabetes mellitus without complications; E66.9 Obesity, unspecified; Z86.711 Personal history of pulmonary embolism; Z72.0 Tobacco use; Z88.0 Allergy status to penicillin; Z88.1 Allergy status to other antibiotic agents; Z91.018 Allergy to other foods; Z88.8 Allergy status to other drugs, medicaments and biological substances; Z79.01 Long term (current) use of anticoagulants; Z79.4 Long term (current) use of insulin; Z79.899 Other long term (current) drug therapy
CPT/HCPCS: 36415; 73630; 80053; 81001; 83605; 83690; 85025; 86140; 87040; 96365; 96375; 99284; C9113; J0696; J1170; J2405; J7030

== ENCOUNTER 2021-05-08 03:30 | Emergency (ER) | payer MEDICARE, MEDICAID ==
[2021-05-08] MEDS ORDERED: Ondansetron 4 MG Tab.DIS PO ONE (04:04)
--- NOTE | 2021-05-08 04:07 | EDM.PDOC ---
ED HPI GENERAL MEDICAL PROBLEM - General Chief Complaint: Diabetic Complaint Stated Complaint: ANA AMB Time Seen by Provider: 05/08/21 03:43 Source of Information: Reports: Patient, EMS History Limitations: Reports: No Limitations - History of Present Illness INITIAL COMMENTS - FREE TEXT/NARRATIVE: The patient presents by [facility] for low blood sugar. She was in the 40s at home. She had some sugar and it was 150s when she got here. She was running high last night. She is not sure why. She is not on any new medications. She did not eat any more sugar then normal. She feels better. She does have a CGM she can use her phone to access. She does have some nausea but no vomiting. Onset: Gradual Duration: Hour(s): Severity: Moderate Improves with: Reports: None Worsens with: Reports: None Associated Symptoms: Reports: Nausea/Vomiting. Denies: Chest Pain, Cough, Fever/Chills, Headaches, Shortness of Breath - Related Data Allergies Allergy/AdvReac Type Severity Reaction Status Date / Time amoxicillin Allergy Intermediate Rash Verified 05/08/21 03:36 erythromycin base Allergy Intermediate Rash Verified 05/08/21 03:36 mustard Allergy Unknown Other Verified 05/08/21 03:36 tomato Allergy Unknown Other Verified 05/08/21 03:36 diazepam [From Valium] AdvReac Mild Anxiety Verified 05/08/21 03:36 Home Meds: Home Meds ALPRAZolam [Xanax] 0.5 mg PO Q12H PRN #24 tablet 07/01/20 [Rx] Escitalopram Oxalate [Lexapro] 20 mg PO DAILY #30 tablet 07/01/20 [Rx] atorvaSTATin [Lipitor] 20 mg PO BID 07/01/20 [History] Albuterol [Proventil Neb Soln] 2.5 mg NEB Q4HRRT PRN neb 07/25/20 [Rx] Albuterol/Ipratropium [DuoNeb 3.0-0.5 MG/3 ML] 3 ml NEB Q6HRRT PRN 10/14/20 [History] Apixaban [Eliquis] 5 mg PO BID 10/14/20 [History] Cetirizine [ZyrTEC] 10 mg PO DAILY 10/14/20 [History] Cyclobenzaprine [Flexeril] 10 mg PO BEDTIME PRN 10/14/20 [History] DULoxetine [Cymbalta] 20 mg PO DAILY 10/14/20 [History] Fluticasone Propionate [Flonase] 1 spray HASEEB DAILY 10/14/20 [History] Fluticasone/Vilanterol [Breo Ellipta 100-25 MCG Inhalation Kit] 1 puff INH DAILY 10/14/20 [History] Insulin Glargine,Hum.Rec.Anlog [Basaglar Kwikpen U-100] 15 unit SQ BID 10/14/20 [History] Insulin Isophane NPH, Human [NovoLIN N] 20 unit SQ QID 10/14/20 [History] Lidocaine 1 patch TOP ASDIRECTED PRN 10/14/20 [History] Magnesium 2 tab PO DAILY 10/14/20 [History] Meloxicam 7.5 mg PO BID PRN 10/14/20 [History] Mirtazapine [Remeron] 15 mg PO BEDTIME 10/14/20 [History] Montelukast [Singulair] 10 mg PO BEDTIME 10/14/20 [History] Nystatin [Nystatin Crm] 1 applic TOP DAILY 10/14/20 [History] Pantoprazole Sodium [Protonix] 40 mg PO BID 10/14/20 [History] Potassium Citrate [Potassium Citrate ER] 20 meq PO BID 10/14/20 [History] Psyllium [Metamucil] 0.52 gm PO BEDTIME 10/14/20 [History] SitaGLIPtin [Januvia] 100 mg PO DAILY 10/14/20 [History] amLODIPine Besylate [Norvasc] 10 mg PO DAILY 10/14/20 [History] estradioL [Estradiol] 1 mg PO DAILY 10/14/20 [History] hydroCHLOROthiazide [Hydrochlorothiazide] 25 mg PO DAILY 10/14/20 [History] lisinopriL [Lisinopril] 20 mg PO DAILY 10/14/20 [History] metFORMIN [Glucophage] 1,000 mg PO BID 10/14/20 [History] traMADol [Ultram] 50 mg PO TID PRN 10/14/20 [History] oxyCODONE HCl/Acetaminophen [Percocet 10-325 mg Tablet] 1 each PO Q4H #20 tablet 11/06/20 [Rx] Clindamycin HCl 150 mg PO BID #12 capsule 02/17/21 [Rx] Ondansetron [Zofran ODT] 4 mg PO Q6H PRN #20 tab.dis 04/24/21 [Rx] cephALEXin [Keflex] 500 mg PO Q6H #40 cap 04/24/21 [Rx] Ondansetron [Zofran ODT] 4 mg PO Q6H PRN #20 tab.dis 05/08/21 [Rx] Past Medical History HEENT History: Reports: Impaired Vision Cardiovascular History: Reports: Blood Clots/VTE/DVT, High Cholesterol, Hype rtension Respiratory History: Reports: Asthma, Bronchitis, Recurrent, COPD, PE Gastrointestinal History: Reports: GERD, Irritable Bowel Syndrome Genitourinary History: Reports: UTI, Recurrent 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 - Infectious Disease History Infectious Disease History: Reports: Chicken Pox - Past Surgical History HEENT Surgical History: Reports: Adenoidectomy, Tonsillectomy, Other (See Below) Other HEENT Surgeries/Procedures: oral surgery, dentures GI Surgical History: Reports: Cholecystectomy Female Surgical History: Reports: Breast Biopsy, Hysterectomy, Tubal Ligation Other Female Surgeries/Procedures: left breast biopsy Musculoskeletal Surgical History: Reports: Other (See Below) Other Musculoskeletal Surgeries/Procedures:: bone spurr removed right heel; left great toe trash toe Social & Family History - Tobacco Use Tobacco Use Status *Q: Current Every Day Tobacco User Years of Tobacco use: 25 Packs/Tins Daily: 0.5 - Caffeine Use Caffeine Use: Reports: None - Recreational Drug Use Recreational Drug Use: No - Living Situation & Occupation Living situation: Reports: with Significant Other Occupation: Unemployed ED ROS GENERAL - Review of Systems Review Of Systems: See Below Constitutional: Reports: No Symptoms HEENT: Reports: No Symptoms Respiratory: Reports: No Symptoms Cardiovascular: Reports: No Symptoms Endocrine: Reports: No Symptoms GI/Abdominal: Reports: Nausea. Denies: Abdominal Pain, Vomiting : Reports: No Symptoms Musculoskeletal: Reports: No Symptoms ED EXAM GENERAL NO PERIP PULSE - Physical Exam Exam: See Below Exam Limited By: No Limitations General Appearance: Alert, No Apparent Distress Ears: Normal External Exam Nose: Normal Inspection Head: Atraumatic, Normocephalic Neck: Normal Inspection Respiratory/Chest: No Respiratory Distress, Lungs Clear, Normal Breath Sounds Cardiovascular: Regular Rate, Rhythm, No Edema, No Murmur GI/Abdominal: Soft, Non-Tender, No Organomegaly, No Mass Back Exam: Normal Inspection Extremities: Normal Inspection Course - Vital Signs Last Recorded V/S: Last Vital Signs Temp 97.3 F 05/08/21 03:33 Pulse 102 H 05/08/21 03:33 Resp 20 05/08/21 03:33 BP 137/86 05/08/21 03:33 Pulse Ox 98 05/08/21 03:33 - Orders/Labs/Meds Labs: Laboratory Tests 05/08/21 Range/Units 03:41 POC Glucose 155 H (70-99) mg/dL - Re-Assessments/Exams Free Text/Narrative Re-Assessment/Exam: 05/08/21 04:05 Her blood sugar is up. I will give her a zofran and a prescription for more. Departure - Departure Time of Disposition: 04:10 Disposition: Home, Self-Care 01 Condition: Good Clinical Impression: Hypoglycemia - Discharge Information *PRESCRIPTION DRUG MONITORING PROGRAM REVIEWED*: Not Applicable *COPY OF PRESCRIPTION DRUG MONITORING REPORT IN PATIENT SHERIE: Not Applicable Prescriptions: Ondansetron [Zofran ODT] 4 mg PO Q6H PRN #20 tab.dis PRN Reason: Nausea\vomiting Additional Instructions: Drink plenty of fluids. Eat a lower carb diet with protein and vegetables. Take the zofran every 6 hours as needed for nausea and vomiting. Follow up with your provider within a week. Please return if you are worse. Sepsis Event Note (ED) - Evaluation Sepsis Screening Result: No Definite Risk - Focused Exam Vital Signs: Vital Signs Temp Pulse Resp BP Pulse Ox 05/08/21 03:33 97.3 F 102 H 20 137/86 98
== END 2021-05-08 05:35 | disposition home or self-care (01) ==
LOC: JD.ED 03:30
DX: E11.649 Type 2 diabetes mellitus with hypoglycemia without coma (principal); J44.9 Chronic obstructive pulmonary disease, unspecified; E78.00 Pure hypercholesterolemia, unspecified; I10 Essential (primary) hypertension; K21.9 Gastro-esophageal reflux disease without esophagitis; E66.9 Obesity, unspecified; Z68.42 Body mass index [BMI] 45.0-49.9, adult; Z72.0 Tobacco use; Z88.0 Allergy status to penicillin; Z88.1 Allergy status to other antibiotic agents; Z91.018 Allergy to other foods; Z88.5 Allergy status to narcotic agent; Z79.4 Long term (current) use of insulin; Z79.899 Other long term (current) drug therapy; Z79.01 Long term (current) use of anticoagulants
CPT/HCPCS: 82947; 99284; A9270; 99283

== ENCOUNTER 2021-09-05 12:30 | Emergency (ER) | payer MEDICARE, MEDICAID ==
--- NOTE | 2021-09-05 15:49 | EDM.PDOC ---
ED HPI GENERAL MEDICAL PROBLEM - General Chief Complaint: General Stated Complaint: ANA AMBULANCE Time Seen by Provider: 09/05/21 13:06 Source of Information: Reports: Patient, RN Notes Reviewed - History of Present Illness INITIAL COMMENTS - FREE TEXT/NARRATIVE: 51 yr old female has been brought in by ambulance with C/O L leg discomfort that started yesterday. Hx of DVT on eliquis. States she just does not feel well, Kidd, myalgias, fatigue. Hx of diabetes, multiple other medical problems. States she was told she should not get vaccinated due to hx of recent DVT. Has a chronic cough from "chronic bronchitis". Not currently short of breath. Right Foot Pain Score (Numeric/FACES): 10 - Related Data Allergies Allergy/AdvReac Type Severity Reaction Status Date / Time amoxicillin Allergy Intermediate Rash Verified 09/05/21 12:43 erythromycin base Allergy Intermediate Rash Verified 09/05/21 12:43 mustard Allergy Unknown Other Verified 09/05/21 12:43 tomato Allergy Unknown Other Verified 09/05/21 12:43 diazepam [From Valium] AdvReac Mild Anxiety Verified 09/05/21 12:43 Home Meds: Home Meds ALPRAZolam [Xanax] 0.5 mg PO Q12H PRN #24 tablet 07/01/20 [Rx] atorvaSTATin [Lipitor] 40 mg PO BEDTIME 07/01/20 [History] Albuterol [Proventil Neb Soln] 2.5 mg NEB Q4HRRT PRN neb 07/25/20 [Rx] Albuterol/Ipratropium [DuoNeb 3.0-0.5 MG/3 ML] 3 ml NEB Q6HRRT PRN 10/14/20 [History] Apixaban [Eliquis] 5 mg PO BID 10/14/20 [History] Cetirizine [ZyrTEC] 10 mg PO DAILY 10/14/20 [History] Cyclobenzaprine [Flexeril] 10 mg PO BEDTIME PRN 10/14/20 [History] Fluticasone Propionate [Flonase] 1 spray HASEEB DAILY 10/14/20 [History] Fluticasone/Vilanterol [Breo Ellipta 100-25 MCG Inhalation Kit] 1 puff INH DAILY 10/14/20 [History] Magnesium 128 mg PO DAILY 10/14/20 [History] Meloxicam 7.5 mg PO BID PRN 10/14/20 [History] Mirtazapine [Remeron] 15 mg PO BEDTIME 10/14/20 [History] Montelukast [Singulair] 10 mg PO BEDTIME 10/14/20 [History] Pantoprazole Sodium [Protonix] 40 mg PO DAILY 10/14/20 [History] amLODIPine Besylate [Norvasc] 10 mg PO DAILY 10/14/20 [History] estradioL [Estradiol] 1 mg PO DAILY 10/14/20 [History] hydroCHLOROthiazide [Hydrochlorothiazide] 25 mg PO DAILY 10/14/20 [History] metFORMIN [Glucophage] 1,000 mg PO BID 10/14/20 [History] traMADol [Ultram] 50 mg PO TID PRN 10/14/20 [History] Albuterol [Ventolin HFA] 2 puff INH ASDIRECTED PRN 09/05/21 [History] FLUoxetine [PROzac] 40 mg PO DAILY 09/05/21 [History] Insulin Aspart [Novolog Flexpen] 20 units SQ TID 09/05/21 [History] Insulin Glargine,Hum.Rec.Anlog [Basaglar Kwikpen U-100] 17 units SQ ACBREAKFAST 09/05/21 [History] Insulin Glargine,Hum.Rec.Anlog [Basaglar Kwikpen U-100] 37 unit SQ BEDTIME 09/05/21 [History] Linagliptin [Tradjenta] 5 mg PO DAILY 09/05/21 [History] Losartan Potassium 25 mg PO DAILY 09/05/21 [History] Prazosin HCl [Prazosin] 10 mg PO BEDTIME 09/05/21 [History] Pregabalin 75 mg PO BID 09/05/21 [History] clonazePAM [Clonazepam] 1 mg PO BID PRN 09/05/21 [History] Past Medical History HEENT History: Reports: Impaired Vision Cardiovascular History: Reports: Blood Clots/VTE/DVT, High Cholesterol, Hypertension Respiratory History: Reports: Asthma, Bronchitis, Recurrent, COPD, PE Gastrointestinal History: Reports: GERD, Irritable Bowel Syndrome Genitourinary History: Reports: UTI, Recurrent [employer] 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 - Infectious Disease History Infectious Disease History: Reports: Chicken Pox - Past Surgical History HEENT Surgical History: Reports: Adenoidectomy, Tonsillectomy, Other (See Below) Other HEENT Surgeries/Procedures: oral surgery, dentures GI Surgical History: Reports: Cholecystectomy Female Surgical History: Reports: Breast Biopsy, Hysterectomy, Tubal Ligation Other Female Surgeries/Procedures: left breast biopsy Musculoskeletal Surgical History: Reports: Other (See Below) Other Musculoskeletal Surgeries/Procedures:: bone spurr removed right heel; left great toe trash toe Social & Family History - Tobacco Use Tobacco Use Status *Q: Unknown Ever Used Tobacco - Caffeine Use Caffeine Use: Reports: None - Living Situation & Occupation Living situation: Reports: with Significant Other Occupation: Unemployed ED ROS GENERAL - Review of Systems Review Of Systems: See Below Constitutional: Reports: Chills. Denies: Fever HEENT: Denies: Rhinitis, Throat Pain Respiratory: Reports: Cough. Denies: Shortness of Breath, Sputum Cardiovascular: Denies: Chest Pain GI/Abdominal: Denies: Abdominal Pain, Vomiting Musculoskeletal: Reports: Leg Pain, Other (generalized myalgias) Skin: Denies: Rash Neurological: Reports: Headache ED EXAM, GENERAL - Physical Exam Exam: See Below General Appearance: Alert, No Apparent Distress Head: Atraumatic Neck: Supple Respiratory/Chest: No Respiratory Distress, Lungs Clear, Normal Breath Sounds Cardiovascular: Regular Rate, Rhythm Extremities: Leg Pain (there is mild tenderness L post leg, no warmth, visible swelling or erythema). No: Pedal Edema Neurological: Alert, Oriented, No Motor/Sensory Deficits Course - Vital Signs Last Recorded V/S: Last Vital Signs Temp 98.5 F 09/05/21 12:39 Pulse 102 H 09/05/21 12:39 Resp 18 09/05/21 12:39 BP 165/102 H 09/05/21 12:39 Pulse Ox 94 L 09/05/21 12:39 - Orders/Labs/Meds Orders: Active Orders 24 hr Category Date Time Status CORONAVIRUS COVID-19 CHERYL [[facility]] Stat Lab 09/05/21 15:05 Received Labs: Laboratory Tests 09/05/21 09/05/21 09/05/21 Range/Units 13:45 13:45 13:45 WBC 7.80 (3.98-10.04) K/mm3 RBC 6.12 H (3.98-5.22) M/mm3 Hgb 16.9 H D (11.2-15.7) gm/dl Hct 51.5 H (34.1-44.9) % MCV 84.2 (79.4-94.8) fl MCH 27.6 (25.6-32.2) pg MCHC 32.8 (32.2-35.5) g/dl RDW Std Deviation 52.8 H (36.4-46.3) fL Plt Count 275 (182-369) K/mm3 MPV 11.1 (9.4-12.3) fl Neut % (Auto) 69.9 (34.0-71.1) % Lymph % (Auto) 15.8 L (19.3-51.7) % [place] % (Auto) 12.7 H (4.7-12.5) % Eos % (Auto) 1.2 (0.7-5.8) Baso % (Auto) 0.3 (0.1-1.2) % Neut # (Auto) 5.46 (1.56-6.13) K/mm3 Lymph # (Auto) 1.23 (1.18-3.74) K/mm3 [place] # (Auto) 0.99 H (0.24-0.36) K/mm3 Eos # (Auto) 0.09 (0.04-0.36) K/mm3 Baso # (Auto) 0.02 (0.01-0.08) K/mm3 D-Dimer, Quantitative 0.52 H (0.19-0.50) mg/L Sodium 134 L (136-145) mEq/L Potassium 3.4 L (3.5-5.1) mEq/L Chloride 95 L (98-107) mEq/L Carbon Dioxide 28 (21-32) mEq/L Anion Gap 14.4 (5-15) BUN 14 (7-18) mg/dL Creatinine 1.0 (0.55-1.02) mg/dL Est Cr Clr Drug Dosing 67.89 mL/min Estimated GFR (MDRD) 59 (>60) mL/min BUN/Creatinine Ratio 14.0 (14-18) Glucose 316 H (70-99) mg/dL Calcium 9.2 (8.5-10.1) mg/dL Total Bilirubin 0.2 (0.2-1.0) mg/dL AST 16 (15-37) U/L ALT 18 (14-59) U/L Alkaline Phosphatase 110 (46-116) U/L Total Protein 8.1 (6.4-8.2) g/dl Albumin 3.6 (3.4-5.0) g/dl Globulin 4.5 gm/dL Albumin/Globulin Ratio 0.8 L (1-2) - Re-Assessments/Exams Free Text/Narrative Re-Assessment/Exam: 09/05/21 15:50 D Dimer 0.52. That reading rules out a significant DVT process either leg. Covid screen has been ordered. normal WBC, Glucose 316. I was informed about 10 minutes ago that patient left AMA for unknown reasons. Departure - Departure Time of Disposition: 15:51 Disposition: Home, Self-Care 01 Condition: Fair Clinical Impression: Leg pain, left, Hyperglycemia - Discharge Information Referrals: Jonathan Vides MD [Primary Care Provider] - Forms: ED Department Discharge Sepsis Event Note (ED) - Evaluation Sepsis Screening Result: No Definite Risk - Focused Exam Vital Signs: Vital Signs Temp Pulse Resp BP Pulse Ox 09/05/21 12:39 98.5 F 102 H 18 165/102 H 94 L - My Orders Last 24 Hours: My Active Orders 09/05/21 15:05 CORONAVIRUS COVID-19 CHERYL [[facility]] Stat - Assessment/Plan Last 24 Hours: My Active Orders 09/05/21 15:05 CORONAVIRUS COVID-19 CHERYL [[facility]] Stat
== END 2021-09-05 15:30 | disposition home or self-care (01) ==
LOC: JD.ED 12:30
DX: U07.1 COVID-19 (principal); M79.605 Pain in left leg; E11.65 Type 2 diabetes mellitus with hyperglycemia; E78.00 Pure hypercholesterolemia, unspecified; I10 Essential (primary) hypertension; J44.9 Chronic obstructive pulmonary disease, unspecified; K21.9 Gastro-esophageal reflux disease without esophagitis; M19.90 Unspecified osteoarthritis, unspecified site; E66.9 Obesity, unspecified; Z68.38 Body mass index [BMI] 38.0-38.9, adult; Z88.0 Allergy status to penicillin; Z88.1 Allergy status to other antibiotic agents; Z91.018 Allergy to other foods; Z88.8 Allergy status to other drugs, medicaments and biological substances; Z79.01 Long term (current) use of anticoagulants; Z79.4 Long term (current) use of insulin; Z79.899 Other long term (current) drug therapy
CPT/HCPCS: 36415; 80053; 85025; 85379; 99283; U0002

== ENCOUNTER 2022-03-27 13:16 | Emergency (ER) | payer MEDICARE, MEDICAID ==
[2022-03-27] MEDS ORDERED: Acetaminophen 325 MG Tab PO ONE (15:09)
== END 2022-03-27 17:00 | disposition home or self-care (01) ==
LOC: JD.ED 13:16
DX: M79.671 Pain in right foot (principal); E78.00 Pure hypercholesterolemia, unspecified; I10 Essential (primary) hypertension; J44.9 Chronic obstructive pulmonary disease, unspecified; E11.9 Type 2 diabetes mellitus without complications; E66.9 Obesity, unspecified; Z88.0 Allergy status to penicillin; Z91.018 Allergy to other foods; Z88.5 Allergy status to narcotic agent; Z88.1 Allergy status to other antibiotic agents; Z79.01 Long term (current) use of anticoagulants; Z79.899 Other long term (current) drug therapy; Z68.37 Body mass index [BMI] 37.0-37.9, adult
CPT/HCPCS: 36415; 73630; 80053; 83605; 85025; 86140; 99283; A9270